=== PATIENT | female | born 1950 | race African-American/Black ===

== ENCOUNTER 2025-04-04 08:54 | Inpatient (IN) | payer MEDICARE, SELFPAY ==
--- OUTSIDE RECORDS SUMMARY | 2013-04-07 10:29 | XMS_ITS | Continuity of Care Document ---
Author Organization [facility] [employer] Address [address] [place] [address] Phone Care Team Providers Care Meter Tester Primary Name Role Phone Yas Fonseca MD Unavailable Unavailabl e Allergies, Adverse Reactions, Alerts Substance Reaction Status Criticality MANDEEP Inhibitors Other Active No Informatio n Medications Medication Instructions Dosage Effective Dates (start - stop) Status Comments Norvasc 10 mg Tab take 1 tablet (10MG) by oral route every day 10 MG - Active Coreg CR 40 mg 24 hr Cap take 1 capsule (40MG) by oral route every day 40 MG - Active Bystolic 10 mg Tab take 1 tablet (10MG) by oral route every day 10 MG - Active loratadine 10 mg capsule USE DAILY NEEDED - Active hydralazine 100 mg tablet take 1 tablet (100MG) by oral route 3 times every day with food 100 MG - Active clonidine 0.2 mg Tab take 1 tablet (0.2MG) by oral route 3 times every day 0.2 MG - Active DR DOCKERY Klor-Con 10 10 mEq tablet,extended release take 3 Tablet (30MEQ) by oral route 2 times every day with food 30 MEQ - Active Lasix 80 mg Tab take 1 tablet (80MG) by oral route 2 times every day 80 MG - Active NAHED INCREASED 06/16 OS-JAMA 500 1.25G TABS 1 BID - Active metolazone 5 mg tablet take 1 tablet (5MG) by oral route every day 5 MG - Active Diovan 320 mg Tab take 1 tablet (320MG) by oral route every day 320 MG - Active Advance Directives Directive Yes / No Effective Date File Name No Information Encounters Encounter Description Practice Location Reason(s) For Visit Diagnoses Date Provider Providers Copied on Encounter Col[facility] [address], [place], [place], [address] , tel: [phone] [place] No Information 3 Fonseca Yas. [address] [place], [place], [id number]. tel:[phone] Col[facility] Montgomery, [address], [place], [place], [address] , [place] tel: [phone] [place] No Information 3 Fonseca Yas. [address] [place], [place], [id number]. tel:[phone] [facility], [address], [place], [place], [address] , [place] tel: [phone] [place] No Information 0 3 Fonseca Yas. [address] [place], [address]. tel:[phone] [facility], [address], [place], [place], [address] , [place] tel: [phone] [place] No Information 3 Fonseca Yas. [address] [place], [address]. tel:[phone] [facility], [address], [place], [place], [address] , [place] tel: [phone] [place] No Information 3 Fonseca Yas. [address] [place], [address]. tel:[phone] [facility], [address], [place], [place], [address] , [place] tel: [phone] [place] Routine general medical examination at a health care facilityChronic kidney disease, stage III (moderate)Hypertens ion, renalRoutine general medical examination at a health care facility 3 Fonseca Yas. [address] [place], [place], [address]. tel:[phone] Referring Provider: Yas Fonseca, [address] [place], [address] . tel:[phone] [facility], [address], [place], [place], [address] , tel: [phone] [place] Unspecified essential hypertensionOTHER ABNORMAL GLUCOSEScreening for lipoid disordersLong-term (current) use of other medications 0 3 Fonseca Yas. [address] [place], [address]. tel:[phone] Referring Provider: Yas Fonseca, [address] [place], [address] . tel:[phone] [facility], [address], [place], [place], [address] , tel: [phone] [place] HYPERTENSION NOSMORBID OBESITYAORTIC ATHEROSCLEROSISRena l insufficiencyPre-di abetes 2 Raymundo Arnoldh. [address] [place], [address]. tel:[phone] Referring Provider: Yas Fonseca, [place], [address] . tel:[phone] [facility], [address], [place], [place], [address] , tel: [phone] [place] Unspecified essential hypertensionLong-te rm (current) use of other medications 2 Fonsecaulisses Arnoldh. [address] [place], [address]. tel:[phone] Referring Provider: [place], [address] . tel:[phone] [facility], [address], [place], [place], [address] , tel: [phone] [place] Unspecified essential hypertension 2 Raymundo Arnoldh. [address] [place], [place], [address]. tel:[phone] Referring Provider: Yas Fonseca, [address] [place], [address] . tel:[phone] [facility], [address], [place], [place], [address] , tel: [phone] [place] No Information May-0 7-201 2 Fonseca Yas. [address] [place], [place], [address]. tel:[phone] Referring Provider: Yas Fonseca, [address] [place], [address] . tel:[phone] [facility], [address], [place], [place], [address] , tel: [phone] [place] Unspecified essential hypertensionMORBID OBESITY Feb-0 2-201 2 Raymundo Sorenson. [address] [place], [address]. tel:[phone] Referring Provider: Yas Fonseca, [address] [place], [address] . tel:[phone] [facility], [address], [place], [place], [address] , [place] tel: [phone] [place] HYPERTENSION NOS Dec-2 2-201 1 Fonseca Yas. [address] [place], [address]. tel:[phone] Referring Provider: Yas Fonseca, [address] [place], [address] . tel:[phone] [facility], [address], [place], [place], [address] , tel: [phone] [place] Unspecified essential hypertensionUnspeci fied essential hypertensionMORBID OBESITY Nov-3 0-201 1 Raymundo Sorenson. [address] [place], [address]. tel:[phone] Referring Provider: Yas Fonseca, [address] [place], [address] . tel:[phone] [facility], [address], [place], [place], [address] , [place] tel: [phone] [place] Allergic rhinitis, cause unspecified 1 Raymundo Yas. [address] [place], [place], [address]. tel:[phone] Referring Provider: Yas Fonseca, [address] [place], [address] . tel:[phone] [facility], [address], [place], [place], [address] , [place] tel: [phone] [place] Screening for lipoid disordersNEED FOR PROPHYLACTIC VACCINATION AND INOCULATION, INFLUENZA 1 Fonseca Yas. [address] [place], [address]. tel:[phone] Referring Provider: Yas Fonseca, [address] [place], [address] . tel:[phone] [facility], [address], [place], [place], [address] , [place] tel: [phone] [place] No Information 1 Fonseca Yas. [address] [place], [place], [address]. tel:[phone] [facility], [address], [place], [place], [address] , [place] tel: [phone] [place] HYPERTENSION NOS 1 Fonseca Yas. [address] [place], [place], [address]. tel:[phone] [facility], [address], [place], [place], [address] , [place] tel: [phone] [place] MORBID OBESITY 1 Raymundo Arnoldh. [address] [place], [address]. tel:[phone] [facility], [address], [place], [place], [address] , [place] tel: [phone] [facility] AORTIC ATHEROSCLEROSISESOP HAGEAL REFLUXALLERGIC RHINITIS NOS 1 Raymundo Arnoldh. [address] [place], [address]. tel:[phone] [facility], [address], [place], [place], [address] , tel: [phone] [place] ROUTINE MEDICAL EXAM 0 Raymundo Goinsorah. [address] [place], [address]. tel:[phone] [facility], [address], [place], [place], [address] , tel: [phone] [place] No Information 5 Raymundo Arnoldh. [address] [place], [address]. tel: [phone] [facility], [address], [place], [place], [address] , tel: [phone] [place] VACCIN FOR INFLUENZA 3 [facility] Doctor. [address] [place] [address], [address], . Family History Family Member Type Diagnosis Age At Onset Mother Problem (finding) osteoarthritis Mother Problem (finding) Obesity Mother Problem (finding) migraine Mother Problem (finding) hypertension Immunizations Vaccine Date Status Comments Flu (split) (3 yrs or older) administered Note: [facility] 41224-382-23 ; Source: New Immunization Record Flu (split) (3 yrs or older) administered Source: New Immunization Record 70964 - Influenza administered Source: [place] Unspecified 65316 - Influenza administered Source: [place] Unspecified Payers Payer name Insurance type Covered constitution party ID Authorjocelynea tiyosvany(s) [facility] [id number] Social History Type Description Quantity Date Captured Comments Alcohol Use Details Unknown Caffeine Use Details Unknown Tobacco Use Status No Information Smoking Status No Information Sex Female Chief Complaint And Reason For Visit No Information Reason For Referral Reason For Referral No Information History Of Present Illness Encounter Date Complaint History Of Prese nt Illness No Information Functional Status Date Functional Assessmen t No Information Instructions Date Instruction Additional Infor mation No Information Assessments Type Assessment Date No Information Patient Care Teams Name Effective Dates (start - stop) Status Members No Information
[2025-04-04] VITALS (75 sets, daily range): BP systolic 98–142; BP diastolic 41–99; PULSE 29–91; RESP 16–28; TEMP 27.9–36; O2SAT 90–97; BMI 48.6
--- NOTE | 2025-04-04 | ECHO_ITS ---
Patient Info Name: Yolanda Dupont Age: 74 years : 1950 Gender: Female Ht: 67 in Wt: 305 lbs BSA: 2.63 m2 HR: 35 bpm BP: 121 / 94 mmHg Heart Rhythm: Bradycardia Technical Quality: Good Exam Date: 04/04/2025 3:49 PM Patient Status: I Admit Date: 04/04/2025 Exam Type: CA echo dop color flow w con Complete two-dimensional, color flow and Doppler transthoracic echocardiogram is performed with contrast to opacify the left ventricle and to improve the deliniation of the left ventricle endocardial borders. Staff Referring Physician: Aniceto Stahl MD [employer] Lead: Deneen Hendrickson Attending Provider: Hema Snow Contrast/Agitated Saline Contrast/Ag. Saline: Definity Amount: 2.00 ml Administered By: Deneen Hendrickson Existing IV Access: Yes IV Access Condition: patent with no signs of infiltration Summary 1. Left ventricular systolic function is normal, estimated at 60-65. 2. The left ventricular diastolic function is abnormal. 3. Right ventricular chamber dimension is moderately enlarged. 4. Right ventricular systolic function is normal. 5. Left atrial chamber dimension is mildly enlarged. 6. Right atrial chamber dimension is severely enlarged. 7. There is mild mitral valve regurgitation. 8. There is moderate tricuspid valve regurgitation. 9. Moderate pulmonary hypertension, estimated pulmonary arterial systolic pressure is 48 mmHg. 10. There is mild pulmonic regurgitation. Left Ventricle Left ventricular chamber dimension is normal. Left ventricular systolic function is normal, estimated at 60-65. There is no increased left ventricular wall thickness. Left ventricular septal wall motion is normal. The left ventricular diastolic function is abnormal. Right Ventricle Right ventricular chamber dimension is moderately enlarged. Right ventricular systolic function is normal. Left Atria Left atrial chamber dimension is mildly enlarged. Right Atria Right atrial chamber dimension is severely enlarged. Aortic Valve The aortic valve is trileaflet. There is no aortic valve sclerosis. There is no aortic valve stenosis. There is no aortic valve regurgitation. Pulmonic Valve The pulmonic valve is normal. There is no pulmonic valve stenosis. There is mild pulmonic regurgitation. Mitral Valve The mitral valve has normal leaflets. There is no mitral valve stenosis. There is mild mitral valve regurgitation. Tricuspid Valve The tricuspid valve leaflets are normal. There is no significant tricuspid valve stenosis. There is moderate tricuspid valve regurgitation. Moderate pulmonary hypertension, estimated pulmonary arterial systolic pressure is 48 mmHg. Pericardium/Pleural The pericardium appears normal. There is no pericardial effusion. Inferior Vena Cava Normal inferior vena cava with <50% collapse upon inspiration consistent with elevated right atrial pressure, 15 mmHg. Aorta The aortic root size at the sinus of Valsalva is normal. The prox ascending aorta size is normal. Left Ventricular Outflow Tract Name Value Normal LVOT 2D LVOT Diameter 1.9 cm LVOT Doppler LVOT Peak Velocity 134 cm/s LVOT Peak Gradient 7 mmHg LVOT Mean Gradient 3 mmHg LVOT VTI 31 cm LVOT VTI/AV VTI Ratio 0.7 LVOT Stroke Volume 91 ml LVOT CO 3.2 l/min LVOT CI 1.2 l/min/m2 Pulmonic Valve Name Value Normal RVOT Doppler RVOT Peak Velocity 93 cm/s RVOT Peak Gradient 3 mmHg PV Doppler PV Peak Velocity 149 cm/s PV Peak Gradient 9 mmHg Mitral Valve Name Value Normal MV Doppler MV Peak Gradient 7 mmHg MV Mean Gradient 2 mmHg MV Area (Cont Eq VTI) 2.7 cm2 MV Diastolic Function MV E Peak Velocity 132 cm/s MV A Peak Velocity 1 cm/s MV E/A 98.1 MV Decel Time (PW) 340 ms MV Annular TDI MV E/e' (Septal) 20.4 MV E/e' (Lateral) 15.6 MV E/e' (Average) 18.0 Tricuspid Valve Name Value Normal TV Regurgitation Doppler TR Peak Velocity 285 cm/s TR Peak Gradient 33 mmHg Estimated PAP/RSVP RA Pressure 15 mmHg <=5 PA Systolic Pressure 48 mmHg <36 RV Systolic Pressure 48 mmHg <36 TV Annular TDI TV Lateral Sowmya s' Velocity 9.7 cm/s >=9.5 Aorta Name Value Normal Ascending Aorta Ao Root Diameter (MM) 2.8 cm Ao Root Diam Index (MM) 1.0 cm/m2 Aortic Valve Name Value Normal AV Doppler AV Peak Velocity 156 cm/s AV Peak Gradient 10 mmHg AV Mean Gradient 5 mmHg AV VTI 41 cm AV Area (Cont Eq VTI) 2.2 cm2 >=3.0 AV Area (Cont Eq Paulo) 2.6 cm2 AV DI (Paulo) 0.86 AV Regurgitation 2D LVOT Area 3.0 cm2 Ventricles Name Value Normal LV Dimensions 2D/MM IVS Diastolic Thickness (2D) 1.2 cm 0.6-1.0 LVID Diastole (2D) 5.7 cm 3.8-5.2 LVIW Diastolic Thickness (2D) 1.2 cm 0.6-0.9 LVID Systole (2D) 3.2 cm 2.2-3.5 LVOT Diameter 1.9 cm LV Mass (2D Cubed) 284.41 g 67.00-162.00 LV Mass Index (2D Cubed) 108 g/m2 43-95 Relative Wall Thickness (2D) 0.43 <=0.42 LV Fractional Shortening/Ejection Fraction 2D/MM LV Fractional Shortening (2D) 44 % 27-45 LV EF (2D Teichholz) 74 % LV Diastolic Volume (4C MOD) 110 ml LV EF (4C MOD) 78 % LV Diastolic Volume (2C MOD) 108 ml LV EF (2C MOD) 71 % LV Diastolic Volume (BP MOD) 109 ml 46-106 LV Diastolic Volume Index (BP MOD) 41 ml/m2 29-61 LV Systolic Volume (BP MOD) 28 ml 14-42 LV Systolic Volume Index (BP MOD) 11 ml/m2 8-24 LV EF (BP MOD) 74 % 54-74 LV Diastolic Length (4C) 8.1 cm LV Systolic Length (4C) 6.0 cm LV Stroke Volume (4C MOD) 85 ml Atria Name Value Normal LA Dimensions LA Dimension (MM) 5.5 cm 2.7-3.8 LA Volume (4C A-L) 127 ml LA Volume (BP A-L) 147 ml RA Dimensions RA Area (4C) 38.2 cm2 <=18.0 Report Signatures
--- NOTE | ~2025-04-04 | CT_ITS ---
CHEST ABDOMEN PELVIS WITHOUT CONTRAST CLINICAL HISTORY: Hematuria, CHF, ? Pneumonia, Obese . COMPARISON: Chest x-ray today TECHNIQUE: Helical CT performed from thoracic inlet to symphysis pubis Coronal, sagittal reformats CT images acquired with automatic exposure control for dose reduction DLP: 1949 mGy-cm FINDINGS: CHEST- Lungs/Pleura: Scattered foci bilateral airspace disease. Large pleural effusions. Bibasilar atelectasis. Thoracic Aorta: No aneurysm. Pulmonary arteries: Prominent. Heart: Cardiomegaly. Coronary artery calcifications. Tracheobronchial tree: Right basilar occlusive foci. Nodes: No enlarged nodes. Small hilar calcification. Bones: No acute bony abnormality. Soft tissues: Thyroid nodules. ABDOMEN/PELVIS- Liver: Enlarged. Nodular surface. Gallbladder: Contracted and/or absent. Spleen: Unremarkable. Pancreas: Unremarkable. Adrenal glands: Unremarkable. Kidneys: Horseshoe kidney. Right kidney- No hydronephrosis. No renal stones. Large cyst. Left kidney- No hydronephrosis. No renal stones. Large cyst. Distal esophagus/stomach: Unremarkable. Small bowel loops: Normal caliber and wall thickness. Colon: Normal caliber and wall thickness. Appendix not seen. Stool-filled rectum. Nodes: No enlarged nodes. Peritoneum: No ascites. No free air. Urinary bladder: Collapsed around Yadav catheter. Uterus: Removed. Adnexa: No masses. Bones: No acute bony abnormality. Soft tissues: Body wall anasarca. Aorta: No aneurysm. IVC: Unremarkable. IMPRESSION: CHEST- 1. Pulmonary edema and/or multifocal pneumonia. 2. Large pleural effusions. ABDOMEN/PELVIS- 1. No acute abnormality. Reviewed, dictated and finalized at location R. UITWARE BRUSHER
--- NOTE | ~2025-04-04 | XR_ITS ---
EXAMINATION: XR chest 1V portable COMPARISON: No comparisons available. HISTORY: shortness of breath FINDINGS: Moderate pulmonary venous congestion. Bilateral infiltrates. No pneumothorax. Moderate cardiomegaly. Mediastinal and hilar contours are within normal limits. Bony thorax no acute abnormality. Miscellaneous: None Impression: Bilateral pneumonia superimposed on probable CHF. Reviewed, dictated and finalized at location P. NING MANAGER Impression: Bilateral pneumonia superimposed on probable CHF.
--- NOTE | ~2025-04-04 | XR_ITS ---
EXAMINATION: XR chest PICC line DATE: 04/04/2025 15:44 INDICATION: PICC line placement TECHNIQUE: frontal view of the chest was obtained. COMPARISON: Chest radiograph and CT dated 04/04/2025 FINDINGS: Interval placement of a right upper extremity peripherally inserted central venous catheter (PICC) tip at the superior cavoatrial junction. Again seen are perihilar predominant interstitial and airspace opacities with some worsening opacities in bilateral lower lung zones. Small bilateral pleural effusions seen on earlier CT are not clearly discernible on the current radiograph. No pneumothorax. Cardiomegaly. IMPRESSION: 1. Right upper 70 PICC line tip in expected position at the superior cavoatrial junction. 2. Perihilar and lower lung predominant interstitial and airspace opacities with increase in the lower lung zones which could represent worsening pulmonary edema and/or pneumonia. Reviewed, dictated and finalized at location A. GAUGER IMPRESSION: 1. Right upper 70 PICC line tip in expected position at the superior cavoatrial junction. 2. Perihilar and lower lung predominant interstitial and airspace opacities wit h increase in the lower lung zones which could represent worsening pulmonary ed abby and/or pneumonia.
--- NOTE | ~2025-04-04 | CT_ITS ---
EXAMINATION: CT brain wo con DATE: 04/04/2025 09:49 INDICATION: Altered mental status. TECHNIQUE: Computed tomography (CT) of the head was performed without intravenous contrast. The mA was adjusted according to patient size. Iterative reconstruction technique was employed. The dose-length product was 1416.41 mGy-cm. COMPARISON: None FINDINGS: There are scattered areas of low attenuation in the cerebral white matter. There is no intracranial hemorrhage, acute infarction, or abnormal intracranial mass lesion. The ventricles are normal in size. There is mild mucosal thickening in the paranasal sinuses. The orbits are normal. The mastoid air cells are normal. IMPRESSION: 1. Moderate nonspecific cerebral white matter disease, which likely represents chronic small vessel ischemic disease. Reviewed, dictated and finalized at location E. STANT STORE LEADER
--- NOTE | ~2025-04-04 | XR_ITS ---
EXAMINATION: XR chest 1V portable COMPARISON: No comparisons available. HISTORY: 24 hours post pacemaker insertion FINDINGS: Moderate pulmonary venous congestion. No pneumothorax. Moderate cardiomegaly. Mediastinal and hilar contours are within normal limits. Bony thorax no acute abnormality. Miscellaneous: Left pacemaker. Right PICC line terminates in the SVC. Impression: CHF. No pneumothorax Reviewed, dictated and finalized at location P. RICAL CONTROL TOOL PROGRAMMER Impression: CHF. No pneumothorax
--- NOTE | ~2025-04-04 | XR_ITS ---
EXAMINATION: XR chest 1V portable COMPARISON: No comparisons available. HISTORY: pulmonary edema FINDINGS: Moderate pulmonary venous congestion. No pneumothorax. Moderate cardiomegaly. Mediastinal and hilar contours are within normal limits. Bony thorax no acute abnormality. Miscellaneous: Right PICC line terminates in the SVC. Impression: CHF. The findings appear slightly improved compared to the previous study. Reviewed, dictated and finalized at location P. Y RECORD CLERK Impression: CHF. The findings appear slightly improved compared to the previous study.
--- NOTE | ~2025-04-04 | XR_ITS ---
EXAMINATION: XR chest 1V portable COMPARISON: No comparisons available. HISTORY: coarse lung sounds FINDINGS: Moderate pulmonary venous congestion. No pneumothorax. Moderate cardiomegaly. Mediastinal and hilar contours are within normal limits. Bony thorax no acute abnormality. Miscellaneous: Left pacemaker. Right PICC line in the SVC. Impression: CHF. Superimposed early pneumonia versus reactive. The findings appear progressed compared to the prior study Reviewed, dictated and finalized at location P. COPY EXAMINER Impression: CHF. Superimposed early pneumonia versus reactive. The findings appear progress ed compared to the prior study
--- NOTE | ~2025-04-04 | XR_ITS ---
EXAMINATION: XR chest 1V portable COMPARISON: No comparisons available. HISTORY: pacemaker insertion FINDINGS: Moderate pulmonary venous congestion. Bilateral infiltrates. No pneumothorax. Moderate cardiomegaly. Mediastinal and hilar contours are within normal limits. Bony thorax no acute abnormality. Miscellaneous: Left pacemaker. Right PICC line in the SVC. Impression: CHF. No pneumothorax. Superimposed pneumonia is suspected Reviewed, dictated and finalized at location P. BUSINESS ANALYST Impression: CHF. No pneumothorax. Superimposed pneumonia is suspected
--- NOTE | 2025-04-04 09:08 | ECG_ITS ---
Test Date: 2025-04-04 09:54:48 Measurements Intervals [place] Rate: 29 P: 0 TX: 0 QRS: 42 QRSD: 121 T: 51 QT: 674 QTc: 471 Interpretive Statements ATRIAL FIBRILLATION WITH VERY SLOW VENTRICULAR RESPONSE INCOMPLETE LEFT BUNDLE BRANCH BLOCK BASELINE ARTIFACT- I, II, III, AVR, AVL, AVF, V1-V4 ABNORMAL ECG No previous ECG available for comparison Electronically Signed On 04-04-2025 10:48:25 [employer] by Goldy Arguello D.O.
[2025-04-04] MEDS: IPRATROPIUM 0.5 MG/ALBUTEROL SULFATE 2.5 MG (BASE) AMPUL.NEB 3 ML INHALATION (09:22)
[2025-04-04 09:24] LABS: Immature Granulocyte Percent A 0.7 % (0-0.5); Lymphocytes Absolute Auto 0.36 K/mm3 (0.9-3.2); Mean Corpuscular HGB Conc 30.9 g/dl (32-36); Mean Corpuscular Hemoglobin 33.1 pg (26-34); Mean Corpuscular Volume 107.2 fl (80-100); Nucleated Red Blood Cells Absolute Auto 0.030 K/mm3 (0.0-0.012); Nucleated Red Blood Cells Perc 0.7 % (0.0-0.2); Platelet Count Result 174 k/mm3 (150-375); Red Blood Count 1.81 M/mm3 (4.2-5.4); White Blood Count 4.2 K/mm3 (4.5-10.0)
[2025-04-04 09:26] LABS: Hemoglobin 6.0 g/dL (12.0-15.0)
[2025-04-04 09:27] LABS: Hematocrit 19.4 % (37.0-47.0)
--- NOTE | 2025-04-04 09:44 | ED_ITS ---
HPI - General Adult General Chief complaint: Altered Mental Status Stated complaint: AMS sob Time Seen by Provider: 04/04/25 09:05 History of Present Illness HPI narrative: [facility], she has been having slight shortness of breath, also noticed to have blood in her urine starting today. She has history of AFib on blood thinners. To me she is denying any complaints, no abdominal pain, she does report some very slight shortness of breath. Related Data Allergies Allergy/AdvReac Type Severity Reaction Status Date / Time amoxicillin AdvReac Intermediate Nausea and Verified 04/04/25 09:11 Vomiting ampicillin AdvReac Intermediate Nausea and Verified 04/04/25 09:11 Vomiting Review of Systems 2 Review of Systems: All systems reviewed & are unremarkable except as noted in HPI and below Exam 2 Narrative: EXAMINATION OF ORGAN SYSTEMS/BODY AREAS: Constitutional: Vital signs per nursing GENERAL:[No acute distress, non-toxic appearing.] HEAD: Normal with no signs of head trauma. EYES: EOMI, conjunctiva normal ENT: Hearing grossly intact LUNGS: Nonlabored breathing. Tiny amount of end expiratory wheezing HEART: [Regular rate and rhythm] ABD: [Soft], [nontender to palpation] EXT: Swelling bilateral legs RECTAL: Dark stool, hemoccult + SKIN: [No rashes or lesions.] NEURO: [Alert. No gross focal sensory or strength deficits.] PSYCH: Normal affect Course Vital Signs Vital signs: Vital Signs Pulse Rate 38 L 04/04/25 09:03 Respiratory Rate 16 04/04/25 09:03 Blood Pressure 106/56 L 04/04/25 09:03 Pulse Oximetry 94 04/04/25 09:03 Pulse Rate 57 L 04/04/25 09:30 Respiratory Rate 20 04/04/25 09:30 Blood Pressure 106/56 L 04/04/25 09:03 Pulse Oximetry 94 04/04/25 10:08 Oxygen Delivery Autopap 04/04/25 10:08 Medical Decision Making [facility] Narrative Medical decision making narrative: Patient presents here with some slight shortness of breath, per family she has also seemed a little bit confused. Is currently in [facility]iary due to difficulty with her walking. On exam she is in no distress, very slight wheezing to bilateral lung base. Labs have returned with hemoglobin of 6, for which I ordered transfusion, she did have some slight blood in her urine, her Yadav is changed out, will check for UTI. I did ask about her stools, she has not noticed them being bloody, but family says that they may have been more dark than usual. On exam she does have some slight melena, Hemoccult-positive. She does have a BUN of 115 and creatinine was 2.17 which may also be from the GI bleed. EKG - 12-Lead: Performed at 0954. Interpreted by me. Atrial fibrillation. Rate 29. [Normal] axis. QRS duration 121. QTc 471. Very slight ST depressions in lateral leads. Chest x-ray does show possible CHF with superimposed pneumonia. Antibiotics started. Given her low hemoglobin and the bleeding from her GI tract and , I did obtain a CT brain since she was confused, thankfully unremarkable. Discussed with GI, Cardiology who agreed to consult, discussed with hospitalist for admission. Vital Signs Vital Signs: Vital Signs Pulse Rate 38 L 04/04/25 09:03 Respiratory Rate 16 04/04/25 09:03 Blood Pressure 106/56 L 04/04/25 09:03 Pulse Oximetry 94 04/04/25 09:03 Pulse Rate 57 L 04/04/25 09:30 Respiratory Rate 20 04/04/25 09:30 Blood Pressure 106/56 L 04/04/25 09:03 Pulse Oximetry 94 04/04/25 10:08 Oxygen Delivery Autopap 04/04/25 10:08 Lab Data 04/04/25 09:15 04/04/25 09:15 Labs: Lab Results 04/04/25 04/04/25 Range/Units 09:15 10:05 WBC 4.2 L (4.5-10.0) K/mm3 RBC 1.81 L (4.2-5.4) M/mm3 Hgb 6.0 L* (12.0-15.0) g/dL Hct 19.4 L* (37.0-47.0) % MCV 107.2 H (80-100) fl MCH 33.1 (26-34) pg MCHC 30.9 L (32-36) g/dl RDW 18.4 H (11.5-14.5) % Plt Count 174 (150-375) k/mm3 MPV 10.2 (7.4-10.4) fl Immature Gran % (Auto) 0.7 H (0-0.5) % Neut % (Auto) 81.2 H (45.5-73.1) % Lymph % (Auto) 8.6 L (18.3-44.2) % [place] % (Auto) 6.7 (2.6-8.5) % Eos % (Auto) 2.6 (0-4.4) % Baso % (Auto) 0.2 (0.2-1.2) % Lymph # (Auto) 0.36 L (0.9-3.2) K/mm3 [place]on # (Auto) 0.3 (0.1-0.6) K/mm3 Eos # (Auto) 0.1 (0-0.3) K/mm3 Baso # (Auto) 0.0 (0.0-0.1) K/mm3 Abs Immat Gran (auto) 0.03 (0.00-0.031) K/mm3 Absolute Neuts (auto) 3.4 (1.3-6.7) K/mm3 Absolute Nucleated RBC 0.030 H (0.0-0.012) K/mm3 Band Neutrophils % Not Reportable Nucleated RBC % 0.7 H (0.0-0.2) % Platelet Estimate Adequate (Adequate) Hypochromasia 1+ Anisocytosis 1+ Macrocytosis 1+ (NORMAL) Target Cells Occasional Shara Cells 1+ Schistocytes 1+ Sodium 130 L (137-145) mmol/L Potassium 5.1 H (3.4-5.0) mmol/L Chloride 104 (98-107) mmol/L Carbon Dioxide 14 L (22-30) mmol/L Anion Gap 12 (4-12) mmol/L BUN 115 H* (7-17) mg/dL Creatinine 2.17 H (0.7-1.0) mg/dL Estim Creat Clear Calc 30 ml/min Estimated GFR 22 L (59 - ) Glucose 103 (65-110) mg/dL Calcium 8.8 (8.4-10.2) mg/dL Iron Pending TIBC Pending % Saturation Pending Total Bilirubin 0.4 (0.2-1.3) mg/dL AST 38 H (14-36) U/L ALT 34 (6-35) U/L Alkaline Phosphatase 137 H (38-126) U/L Troponin I 0.014 (0.000-0.034) ng/mL Total Protein 7.3 (6.3-8.2) g/dL Albumin 3.6 (3.5-5.1) g/dL Blood Type Pending Antibody Screen Pending Crossmatch See Detail Critical Care Time Critical Care Time Critical Care Time: Yes Total Critical Care Time: 31 Discharge Plan Discharge Clinical Impression: GI bleed, Anemia, Bradycardia, Pneumonia Patient Disposition: Still a Patient Condition: Serious Patient Language: Mauritanian Follow-up/Referrals: Onur,Antelmo Persaud DO [Primary Care Provider, Unknown]
[2025-04-04 09:48] LABS: Anisocytosis 1+; Burr Cells 1+; Hypochromasia 1+; Macrocytosis 1+ (NORMAL); Target Cells Occasional
[2025-04-04 09:49] LABS: Schistocytes 1+
[2025-04-04 09:58] LABS: Alanine Aminotransferase 34 U/L (6-35); Albumin Level 3.6 g/dL (3.5-5.1); Alkaline Phosphatase 137 U/L (38-126); Anion Gap 12 mmol/L (4-12); Aspartate Amino Transferase 38 U/L (14-36); Bilirubin,Total 0.4 mg/dL (0.2-1.3); Calcium 8.8 mg/dL (8.4-10.2); Carbon Dioxide 14 mmol/L (22-30); Chloride 104 mmol/L (98-107); Estimated CRCL calculation 30 ml/min; Estimated Glomerular Filt Rate 22; Glucose 103 mg/dL (65-110); Potassium 5.1 mmol/L (3.4-5.0); Sodium 130 mmol/L (137-145); Total Protein 7.3 g/dL (6.3-8.2)
[2025-04-04 10:07] LABS: Blood Urea Nitrogen 115 mg/dL (7-17)
--- NOTE | 2025-04-04 10:25 | PM.CNCAR ---
Assessment and Plan Assessment and plan (1) Bradycardia: Code(s): R00.1 - Bradycardia, unspecified Status: Acute Assessment and Plan: She has atrial fibrillation with slow ventricular response, heart rate in the 30's. She is asymptomatic, but her most recent systolic BP is 78 mmHg. Will start dopamine drip at 2.5mcg/kg/min for increased heart rate and blood pressure support if she remains bradycardic and hypotensive, will consider transvenous pacing Need for PPM to be determined by her clinical course ICU for monitoring while titrating dopamine (2) GI bleed: Code(s): K92.2 - Gastrointestinal hemorrhage, unspecified Status: Acute Assessment and Plan: Hold anticoagulation for now. GI has been consulted. Receiving PRBC's. History of Present Illness History of Present Illness Consult date/time: 04/04/25 10:25 Requesting physician: Court George MD Consult reason: Other (bradycardia) Reason For Visit: AMS sob Narrative: Yolanda Dupont is a 74 year old female with coronary artery disease, hypertension, mild pulmonary hypertension, chronic kidney disease who presented to the emergency department because of melena. Cardiology is consulted for bradycardia. The majority of her history was obtained from the patient's daughter who is at the bedside. According to patient's daughter, she was diagnosed with atrial fibrillation in December of this year and has had low heart rate in the 30's for since that time. Apparently she was on amiodarone for a period of time but was taken off of it. Today her EKG and telemetry demonstrate atrial fibrillation with slow ventricular response. She denies any syncope, pre-syncope, chest pain, shortness of breath. She has no active complaints at the time of my evaluation. Review of Systems Review of Systems: All systems reviewed & are unremarkable except as noted in HPI and below PMFSH Past Medical History Medical History (Updated 04/04/25 @ 11:50 by Ilir Gonzalez MD) Coronary artery disease Hyperlipidemia GERD (gastroesophageal reflux disease) Obstructive sleep apnea Essential hypertension Atrial fibrillation Obesity Congestive heart disease Cervical spondylosis Constipation Chronic kidney disease Surgical History Surgical History (Updated 04/04/25 @ 11:49 by Ilir Gonzalez MD) H/O cervical spine surgery Social History Social History Social History: No history of smoking, alcohol use or drug use. Patient is a resident of long term. Meds Home Medications and Allergies Allergies Allergy/AdvReac Type Severity Reaction Status Date / Time amoxicillin AdvReac Intermediate Nausea and Verified 04/04/25 09:11 Vomiting ampicillin AdvReac Intermediate Nausea and Verified 04/04/25 09:11 Vomiting Vital Signs Vital Signs - 24 hr 04/04/25 09:03 04/04/25 09:23 04/04/25 09:30 Pulse Rate 38 L 58 L 57 L Respiratory Rate 16 20 20 Blood Pressure 106/56 L Pulse Oximetry 94 Oxygen Delivery 04/04/25 10:08 Pulse Rate Respiratory Rate Blood Pressure Pulse Oximetry 94 Oxygen Delivery Autopap Exam Const: General: comfortable, no acute distress, alert and awake Orientation/consciousness: patient oriented x3 HENMT: Head: normal to inspection Eyes: General: appearance normal, both eyes and all related structures Pupils: Equal, round and reactive pupils present Neck: Neck: normal visual inspection, supple and no JVD Carotids: normal carotid upstroke Resp: Effort & Inspection: normal respiratory effort Auscultation: rales Cardio: Rate: bradycardic Rhythm: abnormal rhythm irregularly irregular Heart sounds: S1 normal heart sound present, S2 normal heart sound present and no murmurs GI: Auscultation: normal bowel sounds Skin: General skin exam: normal color Neuro: General: patient oriented x3 Cranial nerves: Yes Equal, round and reactive pupils present Extrem: General: abnormal to inspection Other: bilateral lower extremity lymphedema. Knee high MANDEEP wraps in place Psych: Appearance: grossly normal Mental Status: mental status grossly normal Results Labs and Meds 04/04/25 09:15 04/04/25 09:15 Lab results: Cardiac Enzymes 04/04/25 Range/Units 09:15 AST 38 H (14-36) U/L CBC 04/04/25 Range/Units 09:15 WBC 4.2 L (4.5-10.0) K/mm3 RBC 1.81 L (4.2-5.4) M/mm3 Hgb 6.0 L* (12.0-15.0) g/dL Hct 19.4 L* (37.0-47.0) % Plt Count 174 (150-375) k/mm3 Lymph # (Auto) 0.36 L (0.9-3.2) K/mm3 [place] # (Auto) 0.3 (0.1-0.6) K/mm3 Eos # (Auto) 0.1 (0-0.3) K/mm3 Baso # (Auto) 0.0 (0.0-0.1) K/mm3 Comprehensive Metabolic Panel 04/04/25 Range/Units 09:15 Sodium 130 L (137-145) mmol/L Potassium 5.1 H (3.4-5.0) mmol/L Chloride 104 (98-107) mmol/L Carbon Dioxide 14 L (22-30) mmol/L BUN 115 H* (7-17) mg/dL Creatinine 2.17 H (0.7-1.0) mg/dL Glucose 103 (65-110) mg/dL Calcium 8.8 (8.4-10.2) mg/dL AST 38 H (14-36) U/L ALT 34 (6-35) U/L Alkaline Phosphatase 137 H (38-126) U/L Total Protein 7.3 (6.3-8.2) g/dL Albumin 3.6 (3.5-5.1) g/dL Patient Weight 04/04/25 23:59 Weight 138.4 kg
--- OUTSIDE RECORDS SUMMARY | 2025-04-04 10:26 | XMS_ITS | Encounter Summary ---
Author Organization [facility] Facility Care Team Providers Care Granular Operator Name Role Phone Candy Carlton MD Primary Care Provider + [phone] Trevor Ashraf MD Primary Care Provider +[phone] Candy Carlton MD Primary Care Provider + [phone] Candy Carlton MD Primary Care Provider + [phone] Trevor Ashraf MD Primary Care Provider [phone] Trevor Ashraf MD Primary Care Provider +[phone] Trevor Ashraf MD Primary Care Provider [phone] Trevor Ashraf MD Primary Care Provider [phone] Trevor Ashraf MD Primary Care Provider [phone] Trevor Ashraf MD Primary Care Provider [phone] Candy Carlton MD Primary Care Provider + [phone] Trevor Ashraf MD Primary Care Provider [phone] Trevor Ashraf MD Primary Care Provider +[phone] Candy Carlton MD Primary Care Provider + [phone] Candy Carlton MD Primary Care Provider + [phone] Trevor Ashraf MD Unavailable +[phone] Encounter Details Date Type Department Care Team (Latest Contact Info) Description 09/16/2017 Orders Only [facility] Provider, MD Chencho [address] [place] [address] Social History Tobacco Use Types Packs/Day Years Used Date Smoking Tobacco: Never Assessed Comments Unknown Sex and Gender Information Value Date Recorded Sex Assigned at Not on file 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 Historical Provider Final Res ult documented in this encounter Visit Diagnoses Not on filedocumented in this encounter Care Teams Granular Operator Relationship Specialty Start Date End Date Candy Carlton MD [address] [place] [address] PCP - General 07/01/18 07/20/18 Trevor Ashraf MD [address] [place] [address] PCP - General 08/02/18 08/30/18 Candy Carlton MD [address] [place] [address] PCP - General 08/31/18 09/15/18 Candy Carlton MD [address] [place] [address] PCP - General 07/21/18 08/01/18 Trevor Ashraf MD [address] [place] [address] PCP - General 10/02/18 11/23/18 Trevor Ashraf MD [address] [place] [address] PCP - General 09/22/18 10/01/18 Trevor Ashraf MD [address] [place] [address] PCP - General 09/16/18 09/21/18 Trevor Ashraf MD [address] [place] [address] PCP - General 01/02/19 03/28/19 Trevor Ashraf MD [address] [place] [address] PCP - General 12/15/18 01/01/19 Trevor Ashraf MD [address] [place] [address] PCP - General 11/24/18 12/14/18 Candy Carlton MD [address] [place] [address] PCP - General Internal Medicine 03/29/19 04/20/19 Trevor Ashraf MD [address] [place] [address] PCP - General 05/04/19 04/16/20 Trevor Ashraf MD [address] [place] [address] PCP - General 04/21/19 05/03/19 Candy Carlton MD [address] [place] [address] PCP - General 05/08/20 Candy Carlton MD [address] [place] [address] PCP - General 04/17/20 05/07/20 Trevor Ashraf MD [address] [place] [address] Consulting Physician Nephrology 10/01/22 documented as of this encounter
--- OUTSIDE RECORDS SUMMARY | 2025-04-04 10:26 | XMS_ITS | Encounter Summary ---
Author Organization [facility] Facility Care Team Providers Care Case Consultant Name Role Phone Candy Carlton MD Primary Care Provider + [phone] Trevor Ashraf MD Primary Care Provider +[phone] Candy Carlton MD Primary Care Provider + [phone] Candy Carlton MD Primary Care Provider + [phone] Trevor Ashraf MD Primary Care Provider +[phone] Trevor Ashraf MD Primary Care Provider [phone] Trevor Ashraf MD Primary Care Provider [phone] Trevor Ashraf MD Primary Care Provider [phone] Trevor Ashraf MD Primary Care Provider +[phone] Trevor Ashraf MD Primary Care Provider [phone] Candy Carlton MD Primary Care Provider + [phone] Trevor Ashraf MD Primary Care Provider +[phone] Trevor Ashraf MD Primary Care Provider +[phone] Candy Carlton MD Primary Care Provider + [phone] Candy Carlton MD Primary Care Provider + [phone] Trevor Ashraf MD Unavailable +[phone] Encounter Details Date Type Department Care Team (Latest Contact Info) Description 10/26/2015 Orders Only [facility] Provider, MD Chen[facility] [address] [place] [address] Social History Tobacco Use Types Packs/Day Years Used Date Smoking Tobacco: Never Assessed Comments Unknown Sex and Gender Information Value Date Recorded Sex Assigned at Not on file 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 Historical Provider Final Res ult documented in this encounter Visit Diagnoses Not on filedocumented in this encounter Care Teams Case Consultant Relationship Specialty Start Date End Date Candy Carlton MD [address] [place] [address] PCP - General 07/01/18 07/20/18 Trevor Ashraf MD [address] [place] [address] PCP - General 08/02/18 08/30/18 Candy Carlton MD [address] [place] [address] PCP - General 08/31/18 09/15/18 Candy Carlton MD [address] [place] [address] PCP - General 07/21/18 08/01/18 Trevor Ashraf MD [address] [place] [address] PCP - General 10/02/18 11/23/18 Trevor Ashraf MD [address] [place] [address] PCP - General 09/22/18 10/01/18 Trevor Ashraf MD [address] [place] [address] PCP - General 09/16/18 09/21/18 Trevor Ashraf MD [address] [place] [address] PCP - General 01/02/19 03/28/19 Trevor Ashraf MD [address] [place] [address] PCP - General 12/15/18 01/01/19 Trevor Ashraf MD [address] [place] [address] PCP - General 11/24/18 12/14/18 Candy Carlton MD [address] [place] [address] PCP - General Internal Medicine 03/29/19 04/20/19 Trevor Ashraf MD [address] [place] [address] PCP - General 05/04/19 04/16/20 Tervor Ashraf MD [address] [place] [address] PCP - General 04/21/19 05/03/19 Candy Carlton MD [address] [place] [address] PCP - General 05/08/20 Candy Carlton MD [address] [place] [address] PCP - General 04/17/20 05/07/20 Trevor Ashraf MD [address] [place] [address] Consulting Physician Nephrology 10/01/22 documented as of this encounter
--- OUTSIDE RECORDS SUMMARY | 2025-04-04 10:26 | XMS_ITS | Encounter Summary ---
Author Organization [facility] Facility Care Team Providers Care Slate Cutter Operator Name Role Phone Candy Carlton MD Primary Care Provider + [phone] Trevor Ashraf MD Primary Care Provider +[phone] Candy Carlton MD Primary Care Provider + [phone] Candy Carlton MD Primary Care Provider + [phone] Trevor Ashraf MD Primary Care Provider [phone] Trevor Ashraf MD Primary Care Provider [phone] Trevor Ashraf MD Primary Care Provider [phone] Trevor Ashraf MD Primary Care Provider +[phone] Trevor Ashraf MD Primary Care Provider +[phone] Trevor Asharf MD Primary Care Provider [phone] Candy Carlton MD Primary Care Provider + [phone] Trevor Ashraf MD Primary Care Provider [phone] Trevor Ashraf MD Primary Care Provider [phone] Candy Carlton MD Primary Care Provider + [phone] Candy Carlton MD Primary Care Provider + [phone] Trevor Ashraf MD Unavailable +[phone] Encounter Details Date Type Department Care Team (Latest Contact Info) Description 07/11/2017 Orders Only [facility] Provider, MD Chen[facility] [address] [place] [address] Social History Tobacco Use Types Packs/Day Years Used Date Smoking Tobacco: Never Assessed Comments Unknown Sex and Gender Information Value Date Recorded Sex Assigned at Not on file 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 Historical Provider Final Res ult documented in this encounter Visit Diagnoses Not on filedocumented in this encounter Care Teams Slate Cutter Operator Relationship Specialty Start Date End Date Candy Carlton MD [address] [place] [address] PCP - General 07/01/18 07/20/18 Trevor Ashraf MD [address] [place] [address] PCP - General 08/02/18 08/30/18 Candy Carlton MD [address] [place] [address] PCP - General 08/31/18 09/15/18 Candy Carlton MD [address] [place] [address] PCP - General 07/21/18 08/01/18 Trevor Ashraf MD [address] [place] [address] PCP - General 10/02/18 11/23/18 Trevor Ashraf MD [address] [place] [address] PCP - General 09/22/18 10/01/18 Trevor Ashraf MD [address] [place] [address] PCP - General 09/16/18 09/21/18 Trevor Ashraf MD [address] [place] [address] PCP - General 01/02/19 03/28/19 Trevor Ashraf MD [address] [place] [address] PCP - General 12/15/18 01/01/19 Trevor Ashraf MD [address] [place] [address] PCP - General 11/24/18 12/14/18 Candy Carlton MD [address] [place] [address] PCP - General Internal Medicine 03/29/19 04/20/19 Trevor Ashraf MD [address] [place] [address] PCP - General 05/04/19 04/16/20 Trevor Ashraf MD [address] [place] [address] PCP - General 04/21/19 05/03/19 Candy Carlton MD [address] [place] [address] PCP - General 05/08/20 Candy Carlton MD [address] [place] [address] PCP - General 04/17/20 05/07/20 Trevor Ashraf MD [address] [place] [address] Consulting Physician Nephrology 10/01/22 documented as of this encounter
--- OUTSIDE RECORDS SUMMARY | 2025-04-04 10:26 | XMS_ITS | Clinical Summary ---
Author Organization [facility] Address [address] [place] [address] Care Team Providers Care Oss Architect Name Role Phone Candy Carlton MD Primary Care Provider [phone] Trevor Ashraf MD Unavailable [phone] Allergies Active Allergy Reactions Criticality Noted Date Comments Azilsartan Medoxomil Unknown 09/03/2018 intolrance Clarithromycin Nausea only Low 09/03/2018 GI issues Minoxidil Other (See comments) Low 09/03/2018 intolerance Medications amLODIPine (NORVASC) 5 mg tablet Take 1 tablet (5 mg total) by mouth daily Active aspirin 81 mg enteric coated tablet Take 1 tablet (81 mg total) by mouth daily Active fluticasone propionate (FLONASE) 50 mcg/actuation nasal spray Administer 1 spray into each nostril daily as needed Active hydrALAZINE (APRESOLINE) 100 mg tablet Take 0.5 tablets (50 mg total) by mouth 3 (three) times a day Active polyethylene glycol (MIRALAX) 17 gram packet Take 1 packet (17 g total) by mouth daily Active rosuvastatin (CRESTOR) 10 mg tablet Take 1 tablet (10 mg total) by mouth daily Active doxazosin (CARDURA) 8 mg tablet Take 1 tablet (8 mg total) by mouth nightly 90 tablet 3 2 Active docusate sodium (COLACE) 100 mg capsule Take 1 capsule (100 mg total) by mouth 2 (two) times a day 5 Active ferrous sulfate ER 324 mg (65 mg iron) EC tablet Take 1 tablet (324 mg total) by mouth daily Active tamsulosin (FLOMAX) 0.4 mg extended release capsule Take 1 capsule (0.4 mg total) by mouth nightly Active Active Problems Problem Noted Date Diagnosed Date Carpal tunnel syndrome 01/10/2025 Gastroesophageal reflux disease 01/10/2025 Low back pain 01/10/2025 Osteoarthritis 01/10/2025 Acute cystitis without hematuria 01/10/2025 Acute urinary retention 01/10/2025 Assessment & Plan (01/10/2025 2:30 PM CDT): Continue doxazosin 8 mg HS and tamsulosin 0.4 mg daily. A voiding trial will be scheduled. NSTEMI (non-ST elevated myocardial infarction) 0 12/28/2024 Assessment & Plan (01/10/2025 2:27 PM CDT): This is subacute but stable. She should continue her current scripting of aspirin 81 mg daily, rosuvastatin 10 mg daily. 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 This can be done post discharge from [facility]. Lymphedema of lower extremity 07/23/2022 Assessment & Plan (01/10/2025 2:29 PM CDT): She confirms this to be chronic. Continue to monitor Impaired glucose tolerance (oral) 01/02/2021 Mixed hyperlipidemia 01/02/2021 Assessment & Plan (01/28/2025 4:13 PM CDT): Follow heart healthy diet, follow up with primary provider and continue rosuvastatin as scripted Assessment & Plan (01/25/2025 1:21 PM CDT): We will continue rosuvastatin 10 mg daily Vitamin D deficiency, unspecified 01/02/2021 Essential hypertension 01/02/2021 Assessment & Plan (01/28/2025 4:13 PM CDT): Chronic, stable. Follow up with primary provider in the interim continue amlodipine, doxazosin, hydralazine as scripted Assessment & Plan (01/25/2025 1:21 PM CDT): This is chronic and currently stable. We will continue the scripting of amlodipine 5 mg daily, doxazosin 8 mg daily, hydralazine 50 mg p.o. t.i.d. Assessment & Plan (01/24/2025 9:13 PM CDT): Blood pressure stable, continue Norvasc 5 mg daily, hydralazine 50 mg t.i.d., doxazosin 8 mg daily Assessment & Plan (01/17/2025 7:30 PM CDT): Blood pressure well controlled, continue multidrug regimen including amlodipine, doxazosin, hydralazine Assessment & Plan (01/13/2025 10:42 PM CDT): Blood pressure stable, continue hydralazine 50 mg t.i.d., doxazosin 8 mg daily, tamsulosin 0.4 mg daily, amlodipine 5 mg daily Assessment & Plan (01/12/2025 2:20 PM CDT): SBP mildly elevated, DBP, were. We will continue current regimen with amlodipine 5 mg daily, hydralazine 50 mg t.i.d., doxazosin 8 mg daily, tamsulosin 0.4 mg daily Assessment & Plan (01/10/2025 2:31 PM CDT): Monitor serial vital signs for trending. Continue amlodipine 5 mg daily, hydralazine 50 mg p.o. t.i.d.. CKD (chronic kidney disease) stage 4, GFR 15-29 ml/min 09/18/2020 Assessment & Plan (01/28/2025 4:16 PM CDT): Avoid nonsteroidal anti-inflammatory drugs or dehydration. She has a associated chronic anemia. Continue ferrous sulfate 324 mg daily, hold aspirin 81 mg daily til seeing pcp, follow up with primary physician within 10 days Chronic constipation 02/28/2020 Obstructive sleep apnea of adult 06/15/2019 CRD (chronic renal disease), stage III 9 Assessment & Plan (01/25/2025 1:30 PM CDT): Stable, BUN/creatinine 39/1.69 with a GFR of 31 . Assessment & Plan (01/18/2025 2:24 PM CDT): Overall stable, BUN/creatinine 42/1.81, with a GFR of 29 . Patient follows with Nephrology as an outpatient. Dr. Ashraf is remotely following labs, updated today Assessment & Plan (01/14/2025 12:36 PM CDT): Stable, BUN/Cr 40/1.68, GFR 32 Assessment & Plan (01/12/2025 2:18 PM CDT): Stable, BUN/creatinine 41/1.63 with a GFR of 33. Follows with Nephrology as an outpatient. 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 Today she is moving across the street to outpatient infusion for blood transfusion. We will continue the epoetin 40292 units subcutaneous weekly, ferrous sulfate 325 mg daily, and follow up labs are pending tomorrow Assessment & Plan (01/25/2025 1:30 PM CDT): Improved, status post 2 doses of Epogen, 1 unit packed red blood cells yesterday. Current H&H 7.6/25.7. We will start weekly Epogen 38338 units Assessment & Plan (01/18/2025 2:26 PM CDT): H&H stable but remains low, currently 7.0/23.0 Iron: 83, TIBC: 224, B12: 494 . We will remain off heparin. We will place aspirin on hold Updated Dr. Ashraf - will give Epo 10,000 units x 1, follow up lad Friday. Per Dr. Ashraf-pt was receiving routine epo injections in the past Assessment & Plan (01/14/2025 12:37 PM CDT): Stable, but low. H/H 7.1/23.5. Will remain off heparin. Follow up labs next week with iron panel, cbc, and b12 Assessment & Plan (01/12/2025 2:16 PM CDT): Patient with significant drop in hemoglobin, current H&H 7.1/24.2. We will hold heparin. Requested by Nephrology to obtain follow-up labs including iron studies and B12. Localized edema 03/29/2019 Thyroid nodule 04/10/2017 Assessment & Plan (01/10/2025 2:28 PM CDT): But advised of this finding she claimed a prior knowledge in history. 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 Albuminuria 09/25/2015 Encounters Date Type Department Care Team Description 03/04/2025 Orders Only [facility] Nephrology at [address] [place] [phone] Liv Ribeiro MA 02/08/2025 11:21 AM CDT - 02/08/2025 11:59 PM CDT Hospital Encounter [address] [address] Arpit Monroy, JEN Anemia in stage 3b chronic kidney disease (HCC) (Primary Dx) Discharge Disposition: Discharge to home or self care 02/04/[address] [address] Gely Mcbride MA 02/02/2025 Orders Only [address] [address] Mariangel Noland RN 01/31/2025 Telephone [facility] Medical [facility] Post Acute Care [address] [facility] [address], [place] [address] Ai Saldana MA 01/31/2025 Telephone [facility] Gastroenterology at [address] [phone] Trevor Ashraf MD 01/27/2025 NH/SNF Visit [facility] Medical [facility] Post Acute Care [address] [phone] Clovis Santo MD Essential hypertension (Primary Dx); Mixed hyperlipidemia; CKD (chronic kidney disease) stage 4, GFR 15-29 ml/min (HCC); Osteoarthritis, unspecified osteoarthritis type, unspecified site 01/25/2025 Orders Only [facility] Medical [facility] Hospitalists [address] [place] [phone] Alanna Serna PA 01/25/2025 NH/SNF Visit [facility] Medical [facility] Post Acute Care [address] [phone] Alanna Serna PA Anemia in stage 3b chronic kidney disease (HCC) (Primary Dx); Stage 3b chronic kidney disease (HCC); Essential hypertension 01/24/2025 8:00 AM CDT - 01/24/2025 11:59 PM CDT Hospital Encounter [facility] [address] [place] [address] Dorothy Sánchez, JEN Anemia in stage 3b chronic kidney disease (HCC) (Primary Dx) Discharge Disposition: Discharge to home or self care 01/24/2025 NH/SNF Visit [facility] Medical [facility] Post Acute Care [address] [phone] Clovis Santo MD Essential hypertension (Primary Dx); Mixed hyperlipidemia; Anemia in stage 3b chronic kidney disease (HCC) 01/21/2025 Results Follow-Up [facility] Medical [facility] Nephrology at [address] [place] [address] Trevor Ashraf MD CBC without differential, Basic metabolic panel, eGFR 01/21/2025 Orders Only [address] [address] Mariangel Noland, RN 01/21/2025 Orders Only [facility] Medical [facility] Post Acute Care [address] [phone] Alanna Serna PA 01/21/2025 Orders Only [facility] Hospitalists [address] [place] [phone] Alanna Serna PA 01/20/2025 Orders Only [address] [address] Mariangel Noland, JEN 01/18/2025 Orders Only [facility] Hospitalists [address] [place] [phone] Alanna Serna PA 01/18/2025 NH/SNF Visit [facility] Medical [facility] Post Acute Care [address] [phone] Alanna Serna PA Anemia in stage 3b chronic kidney disease (HCC) (Primary Dx); Stage 3b chronic kidney disease (HCC); Essential hypertension 01/14/2025 Results Follow-Up [facility] Group Nephrology at [address] [place] [phone] Trevor Ashraf MD CBC without differential, Basic metabolic panel, eGFR 01/14/2025 Orders Only [facility] Hospitalists [address] [place] [phone] Alanna Serna PA 01/14/2025 NH/SNF Visit [facility] Medical Group Post Acute Care of [address] [phone] Alanna Serna PA Anemia in stage 3b chronic kidney disease (HCC) (Primary Dx); Essential hypertension; Stage 3b chronic kidney disease (HCC) 01/12/2025 Results Follow-Up [facility] Nephrology at [place] [address] [facility] [address] [place] [address] Trevor Ashraf MD CBC without differential, Comprehensive metabolic panel, eGFR 01/12/2025 Orders Only [facility] Hospitalists [address] [place] [phone] Clovis Santo MD 01/12/2025 NH/SNF Visit [facility] Medical [facility] Post Acute Care [address] [phone] Alanna Serna PA Anemia in stage 3b chronic kidney disease (HCC) (Primary Dx); Stage 3b chronic kidney disease (HCC); Essential hypertension 01/10/2025 NH/SNF Visit [facility] Medical [facility] Post Acute Care [address] [phone] Clovis Santo MD NSTEMI (non-ST elevated myocardial infarction) (HCC) (Primary Dx); Thyroid nodule; Stage 3b chronic kidney disease (HCC); Chronic low back pain, unspecified back pain laterality, unspecified whether sciatica present; Osteoarthritis, unspecified osteoarthritis type, unspecified site; Obstructive sleep apnea of adult; Lymphedema of lower extremity; Acute cystitis without hematuria; Acute urinary retention; Essential hypertension from Last 3 Months Surgical History Surgery Date Site/Laterality Comments CHOLECYSTECTOMY TUBAL LIGATION PARTIAL HYSTERECTOMY PAROTIDECTOMY Right HYSTERECTOMY Medical History Medical History Date Comments Chronic kidney disease, stage III (moderate) (HC C) Hypertension Anemia Albuminuria EVERETTE (obstructive sleep apnea) TIA (transient ischemic attack) Arthritis osteo and rheuma toid Family History Medical History Relation Name Comments Hypertension Other Relation Name Status Comments Other Social History Tobacco Use Types Packs/Day Years Used Date Smoking Tobacco: Never Smokeless Tobacco: Never Tobacco Cessation:Counseling Given: Not Answered Alcohol Use Standard Drinks/Week Comments Never 0 (1 standard drink = 0.6 oz pur e alcohol) AUDIT-C Answer Date Recorded Q1: How often do you have a drink containing alc ohol? 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 Gender Identity Not on file Sexual Orientation Not on file Last Filed Vital Signs Vital Sign Reading Time Taken Comments Blood Pressure 148/51 02/08/2025 11:25 AM CDT Pulse 70 02/08/2025 11:25 AM CDT Temperature 36.4 C (97.5 F) 02/08/2025 11:25 AM CDT Respiratory Rate 18 02/08/2025 11:25 AM CDT Oxygen Saturation 100% 02/08/2025 11:25 AM CDT Inhaled Oxygen Concentration - - Weight 111 kg (244 lb 11.4 oz) 01/10/2025 2:24 P M CDT Height 170.2 cm (5' 7) 12/09/2023 12:51 PM CDT Body Mass Index 38.33 12/09/2023 12:51 PM CDT Plan of Treatment Health Maintenance Due Date Last Done Comments Colon Cancer Screening-Colonoscopy 1950 Depression Screening 1949 Fall Risk Assessment 1949 Hepatitis B Screening 1967 Well Visit 65+ 2014 Osteoporosis Screening-Bone Density Scan 10/01/2024 10/01/2022, 08/11/2022, 07/23/2022, Additional history exists DTaP/Tdap/Td Vaccine (2 - Td or Tdap) 12/05/2028 12/05/2018 Hepatitis C Screening Completed 09/16/2017, 016 Pneumococcal vaccine 65+ Completed 019, 08/15/2018, 02/02/2017 Colon Cancer Screening-FIT Discontinued 08/31, 08/30/2018, 08/27/2018, Additional history exists Breast Cancer Screening-Mammogram Discontinued 02/04/2019, 02/04/2019, 12/30/2017, Additional history exists Zoster Vaccine Completed 02/10/2019, 01/2019, 12/05/2018 Influenza Vaccine Completed 02/02/2025, , 02/10/2019, Additional history exists Procedures Procedure Name Priority Date/Time Associated Diagnosis Comments EGFR Routine 01/25/2025 4:38 AM CDT BASIC METABOLIC PANEL Routine 01/25/2025 4:38 AM CDT CBC WITHOUT DIFFERENTIAL Routine 01/25/2025 4:38 AM CDT TRANSFUSE RED BLOOD CELLS Timed 01/24/2025 9:56 AM CDT Anemia in stage 3b chronic kidney disease (HCC) PREPARE RBC Timed 01/24/2025 9:45 AM CDT Anemia in stage 3b chronic kidney disease (HCC) B ABO / RH CONFIRMATION TESTING STAT 01/24/2025 9:12 AM CDT CROSSMATCH Timed 01/24/2025 8:52 AM CDT Anemia in stage 3b chronic kidney disease (HCC) ANTIBODY SCREEN Timed 01/24/2025 8:52 AM CDT Anemia in stage 3b chronic kidney disease (HCC) ABO/RH Timed 01/24/2025 8:52 AM CDT Anemia in stage 3b chronic kidney disease (HCC) TYPE AND SCREEN Timed 01/24/2025 8:52 AM CDT Anemia in stage 3b chronic kidney disease (HCC) EGFR Routine 01/21/2025 4:31 AM CDT BASIC METABOLIC PANEL Routine 01/21/2025 4:31 AM CDT CBC WITHOUT DIFFERENTIAL Routine 01/21/2025 4:31 AM CDT EGFR Routine 01/18/2025 5:45 AM CDT BASIC METABOLIC PANEL Routine 01/18/2025 5:45 AM CDT IRON PROFILE W/ IBC Routine 01/18/2025 5 :45 AM CDT VITAMIN B12 Routine 01/18/2025 5:45 AM CDT CBC WITHOUT DIFFERENTIAL Routine 01/18/2025 5:45 AM CDT EGFR Routine 01/14/2025 6:37 AM CDT BASIC METABOLIC PANEL Routine 01/14/2025 6:37 AM CDT CBC WITHOUT DIFFERENTIAL Routine 01/14/2025 6:37 AM CDT EGFR Routine 01/12/2025 5:56 AM CDT COMPREHENSIVE METABOLIC PANEL Routine 01/12/2025 5:56 AM CDT CBC WITHOUT DIFFERENTIAL Routine 01/12/2025 5:56 AM CDT DEXA AXIAL SKELETON BONE DENSITY 1 OR MORE SITES Schedule Routine, Read Routine (OP Routine) 10/01/2022 10:57 AM CDT Asymptomatic menopausal state SCREENING MAMMOGRAM BILATERAL W RASHAAD 02/04/2019 11:44 AM CDT OCCULT BLOOD, FECAL (FIT) Routine 08/31/2018 5:30 AM CDT HEPATITIS C ANTIBODY Routine 09/16/2017 12:25 PM CDT from Last 3 Months or Most Recently Relevant to Health Maintenance Results * (ABNORMAL) eGFR (01/25/2025 4:38 AM CDT) eGFR 31(L) >=60 mL/min/1. 73 m2 [facility] Comment: Interpretive Data Reference Interval Normal >/= 90 mL/min/1.73m2 Mildly decreased* 60 - 89 mL/min/1.73m2 Mildly to moderately decreased 45 - 59 mL/min/1.73m2 Moderately to severely decreased 30 - 44 mL/min/1.73m2 Severely decreased 15 - 29 mL/min/1.73m2 Kidney Failure < 15 mL/min/1.73m2 *Relative to young adult level Estimated glomerular filtration rate is determined by the 2020 CKD-EPI equation recommended by the National Kidney Foundation (A Unifying Approach to GFR Estimation: Recommendations of the NKF-ASK Task Force on Reassessing the Inclusion of Race in Diagnosing Kidney Disease, JASN 202). The CKD-EPI equation should not be used for patients with unstable renal function and has not been validated in children and those over 70. Current interpretive data was last reviewed 2021. [facility], [facility] [place]., [address] Blood 01/25/2025 4:38 AM CDT 01/25/2025 6:12 AM CDT us Alanna BERNARDO LAB BLOOD ORDERABLES Final Resu lt [facility] ARCHER [address] [place] [address] [place] [address] * (ABNORMAL) CBC without differential (01/25/2025 4:38 AM CDT) WBC 4.62 3.80 - 9.90 K/cumm WADLO Comment:[address] [address] Hgb 7.6(L) 11.9 - 15.5 g/dL WALDO Comment:[address] [address] Hct 25.7(L) 35.6 - 45.5 % WALDO Comment:[address] [address] Plt 149(L) 150 - 400 K/cumm WALDO Comment:[address] [address] MPV 10.7 9.1 - 12.3 fL [facility]DO Comment:[address] [address] RBC 2.40(L) 3.90 - 5.20 M/cumm WALDO Comment:[address] [address] MCV 107.1(H) 81.3 - 96.4 fL [facility]ALDO Comment:[address] [address] MCH 31.7 27.1 - 33.3 pg [facility]ALDO ARCHER Comment:[address] [address] MCHC 29.6(L) 32.3 - 35.7 g/dL [facility]ALDO ARCHER Comment:[address] [address] RDW CV 16.6(H) 11.1 - 14.9 % WALDO Comment:[address], [address] RDW SD 65.2(H) 35.7 - 48.1 fL [facility] ARCHER Comment:[address], [address] NRBC abs 0.00 0.00 - 0.01 K/cumm [facility]AL[facility] ARCHER Comment:[address], [address] Blood 01/25/2025 4:38 AM CDT 01/25/2025 6:12 AM CDT Alanna BERNARDO LAB BLOOD ORDERABLES Final Resu lt [facility] [address] [facility] Department [place] [address] * (ABNORMAL) Basic metabolic panel (01/25/2025 4:38 AM CDT) Sodium 139 135 - 145 mmol/L WALDO Comment:[address] [address] Potassium, pl 4.4 3.3 - 4.9 mmol/L [facility] Comment:[address], [address] Chloride 110 97 - 110 mmol/L WALDO Comment:[address], [address] CO2 21(L) 22 - 32 mmol/L WALDO Comment:[address], [address] Anion gap 8 2 - 15 mmol/L W[facility]DO Comment:[address], [address] BUN 39(H) 6 - 25 mg/dL [facility]DO ARCHER Comment:[address] [address] Creatinine 1.69(H) 0.60 - 1.10 mg/dL WALDO Comment:[address] [address] Glucose 83 70 - 199 mg/dL [facility] Comment: Interpretive Data Fasting glucose >/= 126 mg/dl is diagnostic for diabetes. Fasting is defined as no caloric intake for at least 8 hours. Fasting glucose between 100 mg/dl to 125 mg/dl is diagnostic of prediabetes. In a patient with classic symptoms of hyperglycemia or hyperglycemic crisis, a random glucose >/= 200 mg/dl is diagnostic for diabetes. In the absence of unequivocal hyperglycemia, results should be confirmed by repeat testing. The classification and Diagnosis of Diabetes Diabetes Care 202; 46: S19-S40. Current interpretive data was last revised 2022. [address] [address] Calcium 9.1 8.5 - 10.3 mg/dL WALDO Comment:[address] [address] Blood 01/25/2025 4:38 AM CDT 01/25/2025 6:12 AM CDT Alanna BERNARDO LAB BLOOD ORDERABLES Final Resu lt Performing Organization Address City/[facility]/ZIP Co de Phone Number [id number] Department [place] [address] * Transfuse RBC (01/24/2025 11:47 AM CDT) Blood Alanna BERNARDO BLOOD TRANSFUSION ORDERABLES Fi nal Result Performing Organization Address City/[facility]/ZIP Co de Phone Number [id number] [place] [address] * Prepare RBC: 1 Units (01/24/2025 9:45 AM CDT) Units requested 1 Units requested Ready [facility] Unit Number [id number] Product code [id number] [facility] Blood Expiration Date [id number] [facility] Product Blood Type (for scanning) 5100 [facility] Product Blood Type OPOS [facility] Dispense Status DISPENSED [facility] Blood 01/24/2025 9:45 AM CDT 01/24/2025 9:45 AM CDT Alanna BERNARDO BLOOD BANK PRODUCT ORDERABLES F inal Result Performing Organization Address City/[facility] Co de Phone Number [address] [place] [address] * ABO / Rh Confirmation Testing (01/24/2025 9:12 AM CDT) ABO/Rh Confirmation O Positive B Blood 01/24/2025 9:12 AM CDT 01/24/2025 9:14 AM CDT Alanna BERNARDO LAB BLOOD ORDERABLES Final Resu lt Performing Organization Address [facility] Co de Phone Number [address] [place] [address] MHB * ABO/Rh (01/24/2025 8:52 AM CDT) ABO/Rh O Positive Blood 01/24/2025 8:52 AM CDT 01/24/2025 8:56 AM CDT Alanna BERNARDO LAB BLOOD BANK TEST ORDERABLES Final Result Performing Organization Address [facility] Co de Phone Number [address] [place] [address] * Crossmatch (01/24/2025 8:52 AM CDT) Crossmatch Compatible [facility] Unit number for crossmatch [id number] [facility] Blood 01/24/2025 8:52 AM CDT 01/24/2025 8:56 AM CDT Dorothy Sánchez RN LAB BLOOD BANK TEST ORD ERABLES Final Result [address] [address] * Antibody screen (01/24/2025 8:52 AM CDT) Guy, indirect, Gel Interpretation Negative ABSC Blood 01/24/2025 8:52 AM CDT 01/24/2025 8:56 AM CDT Alanna Serna PA LAB BLOOD BANK TEST ORDERABLES Final Result Performing Organization Address [facility] Co de Phone Number [address] [address] * (ABNORMAL) eGFR (01/21/2025 4:31 AM CDT) eGFR 29(L) >=60 mL/min/1. 73 m2 [facility] Comment: Interpretive Data Reference Interval Normal >/= 90 mL/min/1.73m2 Mildly decreased* 60 - 89 mL/min/1.73m2 Mildly to moderately decreased 45 - 59 mL/min/1.73m2 Moderately to severely decreased 30 - 44 mL/min/1.73m2 Severely decreased 15 - 29 mL/min/1.73m2 Kidney Failure < 15 mL/min/1.73m2 *Relative to young adult level Estimated glomerular filtration rate is determined by the 2020 CKD-EPI equation recommended by the National Kidney Foundation (A Unifying Approach to GFR Estimation: Recommendations of the NKF-ASK Task Force on Reassessing the Inclusion of Race in Diagnosing Kidney Disease, JASN 2020). The CKD-EPI equation should not be used for patients with unstable renal function and has not been validated in children and those over 70. Current interpretive data was last reviewed 2021. [address] [address] Blood 01/21/2025 4:31 AM CDT 01/21/2025 5:01 AM CDT us Alanna BERNARDO LAB BLOOD ORDERABLES Final Resu lt [facility] [address] [facility] Department [place] [address] * (ABNORMAL) CBC without differential (01/21/2025 4:31 AM CDT) WBC 4.85 3.80 - 9.90 K/cumm WALDO Comment:[address] [address] Hgb 6.8(L) 11.9 - 15.5 g/dL [facility]ALDO Comment:[address], [address] Hct 22.6(L) 35.6 - 45.5 % [facility] Comment:[address] [address] Plt 175 150 - 400 K/cumm WALDO Comment:[address], [address] MPV 10.2 9.1 - 12.3 fL [facility] Comment:[address], [address] RBC 2.08(L) 3.90 - 5.20 M/cumm WALDO Comment:[address] [address] MCV 108.7(H) 81.3 - 96.4 fL [facility]DO Comment:[address] [address] MCH 32.7 27.1 - 33.3 pg CERJAMAAL Comment:[address], [address] MCHC 30.1(L) 32.3 - 35.7 g/dL CERJAMAAL Comment:[address], [address] RDW CV 15.9(H) 11.1 - 14.9 % WALDO Comment:[address], [address] RDW SD 63.7(H) 35.7 - 48.1 fL WALDO Comment:[address], [address] NRBC abs 0.00 0.00 - 0.01 K/cumm WALDO Comment:[address] [address] Blood 01/21/2025 4:31 AM CDT 01/21/2025 5:01 AM CDT us Alanna BERNARDO LAB BLOOD ORDERABLES Final Resu lt WALDO [address] [facility] Department [place] [address] * (ABNORMAL) Basic metabolic panel (01/21/2025 4:31 AM CDT) Sodium 138 135 - 145 mmol/L WALDO Comment:[address] [address] Potassium, pl 4.7 3.3 - 4.9 mmol/L WALDO Comment:[address] [address] Chloride 108 97 - 110 mmol/L WALDO Comment:[address] [address] CO2 20(L) 22 - 32 mmol/L WALDO Comment:[address] [address] Anion gap 10 2 - 15 mmol/L WALDO Comment:[address] [address] BUN 44(H) 6 - 25 mg/dL WALDO Comment:[address] [address] Creatinine 1.82(H) 0.60 - 1.10 mg/dL WALDO Comment:[address] [address] Glucose 91 70 - 199 mg/dL WALDO Comment: Interpretive Data Fasting glucose >/= 126 mg/dl is diagnostic for diabetes. Fasting is defined as no caloric intake for at least 8 hours. Fasting glucose between 100 mg/dl to 125 mg/dl is diagnostic of prediabetes. In a patient with classic symptoms of hyperglycemia or hyperglycemic crisis, a random glucose >/= 200 mg/dl is diagnostic for diabetes. In the absence of unequivocal hyperglycemia, results should be confirmed by repeat testing. The classification and Diagnosis of Diabetes Diabetes Care 2021; 46: S19-S40. Current interpretive data was last revised 2022. [facility], [address] [place] [address]., [address] Calcium 8.9 8.5 - 10.3 mg/dL WALDO ARCHER Comment:[facility], [address] [place]., [address] Blood 01/21/2025 4:31 AM CDT 01/21/2025 5:01 AM CDT Alanna BERNARDO LAB BLOOD ORDERABLES Final Resu lt WALDO ARCHER [address] [place] [address] Department [place] [address] * (ABNORMAL) eGFR (01/18/2025 5:45 AM CDT) eGFR 29(L) >=60 mL/min/1. 73 m2 WALDO ARCHER Comment: Interpretive Data Reference Interval Normal >/= 90 mL/min/1.73m2 Mildly decreased* 60 - 89 mL/min/1.73m2 Mildly to moderately decreased 45 - 59 mL/min/1.73m2 Moderately to severely decreased 30 - 44 mL/min/1.73m2 Severely decreased 15 - 29 mL/min/1.73m2 Kidney Failure < 15 mL/min/1.73m2 *Relative to young adult level Estimated glomerular filtration rate is determined by the 2020 CKD-EPI equation recommended by the National Kidney Foundation (A Unifying Approach to GFR Estimation: Recommendations of the NKF-ASK Task Force on Reassessing the Inclusion of Race in Diagnosing Kidney Disease, JASN 2020). The CKD-EPI equation should not be used for patients with unstable renal function and has not been validated in children and those over 70. Current interpretive data was last reviewed 2021. [facility], [address] [place] [address]., [address] Blood 01/18/2025 5:45 AM CDT 01/18/2025 6:49 AM CDT Alanna BERNARDO LAB BLOOD ORDERABLES Final Resu lt WALDO [address] [facility] [place] [address] * (ABNORMAL) Iron profile w/ IBC (01/18/2025 5:45 AM CDT) Iron 83 35 - 145 mcg/dL WALDO Comment:[address] [address] TIBC 224(L) 250 - 400 mcg/dL WALDO Comment:[address] [address] Transferrin saturation 37 20 - 50 % WALDO Comment:[address] [address] Blood 01/18/2025 5:45 AM CDT 01/18/2025 6:49 AM CDT Alanna BERNARDO LAB BLOOD ORDERABLES Final Resu lt Performing Organization Address [facility] Co de Phone Number WALDO [facility] Department [place] [address] * (ABNORMAL) CBC without differential (01/18/2025 5:45 AM CDT) WBC 4.83 3.80 - 9.90 K/cumm WALDO ARCHER Comment:[address] [address] Hgb 7.0(L) 11.9 - 15.5 g/dL WALDO Comment:[address] [address] Hct 23.0(L) 35.6 - 45.5 % WALDO ARCHER Comment:[address] [address] Plt 205 150 - 400 K/cumm WALDO Comment:[address] [address] MPV 10.3 9.1 - 12.3 fL WALDO ARCHER Comment:[address] [address] RBC 2.14(L) 3.90 - 5.20 M/cumm WALDO Comment:[address] [address] MCV 107.5(H) 81.3 - 96.4 fL WALDO Comment:[address] [address] MCH 32.7 27.1 - 33.3 pg WALDO Comment:[address] [address] MCHC 30.4(L) 32.3 - 35.7 g/dL WALDO Comment:[address] [address] RDW CV 15.7(H) 11.1 - 14.9 % WALDO Comment:[address] [address] RDW SD 62.1(H) 35.7 - 48.1 fL WALDO Comment:[address], [address] NRBC abs 0.00 0.00 - 0.01 K/cumm WALDO Comment:[address] [address] Blood 01/18/2025 5:45 AM CDT 01/18/2025 6:49 AM CDT Alanna BERNARDO LAB BLOOD ORDERABLES Final Resu lt Performing Organization Address City/[facility]/ZIP Co de Phone Number WALDO [address] [facility] Department [place] [address] * Vitamin B12 (01/18/2025 5:45 AM CDT) Vitamin B12 494 230 - 1,250 pg/mL WALDO Comment:[address] [address] Blood 01/18/2025 5:45 AM CDT 01/18/2025 6:49 AM CDT Alanna BERNARDO LAB BLOOD ORDERABLES Final Resu lt WALDO [address] Department [place] [address] * (ABNORMAL) Basic metabolic panel (01/18/2025 5:45 AM CDT) Sodium 137 135 - 145 mmol/L WALDO Comment:[address] [address] Potassium, pl 4.2 3.3 - 4.9 mmol/L WALDO Comment:[address] [address] Chloride 107 97 - 110 mmol/L WALDO Comment:[address] [address] CO2 21(L) 22 - 32 mmol/L WALDO Comment:[address] [address] Anion gap 9 2 - 15 mmol/L WALDO Comment:[address] [address] BUN 42(H) 6 - 25 mg/dL WALDO Comment:[address] [address] Creatinine 1.81(H) 0.60 - 1.10 mg/dL WALDO Comment:[address] [address] Glucose 90 70 - 199 mg/dL WALDO Comment: Interpretive Data Fasting glucose >/= 126 mg/dl is diagnostic for diabetes. Fasting is defined as no caloric intake for at least 8 hours. Fasting glucose between 100 mg/dl to 125 mg/dl is diagnostic of prediabetes. In a patient with classic symptoms of hyperglycemia or hyperglycemic crisis, a random glucose >/= 200 mg/dl is diagnostic for diabetes. In the absence of unequivocal hyperglycemia, results should be confirmed by repeat testing. The classification and Diagnosis of Diabetes Diabetes Care 202; 46: S19-S40. Current interpretive data was last revised 2022. [facility], [address] [place] [address]., [address] Calcium 8.8 8.5 - 10.3 mg/dL WALDO Comment:[address] [address] Blood 01/18/2025 5:45 AM CDT 01/18/2025 6:49 AM CDT Alanna BERNARDO LAB BLOOD ORDERABLES Final Resu lt Performing Organization Address City/[facility] Co de Phone Number WALDO [address] [place] [address] * (ABNORMAL) eGFR (01/14/2025 6:37 AM CDT) eGFR 32(L) >=60 mL/min/1. 73 m2 WALDO Comment: Interpretive Data Reference Interval Normal >/= 90 mL/min/1.73m2 Mildly decreased* 60 - 89 mL/min/1.73m2 Mildly to moderately decreased 45 - 59 mL/min/1.73m2 Moderately to severely decreased 30 - 44 mL/min/1.73m2 Severely decreased 15 - 29 mL/min/1.73m2 Kidney Failure < 15 mL/min/1.73m2 *Relative to young adult level Estimated glomerular filtration rate is determined by the 2020 CKD-EPI equation recommended by the National Kidney Foundation (A Unifying Approach to GFR Estimation: Recommendations of the NKF-ASK Task Force on Reassessing the Inclusion of Race in Diagnosing Kidney Disease, JASN 2020). The CKD-EPI equation should not be used for patients with unstable renal function and has not been validated in children and those over 70. Current interpretive data was last reviewed 2021. [facility], [address] [place] [address]., [address] Blood 01/14/2025 6:37 AM CDT 01/14/2025 7:13 AM CDT Alanna BERNARDO LAB BLOOD ORDERABLES Final Resu lt Performing Organization Address City/[facility]/ZIP Co de Phone Number [address] Department [place] [address] * (ABNORMAL) CBC without differential (01/14/2025 6:37 AM CDT) WBC 5.51 3.80 - 9.90 K/cumm WALDO MH Comment:[address], [address] Hgb 7.1(L) 11.9 - 15.5 g/dL CERNER MH Comment:[address], [address] Hct 23.5(L) 35.6 - 45.5 % CERNER MH Comment:[address], [address] Plt 243 150 - 400 K/cumm CERNER MH Comment:[address], [address] MPV 10.4 9.1 - 12.3 fL CERNER MH Comment:[address], [address] RBC 2.19(L) 3.90 - 5.20 M/cumm CERNER MH Comment:[address], [address] MCV 107.3(H) 81.3 - 96.4 fL CERNER MH Comment:[address], [address] MCH 32.4 27.1 - 33.3 pg CERNER MH Comment:[address], [address] MCHC 30.2(L) 32.3 - 35.7 g/dL CERNER MH Comment:[address], [address] RDW CV 15.9(H) 11.1 - 14.9 % CERNER MH Comment:[address], [address] RDW SD 62.4(H) 35.7 - 48.1 fL CERNER MH Comment:[address], [address] NRBC abs 0.00 0.00 - 0.01 K/cumm CERJAMAAL MH Comment:[address], [address] Blood 01/14/2025 6:37 AM CDT 01/14/2025 7:13 AM CDT us Alanna BERNARDO LAB BLOOD ORDERABLES Final Resu lt CERNER [address] Department [place] [address] * (ABNORMAL) Basic metabolic panel (01/14/2025 6:37 AM CDT) Sodium 136 135 - 145 mmol/L WALDO Comment:[address] [address] Potassium, pl 4.9 3.3 - 4.9 mmol/L WALDO Comment:[address] [address] Chloride 106 97 - 110 mmol/L WALDO Comment:[address] [address] CO2 21(L) 22 - 32 mmol/L WALDO Comment:[address] [address] Anion gap 9 2 - 15 mmol/L WALDO Comment:[address] [address] BUN 40(H) 6 - 25 mg/dL WALDO Comment:[address] [address] Creatinine 1.68(H) 0.60 - 1.10 mg/dL WALDO Comment:[address] [address] Glucose 95 70 - 199 mg/dL WALDO Comment: Interpretive Data Fasting glucose >/= 126 mg/dl is diagnostic for diabetes. Fasting is defined as no caloric intake for at least 8 hours. Fasting glucose between 100 mg/dl to 125 mg/dl is diagnostic of prediabetes. In a patient with classic symptoms of hyperglycemia or hyperglycemic crisis, a random glucose >/= 200 mg/dl is diagnostic for diabetes. In the absence of unequivocal hyperglycemia, results should be confirmed by repeat testing. The classification and Diagnosis of Diabetes Diabetes Care 202; 46: S19-S40. Current interpretive data was last revised 2022. [facility], [address] [place] [address]., [address] Calcium 8.9 8.5 - 10.3 mg/dL WALDO Comment:[address] [address] Blood 01/14/2025 6:37 AM CDT 01/14/2025 7:13 AM CDT us Alanna BERNARDO LAB BLOOD ORDERABLES Final Resu lt Performing Organization Address [facility] Co de Phone Number WALDO [address] [place] [address] * (ABNORMAL) eGFR (01/12/2025 5:56 AM CDT) eGFR 33(L) >=60 mL/min/1. 73 m2 WALDO Comment: Interpretive Data Reference Interval Normal >/= 90 mL/min/1.73m2 Mildly decreased* 60 - 89 mL/min/1.73m2 Mildly to moderately decreased 45 - 59 mL/min/1.73m2 Moderately to severely decreased 30 - 44 mL/min/1.73m2 Severely decreased 15 - 29 mL/min/1.73m2 Kidney Failure < 15 mL/min/1.73m2 *Relative to young adult level Estimated glomerular filtration rate is determined by the 2020 CKD-EPI equation recommended by the National Kidney Foundation (A Unifying Approach to GFR Estimation: Recommendations of the NKF-ASK Task Force on Reassessing the Inclusion of Race in Diagnosing Kidney Disease, JASN 2020). The CKD-EPI equation should not be used for patients with unstable renal function and has not been validated in children and those over 70. Current interpretive data was last reviewed 2021. [facility], [address] [place] [address]., [address] Blood 01/12/2025 5:56 AM CDT 01/12/2025 6:13 AM CDT Clovis Santo MD LAB BLOOD ORDERABLES Final R esult Performing Organization Address [facility]/ZIP Co de Phone Number [address] Department [place] [address] * (ABNORMAL) CBC without differential (01/12/2025 5:56 AM CDT) WBC 6.85 3.80 - 9.90 K/cumm WALDO Comment:[address], [address] Hgb 7.1(L) 11.9 - 15.5 g/dL CERNER MH Comment:[address], [address] Hct 24.2(L) 35.6 - 45.5 % CERNER MH Comment:[address], [address] Plt 246 150 - 400 K/cumm CERNER MH Comment:[address], [address] MPV 10.3 9.1 - 12.3 fL CERNER MH Comment:[address], [address] RBC 2.24(L) 3.90 - 5.20 M/cumm CERNER MH Comment:[address], [address] MCV 108.0(H) 81.3 - 96.4 fL CERNER MH Comment:[address], [address] MCH 31.7 27.1 - 33.3 pg CERNER MH Comment:[address], [address] MCHC 29.3(L) 32.3 - 35.7 g/dL CERNER MH Comment:[address], [address] RDW CV 15.7(H) 11.1 - 14.9 % CERNER MH Comment:[address], [address] RDW SD 62.1(H) 35.7 - 48.1 fL CERNER MH Comment:[address], [address] NRBC abs 0.00 0.00 - 0.01 K/cumm CERJAMAAL Comment:[address], [address] Blood 01/12/2025 5:56 AM CDT 01/12/2025 6:13 AM CDT us Clovis Santo MD LAB BLOOD ORDERABLES Final R esult WALDO [address] Department [place] [address] * (ABNORMAL) Comprehensive metabolic panel (01/12/2025 5:56 AM CDT) Sodium 137 135 - 145 mmol/L WALDO Comment:[address] [address] Potassium, pl 4.5 3.3 - 4.9 mmol/L WALDO Comment:[address] [address] Chloride 106 97 - 110 mmol/L WALDO Comment:[address] [address] CO2 22 22 - 32 mmol/L WALDO Comment:[address] [address] Anion gap 9 2 - 15 mmol/L WALDO Comment:[address] [address] BUN 41(H) 6 - 25 mg/dL WALDO Comment:[address] [address] Creatinine 1.63(H) 0.60 - 1.10 mg/dL WALDO Comment:[address] [address] Glucose 98 70 - 199 mg/dL WALDO Comment: Interpretive Data Fasting glucose >/= 126 mg/dl is diagnostic for diabetes. Fasting is defined as no caloric intake for at least 8 hours. Fasting glucose between 100 mg/dl to 125 mg/dl is diagnostic of prediabetes. In a patient with classic symptoms of hyperglycemia or hyperglycemic crisis, a random glucose >/= 200 mg/dl is diagnostic for diabetes. In the absence of unequivocal hyperglycemia, results should be confirmed by repeat testing. The classification and Diagnosis of Diabetes Diabetes Care 202; 46: S19-S40. Current interpretive data was last revised 2022. [facility], [address] [place] [address]., [address] Calcium 8.8 8.5 - 10.3 mg/dL WALDO Comment:[address] [address] Bilirubin, total 0.4 0.1 - 1.2 mg/dL WALDO Comment:[address] [address] Protein, pl 6.5 6.5 - 8.5 g/dL WALDO Comment:[address] [address] Albumin 3.4(L) 3.5 - 5.0 g/dL WALDO Comment:[address] [address] Alk phos 74 40 - 130 Units/L WALDO Comment:[address] [address] ALT 26 7 - 45 Units/L WALDO Comment:[address] [address] AST 26 10 - 45 Units/L WALDO Comment:[address] [address] Blood 01/12/2025 5:56 AM CDT 01/12/2025 6:13 AM CDT Clovis Santo MD LAB BLOOD ORDERABLES Final R esult [facility] [address] [facility] Department [place] [address] * Dexa Axial Skeleton Bone Density 1 or 2 Site (10/01/2022 10:57 AM CDT) Anatomical Region Laterality Modality Body N/A Mammography 10/01/2022 9:16 PM CDT Narrative 10/01/2022 9:17 PM CDT EXAM DESCRIPTION: DEXA AXIAL SKELETON BONE DENSITY 1 OR MORE SITES REASON FOR STUDY: 72 y/o year old F with given history of screening. 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 IMPRESSION: Normal bone mass. REFERENCE: Bone mineral density: Normal (T-score above or = -1.0) Low bone mass (T-score between -1.0 and -2.5) replaces the previously used term osteopenia Osteoporosis (T-score = or below -2.5) Medical evaluation for secondary causes of low bone mineral density may be appropriate. FRAX is a World Health Organization validated fracture risk assessment tool that calculates a person's 10 year probability of a major osteoporosis related fracture and hip fracture. According to the National Osteoporosis Foundation guidelines, postmenopausal women and men age 50 or older with low bone mass and a 10 year probability of a major osteoporosis related fracture = or greater than 20% or a 10 year probability of a hip fracture = or greater than 3% should be considered for treatment. For further information, including treatment recommendations, please refer to the 2019 ISCD Official Positions (http://www.iscd.org) and the NOF's Clinician's Guide to Prevention and Treatment of Osteoporosis (http://www.nof.org/professionals/clinical-guidelines) THIS IS AN ELECTRONICALLY VERIFIED FINAL REPORT 10/01/2022 9:17 PM - Electronically signed by Asif Ghosh M.D. MF: MARÍA Report ID: [id number] Reading Location: [address] Note Asif Ghosh MD - 10/01/2022 EXAM DESCRIPTION: DEXA AXIAL SKELETON BONE DENSITY 1 OR MORE SITES REASON FOR STUDY: 72 y/o year old F with given history of screening. 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 IMPRESSION: Normal bone mass. REFERENCE: Bone mineral density: Normal (T-score above or = -1.0) Low bone mass (T-score between -1.0 and -2.5) replaces thepreviously used term osteopenia Osteoporosis (T-score = or below -2.5) Medical evaluation for secondary causes of low bone mineral density may be appropriate. FRAX is a World Health Organization validated fracture risk assessmenttool that calculates a person's 10 year probability of a major osteoporosisrelated fracture and hip fracture. According to the National OsteoporosisFoundation guidelines, postmenopausal women and men age 50 or older with low bonemass and a 10 year probability of a major osteoporosis related fracture = or greater than 20% or a 10 year probability of a hip fracture = or greaterthan 3% should be considered for treatment. For further information, including treatment recommendations, please referto the 2019 ISCD Official Positions (http://www.iscd.org) and the NOF's Clinician's Guide to Prevention and Treatment of Osteoporosis (http://www.nof.org/professionals/clinical-guidelines) THIS IS AN ELECTRONICALLY VERIFIED FINAL REPORT 10/01/2022 9:17 PM - Electronically signed by Asif Ghosh M.D. MF: MARÍA Report ID: [id number] Reading Location: [place] [address] Candy Carlton MD IM DXA PROCEDURES Final R esult * Screening Mammogram Bilateral W Rashaad (02/04/2019 11:44 AM CDT) Anatomical Region Laterality Modality Breast Bilateral Mammography 02/04/2019 12:2 7 PM CDT Narrative 02/04/2019 1:43 PM CDT Patient Name: YOLANDA TRAN Ordering Dr: Candy Carlton MD D.O.B: 1950 Exam Date: 02/04/19 1144 Age: 68 Sex: Female MR#: [id number] Loc: RADIOLOGY REPORT Order #[id number] [facility] Estefani Bilat Screening 3D Signed - MG BILATERAL DIGITAL SCREENING MAMMOGRAM 3D/2D WITH MEDIOLATERAL OBLIQUE CRANIOCAUDAL: 02/04/2019 The study was acquired using full field digital technology and interpreted from soft copy. 2D digital mammographic views, as well as 3D digital tomosynthesis were performed in the CC and MLO projections. CLINICAL: Routine mammogram. Denies any problems today. No personal history of breast cancer. No family history of breast cancer. COMPARISONS: Comparison is made to exams dated: 12/30/2017 mammogram - [facility] and 04/08/2016 mammogram - [facility]. BREAST TISSUE: The tissue of both breasts is almost entirely fatty. FINDINGS: No significant masses, calcifications, or other findings are seen in either breast. There has been no significant interval change. IMPRESSION: BI-RAD 1 NEGATIVE There is no mammographic evidence of malignancy. A 1 year screening mammogram is recommended. The patient has been or will be contacted. We recommend annual screening mammography for women at average risk of breast cancer beginning at age 40, based on guidelines of the [place] [employer] (ACR Practice Parameter for the Performance of Screening and Diagnostic Mammography) and [place] [employer]. For women with an elevated risk of breast cancer, please refer to the ACR Practice Parameter for specific screening recommendations. The patient will be entered into a reminder system with a target due date of 1 year for her next screening exam. Electronically signed by: Trevor Ortega M.D., md/penrad:02/04/2019 13:43:09 Crushing Foreman: Tatyana ARITA)([place]), [facility]- [facility] letter sent: Normal Exam Reading location: BI-RADS: 1 Negative REPORT ELECTRONICALLY SIGNED IN OTHER VENDOR SYSTEM Resulting Agency Comment O Procedure Note Trevor Ortega MD - 02/04/2019 Patient Name: YOLANDA TRAN Dr: Candy Carlton MD D.O.B: 1950 Exam Date: 02/04/19 1144 Age: 68 Sex: Female MR#: [id number] Loc: RADIOLOGY REPORT Order #[id number] [facility] Estefani Bilat Screening 3D Signed - MG BILATERAL DIGITAL SCREENING MAMMOGRAM 3D/2D WITH MEDIOLATERAL OBLIQUE CRANIOCAUDAL: 02/04/2019 The study was acquired using full field digital technology andinterpreted from soft copy. 2D digital mammographic views, as well as 3D digital tomosynthesis were performed in the CC and MLO projections. CLINICAL: Routine mammogram. Denies any problems today. No personalhistory of breast cancer. No family history of breast cancer. COMPARISONS: Comparison is made to exams dated: [facility]30/2017 [facility] and 04/08/2016 mammogram - [facility]. BREAST TISSUE: The tissue of both breasts is almost entirely fatty. FINDINGS: No significant masses, calcifications, or other findings areseen in either breast. There has been no significant interval change. IMPRESSION: BI-RAD 1 NEGATIVE There is no mammographic evidence of malignancy. A 1 year screeningmammogram is recommended. The patient has been or will be contacted. We recommend annual screening mammography for women at average risk ofbreast cancer beginning at age 40, based on guidelines of the [place] [employer] (ACR Practice Parameter for the Performance of Screening and Diagnostic Mammography) and [place] [employer]. For women with an elevated risk of breast cancer, pleaserefer to the ACR Practice Parameter for specific screening recommendations. The patient will be entered into a reminder system with a target due dateof 1 year for her next screening exam. Electronically signed by: Trevor Ortega M.D., md/lulu:02/04/2019 13:43:09 Crushing Foreman: Tatyana MULLEN(R)([place]), [facility] letter sent: Normal Exam Reading location: BI-RADS: 1 Negative REPORT ELECTRONICALLY SIGNED IN OTHER VENDOR SYSTEM us Candy Carlton MD IMG MAMMO PROCEDURES Final Result * Occult blood, fecal non neoplasm screening (08/31/2018 5:30 AM CDT) Stool Occult Blood NEGATIVE NEGATIVE [facility] 08/31/2018 5:30 AM CDT 08/31/2018 9:16 AM CDT Narrative Resulting Agency Comment RCR Candy Carlton MD LAB BODY FLUIDS AND STOOLS ORDERABLES Final Result Performing Organization Address [facility] Co de Phone Number [facility] [address] [place], [place] [address] [phone] * Hepatitis C antibody (09/16/2017 12:25 PM CDT) Hep C Ab NONREACT NONREACTIVE Comment: Siemens CentaurXP using CAMACHO (chemiluminescent immunoassay) technology. NONREACTIVE: Antibodies to Hepatitis C not detected. This does not exclude early acute Hepatitis C infection, possibility of exposure to Hepatitis C, antibodies below detection limit, or to lack of antibody reactivity to the antigen used in this assay. EQUIVOCAL: Antibodies to Hepatitis C may or may not be present. Sample to be confirmed by real-time PCR method. REACTIVE: Antibodies to Hepatitis C detected. 09/16/2017 12:2 5 PM CDT 09/16/2017 12:50 PM CDT Trevor Ashraf MD LAB MICROBIOLOGY - GENERAL OR DERABLES Final Result Performing Organization Address [facility] Co de Phone Number [facility] HISTORICAL RESULTS from Last 3 Months or Most Recently Relevant to Health Maintenance Insurance T MEDICARE UHC MEDICARE ADVANTAGE FORMERLY [facility] MEDICARE FORMERLY [facility] MEDICARE Care Teams Oss Architect Relationship Specialty Start Date End Date Candy Carlton MD [address] [place] [phone] (Work) PCP - General 05/08/20 Trevor Ashraf MD [address] [facility] [address] [place] [address] Consulting Physician Nephrology 10/01/22
--- OUTSIDE RECORDS SUMMARY | 2025-04-04 10:26 | XMS_ITS | Encounter Summary ---
Author Organization [facility] Facility Care Team Providers Care Injector Assembler Name Role Phone Candy Carlton MD Primary Care Provider + [phone] Trevor Ashraf MD Primary Care Provider +[phone] Candy Carlton MD Primary Care Provider + [phone] Candy Carlton MD Primary Care Provider + [phone] Trevor Ashraf MD Primary Care Provider [phone] Trevor Ashraf MD Primary Care Provider [phone] Trevor Ashraf MD Primary Care Provider [phone] Trevor Ashraf MD Primary Care Provider [phone] Trevor Ashraf MD Primary Care Provider [phone] Trevor Ashraf MD Primary Care Provider [phone] Candy Carlton MD Primary Care Provider + [phone] Trevor Ashraf MD Primary Care Provider [phone] Trevor Ashraf MD Primary Care Provider [phone] Candy Carlton MD Primary Care Provider + [phone] Candy Carlton MD Primary Care Provider + [phone] Trevor Ashraf MD Unavailable +[phone] Encounter Details Date Type Department Care Team (Latest Contact Info) Description 03/18/2016 Orders Only [facility]IN[facility] Provider, MD Chen[place] [address] [place] [address] Social History Tobacco Use Types Packs/Day Years Used Date Smoking Tobacco: Never Assessed Comments Unknown Sex and Gender Information Value Date Recorded Sex Assigned at Not on file 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 Historical Provider Final Res ult documented in this encounter Visit Diagnoses Not on filedocumented in this encounter Care Teams Injector Assembler Relationship Specialty Start Date End Date Candy Carlton MD [address] [place] [address] PCP - General 07/01/18 07/20/18 Trevor Ashraf MD [address] [place] [address] PCP - General 08/02/18 08/30/18 Candy Carlton MD [address] [place] [address] PCP - General 08/31/18 09/15/18 Candy Carlton MD [address] [place] [address] PCP - General 07/21/18 08/01/18 Trevor Ashraf MD [address] [place] [id number] PCP - General 10/02/18 11/23/18 Trevor Ashraf MD [address] [place] [address] PCP - General 09/22/18 10/01/18 Trevor Ashraf MD [address] [place] [id number] PCP - General 09/16/18 09/21/18 Trevor Ashraf MD [address] [place] [address] PCP - General 01/02/19 03/28/19 Trevor Ashraf MD [address] [place] [address] PCP - General 12/15/18 01/01/19 Trevor Ashraf MD [address] [place] [address] PCP - General 11/24/18 12/14/18 Candy Carlton MD [address] [place] [address] PCP - General Internal Medicine 03/29/19 04/20/19 Trevor Ashraf MD [address] [place] [address] PCP - General 05/04/19 04/16/20 Trevor Ashraf MD [address] [place] [address] PCP - General 04/21/19 05/03/19 Candy Carlton MD [address] [place] [address] PCP - General 05/08/20 Candy Carlton MD [address] [place] [address] PCP - General 04/17/20 05/07/20 Trevor Ashraf MD [address] [place] [address] Consulting Physician Nephrology 10/01/22 documented as of this encounter
--- OUTSIDE RECORDS SUMMARY | 2025-04-04 10:26 | XMS_ITS | Encounter Summary ---
Author Organization [facility] Facility Care Team Providers Care Stave Hewer Name Role Phone Candy Carlton MD Primary Care Provider + [phone] Trevor Ashraf MD Primary Care Provider +[phone] Candy Carlton MD Primary Care Provider + [phone] Candy Carlton MD Primary Care Provider + [phone] Trevor Ashraf MD Primary Care Provider [phone] Trevor Ashraf MD Primary Care Provider +[phone] Trevor Ashraf MD Primary Care Provider [phone] Trevor Ashraf MD Primary Care Provider [phone] Trevor Ashraf MD Primary Care Provider [phone] Trevor Ashraf MD Primary Care Provider [phone] Candy Carlton MD Primary Care Provider + [phone] Trevor Ashraf MD Primary Care Provider +[phone] Trevor Ashraf MD Primary Care Provider +[phone] Candy Carlton MD Primary Care Provider + [phone] Candy Carlton MD Primary Care Provider + [phone] Trevor Ashraf MD Unavailable +[phone] Encounter Details Date Type Department Care Team (Latest Contact Info) Description 02/20/2016 Orders Only [facility] CLINCONV Provider, MD [facility] [address] [place] [address] Social History Tobacco Use Types Packs/Day Years Used Date Smoking Tobacco: Never Assessed Comments Unknown Sex and Gender Information Value Date Recorded Sex Assigned at Not on file 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 Historical Provider Final Res ult documented in this encounter Visit Diagnoses Not on filedocumented in this encounter Care Teams Stave Hewer Relationship Specialty Start Date End Date Candy Carlton MD [address] [place] [address] PCP - General 07/01/18 07/20/18 Trevor Ashraf MD [address] [place] [address] PCP - General 08/02/18 08/30/18 Candy Carlton MD [address] [place] [address] PCP - General 08/31/18 09/15/18 Candy Carlton MD [address] [place] [address] PCP - General 07/21/18 08/01/18 Trevor Ashraf MD [address] [place] [address] PCP - General 10/02/18 11/23/18 Trevor Ashraf MD [address] [place] [address] PCP - General 09/22/18 10/01/18 Trevor Ashraf MD [address] [place] [address] PCP - General 09/16/18 09/21/18 Trevor Ashraf MD [address] [place] [address] PCP - General 01/02/19 03/28/19 Trevor Ashraf MD [address] [place] [address] PCP - General 12/15/18 01/01/19 Trevor Ashraf MD [address] [place] [address] PCP - General 11/24/18 12/14/18 Candy Carlton MD [address] [place] [address] PCP - General Internal Medicine 03/29/19 04/20/19 Trevor Ashraf MD [address] [place] [address] PCP - General 05/04/19 04/16/20 Trevor Ashraf MD [address] [place] [address] PCP - General 04/21/19 05/03/19 Candy Carlton MD [address] [place] [address] PCP - General 05/08/20 Candy Carlton MD [address] [place] [address] PCP - General 04/17/20 05/07/20 Trevor Ashraf MD [address] [place] [address] Consulting Physician Nephrology 10/01/22 documented as of this encounter
--- NOTE | 2025-04-04 10:29 | P.CONGI_ITS ---
Assessment and Plan Assessment and plan (1) GI bleed: Qualifiers: GI bleed type/associated pathology: melena Qualified Code(s): K92.1 - Melena Code(s): K92.2 - Gastrointestinal hemorrhage, unspecified Status: Acute (2) Congestive heart disease: Qualifiers: Heart failure type: unspecified Heart failure chronicity: chronic Q ualified Code(s): I50.9 - Heart failure, unspecified Code(s): I50.9 - Heart failure, unspecified Status: Acute (3) Bradycardia: Code(s): R00.1 - Bradycardia, unspecified Status: Acute (4) Chronic kidney disease: Qualifiers: Chronic kidney disease stage: stage 4 (GFR 15-29) Qualified Code(s): N 18.4 - Chronic kidney disease, stage 4 (severe) Code(s): N18.9 - Chronic kidney disease, unspecified Status: Acute (5) Macrocytic anemia: Code(s): D53.9 - Nutritional anemia, unspecified Status: Acute Plan 1. Melena/AFib/bradycardia/macrocytic anemia: Patient diagnosed with A-Fib in December and has been on an anticoagulant but neither the patient nor her daughter can say what anticoagulant she is taking. HR since admission between 58-29, cardiology of care team. Per family the patient was having dark stools and blood in her urine prior to admission. I do not have prior labs for comparison to know if her anemia is chronic as she does have known CKD and labs so macrocytic anemia no iron deficient. Labs today showing WBCs 4, HGB 6, HCT 19, MCV 107, platelets 174. Iron panel normal. * Patient is not an endoscopy candidate at this time given unstable bradycardia, pneumonia and CHF * Patient has already received 1 unit PRBC's * no need to check FOB as this will not change treatment plan * once patient H/H has stabilized and vitals remain stable, will consider EGD at that time (inpatient vs outpatient based on clinical presentation). * INR, B12 and folate ordered 2: Elevated LFT's: Mildly elevated AST @ 38 and mildly elevated Alk Phos of 137. Elevated Alk Phos likely related to known kidney disease vs CHF * further work up can be done outpatient is LFT's do not normalize or remain stable 3. Electrolyte imbalance: Sodium at 130 and potassium 5.1. BUN 115, creatinine 2.17, GFR 22. * Primary care team to continue monitoring and correct imbalance Thank you very much for allowing me to share in the care of this very nice patient. This report may have been done utilizing a voice recognition system. Attempts have been made to correct errors. However, there may be uncorrected grammatical, spelling, and recognition errors present. GI Consult Note Consult date/time: 04/04/25 10:29 Reason for consult: Melena HPI: Yolanda Dupont is a 74 year old female with PMSH of AFib on anticoagulant, CAD, HTN, pulmonary hypertension, chronic kidney. She presented to the emergency room today with complaints of altered mental status from longterm, prior to ER visit she was also noted to have blood in her urine. GI has been consulted for melena. Patient was accompanied by her daughter Jose A throughout the entire visit who also provided some medical history. Patient states that she started having dark colored stools about a week ago but is unable to say if she is having any bright red blood per rectum as she usually uses depends. She states that she was on oral iron supplement but this was discontinued a few weeks ago but she continued to have dark stools. She is on an anticoagulant since being diagnosed with AFib in December but neither the patient nor her daughter was able to say what anticoagulants she is taking. She denies any abdominal pain, nausea, vomiting, bloating, odynophagia, dysphagia, reflux, regurgitation, early satiety, appetite or weight loss. She is having a bowel movement every 1-2 days that are formed and non Urgent. Denies diarrhea or constipation. Family history negative for CRC or IBD. She denies any NSAID or aspirin use. She is a nondrinker nonsmoker and denies marijuana use. ENDOSCOPY HISTORY: EGD: Patient has never had an EGD COLONOSCOPY: Per patient her last colonoscopy was performed around [address] Vang but was unsuccessful due to poor prep and a follow-up colonoscopy was recommended but was never performed. LABS AND STOOL STUDIES: Labs 04/04/2025: Sodium 130, potassium 5.1, BUN 115, creatinine 2.17, GFR 22, calcium 8.8 WBC 4, Hgb 6, Hct 19, MCV 107, platelets 174 Total bilirubin 0.4, AST 38, ALT 34, Alkaline Phos 137, albumin 3.6 IMAGING: Chest x-ray 04/04/2025: Bilateral pneumonia superimposed on probable CHF Review of Systems 2 Constitutional: Constitutional: Reports as per HPI, Reports fatigue and Reports weakness ENT: Reports as per HPI Cardiovascular: Cardiovascular: Reports as per HPI, Denies chest pain, Denies leg edema and Reports dyspnea Respiratory: Respiratory: Denies cough and Denies dyspnea Gastrointestinal: Gastrointestinal: Reports as per HPI and Reports melena Genitourinary: Genitourinary: Reports hematuria Musculoskeletal: Musculoskeletal: Reports as per HPI Integumentary/Breasts: Skin/Breast: Reports as per HPI Psychiatric: Psychiatric: Reports as per HPI Endocrine: Endocrine: Reports no additional endocrine complaints Hematologic/Lymphatic: Hematologic/Lymphatic: Reports no additional hematologic/lymphatic complaints [facility] Past Medical History Medical History (Updated 04/04/25 @ 13:11 by Katy Card APRN) Coronary artery disease Hyperlipidemia GERD (gastroesophageal reflux disease) Obstructive sleep apnea Essential hypertension Atrial fibrillation Obesity Congestive heart disease Cervical spondylosis Constipation Chronic kidney disease Surgical History Surgical History (Updated 04/04/25 @ 11:49 by Ilir Gonzalez MD) H/O cervical spine surgery Social History Social History (Updated 04/04/25 @ 11:50 by Ilir Gonzalez MD) Social History: No history of smoking, alcohol use or drug use. Patient is a resident of longterm. Meds Home Medications and Allergies Allergies Allergy/AdvReac Type Severity Reaction Status Date / Time amoxicillin AdvReac Intermediate Nausea and Verified 04/04/25 09:11 Vomiting ampicillin AdvReac Intermediate Nausea and Verified 04/04/25 09:11 Vomiting Vital Signs Vital Signs - 24 hr 04/04/25 09:03 04/04/25 09:23 04/04/25 09:30 Pulse Rate 38 L 58 L 57 L Respiratory Rate 16 20 20 Blood Pressure 106/56 L Pulse Oximetry 94 Oxygen Delivery 04/04/25 10:08 Pulse Rate Respiratory Rate Blood Pressure Pulse Oximetry 94 Oxygen Delivery Autopap Exam 2 Const: General: cooperative, healthy appearing, comfortable, no acute distress and well developed Orientation/consciousness: oriented to person, oriented to place, oriented to time and patient oriented x3 HENMT: Head: normal to inspection, normocephalic and atraumatic Mouth: Yes Normal oral and palatal mucosa present and Yes moist mucous membranes Other: loose front tooth on lower jaw Eyes: General: appearance normal, both eyes and all related structures C onjunctivae: conjunctivae normal Sclera: sclerae normal Pupils: Equal, round and reactive pupils present Neck: Neck: normal visual inspection Chest: Chest palpation & inspection: normal inspection of the chest Resp: Effort & Inspection: normal respiratory effort and able to speak in complete sentences Auscultation: clear to auscultation bilaterally Cardio: Jugular venous distension: no JVD Rate: bradycardic Rhythm: r egular rhythm Heart sounds: S1 normal heart sound present and S2 normal heart sound present GI: Inspection: normal to inspection GI Palp: Yes Soft to palpation and Yes No hepatosplenomegaly present Auscultation: normal bowel sounds Rectal Exam: deferred Skin: General skin exam: normal color and no rashes or lesions noted Neuro: General: oriented to person, oriented to place, oriented to time and patient oriented x3 Cranial nerves: Yes Equal, round and reactive pupils present Speech: normal speech Extrem: General: normal to inspection and no clubbing, cyanosis or edema Psych: Appearance: grossly normal and well kempt Affect: normal affect Results Labs 04/04/25 09:15 04/04/25 09:15 Labs: Short CBC 04/04/25 Range/Units 09:15 WBC 4.2 L (4.5-10.0) K/mm3 Hgb 6.0 L* (12.0-15.0) g/dL Hct 19.4 L* (37.0-47.0) % Plt Count 174 (150-375) k/mm3 BMP 04/04/25 09:15 Sodium 130 L Potassium 5.1 H Chloride 104 Carbon Dioxide 14 L BUN 115 H* Creatinine 2.17 H Glucose 103 Calcium 8.8 Liver Function 04/04/25 Range/Units 09:15 Total Bilirubin 0.4 (0.2-1.3) mg/dL AST 38 H (14-36) U/L ALT 34 (6-35) U/L Alkaline Phosphatase 137 H (38-126) U/L Albumin 3.6 (3.5-5.1) g/dL
[2025-04-04] MEDS: PANTOPRAZOLE SODIUM IV 40 MG VIAL IV PUSH ×2 (10:34→20:55)
[2025-04-04 10:44] LABS: Troponin I 0.014 ng/mL (0.000-0.034)
[2025-04-04 11:05] LABS: Iron 122 ug/dL (37-170)
[2025-04-04 11:15] LABS: Percent Iron Saturation 40 % (20-50)
[2025-04-04] MEDS: cefTRIAXone 1 GM in SODIUM CHLORIDE 0.9% IV 50 ML 100 ML IVPB (11:16)
[2025-04-04] MEDS: DOXYCYCLINE HYCLATE 100 MG TABLET PO (11:16)
--- NOTE | 2025-04-04 11:41 | WPDCNINT2 ---
Metal [employer]ter Consult Note Consult date: 04/04/25 Reason for consult: Bradycardia HPI: Yolanda Dupont is a 74 year old female with past medical history of morbid obesity, congestive heart failure, CKD, cervical spine surgery who was a resident of senior care was brought in to ER with chief complaint of altered mental status and pneumonia. Patient's daughter states that patient was drowsy confused since yesterday. Patient's daughter was told the patient has a pneumonia and was being treated at the senior care. Today she appeared worse hence was sent to the hospital. Patient herself is unable to provide any meaningful history but is alert oriented x3 and denies any complaints except in intermittent shortness of breath. Patient's daughter reports that patient has been in and out of the senior care and had cervical spine surgery at [facility] stay. She was diagnosed with congestive heart failure and atrial fibrillation. She states she was on medication but currently off of it. She does take blood thinner. Daughter states the patient has had black stools recently. She also states the patient urine was blood tinged as per the nursing staff from the senior care.. Full review of systems not obtainable. Chart review the senior care shows that patient has been afebrile but has been bradycardic with heart rate dipping into 30s. Her blood pressure was adequate. And she was saturating well on room air. She finished a course of antibiotics recently for pneumonia. She was on amiodarone in was discontinued on 03/25. She was started on Augmentin yesterday and then was switched to cefuroxime today at the senior care. Workup in the ER showed rhythm and rate be slow AFib in 30s. WBC 4.2 hemoglobin 6 platelets 174 potassium 5.1 creatinine 2.17 BUN 115 Troponin normal UA pending Patient was evaluated by GI and Cardiology in the ER. I was asked to evaluate patient for bradycardia Review of Systems Review of Systems: All systems reviewed & are unremarkable except as noted in HPI and below (HPI) [facility] Past Medical History Medical History (Updated 04/04/25 @ 11:50 by Ilir Gonzalez MD) Coronary artery disease Hyperlipidemia GERD (gastroesophageal reflux disease) Obstructive sleep apnea Essential hypertension Atrial fibrillation Obesity Congestive heart disease Cervical spondylosis Constipation Chronic kidney disease Surgical History Surgical History (Updated 04/04/25 @ 11:49 by Ilir Gonzalez MD) H/O cervical spine surgery Social History Social History (Updated 04/04/25 @ 11:50 by Ilir Gonzalez MD) Social History: No history of smoking, alcohol use or drug use. Patient is a resident of senior care. Meds Home Medications and Allergies Allergies Allergy/AdvReac Type Severity Reaction Status Date / Time amoxicillin AdvReac Intermediate Nausea and Verified 04/04/25 09:11 Vomiting ampicillin AdvReac Intermediate Nausea and Verified 04/04/25 09:11 Vomiting Vital Signs Vital Signs - 24 hr 04/04/25 09:03 04/04/25 09:23 04/04/25 09:30 Pulse Rate 38 L 58 L 57 L Respiratory Rate 16 20 20 Blood Pressure 106/56 L Pulse Oximetry 94 Oxygen Delivery 04/04/25 10:08 04/04/25 11:33 Pulse Rate 29 L Respiratory Rate Blood Pressure 92/55 L Pulse Oximetry 94 Oxygen Delivery Autopap Exam Narrative: General: Pt is alert awake and in NAD Lungs/Chest: Trachea central Clear BS B/L, bibasilar crackles Cardiac: Malcolm car Normal S1 S2. No murmurs Circulation: Pedal pulses are intact and symmetrical. Abdomen: Normal bowel sounds. Morbidly obese. Soft. NT. ND. Extremities: Bilateral psis significant pitting edema present : Yadav in place with blood-tinged urine Neurologic: Follows commands. Moves all 4 extremities PERRL AO times Skin: No Rash Results Labs 04/04/25 09:15 04/04/25 09:15 Labs: Short CBC 04/04/25 Range/Units 09:15 WBC 4.2 L (4.5-10.0) K/mm3 Hgb 6.0 L* (12.0-15.0) g/dL Hct 19.4 L* (37.0-47.0) % Plt Count 174 (150-375) k/mm3 BMP 04/04/25 09:15 Sodium 130 L Potassium 5.1 H Chloride 104 Carbon Dioxide 14 L BUN 115 H* Creatinine 2.17 H Glucose 103 Calcium 8.8 Cardiac Enzymes 04/04/25 Range/Units 10:05 Troponin I 0.014 (0.000-0.034) ng/mL Liver Function 04/04/25 Range/Units 09:15 Total Bilirubin 0.4 (0.2-1.3) mg/dL AST 38 H (14-36) U/L ALT 34 (6-35) U/L Alkaline Phosphatase 137 H (38-126) U/L Albumin 3.6 (3.5-5.1) g/dL Assessment and Plan Assessment and plan (1) Bradycardia: Code(s): R00.1 - Bradycardia, unspecified Status: Acute Assessment and Plan: Slow AFib with soft blood pressure Patient has history of AFib and was on amiodarone which has been on hold since 03/25 as per senior care record Start patient dopamine to try to target heart rate above 40 If it does not work patient will need temporary venous pacemaker She will also likely need permanent pacemaker ventrally Cardiology has been consult Check echocardiogram (2) GI bleed: Code(s): K92.2 - Gastrointestinal hemorrhage, unspecified Status: Acute Assessment and Plan: Patient on anticoagulation with history of black stool and anemia of hemoglobin 6. She also has a history of anemia of chronic kidney disease and is on Epogen at senior care Transfuse 1 unit PRBC at this time and monitor hemoglobin Hold anticoagulation Consult nephrology for EPO dosing GI consulted for evaluation for GI bleed IV Protonix q.12 hours Monitor hemoglobin and transfuse additionally if needed (3) Hematuria: Code(s): R31.9 - Hematuria, unspecified Status: Acute Assessment and Plan: Place Yadav Check CT abdomen pelvis to rule out any stone Hold anticoagulation Monitor May need Urology consult (4) Pneumonia: Code(s): J18.9 - Pneumonia, unspecified organism Status: Acute Assessment and Plan: Chest x-ray shows bilateral infiltrates at this appears more likely to be pulmonary edema and congestive heart failure Patient is afebrile with normal WBC but patient also has been on antibiotics started yesterday Rocephin and doxycycline at this time empirically Check blood cultures Check urine Legionella and strep Empiric Rocephin and doxycycline (5) Hyperlipidemia: Code(s): E78.5 - Hyperlipidemia, unspecified Status: Acute Assessment and Plan: Continue rosuvastatin (6) GERD (gastroesophageal reflux disease): Code(s): K21.9 - Gastro-esophageal reflux disease without esophagitis Status: Acute Assessment and Plan: PPI (7) Obstructive sleep apnea: Code(s): G47.33 - Obstructive sleep apnea (adult) (pediatric) Status: Acute Assessment and Plan: Patient has history of EVERETTE but does not wear CPAP at senior care Monitor oxygen saturation while sleeping (8) Essential hypertension: Code(s): I10 - Essential (primary) hypertension Status: Acute Assessment and Plan: Hold antihypertensive medications due to borderline blood pressure (9) Anasarca: Code(s): R60.1 - Generalized edema Status: Acute Assessment and Plan: Patient has overall volume overload likely secondary to congestive heart failure and CKD Check echo and TSH Start dopamine to get blood pressure up She will need diuresis eventually (10) Congestive heart disease: Code(s): I50.9 - Heart failure, unspecified Status: Acute Assessment and Plan: Appears to have pulmonary edema on the chest x-ray and bilateral lower extremity edema Check echo Start dopamine Once blood pressure is adequate will start diuretics (11) Chronic kidney disease: Code(s): N18.9 - Chronic kidney disease, unspecified Status: Acute Assessment and Plan: Creatinine 2.17. Baseline creatinine unknown BUN 115 this is likely secondary to GI bleed Consult nephrology Obtain records from [facility] for mild hyperkalemia IV bicarb push NPO bicarb for metabolic acidosis Check CK level Urine electrolytes will not be accurate due to hematuria (12) Anemia: Code(s): D64.9 - Anemia, unspecified Status: Acute Assessment and Plan: See above (13) Coronary artery disease: Code(s): I25.10 - Atherosclerotic heart disease of [place] coronary artery without angina pectoris Status: Acute Assessment and Plan: Hold aspirin beta-omar due to bleeding and low blood pressure/heart rate Check echo Patient denies any chest pain and troponin x1 is negative Continue statin Plan DVT prophylaxis -SCD Stress ulcer prophylaxis -PPI Nutrition -NPO Code Status - Full Code I spoke to and updated patient's daughter at bedside answered all her questions. I offered her transfer to [facility] as patient has received her past care and surgeries at [facility] but patient's daughter request that she be admitted here. Total Critical Care Time - 40 minutes Due to a high probability of clinically significant, life threatening deterioration, the patient required my highest level of preparedness to intervene emergently and I personally spent this critical care time directly and personally managing the patient. This critical care time included obtaining a history; examining the patient; pulse oximetry; ordering and review of studies; arranging urgent treatment with development of a management plan; evaluation of patient's response to treatment; frequent reassessment; and discussions with other providers. It was exclusive of separately billable procedures and treating other patients and teaching time. Please see Assessment and Plan section and the rest of the note for further information on patient assessment and treatment Quality VTE Prophylaxis VTE prophylaxis: mechanical ordered Hospitalist MIPS Advance Care Plan I have confirmed that the patient's Advanced Care Plan is present, code status is documented, or surrogate decision maker is listed in patient medical record.: Yes Medication Reconciliation I have utilized all available resources to obtain, update and review the patients current medications (includes all prescriptions, OTC, herbals, cannabis, and nutritional supplements).: Yes
[2025-04-04] MEDS: DOPamine 400 MG/D5W 250 ML 400 MG/250 ML BAG 25.95 MG IV CONT (11:46)
[2025-04-04 12:05] LABS: Add Urine Microscopic? YES; Appearance Urine Turbid (Clear); Glucose Urine UA Negative (Negative); Leukocyte Esterase Ur 2+ LEU/UL (Negative); Need Manual Microscopic Reviewed; Nitrate Urine Negative (Negative); Non Pathogenic Casts >20; Specific Grav Ur 1.021 (1.001-1.035)
[2025-04-04 12:20] LABS: Creatine Kinase 98 U/L (30-135)
[2025-04-04 12:25] LABS: NT Pro B Type Natriuretic Pept 2950 pg/mL (19.9-100)
[2025-04-04 12:31] LABS: Influenza A QL RT-PCR Negative (Negative); Influenza B QL RT-PCR Negative (Negative); RSV RNA, RT-PCR Negative (Negative); SARS-CoV-2 RNA PCR Negative (Negative)
[2025-04-04 12:36] LABS: MRSA (PCR) NOT DETECTED (NOT DETECTE)
[2025-04-04 12:36] LABS: Procalcitonin 0.2 ng/mL
[2025-04-04] MEDS: SODIUM BICARBONATE 8.4% 50 MEQ/50 ML SYRINGE IV PUSH (12:40)
[2025-04-04] MEDS: SODIUM ZIRCONIUM CYCLOSILICATE 10 GM POWD.PACK PO (12:40)
[2025-04-04] MEDS: SODIUM BICARBONATE TAB 650 MG TABLET PO ×2 (12:41→16:58)
[2025-04-04 12:51] LABS: Thyroid Stimulating Hormone Reflex 3.090 uIU/mL (0.465-4.68)
--- NOTE | 2025-04-04 13:15 | PC.NURSE ---
Difficulty obtaining Temp, took about 10 temp. Took rectal Temp and Temp was 88.2F dr George made aware and per EDP blood started on blood warmer and bear huger placed on.
--- NOTE | 2025-04-04 13:18 | PC.NURSE ---
Pt arrived with harkins cath draining very dark brown color urine. Harkins cath changed drain very little urine.
[2025-04-04] MEDS: SODIUM CHLORIDE 0.9% IV 250 ML 30 ML IV CONT ×2 (13:35→21:00)
[2025-04-04] MEDS: TUBING, BLOOD SET 1 EACH XX (13:35)
--- NOTE | 2025-04-04 13:41 | WPCEDHO ---
ED Hand Off Checklist All vitals saved:y IV Site documented:y All med administrations documented:y Triage Note Triage Note pt from [facility], pt to be 04/04/25 08:58 seen for AMS, PNA. pt recently treated for PNA. pt noted by EMS to have HR of 30. family report that pt is altered, pt can not stay awake for extended periods. pt is normally more awake. pt noted to have blood in catheter bag Allergies amoxicillin Adverse Reaction (Intermediate, Verified 04/04/25 09:11) Nausea and Vomiting ampicillin Adverse Reaction (Intermediate, Verified 04/04/25 09:11) Nausea and Vomiting Current Diagnoses Nutritional anemia, unspecified (04/04/25) Heart failure, unspecified (04/04/25) Melena (04/04/25) Gastrointestinal hemorrhage, unspecified (04/04/25) Chronic kidney disease, stage 4 (severe) (04/04/25) Bradycardia, unspecified (04/04/25) Active Medications including assessments/comments Sodium Chloride (Normal Saline Iv) 250 mls @ 30 mls/hr IV CONT .[id number] STA Stop: 04/04/25 17:44 Last Admin: 04/04/25 13:35 Dose: 30 mls/hr Documented By: AZG Infusion/Titration Document 04/04/25 13:35 AZG (Rec: 04/04/25 13:35 AZG [id number]) Intake IV Site Peripheral Access Left Antecubital Container Volume 250 Waste Amount 0 Dosing Infusion Rate 30 Cumulative Dose Not Applicable Increase/Decrease Started Elapsed Time Elapsed Time ( 0m minutes) Dopamine HCl/Dextrose (Dopamine 400 Mg/D5w 250 Ml) 400 mg in 250 mls @ 25.95 mls/hr IV CONT .Q9H39M [facility] Last Admin: 04/04/25 11:46 Dose: 5 mcg/kg/min, 25.95 mls/hr Documented By: AZG Infusion/Titration Document 04/04/25 11:46 AZG (Rec: 04/04/25 11:46 AZG [id number]) Intake IV Site Peripheral Access Left Antecubital Container Volume 250 Waste Amount 0 Dosing Dose Rate 5 Infusion Rate 25.95 Increase/Decrease Started Elapsed Time Elapsed Time ( 0m minutes) Dopamine Infusion Assessment Document 04/04/25 11:46 AZG (Rec: 04/04/25 11:46 AZG [id number]) Infusion Action Dopamine Infusion Initiated Action Pulse Pulse Rate (60-100) 29 L Blood Pressure Blood Pressure (100/ 121/99 H 60-140/90) Blood Pressure Mean 106 (mmHg) Sodium Bicarbonate (Sodium Bicarbonate Tab 650 Mg Tablet) 650 mg PO BID [facility] Last Admin: 04/04/25 12:41 Dose: 650 mg Documented By: ZOË Administered/Completed Medications Discontinued Medications Albuterol/Ipratropium (Ipratropium 0.5 Mg/Albuterol Sulfate 2.5 Mg (Base) Ampul.Neb 3 Ml) 3 ml INHALATION ONCE STA Stop: 04/04/25 09:10 Last Admin: 04/04/25 09:22 Dose: 3 ml Documented By: BENY Doxycycline Hyclate (Doxycycline Hyclate 100 Mg Tablet) 100 mg PO ONCE ONE Stop: 04/04/25 10:48 Last Admin: 04/04/25 11:16 Dose: 100 mg Documented By: ZOË Ceftriaxone Sodium 1 gm/ (Sodium Chloride) 50 mls @ 100 mls/hr IVPB ONCE STA Stop: 04/04/25 11:16 Last Infusion: 04/04/25 11:42 Dose: Infused Documented By: Admin: 04/04/25 11:16 Dose: 100 mls/hr Documented By: ZOË Dopamine HCl/Dextrose (Dopamine 400 Mg/D5w 250 Ml) 400 mg in 250 mls @ 12.975 mls/hr IV CONT .[id number] [facility] Last Admin: 04/04/25 11:47 Dose: Not Given Documented By: ZOË Non-Admin Reason: Order Discontinued IV Miscellaneous Supplies (Tubing, Blood Set) Confirm Administered Dose 1 each XX .STK-MED ONE Stop: 04/04/25 12:36 Last Admin: 04/04/25 13:35 Dose: 1 each Documented By: ZOË Pantoprazole Sodium (Pantoprazole Sodium Iv 40 Mg Vial) 40 mg IV PUSH ONCE STA Stop: 04/04/25 10:22 Last Admin: 04/04/25 10:34 Dose: 40 mg Documented By: ZOË Sodium Bicarbonate (Sodium Bicarbonate 8.4% 50 Meq/50 Ml Syringe) 50 meq IV PUSH ONCE STA Stop: 04/04/25 12:02 Last Admin: 04/04/25 12:40 Dose: 50 meq Documented By: AZG Sodium Zirconium Cyclosilicate (Sodium Zirconium Cyclosilicate 10 Gm Powd.Pack) 10 gm PO ONCE STA Stop: 04/04/25 11:56 Last Admin: 04/04/25 12:40 Dose: 10 gm Documented By: ZOË Notes 04/04/25 13:18 Nurse Note by So Hackett Pt arrived with harkins cath draining very dark brown color urine. Harkins cath changed drain very little urine. Initialized on 04/04/25 13:18 - END OF NOTE 04/04/25 13:15 Nurse Note by So Hackett Difficulty obtaining Temp, took about 10 temp. Took rectal Temp and Temp was 88.2F dr George made aware and per EDP blood started on blood warmer and bear huger placed on. Initialized on 04/04/25 13:15 - END OF NOTE Interventions/Assessments IV / Saline Lock, Insert Start: 04/04/25 08:49 Freq: Status: Active Protocol: Document 04/04/25 13:35 AZG (Rec: 04/04/25 13:36 ZOË [id number]) IV Assessment Peripheral Access Right Forearm IV Catheter Access Initiated IV Insertion Date 04/04/25 IV Insertion Time 12:30 Catheter Gauge 20 Ultrasound Used for Yes Placement IV Site Assessment WNL IV Care and WNL Maintenance PA: Cardiovascular Assessment Start: 04/04/25 08:49 Freq: Status: Active Protocol: Document 04/04/25 10:08 AZG (Rec: 04/04/25 10:09 AZG [id number]) Cardiovascular Assessment Cardiovascular None Symptoms Skin Description Normal Color Heart Sounds Normal Jugular Vein None Distention Edema Assessment Bilateral Lower Leg(s) Type Pitting Edema Degree 2+ (2-4 mm) PA: Neurological Assessment Start: 04/04/25 08:49 Freq: Status: Active Protocol: Document 04/04/25 10:08 AZG (Rec: 04/04/25 10:09 AZG [id number]) Neurological Assessment Level of Alert,Awake Consciousness Arousable to Verbal Orientation Oriented to Person,Oriented to Place Neurological Weakness, General Symptoms Hallucination Type None Unable to Redirect No Behavior Behavior Appropriate,Cooperative Patient Able to Comprehend Comprehension Memory Description Intact Ability to Maintain Normal Balance Facial Symmetry Symmetrical Speech Pattern Clear Ability to Swallow Normal Tongue Position Midline Neurological Reflexes Corneal Reflex Present Bilateral Response Blink Reflex Present Response Cough/Gag Reflex Present PA: Respiratory Assessment Start: 04/04/25 08:49 Freq: Status: Active Protocol: Document 04/04/25 10:08 [facility] (Rec: 04/04/25 10:09 [facility] [id number]) Respiratory Assessment Symptoms Cough,Hoarsness,Shortness of Breath With Exertion Effort Normal Pattern Regular Depth Normal Chest Expansion Symmetrical Anterior Throughout Phase Inspiratory & Expiratory Lung Sounds Clear Cough Description Productive Cough Frequency Intermittent Sputum Amount Scant Oxygen Delivery Oxygen Delivery Autopap Pulse Oximetry (90- 94 100) Last Vital Signs Temperature 88.2 F L 04/04/25 13:37 Pulse Rate 34 L 04/04/25 13:33 Respiratory Rate 18 04/04/25 13:33 Pulse Oximetry 96 04/04/25 13:33 Blood Pressure 105/44 L 04/04/25 13:33 Blood Pressure Mean 64 04/04/25 13:33 Blood Pressure Position Sitting 04/04/25 13:25 Oxygen Delivery Autopap 04/04/25 10:08 Weight 138.4 kg 04/04/25 08:58 Last Result - Abnormals Only WBC 4.2 K/mm3 (4.5-10.0) L 04/04/25 09:15 RBC 1.81 M/mm3 (4.2-5.4) L 04/04/25 09:15 Hgb 6.0 g/dL (12.0-15.0) L* 04/04/25 09:15 Hct 19.4 % (37.0-47.0) L* 04/04/25 09:15 MCV 107.2 fl (80-100) H 04/04/25 09:15 MCHC 30.9 g/dl (32-36) L 04/04/25 09:15 RDW 18.4 % (11.5-14.5) H 04/04/25 09:15 Immature Gran % (Auto) 0.7 % (0-0.5) H 04/04/25 09:15 Neut % (Auto) 81.2 % (45.5-73.1) H 04/04/25 09:15 Lymph % (Auto) 8.6 % (18.3-44.2) L 04/04/25 09:15 Lymph # (Auto) 0.36 K/mm3 (0.9-3.2) L 04/04/25 09:15 Absolute Nucleated RBC 0.030 K/mm3 (0.0-0.012) H 04/04/25 09:15 Nucleated RBC % 0.7 % (0.0-0.2) H 04/04/25 09:15 Sodium 130 mmol/L (137-145) L 04/04/25 09:15 Potassium 5.1 mmol/L (3.4-5.0) H 04/04/25 09:15 Carbon Dioxide 14 mmol/L (22-30) L 04/04/25 09:15 BUN 115 mg/dL (7-17) H* 04/04/25 09:15 Creatinine 2.17 mg/dL (0.7-1.0) H 04/04/25 09:15 Estimated GFR 22 (59-) L 04/04/25 09:15 AST 38 U/L (14-36) H 04/04/25 09:15 Alkaline Phosphatase 137 U/L (38-126) H 04/04/25 09:15 NT-Pro-B Natriuret Pep 2950 pg/mL (19.9-100) H 04/04/25 10:05 Urine Appearance Turbid (Clear) H 04/04/25 11:44 Urine Protein 3+ mg/dL (Negative) H 04/04/25 11:44 Ur Blood (Man) 3+ (Negative) H 04/04/25 11:44 Urine Bilirubin 1+ (Negative) H 04/04/25 11:44 Leukocyte Esterase Rfl 2+ KALPANA/UL (Negative) H 04/04/25 11:44 Urine RBC >100 /hpf (0-2) H 04/04/25 11:44 Urine WBC >100 /hpf (0-3) H 04/04/25 11:44 Urine Bacteria 4+ /hpf H 04/04/25 11:44 Crossmatch See Detail 04/04/25 10:05 Most Recent Suicide Severity Rating Suicide Severity Rating NO RISK INDICATED 04/04/25 08:58
[2025-04-04 13:47] LABS: INR 2.3; Prothrombin Time 25.1 Seconds (11.1-14.7)
--- NOTE | 2025-04-04 14:28 | WNDPHOTO ---
PHOTO ONLY - See Nursing Notes and/ or assessments for documentation.
--- NOTE | 2025-04-04 14:36 | ADMGEN ---
This patient, Yolanda Dupont, was admitted to Intensive Care Unit-8. Patient/family oriented to hospital policies and general routines including ID bracelet, bed and alarms, visiting hours, pain management, procedures, bathroom and other care routines, personal items, smoking policy, room service/diet, and visiting hours. Information on how to activate the Rapid Response Team has been discussed. Patient/Family are encouraged to report perceived risks to care and to ask questions if they do not understand what they are told or what they should do.
[2025-04-04 14:40] LABS: Vitamin B12 > 1000.0 pg/mL (239-931)
[2025-04-04] MEDS: LIDOCAINE 1% PF INJ 5 ML VIAL INFILTRATE (15:10)
--- NOTE | 2025-04-04 15:39 | PM.IMHP2 ---
H&P: HPI History of Present Illness Date/Time: 04/04/25 15:39 Chief Complaint: Altered mental status Narrative: This is a 74-year-old female who [facility] with [facility] mental status. Patient was noted to be drowsy and confused since yesterday. She was also reported to have noticed blood in her urine. She reports some shortness of breath and was recently treated for pneumonia. She denied any nausea vomiting abdominal pain. In the ED her vitals were stable except bradycardia. EKG showed atrial fibrillation with rate of 29 QTC 471 Chest x-ray with possible CHF with superimposed pneumonia Laboratory workup revealed WBC of 4.2 hemoglobin of 6 platelet count a 174. Chem panel showed sodium of 130 potassium 5.1 chloride 104 bicarbonate 14 BUN 115 creatinine 2.17 blood glucose 103. S total bilirubin 0.4 AST 38 ALT 34 alkaline phosphatase 137. Troponin was negative at 0.014. Rectal examination revealed FOBT positive stool. Patient has been started on IV Protonix. With anemia she was planned to be transfused. Her temperature came back low at 88.2. She has been started on Jatin Hugger. She is admitted for further treatment to ICU. Review of Systems Review of Systems: - CONSTITUTIONAL: Denies weight loss, fever and chills. - HEENT: Denies changes in vision and hearing - RESPIRATORY: Reports SOB and cough. - CV: Denies palpitations and CP. - GI: Denies abdominal pain, nausea, vomiting and diarrhea. - : Denies dysuria and urinary frequency. - MSK: Denies myalgia and joint pain. - SKIN: Denies rash and pruritus. - NEUROLOGICAL: Denies headache and syncope. Reports some confusion see HPI - PSYCHIATRIC: Denies recent changes in mood. Denies anxiety and depression. [facility] Past Medical History Medical History Coronary artery disease Hyperlipidemia GERD (gastroesophageal reflux disease) Obstructive sleep apnea Essential hypertension Atrial fibrillation Obesity Congestive heart disease Cervical spondylosis Constipation Chronic kidney disease Surgical History Surgical History H/O cervical spine surgery Social History Social History (Updated 04/04/25 @ 11:50 by Ilir Gonzalez MD) Social History: No history of smoking, alcohol use or drug use. [facility]. Smoking status: Never smoker Meds Home Medications and Allergies Home Medications ?Medication ?Instructions ?Recorded ?Confirmed ?Type amiodarone 400 mg tablet 400 mg PO BID 04/04/25 04/04/25 History amlodipine 5 mg tablet 5 mg PO DAILY 04/04/25 04/04/25 History apixaban 5 mg tablet (Eliquis) 5 mg PO Q12H 04/04/25 04/04/25 History arginine-vitamin C-vitamin E oral 9.2 g PO .with meals 04/04/25 04/04/25 History 4.5 gram-156 mg/9.2 gram powder pkt (Arginaid) aspirin 81 mg chewable tablet 81 mg PO DAILY 04/04/25 04/04/25 History calcium citrate 200 mg PO DAILY 04/04/25 04/04/25 History cyclobenzaprine 5 mg tablet 5 mg PO TID PRN muscle spasm 04/04/25 04/04/25 History docusate sodium 100 mg tablet 100 mg PO DAILY PRN constipation 04/04/25 04/04/25 History doxazosin 8 mg tablet (Cardura) 8 mg PO HS 04/04/25 04/04/25 History elderberry fruit 350 mg capsule 350 mg PO DAILY 04/04/25 04/04/25 History epoetin kat 2,000 unit/mL 2,000 unit subcut .every 21 days 04/04/25 04/04/25 History injection solution (Epogen) ferrous sulfate 324 mg (65 mg 324 mg PO DAILY 04/04/25 04/04/25 History iron) tablet,delayed release furosemide 40 mg tablet (Lasix) 40 mg PO DAILY 04/04/25 04/04/25 History hydralazine 100 mg tablet 50 mg PO .Q8hr 04/04/25 04/04/25 History hydrocodone 5 mg-acetaminophen 325 1 tablet PO Q6H PRN pain 04/04/25 04/04/25 History mg tablet polyethylene glycol 3350 17 17 g PO DAILY PRN constipation 04/04/25 04/04/25 History gram/dose oral powder (Miralax) rosuvastatin 10 mg tablet 10 mg PO DAILY 04/04/25 04/04/25 History silver sulfadiazine 1 % topical 1 applic topical BID 04/04/25 04/04/25 History cream (Silvadene) spironolactone 25 mg tablet 25 mg PO DAILY 04/04/25 04/04/25 History Allergies Allergy/AdvReac Type Severity Reaction Status Date / Time amoxicillin AdvReac Intermediate Nausea and Verified 04/04/25 15:19 Vomiting ampicillin AdvReac Intermediate Nausea and Verified 04/04/25 15:19 Vomiting clarithromycin AdvReac Mild Nausea Verified 04/04/25 15:19 minoxidil AdvReac Mild Itching Verified 04/04/25 15:19 tetracycline AdvReac Mild Nausea Verified 04/04/25 15:19 Vital Signs Vital Signs - 24 hr 04/04/25 09:03 04/04/25 09:23 04/04/25 09:30 Temperature Pulse Rate 38 L 58 L 57 L Respiratory Rate 16 20 20 Blood Pressure 106/56 L Pulse Oximetry 94 Oxygen Delivery 04/04/25 10:08 04/04/25 11:46 04/04/25 13:05 Temperature 88.2 F L Pulse Rate 29 L 30 L Respiratory Rate 20 Blood Pressure 121/99 H 109/93 H Pulse Oximetry 94 93 Oxygen Delivery Autopap 04/04/25 13:20 04/04/25 13:25 04/04/25 13:25 Temperature 88.2 F L 82.2 F L 88.2 F L Pulse Rate 31 L 91 91 Respiratory Rate 21 H 21 H 21 H Blood Pressure 104/48 L 98/44 L 98/44 L Pulse Oximetry 91 92 92 Oxygen Delivery 04/04/25 13:33 04/04/25 13:37 04/04/25 14:12 Temperature 88.2 F L 87.9 F L Pulse Rate 34 L 34 L Respiratory Rate 18 23 H Blood Pressure 105/44 L 112/50 L Pulse Oximetry 96 Oxygen Delivery 04/04/25 14:30 04/04/25 14:30 04/04/25 14:37 Temperature 87.9 F L 88.1 F L 88.2 F L Pulse Rate 33 L Respiratory Rate 21 H Blood Pressure 120/98 H Pulse Oximetry Oxygen Delivery 04/04/25 14:45 Temperature 88.3 F L Pulse Rate 34 L Respiratory Rate 19 Blood Pressure 109/46 L Pulse Oximetry 91 Oxygen Delivery Exam Narrative: GENERAL: The patient is well developed, not in acute distress HEENT: Nonicteric sclerae, PERRLA, EOMI. Oropharynx clear. Moist mucous membranes. Conjunctivae appear well perfused. CHEST: Chest wall is nontender. HEART: Regular rate and rhythm without murmur, rubs, or gallops LUNGS: Clear to auscultation bilaterally. no respiratory distress ABDOMEN: Soft, positive bowel sounds, non-tender, no organomegaly. SKIN: No rash, no excessive bruising, petechiae, or purpura. NEUROLOGIC: Cranial nerves II-XII intact, alert and oriented x 3, no gross motor deficits EXTREMITIES: Bilateral lower extremity edema wrap with Madi wrapped, no cyanosis or clubbing Results Labs Labs: Short CBC 04/04/25 Range/Units 09:15 WBC 4.2 L (4.5-10.0) K/mm3 Hgb 6.0 L* (12.0-15.0) g/dL Hct 19.4 L* (37.0-47.0) % Plt Count 174 (150-375) k/mm3 BMP 04/04/25 09:15 Sodium 130 L Potassium 5.1 H Chloride 104 Carbon Dioxide 14 L BUN 115 H* Creatinine 2.17 H Glucose 103 Calcium 8.8 Cardiac Enzymes 04/04/25 Range/Units 10:05 Total Creatine Kinase 98 (30-135) U/L Troponin I 0.014 (0.000-0.034) ng/mL Liver Function 04/04/25 Range/Units 09:15 Total Bilirubin 0.4 (0.2-1.3) mg/dL AST 38 H (14-36) U/L ALT 34 (6-35) U/L Alkaline Phosphatase 137 H (38-126) U/L Albumin 3.6 (3.5-5.1) g/dL Urine 04/04/25 Range/Units 11:44 Urine Color Dark yellow (Yellow) Urine Appearance Turbid H (Clear) Urine pH 6.0 (5.0-9.0) Ur Specific [place] 1.021 (1.001-1.035) Urine Protein 3+ H (Negative) mg/dL Urine Glucose (UA) Negative (Negative) mg/dL Assessment and Plan Assessment and plan (1) Essential hypertension: Code(s): I10 - Essential (primary) hypertension Status: Acute (2) Congestive heart disease: Qualifiers: Heart failure type: unspecified Heart failure chronicity: chronic Qualified Code(s): I50.9 - Heart failure, unspecified Code(s): I50.9 - Heart failure, unspecified Status: Acute (3) Coronary artery disease: Code(s): I25.10 - Atherosclerotic heart disease of [place] coronary artery without angina pectoris Status: Acute (4) Bradycardia: Code(s): R00.1 - Bradycardia, unspecified Status: Acute (5) Hyperlipidemia: Code(s): E78.5 - Hyperlipidemia, unspecified Status: Acute (6) GERD (gastroesophageal reflux disease): Code(s): K21.9 - Gastro-esophageal reflux disease without esophagitis Status: Acute (7) GI bleed: Qualifiers: GI bleed type/associated pathology: melena Qualified Code(s): K92.1 - Melena Code(s): K92.2 - Gastrointestinal hemorrhage, unspecified Status: Acute (8) Chronic kidney disease: Qualifiers: Chronic kidney disease stage: stage 4 (GFR 15-29) Qualified Code(s): N18.4 - Chronic kidney disease, stage 4 (severe) Code(s): N18.9 - Chronic kidney disease, unspecified Status: Acute (9) Hematuria: Code(s): R31.9 - Hematuria, unspecified Status: Acute (10) Anemia: Code(s): D64.9 - Anemia, unspecified Status: Acute (11) Pneumonia: Code(s): J18.9 - Pneumonia, unspecified organism Status: Acute (12) Obstructive sleep apnea: Code(s): G47.33 - Obstructive sleep apnea (adult) (pediatric) Status: Acute Plan This is a 74-year-old female who [facility] the [facility] with [facility] mental status. Patient was noted to be drowsy and confused since yesterday. She was also reported to have noticed blood in her urine. She reports some shortness of breath and was recently treated for pneumonia. She denied any nausea vomiting abdominal pain. In the ED her vitals were stable except bradycardia. EKG showed atrial fibrillation with S VR with rate of 29 QTC 471 Chest x-ray with possible CHF with superimposed pneumonia Laboratory workup revealed WBC of 4.2 hemoglobin of 6 platelet count a 174. Chem panel showed sodium of 130 potassium 5.1 chloride 104 bicarbonate 14 BUN 115 creatinine 2.17 blood glucose 103. S total bilirubin 0.4 AST 38 ALT 34 alkaline phosphatase 137. Troponin was negative at 0.014. Rectal examination revealed FOBT positive stool. Patient has been started on IV Protonix. With anemia she was planned to be transfused. Her temperature came back low at 88.2. She has been started on Jatin Hugger. She is admitted for further treatment to ICU. Altered mental status Severe anemia with hemoglobin of 6 with FOBT positive stool associated hematuria as well. Transfuse p.r.n. to keep hemoglobin more than 7 FOBT positive stool ppi GI consult Hypothermia suspected sepsis TSH normal. Severe bradycardia stable continue to monitor could be due to hypothermia. Cardiology on board. Patient started on dopamine Elevated LFTs continue to monitor Of pneumonia chest x-ray with bilateral infiltrates pulmonary edema versus pneumonia. Normal WBC. Empiric Rocephin and doxycycline. Hyperlipidemia rosuvastatin GERD Obstructive sleep apnea not on CPAP Hypertension hold blood pressure medication Lymphedema CHF check echo patient started on dopamine CELINA on CKD stage 3 baseline creatinine unknown. Nephrology consulted creatinine 2.17. BUN is 115 could be from GI bleed. Coronary artery disease History of Cervical spine surgery DVT prophylaxis SCDs Code status do not resuscitate Hospitalist MIPS Advance Care Plan I have confirmed that the patient's Advanced Care Plan is present, code status is documented, or surrogate decision maker is listed in patient medical record.: Yes Medication Reconciliation I have utilized all available resources to obtain, update and review the patients current medications (includes all prescriptions, OTC, herbals, cannabis, and nutritional supplements).: Yes
--- NOTE | 2025-04-04 16:05 | P.CONNP_ITS ---
Assessment and Plan Assessment and plan (1) Acute kidney injury: Code(s): N17.9 - Acute kidney failure, unspecified Status: Acute Assessment and Plan: * as noted by admission labs * suspect due to several issues: * anemia * prerenal factors * diuretic use prior to admission * relative hypotension * CHF exacerbation * infection (pneumonia?) * bradycardia * other(?) * CT imaging without obstruction * check urine studies * optimize hemodynamics * follow trend of repeat labs and UOP (2) Stage 3b chronic kidney disease: Code(s): N18.32 - Chronic kidney disease, stage 3b Status: Chronic Assessment and Plan: * baseline creatinine average ~ 1.4 - 1.9mg/dl (from review of [facility] and [facility] records) * however she has fluctuated to extremes in association with acute hospitalizations * this causes her to bounce between CKD stage 3b and stage 4 * presumably due to hypertension, vascular disease (CAD + hyperlipidemia + CHF), and age-related disease (3) Bradycardia: Code(s): R00.1 - Bradycardia, unspecified Status: Acute Assessment and Plan: * telemetry with slow aFib * soft BP noted as well * known history of AFib (but off amiodarone prior to admission) * on dopamine for bradycardia and soft BP * BP medications on hold * Cardiology following * may need pacemaker (temporary versus permanent?) (4) GI bleed: Qualifiers: GI bleed type/associated pathology: melena Qualified Code(s): K92.1 - Melena Code(s): K92.2 - Gastrointestinal hemorrhage, unspecified Status: Acute Assessment and Plan: * suspected based on history of black tarry stools * admission hemoglobin noted at 6.0 * PRBC transfusion per protocol * anticoagulation on hold * GI recommendations noted -- no intervention at this time * on PPI * follow trend of H/H (5) Metabolic acidosis: Code(s): E87.20 - Acidosis, unspecified Status: Acute Assessment and Plan: * likely worsened by CELINA/ARF * IV bicarb pushes while NPO * may need to start oral sodium bicarbonate to compensate (6) Congestive heart disease: Qualifiers: Heart failure chronicity: acute Heart failure type: diastolic Q ualified Code(s): I50.31 - Acute diastolic (congestive) heart failure Code(s): I50.9 - Heart failure, unspecified Status: Acute Assessment and Plan: * evidence of volume overload on admission: * pulmonary edema on the chest x-ray * large pleural effusion on CT scan * bilateral lower extremity edema * Echo ordered * diuresis as tolerated by hemodynamics (7) Pneumonia: Code(s): J18.9 - Pneumonia, unspecified organism Status: Acute Assessment and Plan: * admission chest x-ray with bilateral infiltrates * suspect more likely to be pulmonary edema and associated congestive heart failure * admission CT chest with scattered foci bilateral airspace disease * afebrile and with normal WBC * started on empiric antibiotics * follow culture data (8) Anemia: Code(s): D64.9 - Anemia, unspecified Status: Chronic Assessment and Plan: * due to underlying CKD * likely worsened by #4 * follow trend of H/H (9) Essential hypertension: Code(s): I10 - Essential (primary) hypertension Status: Chronic Assessment and Plan: * known history * BP medications on hold * follow trend of hemodynamics (10) Altered mental status: Code(s): R41.82 - Altered mental status, unspecified Status: Acute Assessment and Plan: * noted on admission * possibly secondary to acute illness (CELINA, anemia, pneumonia, CHF, bradycardia...etc) * slow improvement noted * follow mentation I will continue to follow the patient with you while she remains hospitalized and make further recommendations as deemed necessary. Thank you for allowing me to participate in the care of this patient. L History of Present Illness Reason for Consult Consult date: 04/04/25 Reason for consult: acute renal failure (on chronic kidney disease) Chief Complaint Chief complaint: Paroxysmal Atrial Fibrillation/Symptomatic Bradyca History of Present Illness Narrative: Most of the information I have obtained is from review of electronic medical record as well as the accompanying paper chart from her nursing facility as the patient is unable to give much history due to her confusion The patient is a 74-year-old female with a past medical history as outlined below who presented to [facility] with complaints of altered mental status. Apparently, according to [facility] records, the patient has been somewhat drowsy and confused for last 24 hours if not longer. Furthermore, she was noted to have gross hematuria and apparently was being treated for pneumonia at her nursing facility as she had some complaints of shortness of breath although I am unclear if a chest x-ray verified her pneumonia. As all these symptoms seem to be clinically worsening, she was transferred to the emergency room and [facility] for further assessment. Workup and evaluation emergency room demonstrated the patient to be quite bradycardic and hypothermic along with systolic BP is in the 100s. Subsequent testing was significant for a white blood cell count of 4.2, hemoglobin 6.0, platelet count 174, sodium 130, potassium 5.1, chloride 104, bicarb 14, BUN 115, creatinine 2.17, glucose 103, totally bilirubin 0.4, AST 38, ALT 34, alkaline phosphatase 137, and an albumin of 3.6. Given her confusion, a CT scan of the brain was done which was unremarkable and her chest x-ray showed possible CHF with superimposed pneumonia. Her EKG showed bradycardia with atrial fibrillation. She was typed and crossed for a packed red blood cell transfusion and a Jatin Hugger was applied given her significant hypothermia. She was subsequently admitted to the intensive care unit for further evaluation and therapy. Since her admission, GI and Cardiology were consulted from the ER with regard to her suspected GI bleed and atrial fibrillation in association with bradycardia. She eventually developed hypotension in association with her bradycardia and was started on a dopamine drip to help with both of these issues. Gastroenterology also recommended outpatient colonoscopy when she was more hemodynamically stable. Renal consultation was requested due to her acute kidney injury on top of her baseline chronic kidney disease. From records available from [facility] as well as [facility], the patient is creatinine seems to fluctuate to extremes particularly during her acute hospitalizations. Her creatinine seems to average out to mg/dL causing her to fluctuate between chronic kidney disease stage IIIB and stage IV likely secondary to her hypertension, vascular disease, and age-related change. I am not entirely sure if the patient follows up with Nephrology as an outpatient or not. More concerning is the fact that she has evidence of volume overload / CHF at least based on her chest x-ray which may be related to her acute insult to her baseline kidney disease. Unfortunately, given her hemodynamic status, diuresis is not an option at this time. Currently, at the time my evaluation, she does not appear to be any acute distress but as already mentioned, is slightly confused. Review of Systems 2 Review of Systems: As per HPI. [facility] Past Medical History Medical History (Updated 04/10/25 @ 14:51 by Leif Marie MD) Acute on chronic kidney failure Coronary artery disease Hyperlipidemia GERD (gastroesophageal reflux disease) Obstructive sleep apnea Essential hypertension Atrial fibrillation Obesity Congestive heart disease Cervical spondylosis Constipation Chronic kidney disease Surgical History Surgical History H/O cervical spine surgery Social History Social History (Updated 04/04/25 @ 11:50 by Ilir Gonzalez MD) Social History: No history of smoking, alcohol use or drug use. [facility] is a resident of [facility]. Smoking status: Never smoker Alcohol intake: never Substance use: never Substance use type: does not use Lack of Transportation: No Lack of Food: Never True Current Housing: I Have Housing Concerned About Future Housing: No Difficulty Paying Gas/Electric Bills: No Difficulty Paying for Meds: No Currently Unemployed: No Education: Don't Know Difficulty w/ Childcare or Family Care: No Spiritual care concerns: No Meds Home Medications and Allergies Home Medications ?Medication ?Instructions ?Recorded ?Confirmed ?Type amiodarone 400 mg tablet 400 mg PO BID 04/04/2504/04 History Held on 04/11/25. Instructions: until seen by her brokerage branch manager amlodipine 5 mg tablet 5 mg PO DAILY 04/04/2504/04 History apixaban 5 mg tablet (Eliquis) 5 mg PO Q12H 04/04/25 1 06/05/24 History arginine-vitamin C-vitamin E oral 9.2 g PO .with meals 04/04/25 04/04/25 History 4.5 gram-156 mg/9.2 gram powder pkt (Arginaid) aspirin 81 mg chewable tablet 81 mg PO DAILY 04/04/25 04/04/25 History calcium citrate 200 mg PO DAILY 04/04/2505/29 History cyclobenzaprine 5 mg tablet 5 mg PO TID PRN muscle spa sm 04/04/25 04/04/25 History docusate sodium 100 mg tablet 100 mg PO DAILY PRN cons tipation 04/04/25 04/04/25 History doxazosin 8 mg tablet (Cardura) 8 mg PO HS 04/04/25 History elderberry fruit 350 mg capsule 350 mg PO DAILY 04/04/25 History epoetin kat 2,000 unit/mL 2,000 unit subcut .every 21 days 04/04/25 04/04/25 History injection solution (Epogen) ferrous sulfate 324 mg (65 mg 324 mg PO DAILY 04/04/25 04/04/25 History iron) tablet,delayed release furosemide 40 mg tablet (Lasix) 40 mg PO DAILY 5 04/04/25 History hydralazine 100 mg tablet 50 mg PO .Q8hr 04/04/2505/29 History hydrocodone 5 mg-acetaminophen 325 1 tablet PO Q6H PRN pain 04/04/25 04/04/25 History mg tablet polyethylene glycol 3350 17 17 g PO DAILY PRN constipa tion 04/04/25 04/04/25 History gram/dose oral powder (Miralax) rosuvastatin 10 mg tablet 10 mg PO DAILY 04/04/2505/29 History silver sulfadiazine 1 % topical 1 applic topical BID 1 06/05/24 04/04/25 History cream (Silvadene) spironolactone 25 mg tablet 25 mg PO DAILY 04/04/25 History levofloxacin 250 mg tablet 250 mg PO DAILY #5 tabs 12/27 Rx rosuvastatin 10 mg tablet (Crestor) 10 mg PO QAM #30 t abs 04/11/25 Rx Allergies Allergy/AdvReac Type Severity Reaction Status Date / Time amoxicillin AdvReac Intermediate Nausea and Verified 04/08/25 08:41 Vomiting ampicillin AdvReac Intermediate Nausea and Verified 04/08/25 08:41 Vomiting clarithromycin AdvReac Mild Nausea Verified 04/04/25 15:19 minoxidil AdvReac Mild Itching Verified 04/04/25 15:19 tetracycline AdvReac Mild Nausea Verified 04/08/25 08:41 Vital Signs Vital Signs Temp Pulse Resp BP Pulse Ox O2 Del Method O2 Flow Rate 04/04/25 16:00 89.5 F L 33 L 19 94 04/04/25 15:37 88.9 F L 04/04/25 15:07 88.5 F L 04/04/25 15:00 88.5 F L 35 L 19 108/68 91 04/04/25 14:45 88.3 F L 34 L 19 109/46 L 91 04/04/25 14:37 88.2 F L 04/04/25 14:30 88.1 F L 33 L 21 H 120/98 H 04/04/25 14:30 87.9 F L 04/04/25 14:12 87.9 F L 34 L 23 H 112/50 L 04/04/25 14:00 34 L 04/04/25 13:37 88.2 F L 04/04/25 13:33 34 L 18 105/44 L 96 04/04/25 13:25 88.2 F L 91 21 H 98/44 L 92 04/04/25 13:25 82.2 F L 91 21 H 98/44 L 92 04/04/25 13:20 88.2 F L 31 L 21 H 104/48 L 91 04/04/25 13:05 88.2 F L 30 L 20 109/93 H 93 04/04/25 11:46 29 L 121/99 H 04/04/25 10:08 94 Autopap 04/04/25 09:30 57 L 20 04/04/25 09:23 58 L 20 04/04/25 09:03 38 L 16 106/56 L 94 Exam 2 Narrative: GENERAL APPEARANCE: elderly female in no acute distress HEENT: normocephalic, atraumatic, normal conjunctiva and sclera, nares patient NECK: no lymphadenopathy, thyromegaly, or JVD MOUTH: normal lips, teeth, and gums CARDIOVASCULAR: RRR, normal S1 and S2, no rub detected RESPIRATORY: decreased at bases with bibasilar crackles ABDOMEN: soft, nontender, nondistended, positive bowel sounds present EXTREMITIES: no evidence of cyanosis, clubbing, 1 - 2+ edema NEUROLOGICAL: awake but confused Results Lab Results 04/11/25 05:37 04/11/25 05:37 Lab results: Most recent lab results Calcium 8.8 mg/dL (8.4-10.2) 04/04/25 09:15
[2025-04-04] MEDS: PERFLUTREN LIPID MICROSPHERES 1.5 ML VIAL DILUTED TO 10 ML TOTAL VOLUME IV PUSH (16:30)
--- NOTE | 2025-04-04 16:48 | IVDEFINITY ---
Prior to administration of IV Definity the patient was educated on the risks and benefits of the imaging enhancing agent including potential adverse side effects. The patient verbalized understanding. Allergies were verified. No exclusion criteria were identified and at least one of the following inclusion criteria were met: 1) physician request, 2) patient technically difficult to image (per the [place] [employer] guidelines of two or more segments not discernable within the apical view), or 3) questionable left ventricular function. ?
[2025-04-04 18:15] LABS: Hematocrit 21.7 % (37.0-47.0); Immature Granulocyte Percent A 1.0 % (0-0.5); Lymphocytes Absolute Auto 0.26 K/mm3 (0.9-3.2); Mean Corpuscular HGB Conc 30.9 g/dl (32-36); Mean Corpuscular Hemoglobin 32.2 pg (26-34); Mean Corpuscular Volume 104.3 fl (80-100); Nucleated Red Blood Cells Absolute Auto 0.050 K/mm3 (0.0-0.012); Nucleated Red Blood Cells Perc 1.0 % (0.0-0.2); Platelet Count Result 194 k/mm3 (150-375); Red Blood Count 2.08 M/mm3 (4.2-5.4); White Blood Count 5.2 K/mm3 (4.5-10.0)
[2025-04-04] MEDS: DOPamine 400 MG/D5W 250 ML 400 MG/250 ML BAG 51.9 MG IV CONT (18:42)
[2025-04-04 18:59] LABS: Hemoglobin 6.7 g/dL (12.0-15.0)
[2025-04-04 19:03] LABS: Band Neutrophils Percent 0 % (0-6); Hypochromasia 1+; Schistocytes Occasional
[2025-04-04 19:04] LABS: Anisocytosis 3+; Macrocytosis 1+ (NORMAL)
[2025-04-04] MEDS: FUROSEMIDE INJ 100 MG/10 ML VIAL 80 MG IV PUSH (19:48)
[2025-04-04] MEDS: CENTRAL LINE FLUSH 10 ML IV PUSH (20:55)
[2025-04-04] MEDS: DOXYCYCLINE IV 100 MG in SODIUM CHLORIDE 0.9% IV 100 ML IVPB (20:55)
--- NOTE | 2025-04-04 22:50 | PC.NURSE ---
Dr Gonzalez made aware of poor urine output-50ml returned after 80 of lasix given. NNO at this time.
[2025-04-05] VITALS (81 sets, daily range): BP systolic 101–151; BP diastolic 40–89; PULSE 35–85; RESP 19–30; TEMP 35.7–37.3; O2SAT 95–99
[2025-04-05 00:44] LABS: Hematocrit 21.8 % (37.0-47.0)
[2025-04-05 00:47] LABS: Hemoglobin 6.9 g/dL (12.0-15.0)
[2025-04-05] MEDS: SODIUM CHLORIDE 0.9% IV 250 ML 30 ML IV CONT ×2 (05:43→15:49)
[2025-04-05] MEDS: CENTRAL LINE FLUSH 20 ML IV PUSH (05:44)
[2025-04-05] MEDS: CENTRAL LINE FLUSH 10 ML IV PUSH ×3 (05:44→21:19)
[2025-04-05 05:57] LABS: Hematocrit 22.5 % (37.0-47.0); Hemoglobin 7.3 g/dL (12.0-15.0); Immature Granulocyte Percent A 0.5 % (0-0.5); Lymphocytes Absolute Auto 0.32 K/mm3 (0.9-3.2); Mean Corpuscular HGB Conc 32.4 g/dl (32-36); Mean Corpuscular Hemoglobin 31.2 pg (26-34); Mean Corpuscular Volume 96.2 fl (80-100); Nucleated Red Blood Cells Absolute Auto 0.060 K/mm3 (0.0-0.012); Nucleated Red Blood Cells Perc 1.0 % (0.0-0.2); Platelet Count Result 162 k/mm3 (150-375); Red Blood Count 2.34 M/mm3 (4.2-5.4); White Blood Count 6.0 K/mm3 (4.5-10.0)
[2025-04-05 06:52] LABS: Alanine Aminotransferase 58 U/L (6-35); Albumin Level 3.2 g/dL (3.5-5.1); Alkaline Phosphatase 102 U/L (38-126); Anion Gap 8 mmol/L (4-12); Aspartate Amino Transferase 57 U/L (14-36); Bilirubin,Total 0.5 mg/dL (0.2-1.3); Calcium 8.3 mg/dL (8.4-10.2); Carbon Dioxide 16 mmol/L (22-30); Chloride 106 mmol/L (98-107); Estimated CRCL calculation 27 ml/min; Estimated Glomerular Filt Rate 20; Glucose 64 mg/dL (65-110); Magnesium 2.3 mg/dL (1.6-2.3); Potassium 4.8 mmol/L (3.4-5.0); Sodium 130 mmol/L (137-145); Total Protein 6.8 g/dL (6.3-8.2)
[2025-04-05 06:53] LABS: Blood Urea Nitrogen 122 mg/dL (7-17)
[2025-04-05] MEDS: DEXTROSE 50% 25 GM/50 ML SYRINGE IV PUSH (07:05)
--- NOTE | 2025-04-05 08:29 | PM.PNCARD ---
Progress Note: A&P Assessment and Plan (1) Bradycardia: Code(s): R00.1 - Bradycardia, unspecified Status: Acute Assessment and Plan: She has atrial fibrillation with slow ventricular response, heart rate in the 30's initially. Improved with dopamine. Attempts to wean dopamine have been unsuccessful Discussed PPM with patient who verbalizes she wishes to proceed with PPM and rescind DNR. Also spoke with patient's daughter who is in agreement with the plan and verbalizes agreement with rescinding DNR status for full code. Patient case and PPM implantation discussed with Dr. Petit Plan for PPM tomorrow morning (2) GI bleed: Qualifiers: GI bleed type/associated pathology: melena Qualified Code(s): K92.1 - Melena Code(s): K92.2 - Gastrointestinal hemorrhage, unspecified Status: Acute Assessment and Plan: Hold anticoagulation for now. GI has been consulted. Will give 1u PRBC's an 40mg IV lasix (3) Congestive heart disease: Qualifiers: Heart failure type: unspecified Heart failure chronicity: chronic Qualified Code(s): I50.9 - Heart failure, unspecified Code(s): I50.9 - Heart failure, unspecified Status: Acute Assessment and Plan: Evidence of CHF on Xray, she has been given IV furosemide. As above, will administer IV furosemide 40mg prior to blood transfusion in order to manage possible volume overload. May require post-transfusion diuresis as well. Subjective Date/time seen: 04/05/25 08:29 Interval history: Cardiology follow up for bradycardia Date of service 04/05/2025: Review of Systems Review of Systems: All systems reviewed & are unremarkable except as noted in HPI and below Exam Const: General: comfortable, no acute distress, alert and awake Orientation/consciousness: patient oriented x3 HENMT: Head: normal to inspection Eyes: General: appearance normal, both eyes and all related structures Pupils: Equal, round and reactive pupils present Neck: Neck: normal visual inspection, supple and no JVD Carotids: normal carotid upstroke Resp: Effort & Inspection: normal respiratory effort Auscultation: rales Cardio: Rate: bradycardic Rhythm: abnormal rhythm irregularly irregular Heart sounds: S1 normal heart sound present, S2 normal heart sound present and no murmurs GI: Auscultation: normal bowel sounds Skin: General skin exam: normal color Neuro: General: patient oriented x3 Cranial nerves: Yes Equal, round and reactive pupils present Extrem: General: abnormal to inspection Other: bilateral lower extremity lymphedema. Knee high MANDEEP wraps in place Psych: Appearance: grossly normal Mental Status: mental status grossly normal Objective Data Vital Signs Vital Signs: Vital Signs - 24 hr 04/04/25 09:03 04/04/25 09:23 04/04/25 09:30 Temperature Pulse Rate 38 L 58 L 57 L Respiratory Rate 16 20 20 Blood Pressure 106/56 L Pulse Oximetry 94 Oxygen Delivery Oxygen Flow Rate 04/04/25 10:08 04/04/25 11:46 04/04/25 13:05 Temperature 31.2 C L Pulse Rate 29 L 30 L Respiratory Rate 20 Blood Pressure 121/99 H 109/93 H Pulse Oximetry 94 93 Oxygen Delivery Autopap Oxygen Flow Rate 04/04/25 13:20 04/04/25 13:25 04/04/25 13:25 Temperature 31.2 C L 27.9 C L 31.2 C L Pulse Rate 31 L 91 91 Respiratory Rate 21 H 21 H 21 H Blood Pressure 104/48 L 98/44 L 98/44 L Pulse Oximetry 91 92 92 Oxygen Delivery Oxygen Flow Rate 04/04/25 13:33 04/04/25 13:37 04/04/25 14:00 Temperature 31.2 C L Pulse Rate 34 L 34 L Respiratory Rate 18 Blood Pressure 105/44 L Pulse Oximetry 96 Oxygen Delivery Oxygen Flow Rate 04/04/25 14:00 04/04/25 14:12 04/04/25 14:30 Temperature 31.1 C L 31.1 C L 31.1 C L Pulse Rate 34 L 34 L Respiratory Rate 23 H 23 H Blood Pressure 112/50 L 112/50 L Pulse Oximetry 90 Oxygen Delivery Oxygen Flow Rate 04/04/25 14:30 04/04/25 14:37 04/04/25 14:45 Temperature 31.2 C L 31.2 C L 31.3 C L Pulse Rate 33 L 34 L Respiratory Rate 21 H 19 Blood Pressure 120/98 H 109/46 L Pulse Oximetry 91 Oxygen Delivery Oxygen Flow Rate 04/04/25 15:00 04/04/25 15:07 04/04/25 15:37 Temperature 31.4 C L 31.4 C L 31.6 C L Pulse Rate 35 L Respiratory Rate 19 Blood Pressure 108/68 Pulse Oximetry 91 Oxygen Delivery Oxygen Flow Rate 04/04/25 16:00 04/04/25 16:00 04/04/25 16:00 Temperature 31.9 C L 31.9 C L Pulse Rate 34 L 33 L Respiratory Rate 19 Blood Pressure Pulse Oximetry 94 Oxygen Delivery Oxygen Flow Rate 04/04/25 16:00 04/04/25 16:00 04/04/25 16:30 Temperature 32.2 C L Pulse Rate 36 L Respiratory Rate Blood Pressure Pulse Oximetry 94 Oxygen Delivery Nasal Cannula Oxygen Flow Rate 2 04/04/25 17:00 04/04/25 17:00 04/04/25 17:30 Temperature 32.6 C L 32.6 C L 32.8 C L Pulse Rate 39 L Respiratory Rate 23 H Blood Pressure 130/51 L Pulse Oximetry 94 Oxygen Delivery Oxygen Flow Rate 04/04/25 18:00 04/04/25 18:00 04/04/25 18:00 Temperature 33.1 C L 33.1 C L Pulse Rate 38 L 38 L Respiratory Rate 20 Blood Pressure 125/50 L Pulse Oximetry 91 Oxygen Delivery Oxygen Flow Rate 04/04/25 18:00 04/04/25 18:30 04/04/25 18:31 Temperature 33.3 C L 33.3 C L Pulse Rate 40 L 48 L Respiratory Rate 24 H Blood Pressure 125/50 L 141/52 H Pulse Oximetry 91 Oxygen Delivery Oxygen Flow Rate 04/04/25 18:42 04/04/25 18:42 04/04/25 18:45 Temperature 33.5 C L Pulse Rate 48 L 48 L 49 L Respiratory Rate 28 H Blood Pressure 141/52 H 141/52 H Pulse Oximetry 93 Oxygen Delivery Oxygen Flow Rate 04/04/25 18:46 04/04/25 19:00 04/04/25 19:00 Temperature 33.5 C L 33.6 C L 33.6 C L Pulse Rate 48 L 48 L Respiratory Rate 23 H 19 Blood Pressure 140/50 L 137/53 L Pulse Oximetry 94 95 Oxygen Delivery Oxygen Flow Rate 04/04/25 19:00 04/04/25 19:01 04/04/25 19:15 Temperature 33.7 C L 33.7 C L 33.8 C L Pulse Rate 48 L 49 L 49 L Respiratory Rate 22 H 21 H 23 H Blood Pressure 137/53 L Pulse Oximetry 94 95 92 Oxygen Delivery Oxygen Flow Rate 04/04/25 19:16 04/04/25 19:19 04/04/25 19:20 Temperature 33.8 C L 33.9 C L Pulse Rate 48 L 56 L 52 L Respiratory Rate 23 H 28 H Blood Pressure 136/49 L 136/49 L 135/62 Pulse Oximetry 91 92 Oxygen Delivery Oxygen Flow Rate 04/04/25 19:30 04/04/25 19:30 04/04/25 19:31 Temperature 33.9 C L 33.9 C L 33.9 C L Pulse Rate 49 L 49 L Respiratory Rate 24 H 25 H Blood Pressure 134/49 L Pulse Oximetry 93 93 Oxygen Delivery Oxygen Flow Rate 04/04/25 19:45 04/04/25 19:46 04/04/25 19:58 Temperature 34.1 C L 34.1 C L Pulse Rate 50 L 49 L 56 L Respiratory Rate 23 H 25 H Blood Pressure 133/50 L 133/50 L Pulse Oximetry 96 96 Oxygen Delivery Oxygen Flow Rate 04/04/25 20:00 04/04/25 20:00 04/04/25 20:00 Temperature 34.2 C L 34.2 C L Pulse Rate 52 L Respiratory Rate 25 H Blood Pressure 141/50 H Pulse Oximetry 92 93 Oxygen Delivery Nasal Cannula Oxygen Flow Rate 2 04/04/25 20:00 04/04/25 20:00 04/04/25 20:01 Temperature 34.2 C L 34.2 C L Pulse Rate 52 L 58 L 52 L Respiratory Rate 16 23 H Blood Pressure 141/50 H Pulse Oximetry 92 92 Oxygen Delivery Oxygen Flow Rate 04/04/25 20:15 04/04/25 20:23 04/04/25 20:30 Temperature 34.4 C L 34.4 C L 34.5 C L Pulse Rate 52 L 52 L Respiratory Rate 18 19 Blood Pressure 131/54 L Pulse Oximetry 93 94 Oxygen Delivery Oxygen Flow Rate 04/04/25 20:30 04/04/25 20:31 04/04/25 20:39 Temperature 34.5 C L 34.6 C L 34.4 C L Pulse Rate 52 L 51 L 47 L Respiratory Rate 24 H 25 H 25 H Blood Pressure 134/50 L 134/50 L Pulse Oximetry 96 96 94 Oxygen Delivery Oxygen Flow Rate 04/04/25 20:45 04/04/25 20:46 04/04/25 21:00 Temperature 34.6 C L 34.6 C L 34.9 C L Pulse Rate 48 L 50 L Respiratory Rate 16 21 H Blood Pressure 129/48 L Pulse Oximetry 93 93 Oxygen Delivery Oxygen Flow Rate 04/04/25 21:00 04/04/25 21:00 04/04/25 21:01 Temperature 34.9 C L 34.8 C L 34.8 C L Pulse Rate 48 L 49 L 65 Respiratory Rate 22 H 18 18 Blood Pressure 129/45 L 129/45 L Pulse Oximetry 91 96 96 Oxygen Delivery Oxygen Flow Rate 04/04/25 21:15 04/04/25 21:17 04/04/25 21:30 Temperature 34.9 C L 34.9 C L 35.1 C L Pulse Rate 50 L 48 L Respiratory Rate 23 H 19 Blood Pressure 130/60 Pulse Oximetry 95 92 Oxygen Delivery Oxygen Flow Rate 04/04/25 21:30 04/04/25 21:32 04/04/25 21:39 Temperature 35.1 C L 35.1 C L 35.2 C L Pulse Rate 49 L 48 L 50 L Respiratory Rate 22 H 21 H 21 H Blood Pressure 133/60 133/60 Pulse Oximetry 97 94 96 Oxygen Delivery Oxygen Flow Rate 04/04/25 21:45 04/04/25 21:46 04/04/25 22:00 Temperature 35.2 C L 35.2 C L Pulse Rate 50 L 49 L 49 L Respiratory Rate 22 H 21 H Blood Pressure 133/60 Pulse Oximetry 97 96 Oxygen Delivery Oxygen Flow Rate 04/04/25 22:00 04/04/25 22:00 04/04/25 22:00 Temperature 35.3 C L 35.3 C L Pulse Rate 53 L 52 L Respiratory Rate 22 H Blood Pressure 142/61 H 142/61 H Pulse Oximetry 96 Oxygen Delivery Oxygen Flow Rate 04/04/25 22:00 04/04/25 22:01 04/04/25 22:15 Temperature 35.3 C L 35.3 C L 35.4 C L Pulse Rate 50 L 49 L 52 L Respiratory Rate 21 H 23 H 22 H Blood Pressure 142/61 H Pulse Oximetry 97 96 97 Oxygen Delivery Oxygen Flow Rate 04/04/25 22:16 04/04/25 22:30 04/04/25 22:30 Temperature 35.4 C L 35.6 C L 35.6 C L Pulse Rate 47 L 48 L Respiratory Rate 20 19 Blood Pressure 129/51 L Pulse Oximetry 97 96 Oxygen Delivery Oxygen Flow Rate 04/04/25 22:32 04/04/25 22:39 04/04/25 22:45 Temperature 35.6 C L 35.6 C L 35.6 C L Pulse Rate 45 L 46 L 48 L Respiratory Rate 16 19 20 Blood Pressure 128/41 L 128/41 L Pulse Oximetry 97 96 97 Oxygen Delivery Oxygen Flow Rate 04/04/25 22:46 04/04/25 22:47 04/04/25 23:00 Temperature 35.6 C L 35.6 C L 35.7 C L Pulse Rate 46 L 45 L Respiratory Rate 20 22 H Blood Pressure 121/44 L 121/44 L Pulse Oximetry 96 96 Oxygen Delivery Oxygen Flow Rate 04/04/25 23:00 04/04/25 23:00 04/04/25 23:01 Temperature 35.7 C L 35.7 C L 35.7 C L Pulse Rate 44 L 45 L 47 L Respiratory Rate 23 H 22 H 18 Blood Pressure 125/58 L 125/58 L Pulse Oximetry 97 97 97 Oxygen Delivery Oxygen Flow Rate 04/04/25 23:15 04/04/25 23:16 04/04/25 23:30 Temperature 35.8 C L 35.8 C L 35.9 C L Pulse Rate 45 L 48 L Respiratory Rate 23 H 26 H Blood Pressure 121/49 L Pulse Oximetry 96 96 Oxygen Delivery Oxygen Flow Rate 04/04/25 23:30 04/04/25 23:31 04/04/25 23:45 Temperature 35.9 C L 35.9 C L 36.0 C L Pulse Rate 47 L 44 L 48 L Respiratory Rate 23 H 24 H 21 H Blood Pressure 125/46 L Pulse Oximetry 96 96 96 Oxygen Delivery Oxygen Flow Rate 04/04/25 23:46 04/05/25 00:00 04/05/25 00:00 Temperature 36.0 C L 36.1 C L Pulse Rate 46 L 51 L Respiratory Rate 24 H Blood Pressure 121/43 L 131/41 L Pulse Oximetry 95 Oxygen Delivery Oxygen Flow Rate 04/05/25 00:00 04/05/25 00:00 04/05/25 00:00 Temperature 36.1 C L Pulse Rate 51 L 51 L Respiratory Rate 25 H Blood Pressure Pulse Oximetry 96 96 Oxygen Delivery Nasal Cannula Oxygen Flow Rate 2 04/05/25 00:01 04/05/25 00:15 04/05/25 00:30 Temperature 36.1 C L 36.2 C L 36.3 C L Pulse Rate 51 L 50 L Respiratory Rate 24 H 23 H Blood Pressure 131/41 L Pulse Oximetry 96 97 Oxygen Delivery Oxygen Flow Rate 04/05/25 00:30 04/05/25 00:49 04/05/25 01:01 Temperature 36.3 C L 36.3 C L 36.3 C L Pulse Rate 50 L 50 L 50 L Respiratory Rate 23 H 23 H 22 H Blood Pressure 123/44 L Pulse Oximetry 96 96 98 Oxygen Delivery Oxygen Flow Rate 04/05/25 01:02 04/05/25 01:08 04/05/25 01:15 Temperature 36.4 C L 36.4 C L 36.4 C L Pulse Rate 50 L 50 L Respiratory Rate 22 H 21 H Blood Pressure Pulse Oximetry 97 97 Oxygen Delivery Oxygen Flow Rate 04/05/25 01:16 04/05/25 01:30 04/05/25 01:30 Temperature 36.4 C L 36.4 C 36.4 C Pulse Rate 50 L 50 L Respiratory Rate 19 21 H Blood Pressure 120/43 L Pulse Oximetry 98 98 Oxygen Delivery Oxygen Flow Rate 04/05/25 01:31 04/05/25 01:45 04/05/25 01:46 Temperature 36.4 C 36.4 C 36.4 C Pulse Rate 50 L 50 L 50 L Respiratory Rate 24 H 22 H 25 H Blood Pressure 121/41 L 122/42 L Pulse Oximetry 97 97 96 Oxygen Delivery Oxygen Flow Rate 04/05/25 01:54 04/05/25 02:00 04/05/25 02:00 Temperature 36.5 C 36.6 C Pulse Rate 50 L 50 L Respiratory Rate 22 H Blood Pressure 122/42 L 122/41 L Pulse Oximetry 97 Oxygen Delivery Oxygen Flow Rate 04/05/25 02:00 04/05/25 02:00 04/05/25 02:00 Temperature 36.6 C 36.6 C Pulse Rate 50 L 50 L 50 L Respiratory Rate 23 H 24 H Blood Pressure 122/41 L Pulse Oximetry 97 97 Oxygen Delivery Oxygen Flow Rate 04/05/25 02:01 04/05/25 02:09 04/05/25 02:15 Temperature 36.6 C 36.6 C 36.6 C Pulse Rate 50 L 51 L 48 L Respiratory Rate 24 H 25 H 19 Blood Pressure 122/41 L 122/41 L Pulse Oximetry 97 96 97 Oxygen Delivery Oxygen Flow Rate 04/05/25 02:16 04/05/25 02:30 04/05/25 02:30 Temperature 36.6 C 36.6 C 36.6 C Pulse Rate 48 L 47 L Respiratory Rate 20 24 H Blood Pressure 108/40 L Pulse Oximetry 97 98 Oxygen Delivery Oxygen Flow Rate 04/05/25 02:31 04/05/25 02:45 04/05/25 02:46 Temperature 36.6 C 36.7 C 36.7 C Pulse Rate 48 L 49 L 47 L Respiratory Rate 24 H 25 H 19 Blood Pressure 108/45 L 102/48 L Pulse Oximetry 97 98 97 Oxygen Delivery Oxygen Flow Rate 04/05/25 03:00 04/05/25 03:01 04/05/25 03:07 Temperature 36.7 C 36.7 C 36.7 C Pulse Rate 47 L 47 L 48 L Respiratory Rate 24 H 24 H 22 H Blood Pressure 115/46 L 115/45 L Pulse Oximetry 98 98 98 Oxygen Delivery Oxygen Flow Rate 04/05/25 03:09 04/05/25 03:15 04/05/25 03:16 Temperature 36.7 C 36.7 C 36.7 C Pulse Rate 47 L 50 L 47 L Respiratory Rate 21 H 24 H 24 H Blood Pressure 121/46 L 116/45 L Pulse Oximetry 98 98 98 Oxygen Delivery Oxygen Flow Rate 04/05/25 03:31 04/05/25 03:32 04/05/25 04:00 Temperature 36.7 C 36.7 C Pulse Rate 48 L 47 L 48 L Respiratory Rate 23 H 24 H Blood Pressure 119/44 L 119/47 L Pulse Oximetry 98 98 Oxygen Delivery Oxygen Flow Rate 04/05/25 04:00 04/05/25 04:00 04/05/25 04:29 Temperature 36.6 C Pulse Rate 47 L 47 L Respiratory Rate 22 H Blood Pressure Pulse Oximetry 97 98 Oxygen Delivery Nasal Cannula Oxygen Flow Rate 2 04/05/25 04:30 04/05/25 04:38 04/05/25 04:54 Temperature 36.6 C 36.6 C 36.6 C Pulse Rate 47 L 47 L 47 L Respiratory Rate 22 H 23 H 23 H Blood Pressure 115/46 L Pulse Oximetry 98 98 98 Oxygen Delivery Oxygen Flow Rate 04/05/25 05:02 04/05/25 05:15 04/05/25 05:16 Temperature 36.5 C 36.5 C 36.5 C Pulse Rate 46 L 46 L 47 L Respiratory Rate 23 H 23 H 20 Blood Pressure 113/46 L Pulse Oximetry 97 98 98 Oxygen Delivery Oxygen Flow Rate 04/05/25 05:30 04/05/25 05:32 04/05/25 05:45 Temperature 36.4 C 36.4 C 36.4 C Pulse Rate 47 L 47 L 47 L Respiratory Rate 22 H 21 H 22 H Blood Pressure 116/46 L 106/89 Pulse Oximetry 97 98 98 Oxygen Delivery Oxygen Flow Rate 04/05/25 05:46 04/05/25 06:00 04/05/25 06:02 Temperature 36.4 C 36.4 C L 36.4 C L Pulse Rate 47 L 46 L 46 L Respiratory Rate 21 H 25 H 24 H Blood Pressure 114/44 L Pulse Oximetry 98 98 98 Oxygen Delivery Oxygen Flow Rate 04/05/25 06:16 04/05/25 06:29 04/05/25 06:31 Temperature 36.3 C L 36.3 C L Pulse Rate 45 L 45 L 45 L Respiratory Rate 24 H 23 H Blood Pressure Pulse Oximetry 97 98 Oxygen Delivery Oxygen Flow Rate 04/05/25 06:45 04/05/25 06:55 04/05/25 07:15 Temperature 36.3 C L 36.3 C L 36.2 C L Pulse Rate 44 L 44 L 43 L Respiratory Rate 23 H 23 H 23 H Blood Pressure 101/46 L 113/46 L Pulse Oximetry 98 98 98 Oxygen Delivery Oxygen Flow Rate 04/05/25 07:18 Temperature 36.2 C L Pulse Rate 44 L Respiratory Rate 23 H Blood Pressure Pulse Oximetry 98 Oxygen Delivery Oxygen Flow Rate Intake/Output Intake/Output: Intake & Output 04/02/25 04/03/25 04/04/25 04/05/25 23:59 23:59 23:59 23:59 Intake Total 1225.1 352 Output Total 225 Balance 1225.1 127 Meds/Results Medications: Active Medications Generic Name Dose Route Start Last Admin Trade Name Tristenq PRN Reason Stop Dose Admin Dopamine HCl/Dextrose 400 mg in 250 mls @ 0 mls/hr 04/04/25 11:35 04/05/25 04:00 Dopamine 400 Mg/D5w 250 Ml IV CONT 0 mcg/kg/min .Q0M MARIELLE 0 mls/hr Infusion Doxycycline Hyclate 100 mg/ 100 mls @ 100 mls/hr 04/04/25 21:00 04/04/25 23:26 Sodium Chloride IVPB Infused Q12H MARIELLE Infusion Ceftriaxone Sodium 2 gm/ 100 mls @ 200 mls/hr 04/05/25 09:00 Sodium Chloride IVPB Q24H MARIELLE Sodium Chloride 250 mls @ 30 mls/hr 04/05/25 01:05 04/05/25 05:43 Normal Saline Iv IV CONT 04/05/25 09:24 30 mls/hr .Q8H20M STA Administration Pantoprazole Sodium 40 mg 04/04/25 21:00 04/04/25 20:55 Pantoprazole Sodium Iv 40 Mg Vial IV PUSH 40 mg Q12HR MARIELLE Administration Rosuvastatin Calcium 10 mg 04/05/25 09:00 Rosuvastatin 10 Mg Tablet PO QAM MARIELLE Sodium Bicarbonate 650 mg 04/04/25 12:05 04/04/25 16:58 Sodium Bicarbonate Tab 650 Mg Tablet PO 650 mg BID MARIELLE Administration Sodium Chloride 10 ml 04/04/25 22:00 04/05/25 05:44 Central Line Flush IV PUSH 10 ml Q8HR MARIELLE Administration Sodium Chloride 10 ml 04/04/25 15:53 Central Line Flush IV PUSH PRN PRN with TPN bag changes Sodium Chloride 20 ml 04/04/25 15:53 04/05/25 05:44 Central Line Flush IV PUSH 20 ml PRN PRN Administration after blood draws Radiology Results: ITS Impressions Head CT 04/04/25 09:52 IMPRESSION: 1. Moderate nonspecific cerebral white matter disease, which likely represents chronic small vessel ischemic disease. Chest/Abdomen/Pelvis CT 04/04/25 12:03 IMPRESSION: CHEST- 1. Pulmonary edema and/or multifocal pneumonia. 2. Large pleural effusions. ABDOMEN/PELVIS- 1. No acute abnormality. Chest X-Ray 04/04/25 15:46 IMPRESSION: 1. Right upper 70 PICC line tip in expected position at the superior cavoatrial junction. 2. Perihilar and lower lung predominant interstitial and airspace opacities with increase in the lower lung zones which could represent worsening pulmonary edema and/or pneumonia. Labs Labs: Laboratory Results - last 24 hr 04/04/25 04/04/25 04/04/25 09:15 10:05 11:19 WBC 4.2 L RBC 1.81 L Hgb 6.0 L* Hct 19.4 L* MCV 107.2 H MCH 33.1 MCHC 30.9 L RDW 18.4 H Plt Count 174 MPV 10.2 Immature Gran % (Auto) 0.7 H Neut % (Auto) 81.2 H Lymph % (Auto) 8.6 L [place] % (Auto) 6.7 Eos % (Auto) 2.6 Baso % (Auto) 0.2 Lymph # (Auto) 0.36 L [place] # (Auto) 0.3 Eos # (Auto) 0.1 Baso # (Auto) 0.0 Abs Immat Gran (auto) 0.03 Absolute Neuts (auto) 3.4 Absolute Nucleated RBC 0.030 H Band Neutrophils % Not Reportable Nucleated RBC % 0.7 H Platelet Estimate Adequate Hypochromasia 1+ Anisocytosis 1+ Macrocytosis 1+ Target Cells Occasional Shara Cells 1+ Schistocytes 1+ PT 25.1 H INR 2.3 Sodium 130 L Potassium 5.1 H Chloride 104 Carbon Dioxide 14 L Anion Gap 12 BUN 115 H* Creatinine 2.17 H Estim Creat Clear Calc 30 Estimated GFR 22 L Glucose 103 POC Capillary Glucose Calcium 8.8 Phosphorus Magnesium Iron 122 TIBC 305 % Saturation 40 Total Bilirubin 0.4 AST 38 H ALT 34 Alkaline Phosphatase 137 H Total Creatine Kinase 98 Troponin I 0.014 NT-Pro-B Natriuret Pep 2950 H Total Protein 7.3 Albumin 3.6 Vitamin B12 > 1000.0 H Folate 3.2 Procalcitonin 0.2 TSH (Reflex) 3.090 Urine Color Urine Appearance Urine pH Ur Specific [place] Urine Protein Urine Glucose (UA) Urine Ketones Ur Blood (Man) Urine Nitrate Urine Bilirubin Urine Urobilinogen Add Ur Microanalysis Leukocyte Esterase Rfl Urine RBC Urine WBC Ur Squamous Epith Cells Urine Bacteria Urine Casts Nasal MRSA (PCR) Not detected Influenza A (RT-PCR) Influenza B (RT-PCR) RSV (RT-PCR) SARS-CoV-2 RNA (RT-PCR) Blood Type O Positive Antibody Screen Negative Crossmatch See Detail 04/04/25 04/04/25 04/05/25 11:44 18:06 00:15 WBC 5.2 RBC 2.08 L Hgb 6.7 L* Hct 21.7 L MCV 104.3 H MCH 32.2 MCHC 30.9 L RDW 19.7 H Plt Count 194 MPV 10.2 Immature Gran % (Auto) 1.0 H Neut % (Auto) 87.5 H Lymph % (Auto) 5.0 L [place] % (Auto) 5.7 Eos % (Auto) 0.4 Baso % (Auto) 0.4 Lymph # (Auto) 0.26 L [place] # (Auto) 0.3 Eos # (Auto) 0.0 Baso # (Auto) 0.0 Abs Immat Gran (auto) 0.05 H Absolute Neuts (auto) 4.6 Absolute Nucleated RBC 0.050 H Band Neutrophils % 0 Nucleated RBC % 1.0 H Platelet Estimate Adequate Hypochromasia 1+ Anisocytosis 3+ Macrocytosis 1+ Target Cells [place] Cells Schistocytes Occasional PT INR Sodium Potassium Chloride Carbon Dioxide Anion Gap BUN Creatinine Estim Creat Clear Calc Estimated GFR Glucose POC Capillary Glucose 102 Calcium Phosphorus Magnesium Iron TIBC % Saturation Total Bilirubin AST ALT Alkaline Phosphatase Total Creatine Kinase Troponin I NT-Pro-B Natriuret Pep Total Protein Albumin Vitamin B12 Folate Procalcitonin TSH (Reflex) Urine Color Dark yellow Urine Appearance Turbid H Urine pH 6.0 Ur Specific [place] 1.021 Urine Protein 3+ H Urine Glucose (UA) Negative Urine Ketones Negative Ur Blood (Man) 3+ H Urine Nitrate Negative Urine Bilirubin 1+ H Urine Urobilinogen 1.0 Add Ur Microanalysis Reviewed Leukocyte Esterase Rfl 2+ H Urine RBC >100 H Urine WBC >100 H Ur Squamous Epith Cells Moderate Urine Bacteria 4+ H Urine Casts >20 Nasal MRSA (PCR) Influenza A (RT-PCR) Negative Influenza B (RT-PCR) Negative RSV (RT-PCR) Negative SARS-CoV-2 RNA (RT-PCR) Negative Blood Type Antibody Screen Crossmatch 04/05/25 04/05/25 04/05/25 00:17 05:48 06:59 WBC 6.0 RBC 2.34 L Hgb 6.9 L* 7.3 L Hct 21.8 L 22.5 L MCV 96.2 D MCH 31.2 MCHC 32.4 RDW 20.0 H Plt Count 162 MPV 9.8 Immature Gran % (Auto) 0.5 Neut % (Auto) 82.3 H Lymph % (Auto) 5.3 L [place] % (Auto) 11.1 H Eos % (Auto) 0.5 Baso % (Auto) 0.3 Lymph # (Auto) 0.32 L [place] # (Auto) 0.7 H Eos # (Auto) 0.0 Baso # (Auto) 0.0 Abs Immat Gran (auto) 0.03 Absolute Neuts (auto) 5.0 Absolute Nucleated RBC 0.060 H Band Neutrophils % Nucleated RBC % 1.0 H Platelet Estimate Hypochromasia Anisocytosis Macrocytosis Target Cells Shara Cells Schistocytes PT INR Sodium 130 L Potassium 4.8 Chloride 106 Carbon Dioxide 16 L Anion Gap 8 BUN 122 H* Creatinine 2.32 H Estim Creat Clear Calc 27 Estimated GFR 20 L Glucose 64 L POC Capillary Glucose 80 Calcium 8.3 L Phosphorus 6.4 H Magnesium 2.3 Iron TIBC % Saturation Total Bilirubin 0.5 AST 57 H ALT 58 H Alkaline Phosphatase 102 Total Creatine Kinase Troponin I NT-Pro-B Natriuret Pep Total Protein 6.8 Albumin 3.2 L Vitamin B12 Folate Procalcitonin TSH (Reflex) Urine Color Urine Appearance Urine pH Ur Specific [place] Urine Protein Urine Glucose (UA) Urine Ketones Ur Blood (Man) Urine Nitrate Urine Bilirubin Urine Urobilinogen Add Ur Microanalysis Leukocyte Esterase Rfl Urine RBC Urine WBC Ur Squamous Epith Cells Urine Bacteria Urine Casts Nasal MRSA (PCR) Influenza A (RT-PCR) Influenza B (RT-PCR) RSV (RT-PCR) SARS-CoV-2 RNA (RT-PCR) Blood Type Antibody Screen Crossmatch Quality VTE Prophylaxis VTE prophylaxis: mechanical ordered
[2025-04-05] MEDS: SODIUM BICARBONATE 8.4% 50 MEQ/50 ML SYRINGE IV PUSH (08:46)
[2025-04-05] MEDS: PANTOPRAZOLE SODIUM IV 40 MG VIAL IV PUSH ×2 (08:50→21:19)
[2025-04-05] MEDS: DOXYCYCLINE IV 100 MG in SODIUM CHLORIDE 0.9% IV 100 ML IVPB ×2 (08:50→21:19)
[2025-04-05] MEDS: ROSUVASTATIN 10 MG TABLET PO (08:50)
[2025-04-05] MEDS: cefTRIAXone 2 GM in SODIUM CHLORIDE 0.9% IV 100 ML 200 ML IVPB (08:50)
[2025-04-05] MEDS: SODIUM BICARBONATE TAB 650 MG TABLET PO ×2 (08:50→16:35)
[2025-04-05] MEDS: FUROSEMIDE INJ 40 MG/4 ML VIAL IV PUSH ×2 (09:14→16:32)
[2025-04-05 09:54] LABS: INR 2.3; Prothrombin Time 25.3 Seconds (11.1-14.7)
[2025-04-05 10:14] LABS: Partial Thromboplastin Time 41.6 Seconds (22.3-36.8)
[2025-04-05 10:53] LABS: Hepatitis B Surface Antigen Negative (Negative)
[2025-04-05 10:59] LABS: HAV RESULT Negative (Negative); Hepatitis B Core IgM Result Negative (Negative)
--- NOTE | 2025-04-05 11:00 | P.PNNP_ITS ---
Progress Note: A&P Assessment and Plan (1) Acute kidney injury: Code(s): N17.9 - Acute kidney failure, unspecified Status: Acute Assessment and Plan: * as noted by admission labs * suspect due to several issues: * anemia * prerenal factors * diuretic use prior to admission * relative hypotension * CHF exacerbation * infection (pneumonia?) * bradycardia * other(?) * evaluation to date noted: * CT imaging without obstruction (horseshoe kidney noted) * urine electrolytes prerenal (by FeUrea) * urine eosinophils negative * moderate proteinuria (likely falsely elevated due to hematuria) * CPK normal * optimize hemodynamics * follow trend of repeat labs and UOP (2) Stage 3b chronic kidney disease: Code(s): N18.32 - Chronic kidney disease, stage 3b Status: Chronic Assessment and Plan: * baseline creatinine average ~ 1.4 - 1.9mg/dl (from review of [facility] and [facility] records) * however she has fluctuated to extremes in association with acute hospitalizations * this causes her to bounce between CKD stage 3b and stage 4 * presumably due to hypertension, vascular disease (CAD + hyperlipidemia + CHF), and age-related disease (3) Bradycardia: Code(s): R00.1 - Bradycardia, unspecified Status: Acute Assessment and Plan: * telemetry with slow aFib * soft BP noted as well * known history of AFib (but off amiodarone prior to admission) * on dopamine for bradycardia and soft BP * BP medications on hold * Cardiology following * may need pacemaker (temporary versus permanent?) (4) GI bleed: Qualifiers: GI bleed type/associated pathology: melena Qualified Code(s): K92.1 - Melena Code(s): K92.2 - Gastrointestinal hemorrhage, unspecified Status: Acute Assessment and Plan: * suspected based on history of black tarry stools * admission hemoglobin noted at 6.0 * PRBC transfusion per protocol * s/p 3 units on 04/04 * anticoagulation on hold * GI recommendations noted -- no intervention at this time * on PPI * follow trend of H/H (5) Metabolic acidosis: Code(s): E87.20 - Acidosis, unspecified Status: Acute Assessment and Plan: * likely worsened by CELINA/ARF * IV bicarb pushes while NPO * may need to start oral sodium bicarbonate to compensate (6) Congestive heart disease: Qualifiers: Heart failure chronicity: acute Heart failure type: diastolic Qualified Code(s): I50.31 - Acute diastolic (congestive) heart failure Code(s): I50.9 - Heart failure, unspecified Status: Acute Assessment and Plan: * evidence of volume overload on admission: * pulmonary edema on the chest x-ray * large pleural effusion on CT scan * bilateral lower extremity edema * Echo (on 04/04) noted: * left ventricular systolic function is normal, estimated at 60 - 65% * left ventricular diastolic function is abnormal * mild mitral valve regurgitation * moderate tricuspid valve regurgitation * moderate pulmonary hypertension, estimated pulmonary arterial systolic pressure is 48 mmHg * mild pulmonic regurgitation * diuresis as tolerated by hemodynamics (7) Pneumonia: Code(s): J18.9 - Pneumonia, unspecified organism Status: Acute Assessment and Plan: * admission chest x-ray with bilateral infiltrates * suspect more likely to be pulmonary edema and associated congestive heart failure * admission CT chest with scattered foci bilateral airspace disease * afebrile and with normal WBC * on empiric antibiotics * follow culture data (8) Anemia: Code(s): D64.9 - Anemia, unspecified Status: Chronic Assessment and Plan: * due to underlying CKD * likely worsened by #3 * dose with Epogen while hospitalized (was on Epogen at nursing facility as well) * follow trend of H/H (9) Essential hypertension: Code(s): I10 - Essential (primary) hypertension Status: Chronic Assessment and Plan: * known history * BP medications on hold * follow trend of hemodynamics (10) Altered mental status: Code(s): R41.82 - Altered mental status, unspecified Status: Acute Assessment and Plan: * noted on admission * possibly secondary to acute illness (CELINA, anemia, pneumonia, CHF, bradycardia...etc) * slow improvement noted * follow mentation Will continue to follow. Subjective Date/time seen: 04/05/25 11:00 Interval history: Follow-up for acute kidney injury/acute renal failure on chronic kidney disease. H/H improved following PRBC transfusion yesterday; remain on dopamine due to bradycardia; still with hypothermia requiring use of Jatin Hugger as well; some shortness of breath noted but better in comparison to yesterday evening; BUN/renal function/creatinine a bit worse in comparison to admission but did receive diuretic yesterday with reasonable response with regard to urine output. Exam Narrative: General: elderly female in NAD Heart: bradycardic but normal S1 and S2; no rub Lungs: bibasilar crackles noted Abdomen: soft, nontender, nondistended, positive bowel sounds Extremities: no cyanosis or clubbing; 1+ edema Skin: warm and dry Objective Data Vital Signs Vital Signs: Vital Signs Temp Pulse Resp BP Pulse Ox O2 Del Method O2 Flow Rate 04/05/25 11:00 97.4 F L 42 L 20 111/49 L 96 04/05/25 10:00 96.4 F L 85 20 125/70 96 04/05/25 10:00 85 04/05/25 10:00 85 125/70 04/05/25 09:00 96.3 F L 55 L 20 151/58 H 96 04/05/25 08:45 35 L 120/53 L 04/05/25 08:00 97 F L 43 L 22 H 120/49 L 99 04/05/25 08:00 42 L 04/05/25 08:00 99 Nasal Cannula 2 04/05/25 08:00 46 L 120/49 L 04/05/25 07:18 97.2 F L 44 L 23 H 98 04/05/25 07:15 97.2 F L 43 L 23 H 113/46 L 98 04/05/25 06:55 97.3 F L 44 L 23 H 98 04/05/25 06:45 97.4 F L 44 L 23 H 101/46 L 98 04/05/25 06:31 97.4 F L 45 L 23 H 98 04/05/25 06:29 45 L 04/05/25 06:16 97.4 F L 45 L 24 H 97 04/05/25 06:02 97.5 F L 46 L 24 H 98 04/05/25 06:00 97.5 F L 46 L 25 H 114/44 L 98 04/05/25 05:46 97.6 F 47 L 21 H 98 04/05/25 05:45 97.6 F 47 L 22 H 106/89 98 04/05/25 05:32 97.6 F 47 L 21 H 98 04/05/25 05:30 97.6 F 47 L 22 H 116/46 L 97 04/05/25 05:16 97.7 F 47 L 20 98 04/05/25 05:15 97.7 F 46 L 23 H 113/46 L 98 04/05/25 05:02 97.7 F 46 L 23 H 97 04/05/25 04:54 97.8 F 47 L 23 H 98 04/05/25 04:38 97.8 F 47 L 23 H 98 04/05/25 04:30 97.9 F 47 L 22 H 115/46 L 98 04/05/25 04:29 97.9 F 47 L 22 H 98 04/05/25 04:00 97 Nasal Cannula 2 04/05/25 04:00 47 L 04/05/25 04:00 48 L 119/47 L 04/05/25 03:32 98.1 F 47 L 24 H 98 04/05/25 03:31 98.1 F 48 L 23 H 119/44 L 98 04/05/25 03:16 98.1 F 47 L 24 H 116/45 L 98 04/05/25 03:15 98.1 F 50 L 24 H 98 04/05/25 03:09 98.0 F 47 L 21 H 121/46 L 98 04/05/25 03:07 98.1 F 48 L 22 H 115/45 L 98 04/05/25 03:01 98.0 F 47 L 24 H 115/46 L 98 04/05/25 03:00 98.0 F 47 L 24 H 98 04/05/25 02:46 98.0 F 47 L 19 102/48 L 97 04/05/25 02:45 98.0 F 49 L 25 H 98 04/05/25 02:31 97.9 F 48 L 24 H 108/45 L 97 04/05/25 02:30 97.9 F 47 L 24 H 98 04/05/25 02:30 97.9 F 04/05/25 02:16 97.8 F 48 L 20 108/40 L 97 04/05/25 02:15 97.8 F 48 L 19 97 04/05/25 02:09 97.8 F 51 L 25 H 122/41 L 96 04/05/25 02:01 97.8 F 50 L 24 H 122/41 L 97 04/05/25 02:00 97.8 F 50 L 24 H 97 04/05/25 02:00 97.8 F 50 L 23 H 122/41 L 97 04/05/25 02:00 50 L 04/05/25 02:00 97.8 F 04/05/25 02:00 50 L 122/41 L 04/05/25 01:54 97.7 F 50 L 22 H 122/42 L 97 04/05/25 01:46 97.6 F 50 L 25 H 122/42 L 96 04/05/25 01:45 97.6 F 50 L 22 H 97 04/05/25 01:31 97.6 F 50 L 24 H 121/41 L 97 04/05/25 01:30 97.6 F 50 L 21 H 98 04/05/25 01:30 97.6 F 04/05/25 01:16 97.5 F L 50 L 19 120/43 L 98 04/05/25 01:15 97.5 F L 50 L 21 H 97 04/05/25 01:08 97.5 F L 04/05/25 01:02 97.5 F L 50 L 22 H 97 04/05/25 01:01 97.4 F L 50 L 22 H 123/44 L 98 04/05/25 00:49 97.4 F L 50 L 23 H 96 04/05/25 00:30 97.3 F L 50 L 23 H 96 04/05/25 00:30 97.3 F L 04/05/25 00:15 97.2 F L 50 L 23 H 97 04/05/25 00:01 97.0 F L 51 L 24 H 131/41 L 96 04/05/25 00:00 97.0 F L 51 L 25 H 96 04/05/25 00:00 96 Nasal Cannula 2 04/05/25 00:00 51 L 04/05/25 00:00 97.0 F L 04/05/25 00:00 51 L 131/41 L 04/04/25 23:46 96.8 F L 46 L 24 H 121/43 L 95 04/04/25 23:45 96.8 F L 48 L 21 H 96 04/04/25 23:31 96.6 F L 44 L 24 H 125/46 L 96 04/04/25 23:30 96.6 F L 47 L 23 H 96 04/04/25 23:30 96.6 F L 04/04/25 23:16 96.5 F L 48 L 26 H 121/49 L 96 04/04/25 23:15 96.4 F L 45 L 23 H 96 04/04/25 23:01 96.3 F L 47 L 18 125/58 L 97 04/04/25 23:00 96.3 F L 45 L 22 H 97 04/04/25 23:00 96.3 F L 44 L 23 H 125/58 L 97 04/04/25 23:00 96.3 F L 04/04/25 22:47 96.1 F L 45 L 22 H 121/44 L 96 04/04/25 22:46 96.1 F L 46 L 20 121/44 L 96 04/04/25 22:45 96.1 F L 48 L 20 97 04/04/25 22:39 96.1 F L 46 L 19 128/41 L 96 04/04/25 22:32 96.0 F L 45 L 16 128/41 L 97 04/04/25 22:30 96.0 F L 48 L 19 96 04/04/25 22:30 96.1 F L 04/04/25 22:16 95.8 F L 47 L 20 129/51 L 97 04/04/25 22:15 95.8 F L 52 L 22 H 97 04/04/25 22:01 95.6 F L 49 L 23 H 142/61 H 96 04/04/25 22:00 95.6 F L 50 L 21 H 97 04/04/25 22:00 52 L 142/61 H 04/04/25 22:00 95.6 F L 53 L 22 H 142/61 H 96 04/04/25 22:00 95.6 F L 04/04/25 22:00 49 L 04/04/25 21:46 95.4 F L 49 L 21 H 133/60 96 04/04/25 21:45 95.4 F L 50 L 22 H 97 04/04/25 21:39 95.3 F L 50 L 21 H 133/60 96 04/04/25 21:32 95.2 F L 48 L 21 H 133/60 94 04/04/25 21:30 95.1 F L 49 L 22 H 97 04/04/25 21:30 95.1 F L 04/04/25 21:17 94.9 F L 48 L 19 130/60 92 04/04/25 21:15 94.9 F L 50 L 23 H 95 04/04/25 21:01 94.6 F L 65 18 129/45 L 96 04/04/25 21:00 94.6 F L 49 L 18 96 04/04/25 21:00 94.8 F L 48 L 22 H 129/45 L 91 04/04/25 21:00 94.8 F L 04/04/25 20:46 94.2 F L 50 L 21 H 129/48 L 93 04/04/25 20:45 94.2 F L 48 L 16 93 04/04/25 20:39 94.0 F L 47 L 25 H 134/50 L 94 04/04/25 20:31 94.2 F L 51 L 25 H 134/50 L 96 04/04/25 20:30 94.1 F L 52 L 24 H 96 04/04/25 20:30 94.1 F L 04/04/25 20:23 94.0 F L 52 L 19 131/54 L 94 04/04/25 20:15 93.9 F L 52 L 18 93 04/04/25 20:01 93.6 F L 52 L 23 H 141/50 H 92 04/04/25 20:00 93.6 F L 58 L 16 92 04/04/25 20:00 52 L 04/04/25 20:00 93 Nasal Cannula 2 04/04/25 20:00 93.5 F L 52 L 25 H 141/50 H 92 04/04/25 20:00 93.5 F L 04/04/25 19:58 56 L 133/50 L 04/04/25 19:46 93.4 F L 49 L 25 H 133/50 L 96 04/04/25 19:45 93.4 F L 50 L 23 H 96 04/04/25 19:31 93.1 F L 49 L 25 H 134/49 L 93 04/04/25 19:30 93.1 F L 49 L 24 H 93 04/04/25 19:30 93.1 F L 04/04/25 19:20 93.0 F L 52 L 28 H 135/62 92 04/04/25 19:19 56 L 136/49 L 04/04/25 19:16 92.9 F L 48 L 23 H 136/49 L 91 04/04/25 19:15 92.9 F L 49 L 23 H 92 04/04/25 19:01 92.6 F L 49 L 21 H 137/53 L 95 04/04/25 19:00 92.6 F L 48 L 22 H 94 04/04/25 19:00 92.5 F L 48 L 19 137/53 L 95 04/04/25 19:00 92.5 F L 04/04/25 18:46 92.3 F L 48 L 23 H 140/50 L 94 04/04/25 18:45 92.3 F L 49 L 28 H 93 04/04/25 18:42 48 L 141/52 H 04/04/25 18:42 48 L 141/52 H 04/04/25 18:31 92.0 F L 48 L 24 H 141/52 H 91 04/04/25 18:30 92.0 F L Intake/Output Intake/Output: Intake & Output 04/02/25 04/03/25 04/04/25 04/05/25 23:59 23:59 23:59 23:59 Intake Total 1225.1 921.9 Output Total 775 Balance 1225.1 146.9 Meds/Results Medications: Active Medications Generic Name Dose Route Start Last Admin Trade Name Freq PRN Reason Stop Dose Admin Dopamine HCl/Dextrose 400 mg in 250 mls @ 12.975 mls/hr 04/04/25 11:35 04/05/25 16:47 Dopamine 400 Mg/D5w 250 Ml IV CONT 2.5 mcg/kg/min .[id number] MARIELLE 12.98 mls/hr 2.5 MCG/KG/MIN Infusion Doxycycline Hyclate 100 mg/ 100 mls @ 100 mls/hr 04/04/25 21:00 04/05/25 11:08 Sodium Chloride IVPB Infused Q12H MARIELLE Infusion Ceftriaxone Sodium 2 gm/ 100 mls @ 200 mls/hr 04/05/25 09:00 04/05/25 11:08 Sodium Chloride IVPB Infused Q24H MARIELLE Infusion Sodium Chloride 250 mls @ 30 mls/hr 04/05/25 14:37 04/05/25 16:47 Normal Saline Iv IV CONT 04/05/25 22:56 Infused .[id number] STA Infusion Pantoprazole Sodium 40 mg 04/04/25 21:00 04/05/25 08:50 Pantoprazole Sodium Iv 40 Mg Vial IV PUSH 40 mg Q12HR MARIELLE Administration Rosuvastatin Calcium 10 mg 04/05/25 09:00 04/05/25 08:50 Rosuvastatin 10 Mg Tablet PO 10 mg QAM MARIELLE Administration Sodium Bicarbonate 650 mg 04/04/25 12:05 04/05/25 16:35 Sodium Bicarbonate Tab 650 Mg Tablet PO 650 mg BID MARIELLE Administration Sodium Chloride 10 ml 04/04/25 22:00 04/05/25 13:58 Central Line Flush IV PUSH 10 ml Q8HR MARIELLE Administration Sodium Chloride 10 ml 04/04/25 15:53 Central Line Flush IV PUSH PRN PRN with TPN bag changes Sodium Chloride 20 ml 04/04/25 15:53 04/05/25 05:44 Central Line Flush IV PUSH 20 ml PRN PRN Administration after blood draws Vancomycin HCl 1 each 04/05/25 13:29 Vancomycin For Acute Kidney Injury IVPB PRN PRN Vancomycin Protocol Radiology Results: ITS Impressions Head CT 04/04/25 09:52 IMPRESSION: 1. Moderate nonspecific cerebral white matter disease, which likely represents chronic small vessel ischemic disease. Chest/Abdomen/Pelvis CT 04/04/25 12:03 IMPRESSION: CHEST- 1. Pulmonary edema and/or multifocal pneumonia. 2. Large pleural effusions. ABDOMEN/PELVIS- 1. No acute abnormality. Chest X-Ray 04/05/25 08:49 Impression: CHF. The findings appear slightly improved compared to the previous study. Labs Labs: Laboratory Tests 04/05/25 05:48 WBC 6.0 Hgb 7.3 L Hct 22.5 L Plt Count 162 Sodium 130 L Potassium 4.8 Chloride 106 Carbon Dioxide 16 L Anion Gap 8 BUN 122 H* Creatinine 2.32 H Estim Creat Clear Calc 27 Estimated GFR 20 L Glucose 64 L Calcium 8.3 L Phosphorus 6.4 H Magnesium 2.3 Total Bilirubin 0.5 AST 57 H ALT 58 H Alkaline Phosphatase 102 Total Protein 6.8 Albumin 3.2 L
[2025-04-05 11:21] LABS: Total Protein Urine Random 30 mg/dL; Ur Ttl Prot Creatinine Ratio 1.09 mg/mg (0-0.20); Urea Random Urine 357 MG/DL
[2025-04-05 13:04] LABS: Hematocrit 23.3 % (37.0-47.0); Hemoglobin 7.6 g/dL (12.0-15.0); Mean Corpuscular HGB Conc 32.6 g/dl (32-36); Mean Corpuscular Hemoglobin 31.7 pg (26-34); Mean Corpuscular Volume 97.1 fl (80-100); Platelet Count Result 164 k/mm3 (150-375); Red Blood Count 2.40 M/mm3 (4.2-5.4); White Blood Count 6.5 K/mm3 (4.5-10.0)
[2025-04-05 13:10] LABS: Urine Eos QC 2nd Tech Confirmed
--- NOTE | 2025-04-05 13:20 | P.PNINT_ITS ---
Assessment and Plan Assessment and Plan (1) Bradycardia: Code(s): R00.1 - Bradycardia, unspecified Status: Acute Assessment and Plan: Slow AFib with soft blood pressures, severe bradycardia Patient has history of AFib and was on amiodarone which has been on hold since 03/25 as [facility] Continue dopamine to try to target heart rate above 40 If it does not work patient will need temporary venous pacemaker She will also likely need permanent pacemaker Discussed with Cardiology, permanent pacemaker placement has been scheduled for 04/06/2025, 04/04/2025: Echocardiogram Summary 1. Left ventricular systolic function is normal, estimated at 60-65. 2. The left ventricular diastolic function is abnormal. 3. Right ventricular chamber dimension is moderately enlarged. 4. Right ventricular systolic function is normal. 5. Left atrial chamber dimension is mildly enlarged. 6. Right atrial chamber dimension is severely enlarged. 7. There is mild mitral valve regurgitation. 8. There is moderate tricuspid valve regurgitation. 9. Moderate pulmonary hypertension, estimated pulmonary arterial systolic pressure is 48 mmHg. 10. There is mild pulmonic regurgitation. (2) GI bleed: Qualifiers: GI bleed type/associated pathology: melena Qualified Code(s): K92.1 - Melena Code(s): K92.2 - Gastrointestinal hemorrhage, unspecified Status: Acute Assessment and Plan: Patient on anticoagulation with history of black stool and anemia of hemoglobin 6. She also has a history of anemia of chronic kidney disease and is on Epogen [facility] Transfused a total of 3 units of packed RBC (04/04) Hold anticoagulation Consult nephrology for EPO dosing GI consulted for evaluation for GI bleed IV Protonix q.12 hours Monitor hemoglobin and transfuse additionally if needed (3) Hematuria: Code(s): R31.9 - Hematuria, unspecified Status: Acute Assessment and Plan: Place Yadav Check CT abdomen pelvis: Kidneys: [place] kidney.Right kidney- No h ydronephrosis. No renal stones. Large cyst.Left kidney- No hydronephrosis. No renal stones. Large cyst. Hold anticoagulation Monitor Urine output is clear (4) Pneumonia: Code(s): J18.9 - Pneumonia, unspecified organism Status: Acute Assessment and Plan: Chest x-ray shows bilateral infiltrates at this appears more likely to be pulmonary edema and congestive heart failure Patient is afebrile with normal WBC but patient started on ceftriaxone and doxy side Rocephin and doxycycline at this time empirically Check blood cultures Check urine Legionella and strep Empiric Rocephin and doxycycline (04/05) (5) Hyperlipidemia: Code(s): E78.5 - Hyperlipidemia, unspecified Status: Acute Assessment and Plan: Continue rosuvastatin (6) GERD (gastroesophageal reflux disease): Code(s): K21.9 - Gastro-esophageal reflux disease without esophagitis Status: Acute Assessment and Plan: Protonix IV q.12 hours (7) Obstructive sleep apnea: Code(s): G47.33 - Obstructive sleep apnea (adult) (pediatric) Status: Acute Assessment and Plan: Patient has history of [place] but does not [facility] CPAP [facility] Monitor oxygen saturation while sleeping (8) Essential hypertension: Code(s): I10 - Essential (primary) hypertension Status: Acute Assessment and Plan: Hold antihypertensive medications due to borderline blood pressure (9) Anasarca: Code(s): R60.1 - Generalized edema Status: Acute Assessment and Plan: Patient has overall volume overload likely secondary to congestive heart failure and CKD Echo as above -TSH 3.090 Continuing diuresis (10) Congestive heart disease: Qualifiers: Heart failure type: unspecified Heart failure chronicity: chronic Qualified Code(s): I50.9 - Heart failure, unspecified Code(s): I50.9 - Heart failure, unspecified Status: Acute Assessment and Plan: Appears to have pulmonary edema on the chest x-ray and bilateral lower extremity edema Echo as above On dopamine Once blood pressure is adequate will start diuretics (11) Chronic kidney disease: Qualifiers: Chronic kidney disease stage: stage 4 (GFR 15-29) Qualified Code(s): N18.4 - Chronic kidney disease, stage 4 (severe) Code(s): N18.9 - Chronic kidney disease, unspecified Status: Acute Assessment and Plan: Creatinine 2.17. Baseline creatinine unknown BUN 115 this is likely secondary to GI bleed Consult nephrology Obtain records from [place] for mild hyperkalemia IV bicarb push NPO bicarb for metabolic acidosis CK levels of 98 Urine electrolytes will not be accurate due to hematuria (12) Anemia: Code(s): D64.9 - Anemia, unspecified Status: Acute Assessment and Plan: See above (13) Coronary artery disease: Code(s): I25.10 - Atherosclerotic heart disease of [place] coronary artery without angina pectoris Status: Acute Assessment and Plan: Hold aspirin beta-omar due to bleeding and low blood pressure/heart rate Patient denies any chest pain and troponin x1 is negative Continue statin Plan DVT prophylaxis -SCDs, no chemoprophylaxis due to GI bleed, severe anemia Stress ulcer prophylaxis -PPI Nutrition -NPO Code Status - Full Code Total Critical Care Time - 33 minutes Due to a high probability of clinically significant, life threatening deterioration, the patient required my highest level of preparedness to intervene emergently and I personally spent this critical care time directly and personally managing the patient. This critical care time included obtaining a history; examining the patient; pulse oximetry; ordering and review of studies; arranging urgent treatment with development of a management plan; evaluation of patient's response to treatment; frequent reassessment; and discussions with other providers. It was exclusive of separately billable procedures and treating other patients and teaching time. Please see Assessment and Plan section and the rest of the note for further information on patient assessment and treatment Subjective Date/time seen: 04/05/25 13:20 Interval history: Reason for consult: Bradycardia, altered mental status, possible pneumonia, severe anemia, status post 3 units packed RBCs 04/05/2025: Patient seen and examined the ICU, remains on dopamine for bradycardia. Patient received 3 units of packed RBCs yesterday, was volume overloaded, responded well to diuresis. Hemoglobin this morning is 7.6 (6.0 on admission). Patient is hypothermic, requiring Jatin Hugger. Patient denies any chest pain, abdominal pain, nausea vomiting. Does complain of some shortness of breath which has improved since overnight. Patient currently on 2 L nasal cannula with adequate O2 sats Review of Systems Review of Systems: All systems reviewed & are unremarkable except as noted in HPI and below (HPI) Exam Narrative: General: Pt is alert awake and in NAD Lungs/Chest: Trachea central, bilateral rales, no wheezing Cardiac: Bradycardic Normal S1 S2. No murmurs Circulation: Pedal pulses are intact and symmetrical. Abdomen: Normal bowel sounds. Morbidly obese. Soft. NT. ND. Extremities: Bilateral pedal edema : Yadav in place with blood-tinged urine Neurologic: Follows commands. Moves all 4 extremities PERRL alert, oriented Skin: No Rash Objective Data Vital Signs Vital Signs: Vital Signs - 24 hr 04/04/25 13:25 04/04/25 13:25 04/04/25 13:33 Temperature 82.2 F L 88.2 F L Pulse Rate 91 91 34 L Respiratory Rate 21 H 21 H 18 Blood Pressure 98/44 L 98/44 L 105/44 L Pulse Oximetry 92 92 96 Oxygen Delivery Oxygen Flow Rate 04/04/25 13:37 04/04/25 14:00 04/04/25 14:00 Temperature 88.2 F L 87.9 F L Pulse Rate 34 L 34 L Respiratory Rate 23 H Blood Pressure 112/50 L Pulse Oximetry 90 Oxygen Delivery Oxygen Flow Rate 04/04/25 14:12 04/04/25 14:30 04/04/25 14:30 Temperature 87.9 F L 87.9 F L 88.1 F L Pulse Rate 34 L 33 L Respiratory Rate 23 H 21 H Blood Pressure 112/50 L 120/98 H Pulse Oximetry Oxygen Delivery Oxygen Flow Rate 04/04/25 14:37 04/04/25 14:45 04/04/25 15:00 Temperature 88.2 F L 88.3 F L 88.5 F L Pulse Rate 34 L 35 L Respiratory Rate 19 19 Blood Pressure 109/46 L 108/68 Pulse Oximetry 91 91 Oxygen Delivery Oxygen Flow Rate 04/04/25 15:07 04/04/25 15:37 04/04/25 16:00 Temperature 88.5 F L 88.9 F L Pulse Rate 34 L Respiratory Rate Blood Pressure Pulse Oximetry Oxygen Delivery Oxygen Flow Rate 04/04/25 16:00 04/04/25 16:00 04/04/25 16:00 Temperature 89.5 F L 89.5 F L Pulse Rate 33 L Respiratory Rate 19 Blood Pressure Pulse Oximetry 94 94 Oxygen Delivery Nasal Cannula Oxygen Flow Rate 2 04/04/25 16:00 04/04/25 16:30 04/04/25 17:00 Temperature 90.0 F L 90.6 F L Pulse Rate 36 L Respiratory Rate Blood Pressure Pulse Oximetry Oxygen Delivery Oxygen Flow Rate 04/04/25 17:00 04/04/25 17:30 04/04/25 18:00 Temperature 90.6 F L 91.1 F L 91.6 F L Pulse Rate 39 L Respiratory Rate 23 H Blood Pressure 130/51 L Pulse Oximetry 94 Oxygen Delivery Oxygen Flow Rate 04/04/25 18:00 04/04/25 18:00 04/04/25 18:00 Temperature 91.6 F L Pulse Rate 38 L 38 L 40 L Respiratory Rate 20 Blood Pressure 125/50 L 125/50 L Pulse Oximetry 91 Oxygen Delivery Oxygen Flow Rate 04/04/25 18:30 04/04/25 18:31 04/04/25 18:42 Temperature 92.0 F L 92.0 F L Pulse Rate 48 L 48 L Respiratory Rate 24 H Blood Pressure 141/52 H 141/52 H Pulse Oximetry 91 Oxygen Delivery Oxygen Flow Rate 04/04/25 18:42 04/04/25 18:45 04/04/25 18:46 Temperature 92.3 F L 92.3 F L Pulse Rate 48 L 49 L 48 L Respiratory Rate 28 H 23 H Blood Pressure 141/52 H 140/50 L Pulse Oximetry 93 94 Oxygen Delivery Oxygen Flow Rate 04/04/25 19:00 04/04/25 19:00 04/04/25 19:00 Temperature 92.5 F L 92.5 F L 92.6 F L Pulse Rate 48 L 48 L Respiratory Rate 19 22 H Blood Pressure 137/53 L Pulse Oximetry 95 94 Oxygen Delivery Oxygen Flow Rate 04/04/25 19:01 04/04/25 19:15 04/04/25 19:16 Temperature 92.6 F L 92.9 F L 92.9 F L Pulse Rate 49 L 49 L 48 L Respiratory Rate 21 H 23 H 23 H Blood Pressure 137/53 L 136/49 L Pulse Oximetry 95 92 91 Oxygen Delivery Oxygen Flow Rate 04/04/25 19:19 04/04/25 19:20 04/04/25 19:30 Temperature 93.0 F L 93.1 F L Pulse Rate 56 L 52 L Respiratory Rate 28 H Blood Pressure 136/49 L 135/62 Pulse Oximetry 92 Oxygen Delivery Oxygen Flow Rate 04/04/25 19:30 04/04/25 19:31 04/04/25 19:45 Temperature 93.1 F L 93.1 F L 93.4 F L Pulse Rate 49 L 49 L 50 L Respiratory Rate 24 H 25 H 23 H Blood Pressure 134/49 L Pulse Oximetry 93 93 96 Oxygen Delivery Oxygen Flow Rate 04/04/25 19:46 04/04/25 19:58 04/04/25 20:00 Temperature 93.4 F L 93.5 F L Pulse Rate 49 L 56 L Respiratory Rate 25 H Blood Pressure 133/50 L 133/50 L Pulse Oximetry 96 Oxygen Delivery Oxygen Flow Rate 04/04/25 20:00 04/04/25 20:00 04/04/25 20:00 Temperature 93.5 F L Pulse Rate 52 L 52 L Respiratory Rate 25 H Blood Pressure 141/50 H Pulse Oximetry 92 93 Oxygen Delivery Nasal Cannula Oxygen Flow Rate 2 04/04/25 20:00 04/04/25 20:01 04/04/25 20:15 Temperature 93.6 F L 93.6 F L 93.9 F L Pulse Rate 58 L 52 L 52 L Respiratory Rate 16 23 H 18 Blood Pressure 141/50 H Pulse Oximetry 92 92 93 Oxygen Delivery Oxygen Flow Rate 04/04/25 20:23 04/04/25 20:30 04/04/25 20:30 Temperature 94.0 F L 94.1 F L 94.1 F L Pulse Rate 52 L 52 L Respiratory Rate 19 24 H Blood Pressure 131/54 L Pulse Oximetry 94 96 Oxygen Delivery Oxygen Flow Rate 04/04/25 20:31 04/04/25 20:39 04/04/25 20:45 Temperature 94.2 F L 94.0 F L 94.2 F L Pulse Rate 51 L 47 L 48 L Respiratory Rate 25 H 25 H 16 Blood Pressure 134/50 L 134/50 L Pulse Oximetry 96 94 93 Oxygen Delivery Oxygen Flow Rate 04/04/25 20:46 04/04/25 21:00 04/04/25 21:00 Temperature 94.2 F L 94.8 F L 94.8 F L Pulse Rate 50 L 48 L Respiratory Rate 21 H 22 H Blood Pressure 129/48 L 129/45 L Pulse Oximetry 93 91 Oxygen Delivery Oxygen Flow Rate 04/04/25 21:00 04/04/25 21:01 04/04/25 21:15 Temperature 94.6 F L 94.6 F L 94.9 F L Pulse Rate 49 L 65 50 L Respiratory Rate 18 18 23 H Blood Pressure 129/45 L Pulse Oximetry 96 96 95 Oxygen Delivery Oxygen Flow Rate 04/04/25 21:17 04/04/25 21:30 04/04/25 21:30 Temperature 94.9 F L 95.1 F L 95.1 F L Pulse Rate 48 L 49 L Respiratory Rate 19 22 H Blood Pressure 130/60 Pulse Oximetry 92 97 Oxygen Delivery Oxygen Flow Rate 04/04/25 21:32 04/04/25 21:39 04/04/25 21:45 Temperature 95.2 F L 95.3 F L 95.4 F L Pulse Rate 48 L 50 L 50 L Respiratory Rate 21 H 21 H 22 H Blood Pressure 133/60 133/60 Pulse Oximetry 94 96 97 Oxygen Delivery Oxygen Flow Rate 04/04/25 21:46 04/04/25 22:00 04/04/25 22:00 Temperature 95.4 F L 95.6 F L Pulse Rate 49 L 49 L Respiratory Rate 21 H Blood Pressure 133/60 Pulse Oximetry 96 Oxygen Delivery Oxygen Flow Rate 04/04/25 22:00 04/04/25 22:00 04/04/25 22:00 Temperature 95.6 F L 95.6 F L Pulse Rate 53 L 52 L 50 L Respiratory Rate 22 H 21 H Blood Pressure 142/61 H 142/61 H Pulse Oximetry 96 97 Oxygen Delivery Oxygen Flow Rate 04/04/25 22:01 04/04/25 22:15 04/04/25 22:16 Temperature 95.6 F L 95.8 F L 95.8 F L Pulse Rate 49 L 52 L 47 L Respiratory Rate 23 H 22 H 20 Blood Pressure 142/61 H 129/51 L Pulse Oximetry 96 97 97 Oxygen Delivery Oxygen Flow Rate 04/04/25 22:30 04/04/25 22:30 04/04/25 22:32 Temperature 96.1 F L 96.0 F L 96.0 F L Pulse Rate 48 L 45 L Respiratory Rate 19 16 Blood Pressure 128/41 L Pulse Oximetry 96 97 Oxygen Delivery Oxygen Flow Rate 04/04/25 22:39 04/04/25 22:45 04/04/25 22:46 Temperature 96.1 F L 96.1 F L 96.1 F L Pulse Rate 46 L 48 L 46 L Respiratory Rate 19 20 20 Blood Pressure 128/41 L 121/44 L Pulse Oximetry 96 97 96 Oxygen Delivery Oxygen Flow Rate 04/04/25 22:47 04/04/25 23:00 04/04/25 23:00 Temperature 96.1 F L 96.3 F L 96.3 F L Pulse Rate 45 L 44 L Respiratory Rate 22 H 23 H Blood Pressure 121/44 L 125/58 L Pulse Oximetry 96 97 Oxygen Delivery Oxygen Flow Rate 04/04/25 23:00 04/04/25 23:01 04/04/25 23:15 Temperature 96.3 F L 96.3 F L 96.4 F L Pulse Rate 45 L 47 L 45 L Respiratory Rate 22 H 18 23 H Blood Pressure 125/58 L Pulse Oximetry 97 97 96 Oxygen Delivery Oxygen Flow Rate 04/04/25 23:16 04/04/25 23:30 04/04/25 23:30 Temperature 96.5 F L 96.6 F L 96.6 F L Pulse Rate 48 L 47 L Respiratory Rate 26 H 23 H Blood Pressure 121/49 L Pulse Oximetry 96 96 Oxygen Delivery Oxygen Flow Rate 04/04/25 23:31 04/04/25 23:45 04/04/25 23:46 Temperature 96.6 F L 96.8 F L 96.8 F L Pulse Rate 44 L 48 L 46 L Respiratory Rate 24 H 21 H 24 H Blood Pressure 125/46 L 121/43 L Pulse Oximetry 96 96 95 Oxygen Delivery Oxygen Flow Rate 04/05/25 00:00 04/05/25 00:00 04/05/25 00:00 Temperature 97.0 F L Pulse Rate 51 L 51 L Respiratory Rate Blood Pressure 131/41 L Pulse Oximetry Oxygen Delivery Oxygen Flow Rate 04/05/25 00:00 04/05/25 00:00 04/05/25 00:01 Temperature 97.0 F L 97.0 F L Pulse Rate 51 L 51 L Respiratory Rate 25 H 24 H Blood Pressure 131/41 L Pulse Oximetry 96 96 96 Oxygen Delivery Nasal Cannula Oxygen Flow Rate 2 04/05/25 00:15 04/05/25 00:30 04/05/25 00:30 Temperature 97.2 F L 97.3 F L 97.3 F L Pulse Rate 50 L 50 L Respiratory Rate 23 H 23 H Blood Pressure Pulse Oximetry 97 96 Oxygen Delivery Oxygen Flow Rate 04/05/25 00:49 04/05/25 01:01 04/05/25 01:02 Temperature 97.4 F L 97.4 F L 97.5 F L Pulse Rate 50 L 50 L 50 L Respiratory Rate 23 H 22 H 22 H Blood Pressure 123/44 L Pulse Oximetry 96 98 97 Oxygen Delivery Oxygen Flow Rate 04/05/25 01:08 04/05/25 01:15 12/02/25 01:16 Temperature 97.5 F L 97.5 F L 97.5 F L Pulse Rate 50 L 50 L Respiratory Rate 21 H 19 Blood Pressure 120/43 L Pulse Oximetry 97 98 Oxygen Delivery Oxygen Flow Rate 04/05/25 01:30 04/05/25 01:30 04/05/25 01:31 Temperature 97.6 F 97.6 F 97.6 F Pulse Rate 50 L 50 L Respiratory Rate 21 H 24 H Blood Pressure 121/41 L Pulse Oximetry 98 97 Oxygen Delivery Oxygen Flow Rate 04/05/25 01:45 04/05/25 01:46 04/05/25 01:54 Temperature 97.6 F 97.6 F 97.7 F Pulse Rate 50 L 50 L 50 L Respiratory Rate 22 H 25 H 22 H Blood Pressure 122/42 L 122/42 L Pulse Oximetry 97 96 97 Oxygen Delivery Oxygen Flow Rate 04/05/25 02:00 04/05/25 02:00 04/05/25 02:00 Temperature 97.8 F Pulse Rate 50 L 50 L Respiratory Rate Blood Pressure 122/41 L Pulse Oximetry Oxygen Delivery Oxygen Flow Rate 04/05/25 02:00 04/05/25 02:00 04/05/25 02:01 Temperature 97.8 F 97.8 F 97.8 F Pulse Rate 50 L 50 L 50 L Respiratory Rate 23 H 24 H 24 H Blood Pressure 122/41 L 122/41 L Pulse Oximetry 97 97 97 Oxygen Delivery Oxygen Flow Rate 04/05/25 02:09 04/05/25 02:15 04/05/25 02:16 Temperature 97.8 F 97.8 F 97.8 F Pulse Rate 51 L 48 L 48 L Respiratory Rate 25 H 19 20 Blood Pressure 122/41 L 108/40 L Pulse Oximetry 96 97 97 Oxygen Delivery Oxygen Flow Rate 04/05/25 02:30 04/05/25 02:30 04/05/25 02:31 Temperature 97.9 F 97.9 F 97.9 F Pulse Rate 47 L 48 L Respiratory Rate 24 H 24 H Blood Pressure 108/45 L Pulse Oximetry 98 97 Oxygen Delivery Oxygen Flow Rate 04/05/25 02:45 04/05/25 02:46 04/05/25 03:00 Temperature 98.0 F 98.0 F 98.0 F Pulse Rate 49 L 47 L 47 L Respiratory Rate 25 H 19 24 H Blood Pressure 102/48 L Pulse Oximetry 98 97 98 Oxygen Delivery Oxygen Flow Rate 04/05/25 03:01 04/05/25 03:07 04/05/25 03:09 Temperature 98.0 F 98.1 F 98.0 F Pulse Rate 47 L 48 L 47 L Respiratory Rate 24 H 22 H 21 H Blood Pressure 115/46 L 115/45 L 121/46 L Pulse Oximetry 98 98 98 Oxygen Delivery Oxygen Flow Rate 04/05/25 03:15 04/05/25 03:16 04/05/25 03:31 Temperature 98.1 F 98.1 F 98.1 F Pulse Rate 50 L 47 L 48 L Respiratory Rate 24 H 24 H 23 H Blood Pressure 116/45 L 119/44 L Pulse Oximetry 98 98 98 Oxygen Delivery Oxygen Flow Rate 04/05/25 03:32 04/05/25 04:00 04/05/25 04:00 Temperature 98.1 F Pulse Rate 47 L 48 L 47 L Respiratory Rate 24 H Blood Pressure 119/47 L Pulse Oximetry 98 Oxygen Delivery Oxygen Flow Rate 04/05/25 04:00 04/05/25 04:29 04/05/25 04:30 Temperature 97.9 F 97.9 F Pulse Rate 47 L 47 L Respiratory Rate 22 H 22 H Blood Pressure 115/46 L Pulse Oximetry 97 98 98 Oxygen Delivery Nasal Cannula Oxygen Flow Rate 2 04/05/25 04:38 04/05/25 04:54 04/05/25 05:02 Temperature 97.8 F 97.8 F 97.7 F Pulse Rate 47 L 47 L 46 L Respiratory Rate 23 H 23 H 23 H Blood Pressure Pulse Oximetry 98 98 97 Oxygen Delivery Oxygen Flow Rate 04/05/25 05:15 04/05/25 05:16 04/05/25 05:30 Temperature 97.7 F 97.7 F 97.6 F Pulse Rate 46 L 47 L 47 L Respiratory Rate 23 H 20 22 H Blood Pressure 113/46 L 116/46 L Pulse Oximetry 98 98 97 Oxygen Delivery Oxygen Flow Rate 04/05/25 05:32 04/05/25 05:45 04/05/25 05:46 Temperature 97.6 F 97.6 F 97.6 F Pulse Rate 47 L 47 L 47 L Respiratory Rate 21 H 22 H 21 H Blood Pressure 106/89 Pulse Oximetry 98 98 98 Oxygen Delivery Oxygen Flow Rate 04/05/25 06:00 04/05/25 06:02 04/05/25 06:16 Temperature 97.5 F L 97.5 F L 97.4 F L Pulse Rate 46 L 46 L 45 L Respiratory Rate 25 H 24 H 24 H Blood Pressure 114/44 L Pulse Oximetry 98 98 97 Oxygen Delivery Oxygen Flow Rate 04/05/25 06:29 04/05/25 06:31 04/05/25 06:45 Temperature 97.4 F L 97.4 F L Pulse Rate 45 L 45 L 44 L Respiratory Rate 23 H 23 H Blood Pressure 101/46 L Pulse Oximetry 98 98 Oxygen Delivery Oxygen Flow Rate 04/05/25 06:55 04/05/25 07:15 04/05/25 07:18 Temperature 97.3 F L 97.2 F L 97.2 F L Pulse Rate 44 L 43 L 44 L Respiratory Rate 23 H 23 H 23 H Blood Pressure 113/46 L Pulse Oximetry 98 98 98 Oxygen Delivery Oxygen Flow Rate 04/05/25 08:00 04/05/25 08:00 04/05/25 08:00 Temperature Pulse Rate 46 L 42 L Respiratory Rate Blood Pressure 120/49 L Pulse Oximetry 99 Oxygen Delivery Nasal Cannula Oxygen Flow Rate 2 04/05/25 08:00 04/05/25 08:45 04/05/25 09:00 Temperature 97 F L 96.3 F L Pulse Rate 43 L 35 L 55 L Respiratory Rate 22 H 20 Blood Pressure 120/49 L 120/53 L 151/58 H Pulse Oximetry 99 96 Oxygen Delivery Oxygen Flow Rate 04/05/25 10:00 04/05/25 10:00 04/05/25 10:00 Temperature 96.4 F L Pulse Rate 85 85 85 Respiratory Rate 20 Blood Pressure 125/70 125/70 Pulse Oximetry 96 Oxygen Delivery Oxygen Flow Rate 04/05/25 11:00 Temperature 97.4 F L Pulse Rate 42 L Respiratory Rate 20 Blood Pressure 111/49 L Pulse Oximetry 96 Oxygen Delivery Oxygen Flow Rate Intake/Output Intake/Output: Intake & Output 04/02/25 04/03/25 04/04/25 04/05/25 23:59 23:59 23:59 23:59 Intake Total 1225.1 568.2 Output Total 225 Balance 1225.1 343.2 Meds/Results Medications: Active Medications Generic Name Dose Route Start Last Admin Trade Name Freq PRN Reason Stop Dose Admin Dopamine HCl/Dextrose 400 mg in 250 mls @ 12.975 mls/hr 04/04/25 11:35 04/05/25 10:00 Dopamine 400 Mg/D5w 250 Ml IV CONT 2.5 mcg/kg/min .[id number] MARIELLE 12.98 mls/hr 2.5 MCG/KG/MIN Infusion Doxycycline Hyclate 100 mg/ 100 mls @ 100 mls/hr 04/04/25 21:00 04/05/25 11:08 Sodium Chloride IVPB Infused Q12H MARIELLE Infusion Ceftriaxone Sodium 2 gm/ 100 mls @ 200 mls/hr 04/05/25 09:00 04/05/25 11:08 Sodium Chloride IVPB Infused Q24H MARIELLE Infusion Pantoprazole Sodium 40 mg 04/04/25 21:00 04/05/25 08:50 Pantoprazole Sodium Iv 40 Mg Vial IV PUSH 40 mg Q12HR MARIELLE Administration Rosuvastatin Calcium 10 mg 04/05/25 09:00 04/05/25 08:50 Rosuvastatin 10 Mg Tablet PO 10 mg QAM MARIELLE Administration Sodium Bicarbonate 650 mg 04/04/25 12:05 04/05/25 08:50 Sodium Bicarbonate Tab 650 Mg Tablet PO 650 mg BID MARIELLE Administration Sodium Chloride 10 ml 04/04/25 22:00 04/05/25 05:44 Central Line Flush IV PUSH 10 ml Q8HR MARIELLE Administration Sodium Chloride 10 ml 04/04/25 15:53 Central Line Flush IV PUSH PRN PRN with TPN bag changes Sodium Chloride 20 ml 04/04/25 15:53 04/05/25 05:44 Central Line Flush IV PUSH 20 ml PRN PRN Administration after blood draws Radiology Results: ITS Impressions Head CT 04/04/25 09:52 IMPRESSION: 1. Moderate nonspecific cerebral white matter disease, which likely represents chronic small vessel ischemic disease. Chest/Abdomen/Pelvis CT 04/04/25 12:03 IMPRESSION: CHEST- 1. Pulmonary edema and/or multifocal pneumonia. 2. Large pleural effusions. ABDOMEN/PELVIS- 1. No acute abnormality. Chest X-Ray 04/05/25 08:49 Impression: CHF. The findings appear slightly improved compared to the previous study. Labs Labs: Laboratory Results - last 24 hr 12/05/2904/04/25 04/04/25 09:15 10:05 18:06 WBC 5.2 RBC 2.08 L Hgb 6.7 L* Hct 21.7 L MCV 104.3 H MCH 32.2 MCHC 30.9 L RDW 19.7 H Plt Count 194 MPV 10.2 Immature Gran % (Auto) 1.0 H Neut % (Auto) 87.5 H Lymph % (Auto) 5.0 L [place] % (Auto) 5.7 Eos % (Auto) 0.4 Baso % (Auto) 0.4 Lymph # (Auto) 0.26 L [place] # (Auto) 0.3 Eos # (Auto) 0.0 Baso # (Auto) 0.0 Abs Immat Gran (auto) 0.05 H Absolute Neuts (auto) 4.6 Absolute Nucleated RBC 0.050 H Band Neutrophils % 0 Nucleated RBC % 1.0 H Platelet Estimate Adequate Hypochromasia 1+ Anisocytosis 3+ Macrocytosis 1+ Schistocytes Occasional PT 25.1 H INR 2.3 APTT Sodium Potassium Chloride Carbon Dioxide Anion Gap BUN Creatinine Estim Creat Clear Calc Estimated GFR Glucose POC Capillary Glucose Lactic Acid Calcium Phosphorus Magnesium Total Bilirubin AST ALT Alkaline Phosphatase Total Protein Albumin Vitamin B12 > 1000.0 H Folate 3.2 Urine Eosinophils U Random Total Protein Ur Random Sodium Ur Random Urea Urine Creatinine Protein/Creat Ratio 2 Hepatitis A IgM Ab Hep Bs Antigen Hep B Core IgM Ab Hepatitis C Ab Screen Blood Type O Positive Antibody Screen Negative Crossmatch See Detail 04/05/25 04/05/25 04/05/25 00:15 00:17 05:48 WBC 6.0 RBC 2.34 L Hgb 6.9 L* 7.3 L Hct 21.8 L 22.5 L MCV 96.2 D MCH 31.2 MCHC 32.4 RDW 20.0 H Plt Count 162 MPV 9.8 Immature Gran % (Auto) 0.5 Neut % (Auto) 82.3 H Lymph % (Auto) 5.3 L [place] % (Auto) 11.1 H Eos % (Auto) 0.5 Baso % (Auto) 0.3 Lymph # (Auto) 0.32 L [place] # (Auto) 0.7 H Eos # (Auto) 0.0 Baso # (Auto) 0.0 Abs Immat Gran (auto) 0.03 Absolute Neuts (auto) 5.0 Absolute Nucleated RBC 0.060 H Band Neutrophils % Nucleated RBC % 1.0 H Platelet Estimate Hypochromasia Anisocytosis Macrocytosis Schistocytes PT INR APTT Sodium 130 L Potassium 4.8 Chloride 106 Carbon Dioxide 16 L Anion Gap 8 BUN 122 H* Creatinine 2.32 H Estim Creat Clear Calc 27 Estimated GFR 20 L Glucose 64 L POC Capillary Glucose 102 Lactic Acid Calcium 8.3 L Phosphorus 6.4 H Magnesium 2.3 Total Bilirubin 0.5 AST 57 H ALT 58 H Alkaline Phosphatase 102 Total Protein 6.8 Albumin 3.2 L Vitamin B12 Folate Urine Eosinophils U Random Total Protein Ur Random Sodium Ur Random Urea Urine Creatinine Protein/Creat Ratio 2 Hepatitis A IgM Ab Hep Bs Antigen Hep B Core IgM Ab Hepatitis C Ab Screen Blood Type Antibody Screen Crossmatch 04/05/25 04/05/25 04/05/25 06:59 09:33 10:52 WBC RBC Hgb Hct MCV MCH MCHC RDW Plt Count MPV Immature Gran % (Auto) Neut % (Auto) Lymph % (Auto) [place] % (Auto) Eos % (Auto) Baso % (Auto) Lymph # (Auto) [place] # (Auto) Eos # (Auto) Baso # (Auto) Abs Immat Gran (auto) Absolute Neuts (auto) Absolute Nucleated RBC Band Neutrophils % Nucleated RBC % Platelet Estimate Hypochromasia Anisocytosis Macrocytosis Schistocytes PT 25.3 H INR 2.3 APTT 41.6 H Sodium Potassium Chloride Carbon Dioxide Anion Gap BUN Creatinine Estim Creat Clear Calc Estimated GFR Glucose POC Capillary Glucose 80 Lactic Acid 0.7 Calcium Phosphorus Magnesium Total Bilirubin AST ALT Alkaline Phosphatase Total Protein Albumin Vitamin B12 Folate Urine Eosinophils None seen U Random Total Protein 30 Ur Random Sodium 57 Ur Random Urea 357 Urine Creatinine 27.6 Protein/Creat Ratio 2 1.09 H Hepatitis A IgM Ab Negative Hep Bs Antigen Negative Hep B Core IgM Ab Negative Hepatitis C Ab Screen Negative Blood Type Antibody Screen Crossmatch Quality VTE Prophylaxis VTE prophylaxis: mechanical ordered
[2025-04-05] MEDS: VANCOMYCIN 2,000 MG/NS 500 ML 2,000 MG/500 ML BAG 250 MG IVPB (13:57)
[2025-04-05] MEDS: DOPamine 400 MG/D5W 250 ML 400 MG/250 ML BAG 12.98 MG IV CONT (15:47)
--- NOTE | 2025-04-05 18:09 | PM.IMPN2 ---
Assessment and Plan Assessment and Plan (1) Essential hypertension: Code(s): I10 - Essential (primary) hypertension Status: Acute (2) Congestive heart disease: Qualifiers: Heart failure type: unspecified Heart failure chronicity: chronic Qualified Code(s): I50.9 - Heart failure, unspecified Code(s): I50.9 - Heart failure, unspecified Status: Acute (3) Coronary artery disease: Code(s): I25.10 - Atherosclerotic heart disease of redding coronary artery without angina pectoris Status: Acute (4) Bradycardia: Code(s): R00.1 - Bradycardia, unspecified Status: Acute (5) Hyperlipidemia: Code(s): E78.5 - Hyperlipidemia, unspecified Status: Acute (6) GERD (gastroesophageal reflux disease): Code(s): K21.9 - Gastro-esophageal reflux disease without esophagitis Status: Acute (7) GI bleed: Qualifiers: GI bleed type/associated pathology: melena Qualified Code(s): K92.1 - Melena Code(s): K92.2 - Gastrointestinal hemorrhage, unspecified Status: Acute (8) Chronic kidney disease: Qualifiers: Chronic kidney disease stage: stage 4 (GFR 15-29) Qualified Code(s): N18.4 - Chronic kidney disease, stage 4 (severe) Code(s): N18.9 - Chronic kidney disease, unspecified Status: Acute (9) Hematuria: Code(s): R31.9 - Hematuria, unspecified Status: Acute (10) Anemia: Code(s): D64.9 - Anemia, unspecified Status: Acute (11) Pneumonia: Code(s): J18.9 - Pneumonia, unspecified organism Status: Acute (12) Obstructive sleep apnea: Code(s): G47.33 - Obstructive sleep apnea (adult) (pediatric) Status: Acute Plan This is a 74-year-old female who presents to the long-term with altered mental status. Patient was noted to be drowsy and confused since yesterday. She was also reported to have noticed blood in her urine. She reports some shortness of breath and was recently treated for pneumonia. She denied any nausea vomiting abdominal pain. In the ED her vitals were stable except bradycardia. EKG showed atrial fibrillation with S VR with rate of 29 QTC 471 Chest x-ray with possible CHF with superimposed pneumonia Laboratory workup revealed WBC of 4.2 hemoglobin of 6 platelet count a 174. Chem panel showed sodium of 130 potassium 5.1 chloride 104 bicarbonate 14 BUN 115 creatinine 2.17 blood glucose 103. S total bilirubin 0.4 AST 38 ALT 34 alkaline phosphatase 137. Troponin was negative at 0.014. Rectal examination revealed FOBT positive stool. Patient has been started on IV Protonix. With anemia she was planned to be transfused. Her temperature came back low at 88.2. She has been started on Jatin Hugger. She is admitted for further treatment to ICU. Altered mental status Severe anemia with hemoglobin of 6 with FOBT positive stool associated hematuria as well. Transfuse p.r.n. to keep hemoglobin more than 7 FOBT positive stool ppi GI consulted. EGD deferred due to high risk Hypothermia suspected sepsis TSH normal. On Jatin Hugger p.r.n. improved Severe bradycardia stable continue to monitor could be due to hypothermia. Cardiology on board. Patient started on dopamine. Planned for pulmonary pacemaker implantation on 04/06/2025. Elevated LFTs continue to monitor Pneumonia chest x-ray with bilateral infiltrates pulmonary edema versus pneumonia. Normal WBC. Empiric Rocephin and doxycycline. CHF exacerbation IV diuresis as ordered. Chest x-ray reviewed Hyperlipidemia rosuvastatin GERD Obstructive sleep apnea not on CPAP Hypertension hold blood pressure medication Lymphedema CHF check echo patient started on dopamine CELINA on CKD stage 3 baseline creatinine unknown. Nephrology consulted creatinine 2.17. BUN is 115 could be from GI bleed. Coronary artery disease History of Cervical spine surgery DVT prophylaxis SCDs Code status do not resuscitate Subjective Date/time seen: 04/05/25 18:09 Interval history: Patient remains bradycardic. On dopamine drip. Daughter at bedside discussed with her. Review of Systems Review of Systems: All systems reviewed & are unremarkable except as noted in HPI and below Exam Narrative: General: Pt is somnolent wakes up easily on verbal command, NAD Lungs/Chest: Trachea central, bilateral rales, no wheezing Cardiac: Bradycardic Normal S1 S2. No murmurs Circulation: Pedal pulses are intact and symmetrical. Abdomen: Normal bowel sounds. Morbidly obese. Soft. NT. ND. Extremities: Bilateral pedal edema : Yadav in place with blood-tinged urine Neurologic: Follows commands. Moves all 4 extremities PERRL alert, oriented Skin: No Rash Objective Data Vital Signs Vital Signs: Vital Signs - 24 hr 04/04/25 18:30 04/04/25 18:31 04/04/25 18:42 Temperature 92.0 F L 92.0 F L Pulse Rate 48 L 48 L Respiratory Rate 24 H Blood Pressure 141/52 H 141/52 H Pulse Oximetry 91 Oxygen Delivery Oxygen Flow Rate 04/04/25 18:42 04/04/25 18:45 04/04/25 18:46 Temperature 92.3 F L 92.3 F L Pulse Rate 48 L 49 L 48 L Respiratory Rate 28 H 23 H Blood Pressure 141/52 H 140/50 L Pulse Oximetry 93 94 Oxygen Delivery Oxygen Flow Rate 04/04/25 19:00 04/04/25 19:00 04/04/25 19:00 Temperature 92.5 F L 92.5 F L 92.6 F L Pulse Rate 48 L 48 L Respiratory Rate 19 22 H Blood Pressure 137/53 L Pulse Oximetry 95 94 Oxygen Delivery Oxygen Flow Rate 04/04/25 19:01 04/04/25 19:15 04/04/25 19:16 Temperature 92.6 F L 92.9 F L 92.9 F L Pulse Rate 49 L 49 L 48 L Respiratory Rate 21 H 23 H 23 H Blood Pressure 137/53 L 136/49 L Pulse Oximetry 95 92 91 Oxygen Delivery Oxygen Flow Rate 04/04/25 19:19 04/04/25 19:20 04/04/25 19:30 Temperature 93.0 F L 93.1 F L Pulse Rate 56 L 52 L Respiratory Rate 28 H Blood Pressure 136/49 L 135/62 Pulse Oximetry 92 Oxygen Delivery Oxygen Flow Rate 04/04/25 19:30 04/04/25 19:31 04/04/25 19:45 Temperature 93.1 F L 93.1 F L 93.4 F L Pulse Rate 49 L 49 L 50 L Respiratory Rate 24 H 25 H 23 H Blood Pressure 134/49 L Pulse Oximetry 93 93 96 Oxygen Delivery Oxygen Flow Rate 04/04/25 19:46 04/04/25 19:58 04/04/25 20:00 Temperature 93.4 F L 93.5 F L Pulse Rate 49 L 56 L Respiratory Rate 25 H Blood Pressure 133/50 L 133/50 L Pulse Oximetry 96 Oxygen Delivery Oxygen Flow Rate 04/04/25 20:00 04/04/25 20:00 12/01/25 20:00 Temperature 93.5 F L Pulse Rate 52 L 52 L Respiratory Rate 25 H Blood Pressure 141/50 H Pulse Oximetry 92 93 Oxygen Delivery Nasal Cannula Oxygen Flow Rate 2 04/04/25 20:00 04/04/25 20:01 04/04/25 20:15 Temperature 93.6 F L 93.6 F L 93.9 F L Pulse Rate 58 L 52 L 52 L Respiratory Rate 16 23 H 18 Blood Pressure 141/50 H Pulse Oximetry 92 92 93 Oxygen Delivery Oxygen Flow Rate 04/04/25 20:23 04/04/25 20:30 04/04/25 20:30 Temperature 94.0 F L 94.1 F L 94.1 F L Pulse Rate 52 L 52 L Respiratory Rate 19 24 H Blood Pressure 131/54 L Pulse Oximetry 94 96 Oxygen Delivery Oxygen Flow Rate 04/04/25 20:31 04/04/25 20:39 04/04/25 20:45 Temperature 94.2 F L 94.0 F L 94.2 F L Pulse Rate 51 L 47 L 48 L Respiratory Rate 25 H 25 H 16 Blood Pressure 134/50 L 134/50 L Pulse Oximetry 96 94 93 Oxygen Delivery Oxygen Flow Rate 04/04/25 20:46 04/04/25 21:00 04/04/25 21:00 Temperature 94.2 F L 94.8 F L 94.8 F L Pulse Rate 50 L 48 L Respiratory Rate 21 H 22 H Blood Pressure 129/48 L 129/45 L Pulse Oximetry 93 91 Oxygen Delivery Oxygen Flow Rate 04/04/25 21:00 04/04/25 21:01 04/04/25 21:15 Temperature 94.6 F L 94.6 F L 94.9 F L Pulse Rate 49 L 65 50 L Respiratory Rate 18 18 23 H Blood Pressure 129/45 L Pulse Oximetry 96 96 95 Oxygen Delivery Oxygen Flow Rate 04/04/25 21:17 04/04/25 21:30 04/04/25 21:30 Temperature 94.9 F L 95.1 F L 95.1 F L Pulse Rate 48 L 49 L Respiratory Rate 19 22 H Blood Pressure 130/60 Pulse Oximetry 92 97 Oxygen Delivery Oxygen Flow Rate 04/04/25 21:32 04/04/25 21:39 04/04/25 21:45 Temperature 95.2 F L 95.3 F L 95.4 F L Pulse Rate 48 L 50 L 50 L Respiratory Rate 21 H 21 H 22 H Blood Pressure 133/60 133/60 Pulse Oximetry 94 96 97 Oxygen Delivery Oxygen Flow Rate 04/04/25 21:46 04/04/25 22:00 04/04/25 22:00 Temperature 95.4 F L 95.6 F L Pulse Rate 49 L 49 L Respiratory Rate 21 H Blood Pressure 133/60 Pulse Oximetry 96 Oxygen Delivery Oxygen Flow Rate 04/04/25 22:00 04/04/25 22:00 04/04/25 22:00 Temperature 95.6 F L 95.6 F L Pulse Rate 53 L 52 L 50 L Respiratory Rate 22 H 21 H Blood Pressure 142/61 H 142/61 H Pulse Oximetry 96 97 Oxygen Delivery Oxygen Flow Rate 04/04/25 22:01 04/04/25 22:15 04/04/25 22:16 Temperature 95.6 F L 95.8 F L 95.8 F L Pulse Rate 49 L 52 L 47 L Respiratory Rate 23 H 22 H 20 Blood Pressure 142/61 H 129/51 L Pulse Oximetry 96 97 97 Oxygen Delivery Oxygen Flow Rate 04/04/25 22:30 04/04/25 22:30 04/04/25 22:32 Temperature 96.1 F L 96.0 F L 96.0 F L Pulse Rate 48 L 45 L Respiratory Rate 19 16 Blood Pressure 128/41 L Pulse Oximetry 96 97 Oxygen Delivery Oxygen Flow Rate 04/04/25 22:39 04/04/25 22:45 04/04/25 22:46 Temperature 96.1 F L 96.1 F L 96.1 F L Pulse Rate 46 L 48 L 46 L Respiratory Rate 19 20 20 Blood Pressure 128/41 L 121/44 L Pulse Oximetry 96 97 96 Oxygen Delivery Oxygen Flow Rate 04/04/25 22:47 04/04/25 23:00 04/04/25 23:00 Temperature 96.1 F L 96.3 F L 96.3 F L Pulse Rate 45 L 44 L Respiratory Rate 22 H 23 H Blood Pressure 121/44 L 125/58 L Pulse Oximetry 96 97 Oxygen Delivery Oxygen Flow Rate 04/04/25 23:00 04/04/25 23:01 04/04/25 23:15 Temperature 96.3 F L 96.3 F L 96.4 F L Pulse Rate 45 L 47 L 45 L Respiratory Rate 22 H 18 23 H Blood Pressure 125/58 L Pulse Oximetry 97 97 96 Oxygen Delivery Oxygen Flow Rate 04/04/25 23:16 04/04/25 23:30 04/04/25 23:30 Temperature 96.5 F L 96.6 F L 96.6 F L Pulse Rate 48 L 47 L Respiratory Rate 26 H 23 H Blood Pressure 121/49 L Pulse Oximetry 96 96 Oxygen Delivery Oxygen Flow Rate 04/04/25 23:31 04/04/25 23:45 04/04/25 23:46 Temperature 96.6 F L 96.8 F L 96.8 F L Pulse Rate 44 L 48 L 46 L Respiratory Rate 24 H 21 H 24 H Blood Pressure 125/46 L 121/43 L Pulse Oximetry 96 96 95 Oxygen Delivery Oxygen Flow Rate 04/05/25 00:00 04/05/25 00:00 04/05/25 00:00 Temperature 97.0 F L Pulse Rate 51 L 51 L Respiratory Rate Blood Pressure 131/41 L Pulse Oximetry Oxygen Delivery Oxygen Flow Rate 04/05/25 00:00 04/05/25 00:00 04/05/25 00:01 Temperature 97.0 F L 97.0 F L Pulse Rate 51 L 51 L Respiratory Rate 25 H 24 H Blood Pressure 131/41 L Pulse Oximetry 96 96 96 Oxygen Delivery Nasal Cannula Oxygen Flow Rate 2 04/05/25 00:15 04/05/25 00:30 04/05/25 00:30 Temperature 97.2 F L 97.3 F L 97.3 F L Pulse Rate 50 L 50 L Respiratory Rate 23 H 23 H Blood Pressure Pulse Oximetry 97 96 Oxygen Delivery Oxygen Flow Rate 04/05/25 00:49 04/05/25 01:01 04/05/25 01:02 Temperature 97.4 F L 97.4 F L 97.5 F L Pulse Rate 50 L 50 L 50 L Respiratory Rate 23 H 22 H 22 H Blood Pressure 123/44 L Pulse Oximetry 96 98 97 Oxygen Delivery Oxygen Flow Rate 04/05/25 01:08 04/05/25 01:15 04/05/25 01:16 Temperature 97.5 F L 97.5 F L 97.5 F L Pulse Rate 50 L 50 L Respiratory Rate 21 H 19 Blood Pressure 120/43 L Pulse Oximetry 97 98 Oxygen Delivery Oxygen Flow Rate 04/05/25 01:30 04/05/25 01:30 04/05/25 01:31 Temperature 97.6 F 97.6 F 97.6 F Pulse Rate 50 L 50 L Respiratory Rate 21 H 24 H Blood Pressure 121/41 L Pulse Oximetry 98 97 Oxygen Delivery Oxygen Flow Rate 04/05/25 01:45 04/05/25 01:46 04/05/25 01:54 Temperature 97.6 F 97.6 F 97.7 F Pulse Rate 50 L 50 L 50 L Respiratory Rate 22 H 25 H 22 H Blood Pressure 122/42 L 122/42 L Pulse Oximetry 97 96 97 Oxygen Delivery Oxygen Flow Rate 04/05/25 02:00 04/05/25 02:00 04/05/25 02:00 Temperature 97.8 F Pulse Rate 50 L 50 L Respiratory Rate Blood Pressure 122/41 L Pulse Oximetry Oxygen Delivery Oxygen Flow Rate 04/05/25 02:00 04/05/25 02:00 04/05/25 02:01 Temperature 97.8 F 97.8 F 97.8 F Pulse Rate 50 L 50 L 50 L Respiratory Rate 23 H 24 H 24 H Blood Pressure 122/41 L 122/41 L Pulse Oximetry 97 97 97 Oxygen Delivery Oxygen Flow Rate 04/05/25 02:09 04/05/25 02:15 04/05/25 02:16 Temperature 97.8 F 97.8 F 97.8 F Pulse Rate 51 L 48 L 48 L Respiratory Rate 25 H 19 20 Blood Pressure 122/41 L 108/40 L Pulse Oximetry 96 97 97 Oxygen Delivery Oxygen Flow Rate 04/05/25 02:30 04/05/25 02:30 04/05/25 02:31 Temperature 97.9 F 97.9 F 97.9 F Pulse Rate 47 L 48 L Respiratory Rate 24 H 24 H Blood Pressure 108/45 L Pulse Oximetry 98 97 Oxygen Delivery Oxygen Flow Rate 04/05/25 02:45 04/05/25 02:46 04/05/25 03:00 Temperature 98.0 F 98.0 F 98.0 F Pulse Rate 49 L 47 L 47 L Respiratory Rate 25 H 19 24 H Blood Pressure 102/48 L Pulse Oximetry 98 97 98 Oxygen Delivery Oxygen Flow Rate 04/05/25 03:01 04/05/25 03:07 04/05/25 03:09 Temperature 98.0 F 98.1 F 98.0 F Pulse Rate 47 L 48 L 47 L Respiratory Rate 24 H 22 H 21 H Blood Pressure 115/46 L 115/45 L 121/46 L Pulse Oximetry 98 98 98 Oxygen Delivery Oxygen Flow Rate 04/05/25 03:15 04/05/25 03:16 04/05/25 03:31 Temperature 98.1 F 98.1 F 98.1 F Pulse Rate 50 L 47 L 48 L Respiratory Rate 24 H 24 H 23 H Blood Pressure 116/45 L 119/44 L Pulse Oximetry 98 98 98 Oxygen Delivery Oxygen Flow Rate 04/05/25 03:32 04/05/25 04:00 04/05/25 04:00 Temperature 98.1 F Pulse Rate 47 L 48 L 47 L Respiratory Rate 24 H Blood Pressure 119/47 L Pulse Oximetry 98 Oxygen Delivery Oxygen Flow Rate 04/05/25 04:00 04/05/25 04:29 04/05/25 04:30 Temperature 97.9 F 97.9 F Pulse Rate 47 L 47 L Respiratory Rate 22 H 22 H Blood Pressure 115/46 L Pulse Oximetry 97 98 98 Oxygen Delivery Nasal Cannula Oxygen Flow Rate 2 04/05/25 04:38 04/05/25 04:54 04/05/25 05:02 Temperature 97.8 F 97.8 F 97.7 F Pulse Rate 47 L 47 L 46 L Respiratory Rate 23 H 23 H 23 H Blood Pressure Pulse Oximetry 98 98 97 Oxygen Delivery Oxygen Flow Rate 04/05/25 05:15 04/05/25 05:16 04/05/25 05:30 Temperature 97.7 F 97.7 F 97.6 F Pulse Rate 46 L 47 L 47 L Respiratory Rate 23 H 20 22 H Blood Pressure 113/46 L 116/46 L Pulse Oximetry 98 98 97 Oxygen Delivery Oxygen Flow Rate 04/05/25 05:32 04/05/25 05:45 04/05/25 05:46 Temperature 97.6 F 97.6 F 97.6 F Pulse Rate 47 L 47 L 47 L Respiratory Rate 21 H 22 H 21 H Blood Pressure 106/89 Pulse Oximetry 98 98 98 Oxygen Delivery Oxygen Flow Rate 04/05/25 06:00 04/05/25 06:02 04/05/25 06:16 Temperature 97.5 F L 97.5 F L 97.4 F L Pulse Rate 46 L 46 L 45 L Respiratory Rate 25 H 24 H 24 H Blood Pressure 114/44 L Pulse Oximetry 98 98 97 Oxygen Delivery Oxygen Flow Rate 04/05/25 06:29 04/05/25 06:31 04/05/25 06:45 Temperature 97.4 F L 97.4 F L Pulse Rate 45 L 45 L 44 L Respiratory Rate 23 H 23 H Blood Pressure 101/46 L Pulse Oximetry 98 98 Oxygen Delivery Oxygen Flow Rate 04/05/25 06:55 04/05/25 07:15 04/05/25 07:18 Temperature 97.3 F L 97.2 F L 97.2 F L Pulse Rate 44 L 43 L 44 L Respiratory Rate 23 H 23 H 23 H Blood Pressure 113/46 L Pulse Oximetry 98 98 98 Oxygen Delivery Oxygen Flow Rate 04/05/25 08:00 04/05/25 08:00 04/05/25 08:00 Temperature Pulse Rate 46 L 42 L Respiratory Rate Blood Pressure 120/49 L Pulse Oximetry 99 Oxygen Delivery Nasal Cannula Oxygen Flow Rate 2 04/05/25 08:00 04/05/25 08:45 04/05/25 09:00 Temperature 97 F L 96.3 F L Pulse Rate 43 L 35 L 55 L Respiratory Rate 22 H 20 Blood Pressure 120/49 L 120/53 L 151/58 H Pulse Oximetry 99 96 Oxygen Delivery Oxygen Flow Rate 04/05/25 10:00 04/05/25 10:00 04/05/25 10:00 Temperature 96.4 F L Pulse Rate 85 85 85 Respiratory Rate 20 Blood Pressure 125/70 125/70 Pulse Oximetry 96 Oxygen Delivery Oxygen Flow Rate 04/05/25 11:00 04/05/25 12:00 04/05/25 12:00 Temperature 97.4 F L Pulse Rate 42 L 56 L Respiratory Rate 20 Blood Pressure 111/49 L 124/50 L Pulse Oximetry 96 96 Oxygen Delivery Nasal Cannula Oxygen Flow Rate 2 04/05/25 12:00 04/05/25 12:00 04/05/25 13:00 Temperature 98.3 F 98.9 F Pulse Rate 56 L 60 49 L Respiratory Rate 30 H 22 H Blood Pressure 124/50 L 127/50 L Pulse Oximetry 96 97 Oxygen Delivery Oxygen Flow Rate 04/05/25 14:00 04/05/25 14:00 04/05/25 14:00 Temperature 99.1 F Pulse Rate 48 L 48 L 50 L Respiratory Rate 25 H Blood Pressure 120/45 L 120/45 L Pulse Oximetry 96 Oxygen Delivery Oxygen Flow Rate 04/05/25 15:00 04/05/25 15:32 04/05/25 15:47 Temperature 99 F Pulse Rate 53 L 45 L 45 L Respiratory Rate 25 H Blood Pressure 125/48 L 120/43 L 120/43 L Pulse Oximetry 96 Oxygen Delivery Oxygen Flow Rate 04/05/25 16:00 04/05/25 16:00 04/05/25 16:00 Temperature 98.8 F Pulse Rate 48 L 49 L Respiratory Rate 25 H Blood Pressure 120/45 L Pulse Oximetry 96 96 Oxygen Delivery Nasal Cannula Oxygen Flow Rate 2 04/05/25 16:37 04/05/25 16:47 04/05/25 16:55 Temperature 98.6 F 98.5 F Pulse Rate 50 L 42 L 51 L Respiratory Rate 22 H 24 H Blood Pressure 120/52 L 129/47 L 119/50 L Pulse Oximetry 95 96 Oxygen Delivery Oxygen Flow Rate 04/05/25 17:00 04/05/25 17:55 Temperature 98.5 F 98.1 F Pulse Rate 43 L 43 L Respiratory Rate 21 H 21 H Blood Pressure 125/43 L 120/52 L Pulse Oximetry 95 95 Oxygen Delivery Oxygen Flow Rate Intake/Output Intake/Output: Intake & Output 04/02/25 04/03/25 04/04/25 04/05/25 23:59 23:59 23:59 23:59 Intake Total 1225.1 921.9 Output Total 775 Balance 1225.1 146.9 Meds/Results Medications: Active Medications Generic Name Dose Route Start Last Admin Trade Name Freq PRN Reason Stop Dose Admin Dopamine HCl/Dextrose 400 mg in 250 mls @ 12.975 mls/hr 04/04/25 11:35 04/05/25 16:47 Dopamine 400 Mg/D5w 250 Ml IV CONT 2.5 mcg/kg/min .[id number] MARIELLE 12.98 mls/hr 2.5 MCG/KG/MIN Infusion Doxycycline Hyclate 100 mg/ 100 mls @ 100 mls/hr 04/04/25 21:00 04/05/25 11:08 Sodium Chloride IVPB Infused Q12H MARIELLE Infusion Ceftriaxone Sodium 2 gm/ 100 mls @ 200 mls/hr 04/05/25 09:00 04/05/25 11:08 Sodium Chloride IVPB Infused Q24H MARIELLE Infusion Sodium Chloride 250 mls @ 30 mls/hr 04/05/25 14:37 04/05/25 16:47 Normal Saline Iv IV CONT 04/05/25 22:56 Infused .[id number] STA Infusion Pantoprazole Sodium 40 mg 04/04/25 21:00 04/05/25 08:50 Pantoprazole Sodium Iv 40 Mg Vial IV PUSH 40 mg Q12HR MARIELLE Administration Rosuvastatin Calcium 10 mg 04/05/25 09:00 04/05/25 08:50 Rosuvastatin 10 Mg Tablet PO 10 mg QAM MARIELLE Administration Sodium Bicarbonate 650 mg 04/04/25 12:05 04/05/25 16:35 Sodium Bicarbonate Tab 650 Mg Tablet PO 650 mg BID MARIELLE Administration Sodium Chloride 10 ml 04/04/25 22:00 04/05/25 13:58 Central Line Flush IV PUSH 10 ml Q8HR MARIELLE Administration Sodium Chloride 10 ml 04/04/25 15:53 Central Line Flush IV PUSH PRN PRN with TPN bag changes Sodium Chloride 20 ml 04/04/25 15:53 04/05/25 05:44 Central Line Flush IV PUSH 20 ml PRN PRN Administration after blood draws Vancomycin HCl 1 each 04/05/25 13:29 Vancomycin For Acute Kidney Injury IVPB PRN PRN Vancomycin Protocol Radiology Results: ITS Impressions Head CT 04/04/25 09:52 IMPRESSION: 1. Moderate nonspecific cerebral white matter disease, which likely represents chronic small vessel ischemic disease. Chest/Abdomen/Pelvis CT 04/04/25 12:03 IMPRESSION: CHEST- 1. Pulmonary edema and/or multifocal pneumonia. 2. Large pleural effusions. ABDOMEN/PELVIS- 1. No acute abnormality. Chest X-Ray 04/05/25 08:49 Impression: CHF. The findings appear slightly improved compared to the previous study. Labs Labs: Laboratory Results - last 24 hr 04/04/25 04/04/25 04/05/25 10:05 18:06 00:15 WBC 5.2 RBC 2.08 L Hgb 6.7 L* Hct 21.7 L MCV 104.3 H MCH 32.2 MCHC 30.9 L RDW 19.7 H Plt Count 194 MPV 10.2 Immature Gran % (Auto) 1.0 H Neut % (Auto) 87.5 H Lymph % (Auto) 5.0 L [place] % (Auto) 5.7 Eos % (Auto) 0.4 Baso % (Auto) 0.4 Lymph # (Auto) 0.26 L [place] # (Auto) 0.3 Eos # (Auto) 0.0 Baso # (Auto) 0.0 Abs Immat Gran (auto) 0.05 H Absolute Neuts (auto) 4.6 Absolute Nucleated RBC 0.050 H Band Neutrophils % 0 Nucleated RBC % 1.0 H Platelet Estimate Adequate Hypochromasia 1+ Anisocytosis 3+ Macrocytosis 1+ Schistocytes Occasional PT INR APTT Sodium Potassium Chloride Carbon Dioxide Anion Gap BUN Creatinine Estim Creat Clear Calc Estimated GFR Glucose POC Capillary Glucose 102 Lactic Acid Calcium Phosphorus Magnesium Total Bilirubin AST ALT Alkaline Phosphatase Total Protein Albumin Urine Eosinophils U Random Total Protein Ur Random Sodium Ur Random Urea Urine Creatinine Protein/Creat Ratio 2 Hepatitis A IgM Ab Hep Bs Antigen Hep B Core IgM Ab Hepatitis C Ab Screen Blood Type O Positive Antibody Screen Negative Crossmatch See Detail 04/05/25 04/05/25 04/05/25 00:17 05:48 06:59 WBC 6.0 RBC 2.34 L Hgb 6.9 L* 7.3 L Hct 21.8 L 22.5 L MCV 96.2 D MCH 31.2 MCHC 32.4 RDW 20.0 H Plt Count 162 MPV 9.8 Immature Gran % (Auto) 0.5 Neut % (Auto) 82.3 H Lymph % (Auto) 5.3 L [place] % (Auto) 11.1 H Eos % (Auto) 0.5 Baso % (Auto) 0.3 Lymph # (Auto) 0.32 L [place] # (Auto) 0.7 H Eos # (Auto) 0.0 Baso # (Auto) 0.0 Abs Immat Gran (auto) 0.03 Absolute Neuts (auto) 5.0 Absolute Nucleated RBC 0.060 H Band Neutrophils % Nucleated RBC % 1.0 H Platelet Estimate Hypochromasia Anisocytosis Macrocytosis Schistocytes PT INR APTT Sodium 130 L Potassium 4.8 Chloride 106 Carbon Dioxide 16 L Anion Gap 8 BUN 122 H* Creatinine 2.32 H Estim Creat Clear Calc 27 Estimated GFR 20 L Glucose 64 L POC Capillary Glucose 80 Lactic Acid Calcium 8.3 L Phosphorus 6.4 H Magnesium 2.3 Total Bilirubin 0.5 AST 57 H ALT 58 H Alkaline Phosphatase 102 Total Protein 6.8 Albumin 3.2 L Urine Eosinophils U Random Total Protein Ur Random Sodium Ur Random Urea Urine Creatinine Protein/Creat Ratio 2 Hepatitis A IgM Ab Hep Bs Antigen Hep B Core IgM Ab Hepatitis C Ab Screen Blood Type Antibody Screen Crossmatch 04/05/25 04/05/25 04/05/25 09:33 10:52 12:58 WBC 6.5 RBC 2.40 L Hgb 7.6 L Hct 23.3 L MCV 97.1 MCH 31.7 MCHC 32.6 RDW 21.0 H Plt Count 164 MPV 9.9 Immature Gran % (Auto) Neut % (Auto) Lymph % (Auto) [place] % (Auto) Eos % (Auto) Baso % (Auto) Lymph # (Auto) [place] # (Auto) Eos # (Auto) Baso # (Auto) Abs Immat Gran (auto) Absolute Neuts (auto) Absolute Nucleated RBC Band Neutrophils % Nucleated RBC % Platelet Estimate Hypochromasia Anisocytosis Macrocytosis Schistocytes PT 25.3 H INR 2.3 APTT 41.6 H Sodium Potassium Chloride Carbon Dioxide Anion Gap BUN Creatinine Estim Creat Clear Calc Estimated GFR Glucose POC Capillary Glucose Lactic Acid 0.7 Calcium Phosphorus Magnesium Total Bilirubin AST ALT Alkaline Phosphatase Total Protein Albumin Urine Eosinophils None seen U Random Total Protein 30 Ur Random Sodium 57 Ur Random Urea 357 Urine Creatinine 27.6 Protein/Creat Ratio 2 1.09 H Hepatitis A IgM Ab Negative Hep Bs Antigen Negative Hep B Core IgM Ab Negative Hepatitis C Ab Screen Negative Blood Type Antibody Screen Crossmatch
[2025-04-05 19:31] LABS: MRSA (PCR) NOT DETECTED (NOT DETECTE)
[2025-04-06] VITALS (59 sets, daily range): BP systolic 102–130; BP diastolic 48–82; PULSE 48–65; RESP 14–28; TEMP 35.4–36.6; O2SAT 96–100
[2025-04-06 05:57] LABS: Hematocrit 24.9 % (37.0-47.0); Hemoglobin 8.1 g/dL (12.0-15.0); Immature Granulocyte Percent A 0.7 % (0-0.5); Lymphocytes Absolute Auto 0.45 K/mm3 (0.9-3.2); Mean Corpuscular HGB Conc 32.5 g/dl (32-36); Mean Corpuscular Hemoglobin 31.8 pg (26-34); Mean Corpuscular Volume 97.6 fl (80-100); Nucleated Red Blood Cells Absolute Auto 0.030 K/mm3 (0.0-0.012); Nucleated Red Blood Cells Perc 0.5 % (0.0-0.2); Platelet Count Result 148 k/mm3 (150-375); Red Blood Count 2.55 M/mm3 (4.2-5.4); White Blood Count 6.0 K/mm3 (4.5-10.0)
[2025-04-06 06:13] LABS: INR 2.2; Prothrombin Time 23.9 Seconds (11.1-14.7)
[2025-04-06 06:14] LABS: Partial Thromboplastin Time 43.0 Seconds (22.3-36.8)
[2025-04-06 06:33] LABS: Alanine Aminotransferase 58 U/L (6-35); Albumin Level 3.3 g/dL (3.5-5.1); Alkaline Phosphatase 95 U/L (38-126); Anion Gap 10 mmol/L (4-12); Aspartate Amino Transferase 50 U/L (14-36); Bilirubin,Total 0.6 mg/dL (0.2-1.3); Calcium 8.5 mg/dL (8.4-10.2); Carbon Dioxide 15 mmol/L (22-30); Chloride 107 mmol/L (98-107); Estimated CRCL calculation 26 ml/min; Estimated Glomerular Filt Rate 20; Glucose 73 mg/dL (65-110); Magnesium 2.4 mg/dL (1.6-2.3); Potassium 4.0 mmol/L (3.4-5.0); Sodium 132 mmol/L (137-145); Total Protein 6.8 g/dL (6.3-8.2)
[2025-04-06 06:35] LABS: Blood Urea Nitrogen 125 mg/dL (7-17)
--- NOTE | 2025-04-06 07:20 | P.SEDATION_ITS ---
Moderate Sedation Note-Pt Data Patient Data Diagnosis: Paroxysmal atrial fib with slow ventricular response, symptomatic bradycardia Present Complaint: Generalized fatigue, no specific complaint Allergies Allergy/AdvReac Type Severity Reaction Status Date / Time amoxicillin AdvReac Intermediate Nausea and Verified 04/04/25 15:19 Vomiting ampicillin AdvReac Intermediate Nausea and Verified 04/04/25 15:19 Vomiting clarithromycin AdvReac Mild Nausea Verified 04/04/25 15:19 minoxidil AdvReac Mild Itching Verified 04/04/25 15:19 tetracycline AdvReac Mild Nausea Verified 04/04/25 15:19 Home Medications ?Medication ?Instructions ?Recorded ?Confirmed ?Type amiodarone 400 mg tablet 400 mg PO BID 04/04/2504/04 History amlodipine 5 mg tablet 5 mg PO DAILY 04/04/2504/04 History apixaban 5 mg tablet (Eliquis) 5 mg PO Q12H 04/04/25 1 06/05/24 History arginine-vitamin C-vitamin E oral 9.2 g PO .with meals 04/04/25 04/04/25 History 4.5 gram-156 mg/9.2 gram powder pkt (Arginaid) aspirin 81 mg chewable tablet 81 mg PO DAILY 04/04/25 04/04/25 History calcium citrate 200 mg PO DAILY 04/04/2505/29 History cyclobenzaprine 5 mg tablet 5 mg PO TID PRN muscle spa sm 04/04/25 04/04/25 History docusate sodium 100 mg tablet 100 mg PO DAILY PRN cons tipation 04/04/25 04/04/25 History doxazosin 8 mg tablet (Cardura) 8 mg PO HS 04/04/25 History elderberry fruit 350 mg capsule 350 mg PO DAILY 04/04/25 History epoetin kat 2,000 unit/mL 2,000 unit subcut .every 21 days 04/04/25 04/04/25 History injection solution (Epogen) ferrous sulfate 324 mg (65 mg 324 mg PO DAILY 04/04/25 04/04/25 History iron) tablet,delayed release furosemide 40 mg tablet (Lasix) 40 mg PO DAILY 5 04/04/25 History hydralazine 100 mg tablet 50 mg PO .Q8hr 04/04/2505/29 History hydrocodone 5 mg-acetaminophen 325 1 tablet PO Q6H PRN pain 04/04/25 04/04/25 History mg tablet polyethylene glycol 3350 17 17 g PO DAILY PRN constipa tion 04/04/25 04/04/25 History gram/dose oral powder (Miralax) rosuvastatin 10 mg tablet 10 mg PO DAILY 04/04/2505/29 History silver sulfadiazine 1 % topical 1 applic topical BID 1 06/05/24 04/04/25 History cream (Silvadene) spironolactone 25 mg tablet 25 mg PO DAILY 04/04/25 History Current Medications: Active Medications Dopamine HCl/Dextrose (Dopamine 400 Mg/D5w 250 Ml) 400 mg in 250 mls @ 12.975 mls/hr IV CONT .[id number] [facility] Last Infusion: 04/06/25 04:00 Dose: 2.5 mcg/kg/min, 12.98 mls/hr Doxycycline Hyclate 100 mg/ (Sodium Chloride) 100 mls @ 100 mls/hr IVPB Q12H [facility] Last Infusion: 04/05/25 22:16 Dose: Infused Ceftriaxone Sodium 2 gm/ (Sodium Chloride) 100 mls @ 200 mls/hr IVPB Q24H [facility] Last Infusion: 04/05/25 11:08 Dose: Infused Pantoprazole Sodium (Pantoprazole Sodium Iv 40 Mg Vial) 40 mg IV PUSH Q12HR [facility] Last Admin: 04/05/25 21:19 Dose: 40 mg Rosuvastatin Calcium (Rosuvastatin 10 Mg Tablet) 10 mg PO QAM [facility] Last Admin: 04/05/25 08:50 Dose: 10 mg Sodium Bicarbonate (Sodium Bicarbonate Tab 650 Mg Tablet) 650 mg PO BID [facility] Last Admin: 04/05/25 16:35 Dose: 650 mg Sodium Chloride (Central Line Flush) 10 ml IV PUSH Q8HR [facility] Last Admin: 04/05/25 21:19 Dose: 10 ml Sodium Chloride (Central Line Flush) 10 ml IV PUSH PRN PRN PRN Reason: with TPN bag changes Sodium Chloride (Central Line Flush) 20 ml IV PUSH PRN PRN PRN Reason: after blood draws Last Admin: 04/05/25 05:44 Dose: 20 ml Vancomycin HCl (Vancomycin For Acute Kidney Injury) 1 each IVPB PRN PRN PRN Reason: Vancomycin Protocol Sedation/Anesthesia: No previous sedation/anesthesia problems (including family history). [facility] Past Medical History Medical History (Updated 04/05/25 @ 06:40 by Janey Trinidad MD) Coronary artery disease Hyperlipidemia GERD (gastroesophageal reflux disease) Obstructive sleep apnea Essential hypertension Atrial fibrillation Obesity Congestive heart disease Cervical spondylosis Constipation Chronic kidney disease Surgical History Surgical History H/O cervical spine surgery Social History Social History (Updated 04/04/25 @ 11:50 by Ilir Gonzalez MD) Social History: No history of smoking, alcohol use or drug use. Patient is a resident of longterm. Smoking status: Never smoker Alcohol intake: never Substance use: never Substance use type: does not use Lack of Transportation: No Lack of Food: Never True Current Housing: I Have Housing Concerned About Future Housing: No Difficulty Paying Gas/Electric Bills: No Difficulty Paying for Meds: No Currently Unemployed: No Education: Don't Know Difficulty w/ Childcare or Family Care: No Spiritual care concerns: No Mod Sed Physical Exam Physical Exam Pre Procedural Exam: Normal: Nose, Throat, Airway, Lungs, Heart Rhythm, Neuro Exam and Extremities (Morbidly obese) and Variation: Appearance (Lethargic morbidly obese female no distress), Neck (Obese), Heart Size (PMI not palpable) and Heart Rate (Heart rate 50 sinus rhythm) Hours since solid foods: 12 Hours since liquid intake: 12 Mallampati Classification: class III Internal Medicine - PN: Obj Da Vital Signs Vital Signs: Vital Signs - 24 hr 04/05/25 08:00 04/05/25 08:00 04/05/25 08:00 Temperature Pulse Rate 46 L 42 L Respiratory Rate Blood Pressure 120/49 L Pulse Oximetry 99 Oxygen Delivery Nasal Cannula Oxygen Flow Rate 2 04/05/25 08:00 04/05/25 08:45 04/05/25 09:00 Temperature 36.1 C L 35.7 C L Pulse Rate 43 L 35 L 55 L Respiratory Rate 22 H 20 Blood Pressure 120/49 L 120/53 L 151/58 H Pulse Oximetry 99 96 Oxygen Delivery Oxygen Flow Rate 04/05/25 10:00 04/05/25 10:00 04/05/25 10:00 Temperature 35.8 C L Pulse Rate 85 85 85 Respiratory Rate 20 Blood Pressure 125/70 125/70 Pulse Oximetry 96 Oxygen Delivery Oxygen Flow Rate 04/05/25 11:00 04/05/25 12:00 04/05/25 12:00 Temperature 36.3 C L Pulse Rate 42 L 56 L Respiratory Rate 20 Blood Pressure 111/49 L 124/50 L Pulse Oximetry 96 96 Oxygen Delivery Nasal Cannula Oxygen Flow Rate 2 04/05/25 12:00 04/05/25 12:00 04/05/25 13:00 Temperature 36.8 C 37.2 C Pulse Rate 56 L 60 49 L Respiratory Rate 30 H 22 H Blood Pressure 124/50 L 127/50 L Pulse Oximetry 96 97 Oxygen Delivery Oxygen Flow Rate 04/05/25 14:00 04/05/25 14:00 04/05/25 14:00 Temperature 37.3 C Pulse Rate 48 L 48 L 50 L Respiratory Rate 25 H Blood Pressure 120/45 L 120/45 L Pulse Oximetry 96 Oxygen Delivery Oxygen Flow Rate 04/05/25 15:00 04/05/25 15:32 04/05/25 15:47 Temperature 37.2 C Pulse Rate 53 L 45 L 45 L Respiratory Rate 25 H Blood Pressure 125/48 L 120/43 L 120/43 L Pulse Oximetry 96 Oxygen Delivery Oxygen Flow Rate 04/05/25 16:00 04/05/25 16:00 04/05/25 16:00 Temperature 37.1 C Pulse Rate 48 L 49 L Respiratory Rate 25 H Blood Pressure 120/45 L Pulse Oximetry 96 96 Oxygen Delivery Nasal Cannula Oxygen Flow Rate 2 04/05/25 16:37 04/05/25 16:47 04/05/25 16:55 Temperature 37.0 C 36.9 C Pulse Rate 50 L 42 L 51 L Respiratory Rate 22 H 24 H Blood Pressure 120/52 L 129/47 L 119/50 L Pulse Oximetry 95 96 Oxygen Delivery Oxygen Flow Rate 04/05/25 17:00 04/05/25 17:55 04/05/25 18:00 Temperature 36.9 C 36.7 C Pulse Rate 43 L 43 L 43 L Respiratory Rate 21 H 21 H Blood Pressure 125/43 L 120/52 L Pulse Oximetry 95 95 Oxygen Delivery Oxygen Flow Rate 04/05/25 18:00 04/05/25 18:00 04/05/25 18:19 Temperature 36.7 C 36.7 C Pulse Rate 42 L 42 L 45 L Respiratory Rate 22 H 20 Blood Pressure 122/47 L 122/47 L 121/50 L Pulse Oximetry 96 97 Oxygen Delivery Oxygen Flow Rate 04/05/25 19:00 04/05/25 20:00 04/05/25 20:00 Temperature 36.6 C 36.5 C Pulse Rate 44 L 48 L 48 L Respiratory Rate 25 H 20 Blood Pressure 119/49 L 125/53 L 125/53 L Pulse Oximetry 97 97 Oxygen Delivery Oxygen Flow Rate 04/05/25 20:00 04/05/25 21:00 04/05/25 21:15 Temperature 36.2 C L Pulse Rate 50 L 49 L 49 L Respiratory Rate 22 H 22 H Blood Pressure 116/55 L Pulse Oximetry 97 97 Oxygen Delivery Nasal Cannula Oxygen Flow Rate 2 04/05/25 22:00 04/05/25 22:00 04/05/25 22:00 Temperature 36.0 C L Pulse Rate 50 L 51 L 50 L Respiratory Rate 25 H Blood Pressure 128/52 L 128/52 L Pulse Oximetry 97 Oxygen Delivery Oxygen Flow Rate 04/05/25 23:00 04/05/25 23:31 04/05/25 23:45 Temperature 35.8 C L 35.7 C L Pulse Rate 50 L 48 L Respiratory Rate 26 H 26 H Blood Pressure 124/54 L Pulse Oximetry 98 97 Oxygen Delivery Nasal Cannula Oxygen Flow Rate 2 04/05/25 23:46 04/06/25 00:00 04/06/25 00:00 Temperature 35.7 C L 35.7 C L Pulse Rate 48 L 48 L Respiratory Rate 28 H Blood Pressure 123/57 L Pulse Oximetry 96 Oxygen Delivery Oxygen Flow Rate 04/06/25 00:00 04/06/25 00:01 04/06/25 00:16 Temperature 35.7 C L 35.8 C L Pulse Rate 48 L Respiratory Rate Blood Pressure 123/57 L Pulse Oximetry Oxygen Delivery Oxygen Flow Rate 04/06/25 00:31 04/06/25 01:00 04/06/25 01:01 Temperature 35.8 C L 35.9 C L 35.9 C L Pulse Rate 48 L Respiratory Rate 16 Blood Pressure 125/55 L Pulse Oximetry 97 Oxygen Delivery Oxygen Flow Rate 04/06/25 01:30 04/06/25 02:00 04/06/25 02:00 Temperature 35.9 C L 36.1 C L Pulse Rate 49 L Respiratory Rate Blood Pressure Pulse Oximetry Oxygen Delivery Oxygen Flow Rate 04/06/25 02:00 04/06/25 02:00 04/06/25 02:14 Temperature 36.1 C L Pulse Rate 49 L 48 L Respiratory Rate 16 Blood Pressure 121/51 L 125/48 L Pulse Oximetry 97 98 Oxygen Delivery Nasal Cannula Oxygen Flow Rate 2 04/06/25 02:30 04/06/25 03:00 04/06/25 03:00 Temperature 36.1 C L 36.2 C L 36.2 C L Pulse Rate 48 L Respiratory Rate 24 H Blood Pressure 123/48 L Pulse Oximetry 97 Oxygen Delivery Oxygen Flow Rate 04/06/25 03:30 04/06/25 04:00 04/06/25 04:00 Temperature 36.3 C L 36.4 C L 36.4 C L Pulse Rate 48 L Respiratory Rate 21 H Blood Pressure 122/48 L Pulse Oximetry 99 Oxygen Delivery Oxygen Flow Rate 04/06/25 04:00 04/06/25 04:00 04/06/25 04:15 Temperature Pulse Rate 49 L 49 L 48 L Respiratory Rate 21 H Blood Pressure 122/48 L Pulse Oximetry 99 Oxygen Delivery Nasal Cannula Oxygen Flow Rate 2 04/06/25 04:30 04/06/25 05:00 04/06/25 05:00 Temperature 36.5 C 36.6 C 36.6 C Pulse Rate 50 L Respiratory Rate 22 H Blood Pressure 121/52 L Pulse Oximetry 97 Oxygen Delivery Oxygen Flow Rate 04/06/25 05:30 04/06/25 06:00 04/06/25 06:00 Temperature 36.6 C 36.1 C L Pulse Rate 50 L 50 L Respiratory Rate 21 H Blood Pressure 121/50 L Pulse Oximetry 98 Oxygen Delivery Oxygen Flow Rate 04/06/25 06:30 04/06/25 06:44 04/06/25 06:59 Temperature 36.1 C L 36.5 C 36.4 C L Pulse Rate Respiratory Rate Blood Pressure Pulse Oximetry Oxygen Delivery Oxygen Flow Rate Intake/Output Intake/Output: Intake & Output 04/03/25 04/04/25 04/05/25 04/06/25 23:59 23:59 23:59 23:59 Intake Total 1225.1 1439.7 278 Output Total 775 1275 Balance 1225.1 336.5 -862 Meds/Results Medications: Active Medications Generic Name Dose Route Start Last Admin Trade Name Freq PRN Reason Stop Dose Admin Dopamine HCl/Dextrose 400 mg in 250 mls @ 12.975 mls/hr 04/04/25 11:35 04/06/25 04:00 Dopamine 400 Mg/D5w 250 Ml IV CONT 2.5 mcg/kg/min .[id number] [facility] 12.98 mls/hr 2.5 MCG/KG/MIN Infusion Doxycycline Hyclate 100 mg/ 100 mls @ 100 mls/hr 04/04/25 21:00 04/05/25 22:16 Sodium Chloride IVPB Infused Q12H [facility] Infusion Ceftriaxone Sodium 2 gm/ 100 mls @ 200 mls/hr 04/05/25 09:00 04/05/25 11:08 Sodium Chloride IVPB Infused Q24H [facility] Infusion Pantoprazole Sodium 40 mg 04/04/25 21:00 04/05/25 21:19 Pantoprazole Sodium Iv 40 Mg Vial IV PUSH 40 mg Q12HR [facility] Administration Rosuvastatin Calcium 10 mg 04/05/25 09:00 04/05/25 08:50 Rosuvastatin 10 Mg Tablet PO 10 mg QAM [facility] Administration Sodium Bicarbonate 650 mg 04/04/25 12:05 04/05/25 16:35 Sodium Bicarbonate Tab 650 Mg Tablet PO 650 mg BID [facility] Administration Sodium Chloride 10 ml 04/04/25 22:00 04/05/25 21:19 Central Line Flush IV PUSH 10 ml Q8HR [facility] Administration Sodium Chloride 10 ml 04/04/25 15:53 Central Line Flush IV PUSH PRN PRN with TPN bag changes Sodium Chloride 20 ml 04/04/25 15:53 04/05/25 05:44 Central Line Flush IV PUSH 20 ml PRN PRN Administration after blood draws Vancomycin HCl 1 each 04/05/25 13:29 Vancomycin For Acute Kidney Injury IVPB PRN PRN Vancomycin Protocol Radiology Results: ITS Impressions Head CT 04/04/25 09:52 IMPRESSION: 1. Moderate nonspecific cerebral white matter disease, which likely represents chronic small vessel ischemic disease. Chest/Abdomen/Pelvis CT 04/04/25 12:03 IMPRESSION: CHEST- 1. Pulmonary edema and/or multifocal pneumonia. 2. Large pleural effusions. ABDOMEN/PELVIS- 1. No acute abnormality. Chest X-Ray 04/05/25 08:49 Impression: CHF. The findings appear slightly improved compared to the previous study. Labs 04/06/25 05:49 04/06/25 05:49 Labs: Laboratory Results - last 24 hr 04/04/25 04/05/25 04/05/25 10:05 06:59 09:33 WBC RBC Hgb Hct MCV MCH MCHC RDW Plt Count MPV Immature Gran % (Auto) Neut % (Auto) Lymph % (Auto) [place] % (Auto) Eos % (Auto) Baso % (Auto) Lymph # (Auto) [place] # (Auto) Eos # (Auto) Baso # (Auto) Abs Immat Gran (auto) Absolute Neuts (auto) Absolute Nucleated RBC Nucleated RBC % PT 25.3 H INR 2.3 APTT 41.6 H Sodium Potassium Chloride Carbon Dioxide Anion Gap BUN Creatinine Estim Creat Clear Calc Estimated GFR Glucose POC Capillary Glucose 80 Lactic Acid 0.7 Calcium Phosphorus Magnesium Total Bilirubin AST ALT Alkaline Phosphatase Total Protein Albumin Urine Eosinophils U Random Total Protein Ur Random Sodium Ur Random Urea Urine Creatinine Protein/Creat Ratio 2 Nasal MRSA (PCR) Hepatitis A IgM Ab Negative Hep Bs Antigen Negative Hep B Core IgM Ab Negative Hepatitis C Ab Screen Negative Blood Type O Positive Antibody Screen Negative Crossmatch See Detail 04/05/25 04/05/25 04/05/25 10:52 12:58 18:06 WBC 6.5 RBC 2.40 L Hgb 7.6 L Hct 23.3 L MCV 97.1 MCH 31.7 MCHC 32.6 RDW 21.0 H Plt Count 164 MPV 9.9 Immature Gran % (Auto) Neut % (Auto) Lymph % (Auto) [place] % (Auto) Eos % (Auto) Baso % (Auto) Lymph # (Auto) [place] # (Auto) Eos # (Auto) Baso # (Auto) Abs Immat Gran (auto) Absolute Neuts (auto) Absolute Nucleated RBC Nucleated RBC % PT INR APTT Sodium Potassium Chloride Carbon Dioxide Anion Gap BUN Creatinine Estim Creat Clear Calc Estimated GFR Glucose POC Capillary Glucose Lactic Acid Calcium Phosphorus Magnesium Total Bilirubin AST ALT Alkaline Phosphatase Total Protein Albumin Urine Eosinophils None seen U Random Total Protein 30 Ur Random Sodium 57 Ur Random Urea 357 Urine Creatinine 27.6 Protein/Creat Ratio 2 1.09 H Nasal MRSA (PCR) Not detected Hepatitis A IgM Ab Hep Bs Antigen Hep B Core IgM Ab Hepatitis C Ab Screen Blood Type Antibody Screen Crossmatch 04/06/25 05:49 WBC 6.0 RBC 2.55 L Hgb 8.1 L Hct 24.9 L MCV 97.6 MCH 31.8 MCHC 32.5 RDW 20.6 H Plt Count 148 L MPV 9.9 Immature Gran % (Auto) 0.7 H Neut % (Auto) 79.6 H Lymph % (Auto) 7.5 L [place] % (Auto) 9.7 H Eos % (Auto) 1.7 Baso % (Auto) 0.8 Lymph # (Auto) 0.45 L [place] # (Auto) 0.6 Eos # (Auto) 0.1 Baso # (Auto) 0.1 Abs Immat Gran (auto) 0.04 H Absolute Neuts (auto) 4.8 Absolute Nucleated RBC 0.030 H Nucleated RBC % 0.5 H PT 23.9 H INR 2.2 APTT 43.0 H Sodium 132 L Potassium 4.0 Chloride 107 Carbon Dioxide 15 L Anion Gap 10 BUN 125 H* Creatinine 2.41 H Estim Creat Clear Calc 26 Estimated GFR 20 L Glucose 73 POC Capillary Glucose Lactic Acid Calcium 8.5 Phosphorus 6.2 H Magnesium 2.4 H Total Bilirubin 0.6 AST 50 H ALT 58 H Alkaline Phosphatase 95 Total Protein 6.8 Albumin 3.3 L Urine Eosinophils U Random Total Protein Ur Random Sodium Ur Random Urea Urine Creatinine Protein/Creat Ratio 2 Nasal MRSA (PCR) Hepatitis A IgM Ab Hep Bs Antigen Hep B Core IgM Ab Hepatitis C Ab Screen Blood Type Antibody Screen Crossmatch ASA Classification/Sedation ASA Classification/Sedation ASA Class: III Emergent: No Risks: Risks, benefits and alternatives explained and patient/family accepted plan for sedation. Patient re-evaluated immediately prior to sedation.
--- NOTE | 2025-04-06 09:01 | ECG_ITS ---
Test Date: 2025-04-06 15:34:04 Measurements Intervals [place] Rate: 61 P: 218 NE: 304 QRS: 47 QRSD: 105 T: 49 QT: 429 QTc: 436 Interpretive Statements ELECTRONIC ATRIAL PACEMAKER LOW QRS VOLTAGE IN PRECORDIAL LEADS BORDERLINE ST-T WAVE ABNORMALITY- INF/LAT LEADS BASELINE ARTIFACT- I, II, III, AVR, AVL, AVF, V1-V6 BORDERLINE ECG Compared to ECG 04/04/2025 09:54:48 ELECTRONIC ATRIAL PACEMAKER NOW PRESENT Electronically Signed On 04-06-2025 15:35:45 [employer]USTOMER LIAISON by Goldy Arguello D.O.
--- NOTE | 2025-04-06 09:04 | WPDCARDPROC ---
Cardiac Cath Procedure Note Date of procedure:: 04/06/25 Performing physician:: Asif Petit MD Indication:: Paroxysmal atrial fib with slow ventricular response, symptomatic bradycardia, GI bleed Brief clinical history:: This is a 74-year-old woman with paroxysmal atrial fibrillation who has been receiving amiodarone and systemic anticoagulation with apixaban. She was admitted to the hospital with GI bleeding. When the patient is in atrial fibrillation she is problematic Marlene/hemodynamically compromised with bradycardia. IV dopamine has required for improvement of her rhythm. In this setting a permanent pacemaker implantation has been recommended. She was taken off of apixaban on admission to the hospital and has not had any for 48 hours. Her INR is still 2.2. In the face of the anemia and elevated INR pacemaker has been requested for today recognizing the increased hemorrhagic risks. Procedure Procedure performed:: Implantation of permanent dual-chamber Biotronik pacemaker device Sedation/Medication given:: Versed 2 mg Access site:: Left subclavian vein Estimated blood loss:: 50 cc Procedure note:: Patient was brought to the cardiac catheterization lab in the postabsorptive state where the left anterior chest wall was prepped draped in the usual fashion. Anesthesia was given with 20 cc of lidocaine infiltrated inferior to the clavicle. An incision was then made from the midclavicular line to the deltopectoral groove about 1 in below the clavicle. Sharp and blunt dissection was used to separate the subcutaneous tissue electrocautery was used to provide provide hemostasis. Using blunt dissection the pacemaker pocket was created along the fascial plane inferior to the incision and packed with antibiotic soaked 4 x 4. Following this attention was turned to venous access. Using modified Seldinger technique the left subclavian vein was punctured twice and 2 J wires were placed into the venous circulation down to level of right atrium. Two 6 Iranian pacemaker safe sheaths were then used to place the leads described below into the venous circulation they were advanced to the level of the right atrium. Attention was then turned positioning the ventricular lead. The straight stylet was removed and a 3 cc syringe was used to form a J-tip on the stylet was advanced into the right ventricle and a straight stylet was used to position it into the right ventricular apex. Adequate pacing and sensing performance was demonstrated in this position the the after deploying the fixation screw. Attention was then turned positioning the atrial lead. This proved to be rather difficult. Multiple positions in the right atrium had to be mapped and attempted to provide acceptable lead performance. Ultimately a high lateral position was selected with good pacing performance the current of injury was modest in this location. After deployment of the fixation screw the lead was fixed into position and this was accepted as the final atrial position. In both leads at 10 volts stimulus of showed no evidence of extracardiac stimulation. The retained sponge was then removed from the pocket the pocket was irrigated with antibiotic infused saline the leads were sutured to the base of the pocket using the suture sleeves and 2-0 silk ties. Following this the pacemaker generator detailed below was connected to the leads using the torque wrench and the entire assembly was placed into the newly created pocket this was then closed in layers using 3-0 Vicryl in an interrupted fashion for the subcutaneous tissue and 4-0 Vicryl subcuticular fashion for the skin. The wound was dressed with an Aquacel dressing and a pressure dressing left arm was placed in an immobilizer. Procedure was challenging in terms of atrial lead positioning but was otherwise uncomplicated and well tolerated. At the conclusion there was oozing at the site of the incision which was again improved with electrocautery. This was felt to be related to the patient's elevated INR at the time of the procedure. There was no actively bleeding vessel. For this reason again following closure and dressing a pressure dressing was applied. Findings:: The patient received a Biotronik dual-chamber pacemaker model Amvia Edge [id number]. Serial number [id number]. The device is programmed in the DDD-CLS mode lower rate limit 60 upper rate limit 120. The atrial lead is a Biotronik active fixation bipolar lead model Solia S [id number]. Serial number [id number]. The P-waves are sensed at 1.1 mV pacing threshold 1.9 volts at 0.4 milliseconds impedance 469 Ohms. The ventricular lead is a Biotronik active fixation bipolar lead model Solia S 60. [id number]. Serial number [id number]. R-waves are sensed at 6.5 mV pacing threshold 0.5 volts at 0.4 milliseconds impedance 508 Ohms. Conclusion:: 1. Successful uncomplicated implantation permanent Biotronik dual-chamber pacing system for treatment of symptomatic bradycardia in this 74-year-old lady who also has paroxysmal atrial fibrillation 2. Challenging atrial lead positioning as described above Asif Petit MD FACC
[2025-04-06] MEDS: SODIUM CHLORIDE 0.9% IV 1,000 ML 50 ML IV CONT (10:55)
[2025-04-06] MEDS: cefTRIAXone 2 GM in SODIUM CHLORIDE 0.9% IV 100 ML 200 ML IVPB (10:59)
[2025-04-06] MEDS: PANTOPRAZOLE SODIUM IV 40 MG VIAL IV PUSH ×2 (11:02→20:30)
[2025-04-06] MEDS: DOXYCYCLINE IV 100 MG in SODIUM CHLORIDE 0.9% IV 100 ML IVPB ×2 (11:08→20:30)
--- NOTE | 2025-04-06 11:14 | P.PNCA_ITS ---
Progress Note: A&P Assessment and Plan (1) Bradycardia: Code(s): R00.1 - Bradycardia, unspecified Status: Acute Assessment and Plan: She has atrial fibrillation with slow ventricular response, heart rate in the 30's initially. Improved with dopamine. * Attempts to wean dopamine were unsuccessful * Received permanent pacemaker today with Dr. Petit * Device check in a.m. tomorrow * Chest x-ray tomorrow (2) GI bleed: Qualifiers: GI bleed type/associated pathology: melena Qualified Code(s): K92.1 - Melena Code(s): K92.2 - Gastrointestinal hemorrhage, unspecified Status: Acute Assessment and Plan: Hold anticoagulation for now. GI was consulted. * Received 1u PRBC yesterday and hemoglobin up to 8.1 today (3) Congestive heart disease: Qualifiers: Heart failure type: diastolic Heart failure chronicity: acute Qualified Code(s): I50.31 - Acute diastolic (congestive) heart failure Code(s): I50.9 - Heart failure, unspecified Status: Acute Assessment and Plan: Euvolemic on exam. Hold off diuresis today. Reassess volume status and dose diuretic tomorrow Monitor renal function daily. Creatinine 2.4 today, up from 2.3 yesterday TTE showed normal LVEF of 60-65%, abnormal diastolic function, moderate tricuspid regurgitation, moderate pulmonary hypertension with PASP of 48 mm Hg Subjective Date/time seen: 04/06/25 11:14 Interval history: Reason for encounter: Bradycardia Relevant history: 74 year female with history of coronary artery disease, paroxysmal atrial fibrillation diagnosed in 12/2024 with slow ventricular response to the 30s (initially started on amiodarone but was taken off of it due to slow ventricular response), hypertension, mild pulmonary hypertension, chronic kidney disease who presented to the emergency department because of melena. Cardiology is consulted for bradycardia. EKG and telemetry showed atrial fibrillation with slow ventricular response with rates to the 30s. Cardiology was consulted for further recommendations. She was initially started on dopamine with heart rates up to the 40s-50s had evaluated for need for permanent pacemaker. Interval history: She is status post permanent pacemaker placement today with Dr. Petit. She is doing well postprocedure. She denies chest pain, shortness of breath, palpitations. Review of Systems Review of Systems: All systems reviewed & are unremarkable except as noted in HPI and below Exam Const: General: comfortable, no acute distress, alert and awake Orientation/consciousness: patient oriented x3 HENMT: Head: normal to inspection Eyes: General: appearance normal, both eyes and all related structures Pupils: Equal, round and reactive pupils present Neck: Neck: normal visual inspection, supple and no JVD Carotids: normal carotid upstroke Resp: Effort & Inspection: normal respiratory effort Auscultation: rales Cardio: Rate: bradycardic Rhythm: abnormal rhythm irregularly irregular Heart sounds: S1 normal heart sound present, S2 normal heart sound present and no murmurs GI: Auscultation: normal bowel sounds Skin: General skin exam: normal color Neuro: General: patient oriented x3 Cranial nerves: Yes Equal, round and reactive pupils present Extrem: General: abnormal to inspection Other: bilateral lower extremity lymphedema. Knee high MANDEEP wraps in place Psych: Appearance: grossly normal Mental Status: mental status grossly normal Objective Data Vital Signs Vital Signs: Vital Signs - 24 hr 04/05/25 12:00 04/05/25 12:00 04/05/25 12:00 Temperature 36.8 C Pulse Rate 56 L 56 L Respiratory Rate 30 H Blood Pressure 124/50 L 124/50 L Pulse Oximetry 96 96 Oxygen Delivery Nasal Cannula Oxygen Flow Rate 2 04/05/25 12:00 04/05/25 13:00 04/05/25 14:00 Temperature 37.2 C Pulse Rate 60 49 L 48 L Respiratory Rate 22 H Blood Pressure 127/50 L Pulse Oximetry 97 Oxygen Delivery Oxygen Flow Rate 04/05/25 14:00 04/05/25 14:00 04/05/25 15:00 Temperature 37.3 C 37.2 C Pulse Rate 48 L 50 L 53 L Respiratory Rate 25 H 25 H Blood Pressure 120/45 L 120/45 L 125/48 L Pulse Oximetry 96 96 Oxygen Delivery Oxygen Flow Rate 04/05/25 15:32 04/05/25 15:47 04/05/25 16:00 Temperature Pulse Rate 45 L 45 L Respiratory Rate Blood Pressure 120/43 L 120/43 L Pulse Oximetry 96 Oxygen Delivery Nasal Cannula Oxygen Flow Rate 2 04/05/25 16:00 04/05/25 16:00 04/05/25 16:37 Temperature 37.1 C 37.0 C Pulse Rate 48 L 49 L 50 L Respiratory Rate 25 H 22 H Blood Pressure 120/45 L 120/52 L Pulse Oximetry 96 95 Oxygen Delivery Oxygen Flow Rate 04/05/25 16:47 04/05/25 16:55 04/05/25 17:00 Temperature 36.9 C 36.9 C Pulse Rate 42 L 51 L 43 L Respiratory Rate 24 H 21 H Blood Pressure 129/47 L 119/50 L 125/43 L Pulse Oximetry 96 95 Oxygen Delivery Oxygen Flow Rate 04/05/25 17:55 04/05/25 18:00 04/05/25 18:00 Temperature 36.7 C 36.7 C Pulse Rate 43 L 43 L 42 L Respiratory Rate 21 H 22 H Blood Pressure 120/52 L 122/47 L Pulse Oximetry 95 96 Oxygen Delivery Oxygen Flow Rate 04/05/25 18:00 04/05/25 18:19 04/05/25 19:00 Temperature 36.7 C 36.6 C Pulse Rate 42 L 45 L 44 L Respiratory Rate 20 25 H Blood Pressure 122/47 L 121/50 L 119/49 L Pulse Oximetry 97 97 Oxygen Delivery Oxygen Flow Rate 04/05/25 20:00 04/05/25 20:00 04/05/25 20:00 Temperature 36.5 C Pulse Rate 48 L 48 L 50 L Respiratory Rate 20 Blood Pressure 125/53 L 125/53 L Pulse Oximetry 97 Oxygen Delivery Oxygen Flow Rate 04/05/25 21:00 04/05/25 21:15 04/05/25 22:00 Temperature 36.2 C L Pulse Rate 49 L 49 L 50 L Respiratory Rate 22 H 22 H Blood Pressure 116/55 L Pulse Oximetry 97 97 Oxygen Delivery Nasal Cannula Oxygen Flow Rate 2 04/05/25 22:00 04/05/25 22:00 04/05/25 23:00 Temperature 36.0 C L 35.8 C L Pulse Rate 51 L 50 L 50 L Respiratory Rate 25 H 26 H Blood Pressure 128/52 L 128/52 L 124/54 L Pulse Oximetry 97 98 Oxygen Delivery Oxygen Flow Rate 04/05/25 23:31 04/05/25 23:45 04/05/25 23:46 Temperature 35.7 C L 35.7 C L Pulse Rate 48 L Respiratory Rate 26 H Blood Pressure Pulse Oximetry 97 Oxygen Delivery Nasal Cannula Oxygen Flow Rate 2 04/06/25 00:00 04/06/25 00:00 04/06/25 00:00 Temperature 35.7 C L Pulse Rate 48 L 48 L 48 L Respiratory Rate 28 H Blood Pressure 123/57 L 123/57 L Pulse Oximetry 96 Oxygen Delivery Oxygen Flow Rate 04/06/25 00:01 04/06/25 00:16 04/06/25 00:31 Temperature 35.7 C L 35.8 C L 35.8 C L Pulse Rate Respiratory Rate Blood Pressure Pulse Oximetry Oxygen Delivery Oxygen Flow Rate 04/06/25 01:00 04/06/25 01:01 04/06/25 01:30 Temperature 35.9 C L 35.9 C L 35.9 C L Pulse Rate 48 L Respiratory Rate 16 Blood Pressure 125/55 L Pulse Oximetry 97 Oxygen Delivery Oxygen Flow Rate 04/06/25 02:00 04/06/25 02:00 04/06/25 02:00 Temperature 36.1 C L 36.1 C L Pulse Rate 49 L 49 L Respiratory Rate 16 Blood Pressure 121/51 L Pulse Oximetry 97 Oxygen Delivery Oxygen Flow Rate 04/06/25 02:00 04/06/25 02:14 04/06/25 02:30 Temperature 36.1 C L Pulse Rate 48 L Respiratory Rate Blood Pressure 125/48 L Pulse Oximetry 98 Oxygen Delivery Nasal Cannula Oxygen Flow Rate 2 04/06/25 03:00 04/06/25 03:00 04/06/25 03:30 Temperature 36.2 C L 36.2 C L 36.3 C L Pulse Rate 48 L Respiratory Rate 24 H Blood Pressure 123/48 L Pulse Oximetry 97 Oxygen Delivery Oxygen Flow Rate 04/06/25 04:00 04/06/25 04:00 04/06/25 04:00 Temperature 36.4 C L 36.4 C L Pulse Rate 48 L 49 L Respiratory Rate 21 H Blood Pressure 122/48 L Pulse Oximetry 99 Oxygen Delivery Oxygen Flow Rate 04/06/25 04:00 04/06/25 04:15 04/06/25 04:30 Temperature 36.5 C Pulse Rate 49 L 48 L Respiratory Rate 21 H Blood Pressure 122/48 L Pulse Oximetry 99 Oxygen Delivery Nasal Cannula Oxygen Flow Rate 2 04/06/25 05:00 04/06/25 05:00 04/06/25 05:30 Temperature 36.6 C 36.6 C 36.6 C Pulse Rate 50 L Respiratory Rate 22 H Blood Pressure 121/52 L Pulse Oximetry 97 Oxygen Delivery Oxygen Flow Rate 04/06/25 06:00 04/06/25 06:00 04/06/25 06:30 Temperature 36.1 C L 36.1 C L Pulse Rate 50 L 50 L Respiratory Rate 21 H Blood Pressure 121/50 L Pulse Oximetry 98 Oxygen Delivery Oxygen Flow Rate 04/06/25 06:44 04/06/25 06:59 04/06/25 09:30 Temperature 36.5 C 36.4 C L 35.5 C L Pulse Rate Respiratory Rate Blood Pressure Pulse Oximetry Oxygen Delivery Oxygen Flow Rate 04/06/25 10:00 04/06/25 10:00 04/06/25 11:00 Temperature 35.4 C L 35.6 C L Pulse Rate 60 60 62 Respiratory Rate 23 H 16 Blood Pressure 106/53 L 102/50 L Pulse Oximetry 98 99 Oxygen Delivery Oxygen Flow Rate Intake/Output Intake/Output: Intake & Output 04/03/25 04/04/25 04/05/25 04/06/25 23:59 23:59 23:59 23:59 Intake Total 1225.1 1439.7 278 Output Total 775 1275 Balance 1225.1 664.7 -997 Meds/Results Medications: Active Medications Generic Name Dose Route Start Last Admin Trade Name Freq PRN Reason Stop Dose Admin Dopamine HCl/Dextrose 400 mg in 250 mls @ 12.975 mls/hr 04/04/25 11:35 1 06/07/24 04:00 Dopamine 400 Mg/D5w 250 Ml IV CONT 2.5 mcg/kg/min .[id number] MARIELLE 12.98 mls/hr 2.5 MCG/KG/MIN Infusion Doxycycline Hyclate 100 mg/ 100 mls @ 100 mls/hr 04/04/25 21:00 04/06/25 11:08 Sodium Chloride IVPB 100 mls/hr Q12H MARIELLE Administration Ceftriaxone Sodium 2 gm/ 100 mls @ 200 mls/hr 04/05/25 09:00 04/06/25 10:59 Sodium Chloride IVPB 200 mls/hr Q24H MARIELLE Administration Cefazolin Sodium 1 gm/ Sodium 50 mls @ 100 mls/hr 04/06/25 15:00 Chloride IVPB 04/06/25 23:29 Q8H MARIELLE Sodium Chloride 1,000 mls @ 50 mls/hr 04/06/25 09:05 04/06/25 10:55 Normal Saline Iv IV CONT 04/06/25 17:04 50 mls/hr .Q20H MARIELLE Administration Pantoprazole Sodium 40 mg 04/04/25 21:00 04/06/25 11:02 Pantoprazole Sodium Iv 40 Mg Vial IV PUSH 40 mg Q12HR MARIELLE Administration Rosuvastatin Calcium 10 mg 04/05/25 09:00 04/05/25 08:50 Rosuvastatin 10 Mg Tablet PO 10 mg QAM MARIELLE Administration Sodium Bicarbonate 650 mg 04/04/25 12:05 04/05/25 16:35 Sodium Bicarbonate Tab 650 Mg Tablet PO 650 mg BID MARIELLE Administration Sodium Chloride 10 ml 04/04/25 22:00 04/05/25 21:19 Central Line Flush IV PUSH 10 ml Q8HR MARIELLE Administration Sodium Chloride 10 ml 04/04/25 15:53 Central Line Flush IV PUSH PRN PRN with TPN bag changes Sodium Chloride 20 ml 04/04/25 15:53 04/05/25 05:44 Central Line Flush IV PUSH 20 ml PRN PRN Administration after blood draws Vancomycin HCl 1 each 04/05/25 13:29 Vancomycin For Acute Kidney Injury IVPB PRN PRN Vancomycin Protocol Radiology Results: ITS Impressions Head CT 04/04/25 09:52 IMPRESSION: 1. Moderate nonspecific cerebral white matter disease, which likely represents chronic small vessel ischemic disease. Chest/Abdomen/Pelvis CT 04/04/25 12:03 IMPRESSION: CHEST- 1. Pulmonary edema and/or multifocal pneumonia. 2. Large pleural effusions. ABDOMEN/PELVIS- 1. No acute abnormality. Chest X-Ray 04/06/25 10:40 Impression: CHF. No pneumothorax. Superimposed pneumonia is suspected Labs Labs: Laboratory Results - last 24 hr 04/04/25 04/05/25 04/05/25 10:05 10:52 12:58 WBC 6.5 RBC 2.40 L Hgb 7.6 L Hct 23.3 L MCV 97.1 MCH 31.7 MCHC 32.6 RDW 21.0 H Plt Count 164 MPV 9.9 Immature Gran % (Auto) Neut % (Auto) Lymph % (Auto) [place] % (Auto) Eos % (Auto) Baso % (Auto) Lymph # (Auto) [place] # (Auto) Eos # (Auto) Baso # (Auto) Abs Immat Gran (auto) Absolute Neuts (auto) Absolute Nucleated RBC Nucleated RBC % PT INR APTT Sodium Potassium Chloride Carbon Dioxide Anion Gap BUN Creatinine Estim Creat Clear Calc Estimated GFR Glucose Calcium Phosphorus Magnesium Total Bilirubin AST ALT Alkaline Phosphatase Total Protein Albumin Urine Eosinophils None seen U Random Total Protein 30 Ur Random Sodium 57 Ur Random Urea 357 Urine Creatinine 27.6 Protein/Creat Ratio 2 1.09 H Nasal MRSA (PCR) Blood Type O Positive Antibody Screen Negative Crossmatch See Detail 04/05/25 04/06/25 18:06 05:49 WBC 6.0 RBC 2.55 L Hgb 8.1 L Hct 24.9 L MCV 97.6 MCH 31.8 MCHC 32.5 RDW 20.6 H Plt Count 148 L MPV 9.9 Immature Gran % (Auto) 0.7 H Neut % (Auto) 79.6 H Lymph % (Auto) 7.5 L [place] % (Auto) 9.7 H Eos % (Auto) 1.7 Baso % (Auto) 0.8 Lymph # (Auto) 0.45 L [place] # (Auto) 0.6 Eos # (Auto) 0.1 Baso # (Auto) 0.1 Abs Immat Gran (auto) 0.04 H Absolute Neuts (auto) 4.8 Absolute Nucleated RBC 0.030 H Nucleated RBC % 0.5 H PT 23.9 H INR 2.2 APTT 43.0 H Sodium 132 L Potassium 4.0 Chloride 107 Carbon Dioxide 15 L Anion Gap 10 BUN 125 H* Creatinine 2.41 H Estim Creat Clear Calc 26 Estimated GFR 20 L Glucose 73 Calcium 8.5 Phosphorus 6.2 H Magnesium 2.4 H Total Bilirubin 0.6 AST 50 H ALT 58 H Alkaline Phosphatase 95 Total Protein 6.8 Albumin 3.3 L Urine Eosinophils U Random Total Protein Ur Random Sodium Ur Random Urea Urine Creatinine Protein/Creat Ratio 2 Nasal MRSA (PCR) Not detected Blood Type Antibody Screen Crossmatch Quality VTE Prophylaxis VTE prophylaxis: mechanical ordered
[2025-04-06] MEDS: ROSUVASTATIN 10 MG TABLET PO (11:37)
[2025-04-06] MEDS: SODIUM BICARBONATE TAB 650 MG TABLET PO ×2 (11:37→17:05)
[2025-04-06] MEDS: SODIUM BICARBONATE 8.4% 50 MEQ/50 ML SYRINGE 100 MEQ IV PUSH (11:37)
[2025-04-06] MEDS: CENTRAL LINE FLUSH 10 ML IV PUSH ×3 (11:38→20:30)
--- NOTE | 2025-04-06 13:17 | P.PNNP_ITS ---
Progress Note: A&P Assessment and Plan (1) Acute kidney injury: Code(s): N17.9 - Acute kidney failure, unspecified Status: Acute Assessment and Plan: * slow improvement noted * as noted by admission labs * suspect due to several issues: * anemia * prerenal factors * diuretic use prior to admission * relative hypotension * CHF exacerbation * infection (pneumonia?) * bradycardia * other(?) * evaluation to date noted: * CT imaging without obstruction (horseshoe kidney noted) * urine electrolytes prerenal (by FeUrea) * urine eosinophils negative * moderate proteinuria (likely falsely elevated due to hematuria) * CPK normal * better urine output noted * follow trend of repeat labs and UOP (2) Stage 3b chronic kidney disease: Code(s): N18.32 - Chronic kidney disease, stage 3b Status: Chronic Assessment and Plan: * baseline creatinine average ~ 1.4 - 1.9mg/dl (from review of [facility] and [facility] records) * however she has fluctuated to extremes in association with acute hospitalizations * this causes her to bounce between CKD stage 3b and stage 4 * presumably due to hypertension, vascular disease (CAD + hyperlipidemia + CHF), and age-related disease (3) Bradycardia: Code(s): R00.1 - Bradycardia, unspecified Status: Acute Assessment and Plan: * telemetry with slow aFib * soft BP noted as well * known history of AFib (but off amiodarone prior to admission) * s/p dopamine for bradycardia and soft BP * BP medications on hold * Cardiology following * s/p PPM on 04/06 (4) GI bleed: Qualifiers: GI bleed type/associated pathology: melena Qualified Code(s): K92.1 - Melena Code(s): K92.2 - Gastrointestinal hemorrhage, unspecified Status: Acute Assessment and Plan: * suspected based on history of black tarry stools * admission hemoglobin noted at 6.0 * PRBC transfusion per protocol * s/p 3 units on 04/04 * anticoagulation on hold * GI recommendations noted -- no intervention at this time * on PPI * follow trend of H/H (5) Metabolic acidosis: Code(s): E87.20 - Acidosis, unspecified Status: Acute Assessment and Plan: * likely worsened by CELINA/ARF * s/p IV bicarb pushes while NPO * on oral sodium bicarbonate to compensate (6) Congestive heart disease: Qualifiers: Heart failure type: diastolic Heart failure chronicity: acute Q ualified Code(s): I50.31 - Acute diastolic (congestive) heart failure Code(s): I50.9 - Heart failure, unspecified Status: Acute Assessment and Plan: * evidence of volume overload on admission: * pulmonary edema on the chest x-ray * large pleural effusion on CT scan * bilateral lower extremity edema * Echo (on 04/04) noted: * left ventricular systolic function is normal, estimated at 60 - 65% * left ventricular diastolic function is abnormal * mild mitral valve regurgitation * moderate tricuspid valve regurgitation * moderate pulmonary hypertension, estimated pulmonary arterial systolic pressure is 48 mmHg * mild pulmonic regurgitation * auto diuresis noted at this time * follow I/Os (7) Pneumonia: Code(s): J18.9 - Pneumonia, unspecified organism Status: Acute Assessment and Plan: * admission chest x-ray with bilateral infiltrates * suspect more likely to be pulmonary edema and associated congestive heart failure * admission CT chest with scattered foci bilateral airspace disease * afebrile and with normal WBC * on empiric antibiotics * follow culture data (8) Anemia: Code(s): D64.9 - Anemia, unspecified Status: Chronic Assessment and Plan: * due to underlying CKD * likely worsened by #3 * dose with Epogen while hospitalized (was on Epogen at nursing facility as well) * follow trend of H/H (9) Essential hypertension: Code(s): I10 - Essential (primary) hypertension Status: Chronic Assessment and Plan: * known history * BP medications on hold * follow trend of hemodynamics (10) Altered mental status: Code(s): R41.82 - Altered mental status, unspecified Status: Acute Assessment and Plan: * noted on admission * possibly secondary to acute illness (CELINA, anemia, pneumonia, CHF, bradycardia...etc) * slow improvement noted * follow mentation Will continue to follow. L Subjective Date/time seen: 04/06/25 13:17 Interval history: Follow-up for acute kidney injury/acute renal failure on chronic kidney disease. Status post implantation of permanent pacemaker earlier this morning and tolerated this intervention reasonably well; no acute complaints voiced at the time of my visit; stable hemodynamics noted; slight worsening of BUN/renal function/creatinine but better urine output noted; no other issues/events overnight or earlier today. Exam 2 Narrative: General: elderly female in NAD Heart: bradycardic but normal S1 and S2; no rub Lungs: decreased breath sounds noted Abdomen: soft, nontender, nondistended, positive bowel sounds Extremities: no cyanosis or clubbing; 1+ edema Skin: warm and intact Objective Data Vital Signs Vital Signs: Vital Signs Temp Pulse Resp BP Pulse Ox O2 Del Method O2 Flow Rate 04/06/25 13:00 97.3 F L 04/06/25 12:30 97.0 F L 04/06/25 12:00 62 04/06/25 12:00 98 Nasal Cannula 2 04/06/25 12:00 96.8 F L 04/06/25 11:30 96.7 F L 04/06/25 11:00 96.5 F L 04/06/25 11:00 96.1 F L 62 16 102/50 L 99 04/06/25 10:30 96.4 F L 04/06/25 10:15 95.9 F L 62 20 112/64 98 04/06/25 10:00 96.1 F L 04/06/25 10:00 60 04/06/25 10:00 95.7 F L 60 23 H 106/53 L 98 04/06/25 09:45 95.9 F L 62 24 H 102/54 L 98 04/06/25 09:33 95.9 F L 60 24 H 105/82 98 04/06/25 09:30 95.9 F L 04/06/25 08:50 52 L 121/50 L 04/06/25 06:59 97.5 F L 04/06/25 06:44 97.7 F 04/06/25 06:30 96.9 F L 04/06/25 06:00 97 F L 50 L 21 H 121/50 L 98 04/06/25 06:00 50 L 04/06/25 05:30 97.9 F 04/06/25 05:00 97.8 F 50 L 22 H 121/52 L 97 04/06/25 05:00 97.8 F 04/06/25 04:30 97.7 F 04/06/25 04:15 48 L 21 H 99 Nasal Cannula 2 04/06/25 04:00 49 L 122/48 L 04/06/25 04:00 49 L 04/06/25 04:00 97.5 F L 04/06/25 04:00 97.5 F L 48 L 21 H 122/48 L 99 04/06/25 03:30 97.4 F L 04/06/25 03:00 97.2 F L 48 L 24 H 123/48 L 97 04/06/25 03:00 97.2 F L 04/06/25 02:30 97 F L 04/06/25 02:14 98 Nasal Cannula 2 04/06/25 02:00 48 L 125/48 L 04/06/25 02:00 96.9 F L 49 L 16 121/51 L 97 04/06/25 02:00 49 L 04/06/25 02:00 96.9 F L 04/06/25 01:30 96.7 F L 04/06/25 01:01 96.6 F L 04/06/25 01:00 96.6 F L 48 L 16 125/55 L 97 04/06/25 00:31 96.5 F L 04/06/25 00:16 96.4 F L 04/06/25 00:01 96.3 F L 04/06/25 00:00 48 L 123/57 L 04/06/25 00:00 48 L 04/06/25 00:00 96.3 F L 48 L 28 H 123/57 L 96 04/05/25 23:46 96.2 F L 04/05/25 23:45 48 L 26 H 97 Nasal Cannula 2 04/05/25 23:31 96.3 F L 04/05/25 23:00 96.5 F L 50 L 26 H 124/54 L 98 04/05/25 22:00 50 L 128/52 L 04/05/25 22:00 96.8 F L 51 L 25 H 128/52 L 97 04/05/25 22:00 50 L 04/05/25 21:15 49 L 22 H 97 Nasal Cannula 2 04/05/25 21:00 97.1 F L 49 L 22 H 116/55 L 97 04/05/25 20:00 50 L 04/05/25 20:00 48 L 125/53 L 04/05/25 20:00 97.7 F 48 L 20 125/53 L 97 Intake/Output Intake/Output: Intake & Output 04/03/25 04/04/25 04/05/25 04/06/25 23:59 23:59 23:59 23:59 Intake Total 1225.1 1439.7 1587.7 Output Total 775 3175 Balance 1225.1 664.7 -1587.3 Meds/Results Medications: Active Medications Generic Name Dose Route Start Last Admin Trade Name Freq PRN Reason Stop Dose Admin Doxycycline Hyclate 100 mg/ 100 mls @ 100 mls/hr 04/04/25 21:00 04/06/25 12:08 Sodium Chloride IVPB Infused Q12H MARIELLE Infusion Ceftriaxone Sodium 2 gm/ 100 mls @ 200 mls/hr 04/05/25 09:00 04/06/25 11:29 Sodium Chloride IVPB Infused Q24H MARIELLE Infusion Cefazolin Sodium 1 gm/ Sodium 50 mls @ 100 mls/hr 04/06/25 15:00 04/06/25 15:24 Chloride IVPB 04/06/25 23:29 Infused Q8H MARIELLE Infusion Pantoprazole Sodium 40 mg 04/04/25 21:00 04/06/25 11:02 Pantoprazole Sodium Iv 40 Mg Vial IV PUSH 40 mg Q12HR MARIELLE Administration Rosuvastatin Calcium 10 mg 04/05/25 09:00 04/06/25 11:37 Rosuvastatin 10 Mg Tablet PO 10 mg QAM MARIELLE Administration Sodium Bicarbonate 650 mg 04/04/25 12:05 04/06/25 17:05 Sodium Bicarbonate Tab 650 Mg Tablet PO 650 mg BID MARIELLE Administration Sodium Chloride 10 ml 04/04/25 22:00 04/06/25 14:39 Central Line Flush IV PUSH 10 ml Q8HR MARIELLE Administration Sodium Chloride 10 ml 04/04/25 15:53 Central Line Flush IV PUSH PRN PRN with TPN bag changes Sodium Chloride 20 ml 04/04/25 15:53 04/05/25 05:44 Central Line Flush IV PUSH 20 ml PRN PRN Administration after blood draws Vancomycin HCl 1 each 04/05/25 13:29 Vancomycin For Acute Kidney Injury IVPB PRN PRN Vancomycin Protocol Radiology Results: ITS Impressions Head CT 04/04/25 09:52 IMPRESSION: 1. Moderate nonspecific cerebral white matter disease, which likely represents chronic small vessel ischemic disease. Chest/Abdomen/Pelvis CT 04/04/25 12:03 IMPRESSION: CHEST- 1. Pulmonary edema and/or multifocal pneumonia. 2. Large pleural effusions. ABDOMEN/PELVIS- 1. No acute abnormality. Chest X-Ray 04/06/25 10:40 Impression: CHF. No pneumothorax. Superimposed pneumonia is suspected Labs Labs: Laboratory Tests 04/06/25 05:49 04/06/25 05:49 Calcium 8.5 Phosphorus 6.2 H Magnesium 2.4 H Total Bilirubin 0.6 AST 50 H ALT 58 H Alkaline Phosphatase 95 Total Protein 6.8 Albumin 3.3 L Microbiology 04/04/25 18:07 Blood Blood Culture - Preliminary 04/04/25 18:06 Blood Blood Culture - Preliminary
--- NOTE | 2025-04-06 13:18 | P.PNINT_ITS ---
Assessment and Plan Assessment and Plan (1) Bradycardia: Code(s): R00.1 - Bradycardia, unspecified Status: Acute Assessment and Plan: Slow AFib with soft blood pressures, severe bradycardia Patient has history of AFib and was on amiodarone which has been on hold since 03/25 as per alf record -off dopamine 04/06: Status post permanent pacemaker, rate set at 60-120 04/04/2025: Echocardiogram Summary 1. Left ventricular systolic function is normal, estimated at 60-65. 2. The left ventricular diastolic function is abnormal. 3. Right ventricular chamber dimension is moderately enlarged. 4. Right ventricular systolic function is normal. 5. Left atrial chamber dimension is mildly enlarged. 6. Right atrial chamber dimension is severely enlarged. 7. There is mild mitral valve regurgitation. 8. There is moderate tricuspid valve regurgitation. 9. Moderate pulmonary hypertension, estimated pulmonary arterial systolic pressure is 48 mmHg. 10. There is mild pulmonic regurgitation. (2) GI bleed: Qualifiers: GI bleed type/associated pathology: melena Qualified Code(s): K92.1 - Melena Code(s): K92.2 - Gastrointestinal hemorrhage, unspecified Status: Acute Assessment and Plan: Patient on anticoagulation with history of black stool and anemia of hemoglobin 6. She also has a history of anemia of chronic kidney disease and is on Epogen at alf Transfused a total of 3 units of packed RBC (04/04) Hold anticoagulation Consult nephrology for EPO dosing IV Protonix q.12 hours Monitor hemoglobin and transfuse additionally if needed -GI following, will discuss with them regarding endoscopy (3) Hematuria: Code(s): R31.9 - Hematuria, unspecified Status: Acute Assessment and Plan: Place Yadav Check CT abdomen pelvis: Kidneys: Horseshoe kidney.Right kidney- No hydronephrosis. No renal stones. Large cyst.Left kidney- No hydronephrosis. No renal stones. Large cyst. Hold anticoagulation Monitor Urine output is clear (4) Pneumonia: Code(s): J18.9 - Pneumonia, unspecified organism Status: Acute Assessment and Plan: Chest x-ray shows bilateral infiltrates at this appears more likely to be pulmonary edema and congestive heart failure Patient is afebrile with normal WBC but patient started on ceftriaxone and doxy side Rocephin and doxycycline at this time empirically 120/01: Blood cultures pending Empiric Rocephin, vancomycin and doxycycline (04/05) (5) Hyperlipidemia: Code(s): E78.5 - Hyperlipidemia, unspecified Status: Acute Assessment and Plan: Continue rosuvastatin (6) GERD (gastroesophageal reflux disease): Code(s): K21.9 - Gastro-esophageal reflux disease without esophagitis Status: Acute Assessment and Plan: Protonix IV q.12 hours (7) Obstructive sleep apnea: Code(s): G47.33 - Obstructive sleep apnea (adult) (pediatric) Status: Acute Assessment and Plan: Patient has history of EVERETTE but does not wear CPAP at alf Monitor oxygen saturation while sleeping (8) Essential hypertension: Code(s): I10 - Essential (primary) hypertension Status: Acute Assessment and Plan: Hold antihypertensive medications due to borderline blood pressure (9) Anasarca: Code(s): R60.1 - Generalized edema Status: Acute Assessment and Plan: Patient has overall volume overload likely secondary to congestive heart failure and CKD Echo as above -TSH 3.090 Will diurese p.r.n. (10) Congestive heart disease: Qualifiers: Heart failure type: diastolic Heart failure chronicity: acute Qualified Code(s): I50.31 - Acute diastolic (congestive) heart failure Code(s): I50.9 - Heart failure, unspecified Status: Acute Assessment and Plan: Appears to have pulmonary edema on the chest x-ray and bilateral lower extremity edema Echo as above Off dopamine Once blood pressure is adequate will start diuretics (11) Chronic kidney disease: Qualifiers: Chronic kidney disease stage: stage 4 (GFR 15-29) Qualified Code(s): N18.4 - Chronic kidney disease, stage 4 (severe) Code(s): N18.9 - Chronic kidney disease, unspecified Status: Acute Assessment and Plan: Creatinine 2.17. Baseline creatinine unknown BUN 115 this is likely secondary to GI bleed Hyperkalemia is resolved IV bicarb push NPO bicarb for metabolic acidosis CK levels of 98 -BUN and creatinine continue to increase, likely related to hypovolemia from GI bleed, possible decreased perfusion secondary to bradycardia, could be related to sepsis -discuss with Nephrology, will monitor now after pacemaker placement, -will give sodium bicarb for acidosis Urine electrolytes will not be accurate due to hematuria (12) Anemia: Code(s): D64.9 - Anemia, unspecified Status: Acute Assessment and Plan: See above (13) Coronary artery disease: Code(s): I25.10 - Atherosclerotic heart disease of [place] coronary artery without angina pectoris Status: Acute Assessment and Plan: Hold aspirin beta-omar due to bleeding and low blood pressure/heart rate Patient denies any chest pain and troponin x1 is negative Continue statin Plan DVT prophylaxis -SCDs, no chemoprophylaxis due to GI bleed, severe anemia Stress ulcer prophylaxis -PPI Nutrition -NPO Code Status - Full Code Total Critical Care Time - 33 minutes Discussed with daughter in rounds, updated her with patient's condition plan of care. I answered all the questions Due to a high probability of clinically significant, life threatening deterioration, the patient required my highest level of preparedness to intervene emergently and I personally spent this critical care time directly and personally managing the patient. This critical care time included obtaining a history; examining the patient; pulse oximetry; ordering and review of studies; arranging urgent treatment with development of a management plan; evaluation of patient's response to treatment; frequent reassessment; and discussions with other providers. It was exclusive of separately billable procedures and treating other patients and teaching time. Please see Assessment and Plan section and the rest of the note for further information on patient assessment and treatment Subjective Date/time seen: 04/06/25 13:18 Interval history: Reason for consult: Bradycardia, altered mental status, possible pneumonia, severe anemia, status post 3 units packed RBCs 04/06/2025: Patient seen and examined the ICU after help pacemaker implantation, which was uneventful. Patient currently being paced, eyes awake, alert, pleasant, answers to questions appropriately, denies any shortness of breath, chest pain, abdominal pain, nausea vomiting at this time. Hemodynamically stable urine output has been adequate. Hemoglobin is stable this morning Remains on 2 L nasal cannula with adequate O2 sats Review of Systems Review of Systems: All systems reviewed & are unremarkable except as noted in HPI and below (HPI) Exam Narrative: General: Pt is alert awake and in NAD Lungs/Chest: Trachea central, bilateral rales, no wheezing left chest pacemaker with dressing in place Cardiac: Paced rhythm Normal S1 S2. No murmurs Circulation: Pedal pulses are intact and symmetrical. Abdomen: Normal bowel sounds. Morbidly obese. Soft. NT. ND. Extremities: Bilateral pedal edema : Yadav in place with clear urine Neurologic: Follows commands. Moves all 4 extremities PERRL alert, oriented Skin: No Rash Objective Data Vital Signs Vital Signs: Vital Signs - 24 hr 04/05/25 14:00 04/05/25 14:00 04/05/25 14:00 Temperature 99.1 F Pulse Rate 48 L 48 L 50 L Respiratory Rate 25 H Blood Pressure 120/45 L 120/45 L Pulse Oximetry 96 Oxygen Delivery Oxygen Flow Rate 04/05/25 15:00 04/05/25 15:32 04/05/25 15:47 Temperature 99 F Pulse Rate 53 L 45 L 45 L Respiratory Rate 25 H Blood Pressure 125/48 L 120/43 L 120/43 L Pulse Oximetry 96 Oxygen Delivery Oxygen Flow Rate 04/05/25 16:00 04/05/25 16:00 04/05/25 16:00 Temperature 98.8 F Pulse Rate 48 L 49 L Respiratory Rate 25 H Blood Pressure 120/45 L Pulse Oximetry 96 96 Oxygen Delivery Nasal Cannula Oxygen Flow Rate 2 04/05/25 16:37 04/05/25 16:47 04/05/25 16:55 Temperature 98.6 F 98.5 F Pulse Rate 50 L 42 L 51 L Respiratory Rate 22 H 24 H Blood Pressure 120/52 L 129/47 L 119/50 L Pulse Oximetry 95 96 Oxygen Delivery Oxygen Flow Rate 04/05/25 17:00 04/05/25 17:55 04/05/25 18:00 Temperature 98.5 F 98.1 F Pulse Rate 43 L 43 L 43 L Respiratory Rate 21 H 21 H Blood Pressure 125/43 L 120/52 L Pulse Oximetry 95 95 Oxygen Delivery Oxygen Flow Rate 04/05/25 18:00 04/05/25 18:00 04/05/25 18:19 Temperature 98.1 F 98.1 F Pulse Rate 42 L 42 L 45 L Respiratory Rate 22 H 20 Blood Pressure 122/47 L 122/47 L 121/50 L Pulse Oximetry 96 97 Oxygen Delivery Oxygen Flow Rate 04/05/25 19:00 04/05/25 20:00 04/05/25 20:00 Temperature 97.9 F 97.7 F Pulse Rate 44 L 48 L 48 L Respiratory Rate 25 H 20 Blood Pressure 119/49 L 125/53 L 125/53 L Pulse Oximetry 97 97 Oxygen Delivery Oxygen Flow Rate 04/05/25 20:00 04/05/25 21:00 04/05/25 21:15 Temperature 97.1 F L Pulse Rate 50 L 49 L 49 L Respiratory Rate 22 H 22 H Blood Pressure 116/55 L Pulse Oximetry 97 97 Oxygen Delivery Nasal Cannula Oxygen Flow Rate 2 04/05/25 22:00 04/05/25 22:00 04/05/25 22:00 Temperature 96.8 F L Pulse Rate 50 L 51 L 50 L Respiratory Rate 25 H Blood Pressure 128/52 L 128/52 L Pulse Oximetry 97 Oxygen Delivery Oxygen Flow Rate 04/05/25 23:00 04/05/25 23:31 04/05/25 23:45 Temperature 96.5 F L 96.3 F L Pulse Rate 50 L 48 L Respiratory Rate 26 H 26 H Blood Pressure 124/54 L Pulse Oximetry 98 97 Oxygen Delivery Nasal Cannula Oxygen Flow Rate 2 04/05/25 23:46 04/06/25 00:00 04/06/25 00:00 Temperature 96.2 F L 96.3 F L Pulse Rate 48 L 48 L Respiratory Rate 28 H Blood Pressure 123/57 L Pulse Oximetry 96 Oxygen Delivery Oxygen Flow Rate 04/06/25 00:00 04/06/25 00:01 04/06/25 00:16 Temperature 96.3 F L 96.4 F L Pulse Rate 48 L Respiratory Rate Blood Pressure 123/57 L Pulse Oximetry Oxygen Delivery Oxygen Flow Rate 04/06/25 00:31 04/06/25 01:00 04/06/25 01:01 Temperature 96.5 F L 96.6 F L 96.6 F L Pulse Rate 48 L Respiratory Rate 16 Blood Pressure 125/55 L Pulse Oximetry 97 Oxygen Delivery Oxygen Flow Rate 04/06/25 01:30 04/06/25 02:00 04/06/25 02:00 Temperature 96.7 F L 96.9 F L Pulse Rate 49 L Respiratory Rate Blood Pressure Pulse Oximetry Oxygen Delivery Oxygen Flow Rate 04/06/25 02:00 04/06/25 02:00 04/06/25 02:14 Temperature 96.9 F L Pulse Rate 49 L 48 L Respiratory Rate 16 Blood Pressure 121/51 L 125/48 L Pulse Oximetry 97 98 Oxygen Delivery Nasal Cannula Oxygen Flow Rate 2 04/06/25 02:30 04/06/25 03:00 04/06/25 03:00 Temperature 97 F L 97.2 F L 97.2 F L Pulse Rate 48 L Respiratory Rate 24 H Blood Pressure 123/48 L Pulse Oximetry 97 Oxygen Delivery Oxygen Flow Rate 04/06/25 03:30 04/06/25 04:00 04/06/25 04:00 Temperature 97.4 F L 97.5 F L 97.5 F L Pulse Rate 48 L Respiratory Rate 21 H Blood Pressure 122/48 L Pulse Oximetry 99 Oxygen Delivery Oxygen Flow Rate 04/06/25 04:00 04/06/25 04:00 04/06/25 04:15 Temperature Pulse Rate 49 L 49 L 48 L Respiratory Rate 21 H Blood Pressure 122/48 L Pulse Oximetry 99 Oxygen Delivery Nasal Cannula Oxygen Flow Rate 2 04/06/25 04:30 04/06/25 05:00 04/06/25 05:00 Temperature 97.7 F 97.8 F 97.8 F Pulse Rate 50 L Respiratory Rate 22 H Blood Pressure 121/52 L Pulse Oximetry 97 Oxygen Delivery Oxygen Flow Rate 04/06/25 05:30 04/06/25 06:00 04/06/25 06:00 Temperature 97.9 F 97 F L Pulse Rate 50 L 50 L Respiratory Rate 21 H Blood Pressure 121/50 L Pulse Oximetry 98 Oxygen Delivery Oxygen Flow Rate 04/06/25 06:30 04/06/25 06:44 04/06/25 06:59 Temperature 96.9 F L 97.7 F 97.5 F L Pulse Rate Respiratory Rate Blood Pressure Pulse Oximetry Oxygen Delivery Oxygen Flow Rate 04/06/25 09:30 04/06/25 10:00 04/06/25 10:00 Temperature 95.9 F L 95.7 F L Pulse Rate 60 60 Respiratory Rate 23 H Blood Pressure 106/53 L Pulse Oximetry 98 Oxygen Delivery Oxygen Flow Rate 04/06/25 10:00 04/06/25 10:30 04/06/25 11:00 Temperature 96.1 F L 96.4 F L 96.1 F L Pulse Rate 62 Respiratory Rate 16 Blood Pressure 102/50 L Pulse Oximetry 99 Oxygen Delivery Oxygen Flow Rate 04/06/25 11:00 04/06/25 11:30 04/06/25 12:00 Temperature 96.5 F L 96.7 F L 96.8 F L Pulse Rate Respiratory Rate Blood Pressure Pulse Oximetry Oxygen Delivery Oxygen Flow Rate 04/06/25 12:30 04/06/25 13:00 Temperature 97.0 F L 97.3 F L Pulse Rate Respiratory Rate Blood Pressure Pulse Oximetry Oxygen Delivery Oxygen Flow Rate Intake/Output Intake/Output: Intake & Output 04/03/25 04/04/25 04/05/25 04/06/25 23:59 23:59 23:59 23:59 Intake Total 1225.1 1439.7 478 Output Total 775 1275 Balance 1225.1 664.7 797 Meds/Results Medications: Active Medications Generic Name Dose Route Start Last Admin Trade Name Freq PRN Reason Stop Dose Admin Dopamine HCl/Dextrose 400 mg in 250 mls @ 12.975 mls/hr 04/04/25 11:35 04/06/25 04:00 Dopamine 400 Mg/D5w 250 Ml IV CONT 2.5 mcg/kg/min .[id number] MARIELLE 12.98 mls/hr 2.5 MCG/KG/MIN Infusion Doxycycline Hyclate 100 mg/ 100 mls @ 100 mls/hr 04/04/25 21:00 04/06/25 12:08 Sodium Chloride IVPB Infused Q12H MARIELLE Infusion Ceftriaxone Sodium 2 gm/ 100 mls @ 200 mls/hr 04/05/25 09:00 04/06/25 11:29 Sodium Chloride IVPB Infused Q24H MARIELLE Infusion Cefazolin Sodium 1 gm/ Sodium 50 mls @ 100 mls/hr 04/06/25 15:00 Chloride IVPB 04/06/25 23:29 Q8H MARIELLE Sodium Chloride 1,000 mls @ 50 mls/hr 04/06/25 09:05 04/06/25 10:55 Normal Saline Iv IV CONT 04/06/25 17:04 50 mls/hr .Q20H MARIELLE Administration Pantoprazole Sodium 40 mg 04/04/25 21:00 04/06/25 11:02 Pantoprazole Sodium Iv 40 Mg Vial IV PUSH 40 mg Q12HR MARIELLE Administration Rosuvastatin Calcium 10 mg 04/05/25 09:00 04/06/25 11:37 Rosuvastatin 10 Mg Tablet PO 10 mg QAM MARIELLE Administration Sodium Bicarbonate 650 mg 04/04/25 12:05 04/06/25 11:37 Sodium Bicarbonate Tab 650 Mg Tablet PO 650 mg BID MARIELLE Administration Sodium Chloride 10 ml 04/04/25 22:00 04/06/25 11:38 Central Line Flush IV PUSH 10 ml Q8HR MARIELLE Administration Sodium Chloride 10 ml 04/04/25 15:53 Central Line Flush IV PUSH PRN PRN with TPN bag changes Sodium Chloride 20 ml 04/04/25 15:53 04/05/25 05:44 Central Line Flush IV PUSH 20 ml PRN PRN Administration after blood draws Vancomycin HCl 1 each 04/05/25 13:29 Vancomycin For Acute Kidney Injury IVPB PRN PRN Vancomycin Protocol Radiology Results: ITS Impressions Head CT 04/04/25 09:52 IMPRESSION: 1. Moderate nonspecific cerebral white matter disease, which likely represents chronic small vessel ischemic disease. Chest/Abdomen/Pelvis CT 04/04/25 12:03 IMPRESSION: CHEST- 1. Pulmonary edema and/or multifocal pneumonia. 2. Large pleural effusions. ABDOMEN/PELVIS- 1. No acute abnormality. Chest X-Ray 04/06/25 10:40 Impression: CHF. No pneumothorax. Superimposed pneumonia is suspected Labs Labs: Laboratory Results - last 24 hr 04/04/25 04/05/25 04/05/25 10:05 12:58 18:06 WBC 6.5 RBC 2.40 L Hgb 7.6 L Hct 23.3 L MCV 97.1 MCH 31.7 MCHC 32.6 RDW 21.0 H Plt Count 164 MPV 9.9 Immature Gran % (Auto) Neut % (Auto) Lymph % (Auto) [place] % (Auto) Eos % (Auto) Baso % (Auto) Lymph # (Auto) [place] # (Auto) Eos # (Auto) Baso # (Auto) Abs Immat Gran (auto) Absolute Neuts (auto) Absolute Nucleated RBC Nucleated RBC % PT INR APTT Sodium Potassium Chloride Carbon Dioxide Anion Gap BUN Creatinine Estim Creat Clear Calc Estimated GFR Glucose Calcium Phosphorus Magnesium Total Bilirubin AST ALT Alkaline Phosphatase Total Protein Albumin Nasal MRSA (PCR) Not detected Blood Type O Positive Antibody Screen Negative Crossmatch See Detail 04/06/25 05:49 WBC 6.0 RBC 2.55 L Hgb 8.1 L Hct 24.9 L MCV 97.6 MCH 31.8 MCHC 32.5 RDW 20.6 H Plt Count 148 L MPV 9.9 Immature Gran % (Auto) 0.7 H Neut % (Auto) 79.6 H Lymph % (Auto) 7.5 L [place] % (Auto) 9.7 H Eos % (Auto) 1.7 Baso % (Auto) 0.8 Lymph # (Auto) 0.45 L [place] # (Auto) 0.6 Eos # (Auto) 0.1 Baso # (Auto) 0.1 Abs Immat Gran (auto) 0.04 H Absolute Neuts (auto) 4.8 Absolute Nucleated RBC 0.030 H Nucleated RBC % 0.5 H PT 23.9 H INR 2.2 APTT 43.0 H Sodium 132 L Potassium 4.0 Chloride 107 Carbon Dioxide 15 L Anion Gap 10 BUN 125 H* Creatinine 2.41 H Estim Creat Clear Calc 26 Estimated GFR 20 L Glucose 73 Calcium 8.5 Phosphorus 6.2 H Magnesium 2.4 H Total Bilirubin 0.6 AST 50 H ALT 58 H Alkaline Phosphatase 95 Total Protein 6.8 Albumin 3.3 L Nasal MRSA (PCR) Blood Type Antibody Screen Crossmatch Quality VTE Prophylaxis VTE prophylaxis: mechanical ordered
[2025-04-06] MEDS: VANCOMYCIN 2,000 MG/NS 500 ML 2,000 MG/500 ML BAG 250 MG IVPB (14:39)
[2025-04-06] MEDS: ceFAZolin 1 GM in SODIUM CHLORIDE 0.9% IV 50 ML 100 ML IVPB ×2 (14:54→23:06)
--- NOTE | 2025-04-06 15:20 | PC.NURSE ---
pt is becoming more restless, pulling on harkins tubing, redirected
[2025-04-07] VITALS (34 sets, daily range): BP systolic 106–133; BP diastolic 50–82; PULSE 62–79; RESP 11–17; TEMP 35.5–36.7; O2SAT 97–100
[2025-04-07] MEDS: CENTRAL LINE FLUSH 10 ML IV PUSH ×3 (05:34→20:48)
[2025-04-07 05:48] LABS: Hematocrit 25.1 % (37.0-47.0); Hemoglobin 8.0 g/dL (12.0-15.0); Immature Granulocyte Percent A 0.6 % (0-0.5); Lymphocytes Absolute Auto 0.37 K/mm3 (0.9-3.2); Mean Corpuscular HGB Conc 31.9 g/dl (32-36); Mean Corpuscular Hemoglobin 31.9 pg (26-34); Mean Corpuscular Volume 100.0 fl (80-100); Nucleated Red Blood Cells Absolute Auto 0.030 K/mm3 (0.0-0.012); Nucleated Red Blood Cells Perc 0.4 % (0.0-0.2); Platelet Count Result 142 k/mm3 (150-375); Red Blood Count 2.51 M/mm3 (4.2-5.4); White Blood Count 6.9 K/mm3 (4.5-10.0)
[2025-04-07 06:08] LABS: Alanine Aminotransferase 41 U/L (6-35); Albumin Level 3.1 g/dL (3.5-5.1); Alkaline Phosphatase 92 U/L (38-126); Anion Gap 8 mmol/L (4-12); Aspartate Amino Transferase 31 U/L (14-36); Bilirubin,Total 0.6 mg/dL (0.2-1.3); Blood Urea Nitrogen 113 mg/dL (7-17); Calcium 8.8 mg/dL (8.4-10.2); Carbon Dioxide 18 mmol/L (22-30); Chloride 111 mmol/L (98-107); Estimated CRCL calculation 28 ml/min; Estimated Glomerular Filt Rate 22; Glucose 94 mg/dL (65-110); Magnesium 2.3 mg/dL (1.6-2.3); Potassium 3.8 mmol/L (3.4-5.0); Sodium 137 mmol/L (137-145); Total Protein 6.5 g/dL (6.3-8.2)
[2025-04-07] MEDS: DOXYCYCLINE IV 100 MG in SODIUM CHLORIDE 0.9% IV 100 ML IVPB ×2 (09:34→20:48)
[2025-04-07] MEDS: cefTRIAXone 2 GM in SODIUM CHLORIDE 0.9% IV 100 ML 200 ML IVPB (09:35)
[2025-04-07] MEDS: SODIUM BICARBONATE TAB 650 MG TABLET PO ×2 (09:35→17:47)
[2025-04-07] MEDS: ROSUVASTATIN 10 MG TABLET PO (09:35)
--- NOTE | 2025-04-07 10:51 | P.PNCA_ITS ---
Progress Note: A&P Assessment and Plan (1) Bradycardia: Code(s): R00.1 - Bradycardia, unspecified Status: Acute Assessment and Plan: She has atrial fibrillation with slow ventricular response s/p PPM yesterday, today post op day 1 * Device check today * Chest x-ray- Left pacemaker. No pneumothorax. Moderate pulmonary vascular congestion. (2) GI bleed: Qualifiers: GI bleed type/associated pathology: melena Qualified Code(s): K92.1 - Melena Code(s): K92.2 - Gastrointestinal hemorrhage, unspecified Status: Acute Assessment and Plan: Management per primary team. (3) Congestive heart disease: Qualifiers: Heart failure type: diastolic Heart failure chronicity: acute Qualified Code(s): I50.31 - Acute diastolic (congestive) heart failure Code(s): I50.9 - Heart failure, unspecified Status: Acute Assessment and Plan: Resume home dose of lasix and monitor renal function daily. Creatinine 2.1, down from 2.4 yesterday. Check and replace electrolytes to keep K>4 and Mg>2. TTE showed normal LVEF of 60-65%, abnormal diastolic function, moderate tr icuspid regurgitation, moderate pulmonary hypertension with PASP of 48 mm Hg Subjective Date/time seen: 04/07/25 10:51 Interval history: Reason for encounter: Bradycardia Relevant history: 74 year female with history of coronary artery disease, paroxysmal atrial fibrillation diagnosed in 12/2024 with slow ventricular response to the 30s (initially started on amiodarone but was taken off of it due to slow ventricular response), hypertension, mild pulmonary hypertension, chronic kidney disease who presented to the emergency department because of melena. Cardiology is consulted for bradycardia. EKG and telemetry showed atrial fibrillation with slow ventricular response with rates to the 30s. Cardiology was consulted for further recommendations. She was initially started on dopamine with heart rates up to the 40s-50s had evaluated for need for permanent pacemaker. Interval history: She is status post permanent pacemaker placement post op day 1. She is sleepy. No chest pain, palpitations. Telemetry shows sinus rhythm with rate in the 60s. Review of Systems Review of Systems: All systems reviewed & are unremarkable except as noted in HPI and below Exam Const: General: comfortable, no acute distress, alert and awake Orientation/consciousness: patient oriented x3 HENMT: Head: normal to inspection Eyes: General: appearance normal, both eyes and all related structures Pupils: Equal, round and reactive pupils present Neck: Neck: normal visual inspection, supple and no JVD Carotids: normal carotid upstroke Resp: Effort & Inspection: normal respiratory effort Auscultation: rales Cardio: Rate: bradycardic Rhythm: abnormal rhythm irregularly irregular Heart sounds: S1 normal heart sound present, S2 normal heart sound present and no murmurs GI: Auscultation: normal bowel sounds Skin: General skin exam: normal color Neuro: General: patient oriented x3 Cranial nerves: Yes Equal, round and reactive pupils present Extrem: General: abnormal to inspection Other: bilateral lower extremity lymphedema. Knee high MANDEEP wraps in place Psych: Appearance: grossly normal Mental Status: mental status grossly normal Objective Data Vital Signs Vital Signs: Vital Signs - 24 hr 04/06/25 11:00 04/06/25 11:00 04/06/25 11:30 Temperature 35.6 C L 35.8 C L 35.9 C L Pulse Rate 62 Respiratory Rate 16 Blood Pressure 102/50 L Pulse Oximetry 99 Oxygen Delivery Oxygen Flow Rate 04/06/25 12:00 04/06/25 12:00 04/06/25 12:00 Temperature 36.0 C L Pulse Rate 62 Respiratory Rate Blood Pressure Pulse Oximetry 98 Oxygen Delivery Nasal Cannula Oxygen Flow Rate 2 04/06/25 12:30 04/06/25 13:00 04/06/25 13:30 Temperature 36.1 C L 36.3 C L 36.4 C Pulse Rate Respiratory Rate Blood Pressure Pulse Oximetry Oxygen Delivery Oxygen Flow Rate 04/06/25 14:00 04/06/25 14:00 04/06/25 14:29 Temperature 36.3 C L 36.2 C L Pulse Rate 62 62 Respiratory Rate 26 H Blood Pressure 124/55 L Pulse Oximetry 98 Oxygen Delivery Oxygen Flow Rate 04/06/25 14:30 04/06/25 14:46 04/06/25 15:00 Temperature 36.2 C L 36.3 C L 36.2 C L Pulse Rate 62 Respiratory Rate 16 Blood Pressure 113/58 L Pulse Oximetry 99 Oxygen Delivery Oxygen Flow Rate 04/06/25 15:30 04/06/25 16:00 04/06/25 16:00 Temperature 36.2 C L 36.2 C L Pulse Rate Respiratory Rate Blood Pressure Pulse Oximetry 99 Oxygen Delivery Nasal Cannula Oxygen Flow Rate 2 04/06/25 16:00 04/06/25 16:30 04/06/25 17:00 Temperature 36.2 C L 36.1 C L Pulse Rate 62 Respiratory Rate Blood Pressure Pulse Oximetry Oxygen Delivery Oxygen Flow Rate 04/06/25 17:30 04/06/25 18:00 04/06/25 18:00 Temperature 36.1 C L 36.1 C L Pulse Rate 63 Respiratory Rate Blood Pressure Pulse Oximetry Oxygen Delivery Oxygen Flow Rate 04/06/25 18:30 04/06/25 19:00 04/06/25 19:30 Temperature 36.1 C L 36.1 C L 36.1 C L Pulse Rate Respiratory Rate Blood Pressure Pulse Oximetry Oxygen Delivery Oxygen Flow Rate 04/06/25 20:00 04/06/25 20:00 04/06/25 20:05 Temperature 36.1 C L 36.1 C L Pulse Rate 62 65 Respiratory Rate 15 Blood Pressure 123/56 L Pulse Oximetry 99 Oxygen Delivery Oxygen Flow Rate 04/06/25 20:07 04/06/25 20:30 04/06/25 21:00 Temperature 36.0 C L 36.0 C L Pulse Rate 65 Respiratory Rate 15 Blood Pressure Pulse Oximetry 99 Oxygen Delivery Nasal Cannula Oxygen Flow Rate 2 04/06/25 21:00 04/06/25 21:30 04/06/25 22:00 Temperature 36.0 C L 36.1 C L 36.1 C L Pulse Rate 62 Respiratory Rate 14 Blood Pressure 121/55 L Pulse Oximetry 100 Oxygen Delivery Oxygen Flow Rate 04/06/25 22:00 04/06/25 22:00 04/06/25 22:30 Temperature 36.1 C L 36.2 C L Pulse Rate 63 63 Respiratory Rate 14 Blood Pressure 121/56 L Pulse Oximetry 99 Oxygen Delivery Oxygen Flow Rate 04/06/25 23:00 04/06/25 23:00 04/06/25 23:30 Temperature 36.2 C L 36.2 C L 36.2 C L Pulse Rate 63 Respiratory Rate 19 Blood Pressure 130/55 L Pulse Oximetry 99 Oxygen Delivery Oxygen Flow Rate 04/06/25 23:50 04/07/25 00:00 04/07/25 00:00 Temperature 36.3 C L 36.3 C L Pulse Rate 60 64 Respiratory Rate 16 15 Blood Pressure 121/60 Pulse Oximetry 98 99 Oxygen Delivery Nasal Cannula Oxygen Flow Rate 2 04/07/25 00:00 04/07/25 00:30 04/07/25 01:00 Temperature 36.4 C L 36.4 C L Pulse Rate 65 Respiratory Rate Blood Pressure Pulse Oximetry Oxygen Delivery Oxygen Flow Rate 04/07/25 01:00 04/07/25 01:30 04/07/25 02:00 Temperature 36.4 C L 36.4 C 36.4 C Pulse Rate 64 Respiratory Rate 17 Blood Pressure 131/55 L Pulse Oximetry 98 Oxygen Delivery Oxygen Flow Rate 04/07/25 02:00 04/07/25 02:00 04/07/25 02:30 Temperature 36.4 C L 36.5 C Pulse Rate 68 70 Respiratory Rate 17 Blood Pressure 133/57 L Pulse Oximetry 98 Oxygen Delivery Oxygen Flow Rate 04/07/25 03:00 04/07/25 03:00 04/07/25 03:30 Temperature 36.5 C 36.5 C 36.6 C Pulse Rate 68 Respiratory Rate 17 Blood Pressure 127/53 L Pulse Oximetry 99 Oxygen Delivery Oxygen Flow Rate 04/07/25 04:00 04/07/25 04:00 04/07/25 04:00 Temperature 36.6 C 36.6 C Pulse Rate 64 64 Respiratory Rate 16 Blood Pressure 123/82 Pulse Oximetry 99 Oxygen Delivery Oxygen Flow Rate 04/07/25 04:05 04/07/25 04:17 04/07/25 04:30 Temperature 36.6 C Pulse Rate 68 Respiratory Rate 17 Blood Pressure Pulse Oximetry 99 98 Oxygen Delivery Nasal Cannula Nasal Cannula Oxygen Flow Rate 2 2 04/07/25 05:00 04/07/25 05:00 04/07/25 05:30 Temperature 36.6 C 36.6 C 36.7 C Pulse Rate 64 Respiratory Rate 12 Blood Pressure 123/53 L Pulse Oximetry 99 Oxygen Delivery Oxygen Flow Rate 04/07/25 06:00 04/07/25 06:00 04/07/25 06:00 Temperature 36.7 C 36.6 C Pulse Rate 68 68 Respiratory Rate 12 Blood Pressure 107/55 L Pulse Oximetry 99 Oxygen Delivery Oxygen Flow Rate 04/07/25 07:00 04/07/25 08:00 04/07/25 08:34 Temperature 36.2 C L 35.6 C L 35.5 C L Pulse Rate 64 79 Respiratory Rate 13 15 Blood Pressure 118/50 L 125/57 L Pulse Oximetry 100 99 Oxygen Delivery Oxygen Flow Rate 04/07/25 09:00 04/07/25 09:00 04/07/25 09:30 Temperature 35.5 C L 35.5 C L 35.8 C L Pulse Rate 68 Respiratory Rate 12 Blood Pressure 118/55 L Pulse Oximetry 99 Oxygen Delivery Oxygen Flow Rate 04/07/25 10:00 04/07/25 10:00 04/07/25 10:30 Temperature 35.9 C L 36.2 C L 36.2 C L Pulse Rate 75 Respiratory Rate 13 Blood Pressure 116/52 L Pulse Oximetry 98 Oxygen Delivery Oxygen Flow Rate Intake/Output Intake/Output: Intake & Output 04/04/25 04/05/25 04/06/25 04/07/25 23:59 23:59 23:59 23:59 Intake Total 1225.1 1439.7 1687.7 895 Output Total 775 3175 1650 Balance 1225.1 664.7 -1487.3 -755 Meds/Results Medications: Active Medications Generic Name Dose Route Start Last Admin Trade Name Freq PRN Reason Stop Dose Admin Doxycycline Hyclate 100 mg/ 100 mls @ 100 mls/hr 04/04/25 21:00 04/07/25 09:34 Sodium Chloride IVPB 100 mls/hr Q12H MARIELLE Administration Ceftriaxone Sodium 2 gm/ 100 mls @ 200 mls/hr 04/05/25 09:00 04/07/25 09:35 Sodium Chloride IVPB 200 mls/hr Q24H MARIELLE Administration Pantoprazole Sodium 40 mg 04/04/25 21:00 04/06/25 20:30 Pantoprazole Sodium Iv 40 Mg Vial IV PUSH 40 mg Q12HR MARIELLE Administration Rosuvastatin Calcium 10 mg 04/05/25 09:00 04/07/25 09:35 Rosuvastatin 10 Mg Tablet PO 10 mg QAM MARIELLE Administration Sodium Bicarbonate 650 mg 04/04/25 12:05 04/07/25 09:35 Sodium Bicarbonate Tab 650 Mg Tablet PO 650 mg BID MARIELLE Administration Sodium Chloride 10 ml 04/04/25 22:00 04/07/25 05:34 Central Line Flush IV PUSH 10 ml Q8HR MARIELLE Administration Sodium Chloride 10 ml 04/04/25 15:53 Central Line Flush IV PUSH PRN PRN with TPN bag changes Sodium Chloride 20 ml 04/04/25 15:53 04/05/25 05:44 Central Line Flush IV PUSH 20 ml PRN PRN Administration after blood draws Vancomycin HCl 1 each 04/05/25 13:29 Vancomycin For Acute Kidney Injury IVPB PRN PRN Vancomycin Protocol Radiology Results: ITS Impressions Head CT 04/04/25 09:52 IMPRESSION: 1. Moderate nonspecific cerebral white matter disease, which likely represents chronic small vessel ischemic disease. Chest/Abdomen/Pelvis CT 04/04/25 12:03 IMPRESSION: CHEST- 1. Pulmonary edema and/or multifocal pneumonia. 2. Large pleural effusions. ABDOMEN/PELVIS- 1. No acute abnormality. Chest X-Ray 04/07/25 09:21 Impression: CHF. No pneumothorax Labs Labs: Laboratory Results - last 24 hr 04/06/25 04/07/25 13:14 05:37 WBC 6.9 RBC 2.51 L Hgb 8.0 L Hct 25.1 L MCV 100.0 MCH 31.9 MCHC 31.9 L RDW 20.6 H Plt Count 142 L MPV 9.3 Immature Gran % (Auto) 0.6 H Neut % (Auto) 81.2 H Lymph % (Auto) 5.4 L [place] % (Auto) 10.2 H Eos % (Auto) 2.2 Baso % (Auto) 0.4 Lymph # (Auto) 0.37 L [place] # (Auto) 0.7 H Eos # (Auto) 0.2 Baso # (Auto) 0.0 Abs Immat Gran (auto) 0.04 H Absolute Neuts (auto) 5.6 Absolute Nucleated RBC 0.030 H Nucleated RBC % 0.4 H Sodium 137 Potassium 3.8 Chloride 111 H Carbon Dioxide 18 L Anion Gap 8 BUN 113 H* D Creatinine 2.19 H Estim Creat Clear Calc 28 Estimated GFR 22 L Glucose 94 Lactic Acid 0.6 L Calcium 8.8 Phosphorus 5.7 H Magnesium 2.3 Total Bilirubin 0.6 AST 31 ALT 41 H Alkaline Phosphatase 92 Total Protein 6.5 Albumin 3.1 L Random Vancomycin 11.0 Quality VTE Prophylaxis VTE prophylaxis: mechanical ordered
[2025-04-07] MEDS: PANTOPRAZOLE SODIUM IV 40 MG VIAL IV PUSH ×2 (12:29→20:48)
--- NOTE | 2025-04-07 13:09 | P.PNNP_ITS ---
Progress Note: A&P Assessment and Plan (1) Acute kidney injury: Code(s): N17.9 - Acute kidney failure, unspecified Status: Acute Assessment and Plan: * slow improvement noted * as noted by admission labs * suspect due to several issues: * anemia * prerenal factors * diuretic use prior to admission * relative hypotension * CHF exacerbation * infection (pneumonia?) * bradycardia * other(?) * evaluation to date noted: * CT imaging without obstruction (horseshoe kidney noted) * urine electrolytes prerenal (by FeUrea) * urine eosinophils negative * moderate proteinuria (likely falsely elevated due to hematuria) * CPK normal * better urine output noted * follow trend of repeat labs and UOP (2) Stage 3b chronic kidney disease: Code(s): N18.32 - Chronic kidney disease, stage 3b Status: Chronic Assessment and Plan: * baseline creatinine average ~ 1.4 - 1.9mg/dl (from review of [facility] and [facility] records) * however she has fluctuated to extremes in association with acute hospitalizations * this causes her to bounce between CKD stage 3b and stage 4 * presumably due to hypertension, vascular disease (CAD + hyperlipidemia + CHF), and age-related disease (3) Bradycardia: Code(s): R00.1 - Bradycardia, unspecified Status: Acute Assessment and Plan: * telemetry with slow aFib * soft BP noted as well * known history of AFib (but off amiodarone prior to admission) * s/p dopamine for bradycardia and soft BP * BP medications on hold * Cardiology following * s/p PPM on 04/06 (4) GI bleed: Qualifiers: GI bleed type/associated pathology: melena Qualified Code(s): K92.1 - Melena Code(s): K92.2 - Gastrointestinal hemorrhage, unspecified Status: Acute Assessment and Plan: * suspected based on history of black tarry stools * admission hemoglobin noted at 6.0 * PRBC transfusion per protocol * s/p 3 units on 04/04 * anticoagulation on hold * GI recommendations noted -- no intervention at this time * on PPI * follow trend of H/H (5) Metabolic acidosis: Code(s): E87.20 - Acidosis, unspecified Status: Acute Assessment and Plan: * likely worsened by CELINA/ARF * s/p IV bicarb pushes while NPO * on oral sodium bicarbonate to compensate (6) Congestive heart disease: Qualifiers: Heart failure type: diastolic Heart failure chronicity: acute Q ualified Code(s): I50.31 - Acute diastolic (congestive) heart failure Code(s): I50.9 - Heart failure, unspecified Status: Acute Assessment and Plan: * evidence of volume overload on admission: * pulmonary edema on the chest x-ray * large pleural effusion on CT scan * bilateral lower extremity edema * Echo (on 04/04) noted: * left ventricular systolic function is normal, estimated at 60 - 65% * left ventricular diastolic function is abnormal * mild mitral valve regurgitation * moderate tricuspid valve regurgitation * moderate pulmonary hypertension, estimated pulmonary arterial systolic pressure is 48 mmHg * mild pulmonic regurgitation * auto-diuresis noted at this time * follow I/Os (7) Pneumonia: Code(s): J18.9 - Pneumonia, unspecified organism Status: Acute Assessment and Plan: * admission chest x-ray with bilateral infiltrates * suspect more likely to be pulmonary edema and associated congestive heart failure * admission CT chest with scattered foci bilateral airspace disease * afebrile and with normal WBC * on empiric antibiotics * follow culture data (8) Anemia: Code(s): D64.9 - Anemia, unspecified Status: Chronic Assessment and Plan: * due to underlying CKD * likely worsened by #3 * dose with Epogen while hospitalized (was on Epogen at nursing facility as well) * follow trend of H/H (9) Essential hypertension: Code(s): I10 - Essential (primary) hypertension Status: Chronic Assessment and Plan: * known history * BP medications on hold * follow trend of hemodynamics (10) Altered mental status: Code(s): R41.82 - Altered mental status, unspecified Status: Acute Assessment and Plan: * noted on admission * possibly secondary to acute illness (CELINA, anemia, pneumonia, CHF, bradycardia...etc) * slow improvement noted if not resolved * follow mentation Will continue to follow. L Subjective Date/time seen: 04/07/25 13:09 Interval history: Follow-up for acute kidney injury/acute renal failure on chronic kidney disease. Overall, she states she is feeling better; s/p pacemaker placement yesterday and tolerated this procedure reasonably well; hemodynamically stable but still with on/off hypothermia requiring Jatin Hugger use; improvement in BUN/renal function/creatinine noted in association with excellent urine output in the last 24 hours without the use of diuretic therapy; no other issues/events overnight or earlier this morning. Exam 2 Narrative: General: elderly female in NAD Heart: bradycardic but normal S1 and S2; no rub Lungs: decreased breath sounds noted Abdomen: soft, nontender, nondistended, positive bowel sounds Extremities: no cyanosis or clubbing; 1+ edema Skin: no rash Objective Data Vital Signs Vital Signs: Vital Signs Temp Pulse Resp BP Pulse Ox O2 Del Method O2 Flow Rate 04/07/25 13:00 96.9 F L 67 11 L 108/51 L 98 04/07/25 13:00 96.9 F L 04/07/25 12:30 96.8 F L 04/07/25 12:00 97.0 F L 69 11 L 116/53 L 98 04/07/25 12:00 68 12 98 Room Air 04/07/25 12:00 68 04/07/25 12:00 97.0 F L 72 11 L 116/53 L 99 04/07/25 12:00 96.9 F L 04/07/25 11:30 97.0 F L 04/07/25 11:00 97.2 F L 73 15 112/53 L 98 04/07/25 11:00 97.2 F L 67 13 112/53 L 98 04/07/25 11:00 97.2 F L 04/07/25 10:30 97.2 F L 04/07/25 10:00 96.7 F L 71 12 116/52 L 98 04/07/25 10:00 72 04/07/25 10:00 97.2 F L 75 13 116/52 L 98 04/07/25 10:00 96.7 F L 04/07/25 09:30 96.5 F L 04/07/25 09:00 95.9 F L 68 12 118/55 L 99 04/07/25 09:00 95.9 F L 04/07/25 08:34 95.9 F L 04/07/25 08:30 96.0 F L 70 17 125/57 L 99 04/07/25 08:00 79 04/07/25 08:00 72 11 L 99 Room Air 04/07/25 08:00 96.0 F L 79 15 125/57 L 99 04/07/25 07:00 97.1 F L 66 12 118/50 L 100 04/07/25 07:00 97.2 F L 64 13 118/50 L 100 04/07/25 06:00 97.8 F 68 12 107/55 L 99 04/07/25 06:00 68 04/07/25 06:00 98.0 F 04/07/25 05:30 98.0 F 04/07/25 05:00 97.9 F 64 12 123/53 L 99 04/07/25 05:00 97.9 F 04/07/25 04:30 97.8 F 04/07/25 04:17 98 Nasal Cannula 2 04/07/25 04:05 68 17 99 Nasal Cannula 2 04/07/25 04:00 64 04/07/25 04:00 97.8 F 64 16 123/82 99 04/07/25 04:00 97.8 F 04/07/25 03:30 97.8 F 04/07/25 03:00 97.7 F 68 17 127/53 L 99 04/07/25 03:00 97.7 F 04/07/25 02:30 97.7 F 04/07/25 02:00 97.5 F L 70 17 133/57 L 98 04/07/25 02:00 68 04/07/25 02:00 97.6 F 04/07/25 01:30 97.6 F 04/07/25 01:00 97.5 F L 64 17 131/55 L 98 04/07/25 01:00 97.5 F L 04/07/25 00:30 97.5 F L 04/07/25 00:00 65 04/07/25 00:00 97.3 F L 64 15 121/60 99 04/07/25 00:00 97.3 F L 04/06/25 23:50 60 16 98 Nasal Cannula 2 04/06/25 23:30 97.2 F L 04/06/25 23:00 97.2 F L 63 19 130/55 L 99 04/06/25 23:00 97.2 F L 04/06/25 22:30 97.2 F L 04/06/25 22:00 97.0 F L 63 14 121/56 L 99 04/06/25 22:00 63 04/06/25 22:00 97.0 F L 04/06/25 21:30 96.9 F L 04/06/25 21:00 96.8 F L 62 14 121/55 L 100 04/06/25 21:00 96.8 F L 04/06/25 20:30 96.8 F L 04/06/25 20:07 65 15 99 Nasal Cannula 2 04/06/25 20:05 97.0 F L 65 15 123/56 L 99 04/06/25 20:00 62 04/06/25 20:00 97.0 F L 04/06/25 19:30 97 F L 04/06/25 19:00 97 F L 04/06/25 18:30 97 F L 04/06/25 18:00 63 04/06/25 18:00 97 F L 04/06/25 17:30 97 F L 04/06/25 17:00 97 F L Intake/Output Intake/Output: Intake & Output 04/04/25 04/05/25 04/06/25 04/07/25 23:59 23:59 23:59 23:59 Intake Total 1225.1 1439.7 1687.7 895 Output Total 775 3175 3400 Balance 1225.1 664.7 -1487.3 -6275 Meds/Results Medications: Active Medications Generic Name Dose Route Start Last Admin Trade Name Freq PRN Reason Stop Dose Admin Doxycycline Hyclate 100 mg/ 100 mls @ 100 mls/hr 04/04/25 21:00 04/07/25 09:34 Sodium Chloride IVPB 04/09/25 20:59 100 mls/hr Q12H MARIELLE Administration Ceftriaxone Sodium 2 gm/ 100 mls @ 200 mls/hr 04/05/25 09:00 04/07/25 09:35 Sodium Chloride IVPB 200 mls/hr Q24H MARIELLE Administration Pantoprazole Sodium 40 mg 04/04/25 21:00 04/07/25 12:29 Pantoprazole Sodium Iv 40 Mg Vial IV PUSH 40 mg Q12HR MARIELLE Administration Rosuvastatin Calcium 10 mg 04/05/25 09:00 04/07/25 09:35 Rosuvastatin 10 Mg Tablet PO 10 mg QAM MARIELLE Administration Sodium Bicarbonate 650 mg 04/04/25 12:05 04/07/25 09:35 Sodium Bicarbonate Tab 650 Mg Tablet PO 650 mg BID MARIELLE Administration Sodium Chloride 10 ml 04/04/25 22:00 04/07/25 05:34 Central Line Flush IV PUSH 10 ml Q8HR MARIELLE Administration Sodium Chloride 10 ml 04/04/25 15:53 Central Line Flush IV PUSH PRN PRN with TPN bag changes Sodium Chloride 20 ml 04/04/25 15:53 04/05/25 05:44 Central Line Flush IV PUSH 20 ml PRN PRN Administration after blood draws Radiology Results: ITS Impressions Head CT 04/04/25 09:52 IMPRESSION: 1. Moderate nonspecific cerebral white matter disease, which likely represents chronic small vessel ischemic disease. Chest/Abdomen/Pelvis CT 04/04/25 12:03 IMPRESSION: CHEST- 1. Pulmonary edema and/or multifocal pneumonia. 2. Large pleural effusions. ABDOMEN/PELVIS- 1. No acute abnormality. Chest X-Ray 04/07/25 09:21 Impression: CHF. No pneumothorax Labs Labs: Laboratory Tests 04/07/25 05:37 04/07/25 05:37 Lactic Acid 0.6 L Calcium 8.8 Phosphorus 5.7 H Magnesium 2.3 Total Bilirubin 0.6 AST 31 ALT 41 H Alkaline Phosphatase 92 Total Protein 6.5 Albumin 3.1 L Microbiology 04/04/25 18:07 Blood Blood Culture - Preliminary 04/04/25 18:06 Blood Blood Culture - Preliminary
--- NOTE | 2025-04-07 13:24 | WPDINTPN2 ---
Assessment and Plan Assessment and Plan (1) Bradycardia: Code(s): R00.1 - Bradycardia, unspecified Status: Acute Assessment and Plan: Slow AFib with soft blood pressures, severe bradycardia Patient has history of AFib and was on amiodarone which has been on hold since 03/25 as per [facility] record -off dopamine 04/06: Status post permanent pacemaker, rate set at 60-120 04/04/2025: Echocardiogram Summary 1. Left ventricular systolic function is normal, estimated at 60-65. 2. The left ventricular diastolic function is abnormal. 3. Right ventricular chamber dimension is moderately enlarged. 4. Right ventricular systolic function is normal. 5. Left atrial chamber dimension is mildly enlarged. 6. Right atrial chamber dimension is severely enlarged. 7. There is mild mitral valve regurgitation. 8. There is moderate tricuspid valve regurgitation. 9. Moderate pulmonary hypertension, estimated pulmonary arterial systolic pressure is 48 mmHg. 10. There is mild pulmonic regurgitation. (2) GI bleed: Qualifiers: GI bleed type/associated pathology: melena Qualified Code(s): K92.1 - Melena Code(s): K92.2 - Gastrointestinal hemorrhage, unspecified Status: Acute Assessment and Plan: Patient on anticoagulation with history of black stool and anemia of hemoglobin 6. She also has a history of anemia of chronic kidney disease and is on Epogen at [facility] Transfused a total of 3 units of packed RBC (04/04) Hold anticoagulation Consult nephrology for EPO dosing IV Protonix q.12 hours Monitor hemoglobin and transfuse additionally if needed -GI following, will discuss with them regarding endoscopy -hemoglobin stable, post transfusion (3) Hematuria: Code(s): R31.9 - Hematuria, unspecified Status: Acute Assessment and Plan: Place Yadav Check CT abdomen pelvis: Kidneys: Horseshoe kidney.Right kidney- No hydronephrosis. No renal stones. Large cyst.Left kidney- No hydronephrosis. No renal stones. Large cyst. Hold anticoagulation Monitor Urine output is clear (4) Pneumonia: Code(s): J18.9 - Pneumonia, unspecified organism Status: Acute Assessment and Plan: Chest x-ray shows bilateral infiltrates at this appears more likely to be pulmonary edema and congestive heart failure Patient is afebrile with normal WBC but patient started on ceftriaxone and doxy side Rocephin and doxycycline at this time empirically 04/04: Blood cultures : Preliminary blood cultures are negative Will complete a course of Rocephin, doxycycline (04/05) -vancomycin discontinued (04/07) (5) Hyperlipidemia: Code(s): E78.5 - Hyperlipidemia, unspecified Status: Acute Assessment and Plan: Continue rosuvastatin (6) GERD (gastroesophageal reflux disease): Code(s): K21.9 - Gastro-esophageal reflux disease without esophagitis Status: Acute Assessment and Plan: Protonix IV q.12 hours (7) Obstructive sleep apnea: Code(s): G47.33 - Obstructive sleep apnea (adult) (pediatric) Status: Acute Assessment and Plan: Patient has history of [place] but does not wear CPAP at [facility] Monitor oxygen saturation while sleeping (8) Essential hypertension: Code(s): I10 - Essential (primary) hypertension Status: Acute Assessment and Plan: Hold antihypertensive medications due to borderline blood pressure (9) Anasarca: Code(s): R60.1 - Generalized edema Status: Acute Assessment and Plan: Patient has overall volume overload likely secondary to congestive heart failure and CKD Echo as above -TSH 3.090 Will diurese p.r.n. (10) Congestive heart disease: Qualifiers: Heart failure type: diastolic Heart failure chronicity: acute Qualified Code(s): I50.31 - Acute diastolic (congestive) heart failure Code(s): I50.9 - Heart failure, unspecified Status: Acute Assessment and Plan: Appears to have pulmonary edema on the chest x-ray and bilateral lower extremity edema Echo as above Off dopamine Once blood pressure is adequate -will defer treatment to cardiac 04/04/2025: Echocardiogram Summary 1. Left ventricular systolic function is normal, estimated at 60-65. 2. The left ventricular diastolic function is abnormal. 3. Right ventricular chamber dimension is moderately enlarged. 4. Right ventricular systolic function is normal. 5. Left atrial chamber dimension is mildly enlarged. 6. Right atrial chamber dimension is severely enlarged. 7. There is mild mitral valve regurgitation. 8. There is moderate tricuspid valve regurgitation. 9. Moderate pulmonary hypertension, estimated pulmonary arterial systolic pressure is 48 mmHg. 10. There is mild pulmonic regurgitation. (11) Chronic kidney disease: Qualifiers: Chronic kidney disease stage: stage 4 (GFR 15-29) Qualified Code(s): N18.4 - Chronic kidney disease, stage 4 (severe) Code(s): N18.9 - Chronic kidney disease, unspecified Status: Acute Assessment and Plan: Creatinine 2.17. Baseline creatinine unknown BUN 115 this is likely secondary to GI bleed Hyperkalemia is resolved IV bicarb push NPO bicarb for metabolic acidosis CK levels of 98 -BUN and creatinine continue to increase, likely related to hypovolemia from GI bleed, possible decreased perfusion secondary to bradycardia, could be related to sepsis -discuss with Nephrology, will monitor now after pacemaker placement, -will give sodium bicarb for acidosis Urine electrolytes will not be accurate due to hematuria 04/07: Patient started have good urine output after pacemaker placement, likely related to improved blood flow secondary to adequate heart rates and blood pressures -creatinine trending down, discussed with Nephrology, will continue to monitor at this time (12) Anemia: Code(s): D64.9 - Anemia, unspecified Status: Acute Assessment and Plan: See above (13) Coronary artery disease: Code(s): I25.10 - Atherosclerotic heart disease of [place] coronary artery without angina pectoris Status: Acute Assessment and Plan: Hold aspirin beta-omar due to bleeding and low blood pressure/heart rate Patient denies any chest pain and troponin x1 is negative Continue statin Plan DVT prophylaxis -SCDs, no chemoprophylaxis due to GI bleed, severe anemia Stress ulcer prophylaxis -PPI Nutrition: Heart healthy diet Code Status - Full Code Total Critical Care Time - 31 minutes Patient may transfer out of the ICU Discussed with daughter in rounds, updated her with patient's condition plan of care. I answered all the questions Due to a high probability of clinically significant, life threatening deterioration, the patient required my highest level of preparedness to intervene emergently and I personally spent this critical care time directly and personally managing the patient. This critical care time included obtaining a history; examining the patient; pulse oximetry; ordering and review of studies; arranging urgent treatment with development of a management plan; evaluation of patient's response to treatment; frequent reassessment; and discussions with other providers. It was exclusive of separately billable procedures and treating other patients and teaching time. Please see Assessment and Plan section and the rest of the note for further information on patient assessment and treatment Subjective Date/time seen: 04/07/25 13:24 Interval history: Reason for consult: Bradycardia, altered mental status, possible pneumonia, severe anemia, status post 3 units packed RBCs 04/06: Pacemaker placed 04/07/2025: Patient seen examined the ICU, very pleasant female, in no acute distress, on 2 L nasal cannula this morning with adequate O2 sats. Denies any chest pain, shortness a breath, abdominal pain, nausea vomiting. States she feels better. Intermittently requiring a Jatin Hugger. Hemodynamically stable, very good urine output, with negative almost 3 L fluid balance in the last 24 hours Creatinine trending down Review of Systems Review of Systems: All systems reviewed & are unremarkable except as noted in HPI and below (HPI) Exam Narrative: General: Pt is alert awake and in NAD Lungs/Chest: Trachea central, bilateral rales, no wheezing left chest pacemaker with dressing in place Cardiac: Paced rhythm Normal S1 S2. No murmurs Circulation: Pedal pulses are intact and symmetrical. Abdomen: Normal bowel sounds. Morbidly obese. Soft. NT. ND. Extremities: Bilateral pedal edema : Yadav in place with clear urine Neurologic: Follows commands. Moves all 4 extremities PERRL alert, oriented Skin: No Rash Objective Data Vital Signs Vital Signs: Vital Signs - 24 hr 04/06/25 13:30 04/06/25 14:00 04/06/25 14:00 Temperature 97.6 F 97.4 F L Pulse Rate 62 Respiratory Rate Blood Pressure Pulse Oximetry Oxygen Delivery Oxygen Flow Rate 04/06/25 14:29 04/06/25 14:30 04/06/25 14:46 Temperature 97.1 F L 97.2 F L 97.3 F L Pulse Rate 62 62 Respiratory Rate 26 H 16 Blood Pressure 124/55 L 113/58 L Pulse Oximetry 98 99 Oxygen Delivery Oxygen Flow Rate 04/06/25 15:00 04/06/25 15:30 04/06/25 16:00 Temperature 97.2 F L 97.2 F L 97.2 F L Pulse Rate Respiratory Rate Blood Pressure Pulse Oximetry Oxygen Delivery Oxygen Flow Rate 04/06/25 16:00 04/06/25 16:00 04/06/25 16:30 Temperature 97.1 F L Pulse Rate 62 Respiratory Rate Blood Pressure Pulse Oximetry 99 Oxygen Delivery Nasal Cannula Oxygen Flow Rate 2 04/06/25 17:00 04/06/25 17:30 04/06/25 18:00 Temperature 97 F L 97 F L 97 F L Pulse Rate Respiratory Rate Blood Pressure Pulse Oximetry Oxygen Delivery Oxygen Flow Rate 04/06/25 18:00 04/06/25 18:30 04/06/25 19:00 Temperature 97 F L 97 F L Pulse Rate 63 Respiratory Rate Blood Pressure Pulse Oximetry Oxygen Delivery Oxygen Flow Rate 04/06/25 19:30 04/06/25 20:00 04/06/25 20:00 Temperature 97 F L 97.0 F L Pulse Rate 62 Respiratory Rate Blood Pressure Pulse Oximetry Oxygen Delivery Oxygen Flow Rate 04/06/25 20:05 04/06/25 20:07 04/06/25 20:30 Temperature 97.0 F L 96.8 F L Pulse Rate 65 65 Respiratory Rate 15 15 Blood Pressure 123/56 L Pulse Oximetry 99 99 Oxygen Delivery Nasal Cannula Oxygen Flow Rate 2 04/06/25 21:00 04/06/25 21:00 04/06/25 21:30 Temperature 96.8 F L 96.8 F L 96.9 F L Pulse Rate 62 Respiratory Rate 14 Blood Pressure 121/55 L Pulse Oximetry 100 Oxygen Delivery Oxygen Flow Rate 04/06/25 22:00 04/06/25 22:00 04/06/25 22:00 Temperature 97.0 F L 97.0 F L Pulse Rate 63 63 Respiratory Rate 14 Blood Pressure 121/56 L Pulse Oximetry 99 Oxygen Delivery Oxygen Flow Rate 04/06/25 22:30 04/06/25 23:00 04/06/25 23:00 Temperature 97.2 F L 97.2 F L 97.2 F L Pulse Rate 63 Respiratory Rate 19 Blood Pressure 130/55 L Pulse Oximetry 99 Oxygen Delivery Oxygen Flow Rate 04/06/25 23:30 04/06/25 23:50 04/07/25 00:00 Temperature 97.2 F L 97.3 F L Pulse Rate 60 Respiratory Rate 16 Blood Pressure Pulse Oximetry 98 Oxygen Delivery Nasal Cannula Oxygen Flow Rate 2 04/07/25 00:00 04/07/25 00:00 04/07/25 00:30 Temperature 97.3 F L 97.5 F L Pulse Rate 64 65 Respiratory Rate 15 Blood Pressure 121/60 Pulse Oximetry 99 Oxygen Delivery Oxygen Flow Rate 04/07/25 01:00 04/07/25 01:00 04/07/25 01:30 Temperature 97.5 F L 97.5 F L 97.6 F Pulse Rate 64 Respiratory Rate 17 Blood Pressure 131/55 L Pulse Oximetry 98 Oxygen Delivery Oxygen Flow Rate 04/07/25 02:00 04/07/25 02:00 04/07/25 02:00 Temperature 97.6 F 97.5 F L Pulse Rate 68 70 Respiratory Rate 17 Blood Pressure 133/57 L Pulse Oximetry 98 Oxygen Delivery Oxygen Flow Rate 04/07/25 02:30 04/07/25 03:00 04/07/25 03:00 Temperature 97.7 F 97.7 F 97.7 F Pulse Rate 68 Respiratory Rate 17 Blood Pressure 127/53 L Pulse Oximetry 99 Oxygen Delivery Oxygen Flow Rate 04/07/25 03:30 04/07/25 04:00 04/07/25 04:00 Temperature 97.8 F 97.8 F 97.8 F Pulse Rate 64 Respiratory Rate 16 Blood Pressure 123/82 Pulse Oximetry 99 Oxygen Delivery Oxygen Flow Rate 04/07/25 04:00 04/07/25 04:05 04/07/25 04:17 Temperature Pulse Rate 64 68 Respiratory Rate 17 Blood Pressure Pulse Oximetry 99 98 Oxygen Delivery Nasal Cannula Nasal Cannula Oxygen Flow Rate 2 2 04/07/25 04:30 04/07/25 05:00 04/07/25 05:00 Temperature 97.8 F 97.9 F 97.9 F Pulse Rate 64 Respiratory Rate 12 Blood Pressure 123/53 L Pulse Oximetry 99 Oxygen Delivery Oxygen Flow Rate 04/07/25 05:30 04/07/25 06:00 04/07/25 06:00 Temperature 98.0 F 98.0 F Pulse Rate 68 Respiratory Rate Blood Pressure Pulse Oximetry Oxygen Delivery Oxygen Flow Rate 04/07/25 06:00 04/07/25 07:00 04/07/25 08:00 Temperature 97.8 F 97.2 F L 96.0 F L Pulse Rate 68 64 79 Respiratory Rate 12 13 15 Blood Pressure 107/55 L 118/50 L 125/57 L Pulse Oximetry 99 100 99 Oxygen Delivery Oxygen Flow Rate 04/07/25 08:00 04/07/25 08:00 04/07/25 08:34 Temperature 95.9 F L Pulse Rate 72 79 Respiratory Rate 11 L Blood Pressure Pulse Oximetry 99 Oxygen Delivery Room Air Oxygen Flow Rate 04/07/25 09:00 04/07/25 09:00 04/07/25 09:30 Temperature 95.9 F L 95.9 F L 96.5 F L Pulse Rate 68 Respiratory Rate 12 Blood Pressure 118/55 L Pulse Oximetry 99 Oxygen Delivery Oxygen Flow Rate 04/07/25 10:00 04/07/25 10:00 04/07/25 10:30 Temperature 96.7 F L 97.2 F L 97.2 F L Pulse Rate 75 Respiratory Rate 13 Blood Pressure 116/52 L Pulse Oximetry 98 Oxygen Delivery Oxygen Flow Rate 04/07/25 11:00 04/07/25 11:00 04/07/25 11:30 Temperature 97.2 F L 97.2 F L 97.0 F L Pulse Rate 67 Respiratory Rate 13 Blood Pressure 112/53 L Pulse Oximetry 98 Oxygen Delivery Oxygen Flow Rate 04/07/25 12:00 04/07/25 12:00 04/07/25 12:30 Temperature 96.9 F L 97.0 F L 96.8 F L Pulse Rate 72 Respiratory Rate 11 L Blood Pressure 116/53 L Pulse Oximetry 99 Oxygen Delivery Oxygen Flow Rate 04/07/25 13:00 04/07/25 13:00 Temperature 96.9 F L 96.9 F L Pulse Rate 67 Respiratory Rate 11 L Blood Pressure 108/51 L Pulse Oximetry 98 Oxygen Delivery Oxygen Flow Rate Intake/Output Intake/Output: Intake & Output 04/04/25 04/05/25 04/06/25 04/07/25 23:59 23:59 23:59 23:59 Intake Total 1225.1 1439.7 1687.7 895 Output Total 775 3175 2900 Balance 1225.1 664.7 -1487.3 -2005 Meds/Results Medications: Active Medications Generic Name Dose Route Start Last Admin Trade Name Freq PRN Reason Stop Dose Admin Doxycycline Hyclate 100 mg/ 100 mls @ 100 mls/hr 04/04/25 21:00 04/07/25 09:34 Sodium Chloride IVPB 04/09/25 20:59 100 mls/hr Q12H MARIELLE Administration Ceftriaxone Sodium 2 gm/ 100 mls @ 200 mls/hr 04/05/25 09:00 04/07/25 09:35 Sodium Chloride IVPB 200 mls/hr Q24H MARIELLE Administration Pantoprazole Sodium 40 mg 04/04/25 21:00 04/07/25 12:29 Pantoprazole Sodium Iv 40 Mg Vial IV PUSH 40 mg Q12HR MARIELLE Administration Rosuvastatin Calcium 10 mg 04/05/25 09:00 04/07/25 09:35 Rosuvastatin 10 Mg Tablet PO 10 mg QAM MARIELLE Administration Sodium Bicarbonate 650 mg 04/04/25 12:05 04/07/25 09:35 Sodium Bicarbonate Tab 650 Mg Tablet PO 650 mg BID MARIELLE Administration Sodium Chloride 10 ml 04/04/25 22:00 04/07/25 05:34 Central Line Flush IV PUSH 10 ml Q8HR MARIELLE Administration Sodium Chloride 10 ml 04/04/25 15:53 Central Line Flush IV PUSH PRN PRN with TPN bag changes Sodium Chloride 20 ml 04/04/25 15:53 04/05/25 05:44 Central Line Flush IV PUSH 20 ml PRN PRN Administration after blood draws Radiology Results: ITS Impressions Head CT 04/04/25 09:52 IMPRESSION: 1. Moderate nonspecific cerebral white matter disease, which likely represents chronic small vessel ischemic disease. Chest/Abdomen/Pelvis CT 04/04/25 12:03 IMPRESSION: CHEST- 1. Pulmonary edema and/or multifocal pneumonia. 2. Large pleural effusions. ABDOMEN/PELVIS- 1. No acute abnormality. Chest X-Ray 04/07/25 09:21 Impression: CHF. No pneumothorax Labs Labs: Laboratory Results - last 24 hr 04/06/25 04/07/25 13:14 05:37 WBC 6.9 RBC 2.51 L Hgb 8.0 L Hct 25.1 L MCV 100.0 MCH 31.9 MCHC 31.9 L RDW 20.6 H Plt Count 142 L MPV 9.3 Immature Gran % (Auto) 0.6 H Neut % (Auto) 81.2 H Lymph % (Auto) 5.4 L [place] % (Auto) 10.2 H Eos % (Auto) 2.2 Baso % (Auto) 0.4 Lymph # (Auto) 0.37 L [place] # (Auto) 0.7 H Eos # (Auto) 0.2 Baso # (Auto) 0.0 Abs Immat Gran (auto) 0.04 H Absolute Neuts (auto) 5.6 Absolute Nucleated RBC 0.030 H Nucleated RBC % 0.4 H Sodium 137 Potassium 3.8 Chloride 111 H Carbon Dioxide 18 L Anion Gap 8 BUN 113 H* D Creatinine 2.19 H Estim Creat Clear Calc 28 Estimated GFR 22 L Glucose 94 Lactic Acid 0.6 L Calcium 8.8 Phosphorus 5.7 H Magnesium 2.3 Total Bilirubin 0.6 AST 31 ALT 41 H Alkaline Phosphatase 92 Total Protein 6.5 Albumin 3.1 L Random Vancomycin 11.0 Quality VTE Prophylaxis VTE prophylaxis: mechanical ordered
[2025-04-07] MEDS: EPOETIN ALFA-EPBX 20,000 UNITS/ML VIAL 20000 UNITS SUB-Q (17:49)
[2025-04-08] VITALS (12 sets, daily range): BP systolic 124–149; BP diastolic 54–77; PULSE 61–64; RESP 14–17; TEMP 36–36.4; O2SAT 98–100
[2025-04-08 05:06] LABS: Hematocrit 25.0 % (37.0-47.0); Hemoglobin 7.9 g/dL (12.0-15.0); Immature Granulocyte Percent A 0.5 % (0-0.5); Lymphocytes Absolute Auto 0.59 K/mm3 (0.9-3.2); Mean Corpuscular HGB Conc 31.6 g/dl (32-36); Mean Corpuscular Hemoglobin 31.6 pg (26-34); Mean Corpuscular Volume 100.0 fl (80-100); Nucleated Red Blood Cells Absolute Auto 0.050 K/mm3 (0.0-0.012); Nucleated Red Blood Cells Perc 0.9 % (0.0-0.2); Platelet Count Result 121 k/mm3 (150-375); Red Blood Count 2.50 M/mm3 (4.2-5.4); White Blood Count 5.6 K/mm3 (4.5-10.0)
[2025-04-08 05:29] LABS: Alanine Aminotransferase 23 U/L (6-35); Albumin Level 3.0 g/dL (3.5-5.1); Alkaline Phosphatase 85 U/L (38-126); Anion Gap 6 mmol/L (4-12); Aspartate Amino Transferase 25 U/L (14-36); Bilirubin,Total 0.4 mg/dL (0.2-1.3); Blood Urea Nitrogen 92 mg/dL (7-17); Calcium 8.8 mg/dL (8.4-10.2); Carbon Dioxide 18 mmol/L (22-30); Chloride 115 mmol/L (98-107); Estimated CRCL calculation 34 ml/min; Estimated Glomerular Filt Rate 26; Glucose 81 mg/dL (65-110); Magnesium 2.1 mg/dL (1.6-2.3); Potassium 3.8 mmol/L (3.4-5.0); Sodium 139 mmol/L (137-145); Total Protein 6.4 g/dL (6.3-8.2)
[2025-04-08] MEDS: CENTRAL LINE FLUSH 10 ML IV PUSH ×3 (05:53→21:36)
[2025-04-08] MEDS: CEFPODOXIME PROXETIL 200 MG TABLET PO ×2 (10:23→21:26)
[2025-04-08] MEDS: ROSUVASTATIN 10 MG TABLET PO (10:23)
[2025-04-08] MEDS: SODIUM BICARBONATE TAB 650 MG TABLET PO ×2 (10:23→17:29)
[2025-04-08] MEDS: DOXYCYCLINE HYCLATE 100 MG TABLET PO ×2 (10:23→21:25)
--- NOTE | 2025-04-08 11:05 | P.PNNP_ITS ---
Progress Note: A&P Assessment and Plan (1) Acute kidney injury: Code(s): N17.9 - Acute kidney failure, unspecified Status: Acute Assessment and Plan: * slow improvement noted (if not back to baseline) * as noted by admission labs * suspect due to several issues: * anemia * prerenal factors * diuretic use prior to admission * relative hypotension * CHF exacerbation * infection (pneumonia?) * bradycardia * other(?) * evaluation to date noted: * CT imaging without obstruction (horseshoe kidney noted) * urine electrolytes prerenal (by FeUrea) * urine eosinophils negative * moderate proteinuria (likely falsely elevated due to hematuria) * CPK normal * better urine output noted * follow trend of repeat labs and UOP (2) Stage 3b chronic kidney disease: Code(s): N18.32 - Chronic kidney disease, stage 3b Status: Chronic Assessment and Plan: * baseline creatinine average ~ 1.4 - 1.9mg/dl (from review of [facility] and [facility] records) * however she has fluctuated to extremes in association with acute hospitalizations * this causes her to bounce between CKD stage 3b and stage 4 * presumably due to hypertension, vascular disease (CAD + hyperlipidemia + CHF), and age-related disease (3) Bradycardia: Code(s): R00.1 - Bradycardia, unspecified Status: Acute Assessment and Plan: * telemetry with slow aFib * soft BP noted as well * known history of AFib (but off amiodarone prior to admission) * s/p dopamine for bradycardia and soft BP * BP medications on hold * Cardiology following * s/p PPM on 04/06 (4) GI bleed: Qualifiers: GI bleed type/associated pathology: melena Qualified Code(s): K92.1 - Melena Code(s): K92.2 - Gastrointestinal hemorrhage, unspecified Status: Acute Assessment and Plan: * suspected based on history of black tarry stools * admission hemoglobin noted at 6.0 * PRBC transfusion per protocol * s/p 3 units on 04/04 * anticoagulation on hold * GI recommendations noted -- no intervention at this time * on PPI * follow trend of H/H (5) Metabolic acidosis: Code(s): E87.20 - Acidosis, unspecified Status: Acute Assessment and Plan: * likely worsened by CELINA/ARF * s/p IV bicarb pushes while NPO * on oral sodium bicarbonate to compensate (6) Congestive heart disease: Qualifiers: Heart failure type: diastolic Heart failure chronicity: acute Q ualified Code(s): I50.31 - Acute diastolic (congestive) heart failure Code(s): I50.9 - Heart failure, unspecified Status: Acute Assessment and Plan: * evidence of volume overload on admission: * pulmonary edema on the chest x-ray * large pleural effusion on CT scan * bilateral lower extremity edema * Echo (on 04/04) noted: * left ventricular systolic function is normal, estimated at 60 - 65% * left ventricular diastolic function is abnormal * mild mitral valve regurgitation * moderate tricuspid valve regurgitation * moderate pulmonary hypertension, estimated pulmonary arterial systolic pressure is 48 mmHg * mild pulmonic regurgitation * resumed on oral diuretic therapy * follow I/Os (7) Pneumonia: Code(s): J18.9 - Pneumonia, unspecified organism Status: Acute Assessment and Plan: * admission chest x-ray with bilateral infiltrates * suspect more likely to be pulmonary edema and associated congestive heart failure * admission CT chest with scattered foci bilateral airspace disease * afebrile and with normal WBC * on antibiotics * follow culture data (negative to date) (8) Anemia: Code(s): D64.9 - Anemia, unspecified Status: Chronic Assessment and Plan: * due to underlying CKD * likely worsened by #3 * dose with Epogen while hospitalized (was on Epogen at nursing facility as well) * follow trend of H/H (9) Essential hypertension: Code(s): I10 - Essential (primary) hypertension Status: Chronic Assessment and Plan: * known history * BP medications on hold * follow trend of hemodynamics (10) Altered mental status: Code(s): R41.82 - Altered mental status, unspecified Status: Acute Assessment and Plan: * noted on admission * possibly secondary to acute illness (CELINA, anemia, pneumonia, CHF, bradycardia...etc) * improvement noted if not resolved * follow mentation Will continue to follow. L Subjective Date/time seen: 04/08/25 11:05 Interval history: Follow-up for acute kidney injury/acute renal failure on chronic kidney disease. Transferred out of the ICU yesterday; seems to be doing quite well at the time of my visit; renal function/creatinine continues to slowly improve; remains hemodynamically stable as well; no apparent distress noted at this time; discussed situation with daughter at bedside. Exam 2 Narrative: General: elderly female in NAD Heart: bradycardic but normal S1 and S2; no rub Lungs: decreased breath sounds noted Abdomen: soft, nontender, nondistended, positive bowel sounds Extremities: no cyanosis or clubbing; trace edema Skin: no nodules Objective Data Vital Signs Vital Signs: Vital Signs Temp Pulse Resp BP Pulse Ox O2 Del Method 04/08/25 11:05 97.3 F L 62 17 136/77 99 04/08/25 08:00 63 04/08/25 07:56 97.6 F 62 15 128/65 99 04/08/25 06:00 63 04/08/25 04:00 62 04/08/25 04:00 Room Air 04/08/25 04:00 96.8 F L 62 16 138/58 L 100 04/08/25 02:00 63 04/08/25 00:00 61 04/08/25 00:00 97.5 F L 62 14 124/54 L 98 04/08/25 00:00 Room Air 04/07/25 22:00 62 04/07/25 20:00 65 04/07/25 20:00 Room Air 04/07/25 20:00 97.8 F 77 14 106/57 L 99 04/07/25 18:00 72 Intake/Output Intake/Output: Intake & Output 04/05/25 04/06/25 04/07/25 04/08/25 23:59 23:59 23:59 23:59 Intake Total 1439.7 1687.7 1335 480 Output Total 775 3175 3400 1000 Balance 664.7 -1487.3 -2065 -520 Meds/Results Medications: Active Medications Generic Name Dose Route Start Last Admin Trade Name Freq PRN Reason Stop Dose Admin Aspirin 81 mg 04/08/25 14:00 04/08/25 15:36 Aspirin 81 Mg Chewable Tablet PO 81 mg DAILY MARIELLE Administration Cefpodoxime Proxetil 200 mg 04/08/25 09:00 04/08/25 10:23 Cefpodoxime Proxetil 200 Mg Tablet PO 04/08/25 21:01 200 mg Q12HR MARIELLE Administration Cyclobenzaprine HCl 5 mg 04/08/25 13:50 Cyclobenzaprine Hcl 5 Mg Tablet PO TID PRN Muscle Spasm Docusate Sodium 100 mg 04/08/25 13:50 Docusate Sodium 100 Mg Capsule PO DAILY PRN Constipation Doxazosin Mesylate 8 mg 04/08/25 21:00 Doxazosin Mesylate 4 Mg Tablet PO HS MARIELLE Doxycycline Hyclate 100 mg 04/08/25 09:00 04/08/25 10:23 Doxycycline Hyclate 100 Mg Tablet PO 04/08/25 21:01 100 mg Q12HR MARIELLE Administration Epoetin Angus-epbx 10,000 units 04/09/25 09:00 Epoetin Angus-Epbx 10,000 Units/Ml Vial SUB-Q TUTHSA@09 MARIELLE Ferrous Sulfate 325 mg 04/08/25 14:00 04/08/25 15:36 Ferrous Sulfate 325 Mg Tablet PO 325 mg DAILY MARIELLE Administration Furosemide 40 mg 04/08/25 14:00 04/08/25 15:36 Furosemide 40 Mg Tablet PO 40 mg DAILY MARIELLE Administration Hydralazine HCl 50 mg 04/08/25 14:00 04/08/25 15:36 Hydralazine Hcl 50 Mg Tablet PO 50 mg Q8HR MARIELLE Administration Miscellaneous Information 1 each 04/09/25 00:01 Calcium Citrate Is Nonform; Can Pt Use From Home Or Pharmacy Has Oscal 500 Mg If Ok To Swi XX 05/09/25 00:00 CLARIFY [facility] Miscellaneous Information 1 each 04/09/25 00:01 Epogen Is Nonform; Can Pt Use From Home? Or Pharmacy Carries Retacrit. May Use Same Dose XX 05/09/25 00:00 [facility]IFY [facility] Non-Formulary Medication 200 mg 04/09/25 09:00 Calcium Citrate PO 05/09/25 08:59 DAILY [facility] Non-Formulary Medication 2,000 unit 04/08/25 14:00 Epoetin Angus [Epogen] SUB-Q 05/08/25 13:59 .every 21 days MARIELLE Per P&T, 1 each 04/08/25 14:00 Nonformulary XX 04/09/25 13:59 Nutritional PRN PRN Supplements And PROTOCOL Vitamins Will Be Held Until Discharge : Per P&T, 1 each 04/08/25 14:03 Nonformulary XX 04/09/25 14:02 Nutritional PRN PRN Supplements And PROTOCOL Vitamins Will Be Held Until Discharge : Polyethylene Glycol 17 gm 04/08/25 13:50 Polyethylene Glycol 3350 17 Gm Powd.Pack PO DAILY PRN Constipation Rosuvastatin Calcium 10 mg 04/05/25 09:00 04/08/25 10:23 Rosuvastatin 10 Mg Tablet PO 10 mg QAM MARIELLE Administration Silver Sulfadiazine 1 applic 04/08/25 17:00 04/08/25 17:28 Silver Sulfadiazine 1% Cr 400 Gm Jar (*Bkc) TOPICAL Not Given BID MARIELLE Sodium Bicarbonate 650 mg 04/04/25 12:05 04/08/25 17:29 Sodium Bicarbonate Tab 650 Mg Tablet PO 650 mg BID MARIELLE Administration Sodium Chloride 10 ml 04/04/25 22:00 04/08/25 10:24 Central Line Flush IV PUSH 10 ml Q8HR MARIELLE Administration Sodium Chloride 10 ml 04/04/25 15:53 Central Line Flush IV PUSH PRN PRN with TPN bag changes Sodium Chloride 20 ml 04/04/25 15:53 04/05/25 05:44 Central Line Flush IV PUSH 20 ml PRN PRN Administration after blood draws Spironolactone 25 mg 04/08/25 14:00 04/08/25 15:36 Spironolactone 25 Mg Tablet PO 25 mg DAILY MARIELLE Administration Radiology Results: ITS Impressions Head CT 04/04/25 09:52 IMPRESSION: 1. Moderate nonspecific cerebral white matter disease, which likely represents chronic small vessel ischemic disease. Chest/Abdomen/Pelvis CT 04/04/25 12:03 IMPRESSION: CHEST- 1. Pulmonary edema and/or multifocal pneumonia. 2. Large pleural effusions. ABDOMEN/PELVIS- 1. No acute abnormality. Chest X-Ray 04/07/25 09:21 Impression: CHF. No pneumothorax Labs Labs: Laboratory Tests 04/08/25 04:52 04/08/25 04:52 Calcium 8.8 Phosphorus 4.7 H Magnesium 2.1 Total Bilirubin 0.4 AST 25 ALT 23 Alkaline Phosphatase 85 Total Protein 6.4 Albumin 3.0 L Microbiology 04/04/25 18:07 Blood Blood Culture - Preliminary 04/04/25 18:06 Blood Blood Culture - Preliminary
[2025-04-08] MEDS: EPOETIN ALFA-EPBX 10,000 UNITS/ML VIAL 10000 UNITS SUB-Q (13:07)
[2025-04-08] MEDS: FERROUS SULFATE 325 MG TABLET PO (15:36)
[2025-04-08] MEDS: FUROSEMIDE 40 MG TABLET PO (15:36)
[2025-04-08] MEDS: ASPIRIN 81 MG CHEWABLE TABLET PO (15:36)
[2025-04-08] MEDS: SPIRONOLACTONE 25 MG TABLET PO (15:36)
--- NOTE | 2025-04-08 17:55 | P.PNIM_ITS ---
Assessment and Plan Assessment and Plan (1) Essential hypertension: Code(s): I10 - Essential (primary) hypertension Status: Chronic (2) Congestive heart disease: Qualifiers: Heart failure type: diastolic Heart failure chronicity: acute Qualified Code(s): I50.31 - Acute diastolic (congestive) heart failure Code(s): I50.9 - Heart failure, unspecified Status: Acute (3) Coronary artery disease: Code(s): I25.10 - Atherosclerotic heart disease of [place] coronary artery without angina pectoris Status: Acute (4) Bradycardia: Code(s): R00.1 - Bradycardia, unspecified Status: Acute (5) Hyperlipidemia: Code(s): E78.5 - Hyperlipidemia, unspecified Status: Acute (6) GERD (gastroesophageal reflux disease): Code(s): K21.9 - Gastro-esophageal reflux disease without esophagitis Status: Acute (7) GI bleed: Qualifiers: GI bleed type/associated pathology: melena Qualified Code(s): K92.1 - Melena Code(s): K92.2 - Gastrointestinal hemorrhage, unspecified Status: Acute (8) Chronic kidney disease: Qualifiers: Chronic kidney disease stage: stage 4 (GFR 15-29) Qualified Code(s): N18.4 - Chronic kidney disease, stage 4 (severe) Code(s): N18.9 - Chronic kidney disease, unspecified Status: Acute (9) Hematuria: Code(s): R31.9 - Hematuria, unspecified Status: Acute (10) Anemia: Code(s): D64.9 - Anemia, unspecified Status: Chronic (11) Pneumonia: Code(s): J18.9 - Pneumonia, unspecified organism Status: Acute (12) Obstructive sleep apnea: Code(s): G47.33 - Obstructive sleep apnea (adult) (pediatric) Status: Acute Plan Patient presented with bradycardiac initially admitted in the [facility] and was treated with dopamine drip and seen by the pipe inspector and had PPM placed, patient stats doing better compared when she arrived. patient clinical symptoms stable her daughter is present in the room gave upsdates. Subjective Date/time seen: 04/08/25 17:55 Interval history: Patient presented with bradycardiac initially admitted in the [facility] and was treated with dopamine drip and seen by the pipe inspector and had PPM placed, patient stats doing better compared when she arrived. patient clinical symptoms stable her daughter is present in the room gave updates. Review of Systems Review of Systems: - CONSTITUTIONAL: Denies weight loss, fe arminda and chills. - HEENT: Denies changes in vision and he aring - RESPIRATORY: Reports SOB and cough. - CV: Denies palpitations and CP. - GI: Denies abdominal pain, nausea, vom iting and diarrhea. - : Denies dysuria and urinary frequen cy. - MSK: Denies myalgia and joint pain. - SKIN: Denies rash and pruritus. - NEUROLOGICAL: Denies headache and sync ope. Reports some confusion see HPI - PSYCHIATRIC: Denies recent changes in mood. Denies anxiety and depression. Exam Narrative: Patient is comfortable, NAD HEENT: eyes are clear and none icteric LUNGS:CTA HEART: RR S1S2 ABD: BS+, Soft and nontender Lower extremities: no edema SKIN: nonjaundiced Neuro: grossly intact. Objective Data Vital Signs Vital Signs: Vital Signs - 24 hr 04/07/25 18:00 04/07/25 20:00 04/07/25 20:00 Temperature 36.6 C Pulse Rate 72 77 Respiratory Rate 14 Blood Pressure 106/57 L Pulse Oximetry 99 Oxygen Delivery Room Air 04/07/25 20:00 04/07/25 22:00 04/08/25 00:00 Temperature Pulse Rate 65 62 Respiratory Rate Blood Pressure Pulse Oximetry Oxygen Delivery Room Air 04/08/25 00:00 04/08/25 00:00 04/08/25 02:00 Temperature 36.4 C L Pulse Rate 62 61 63 Respiratory Rate 14 Blood Pressure 124/54 L Pulse Oximetry 98 Oxygen Delivery 04/08/25 04:00 04/08/25 04:00 04/08/25 04:00 Temperature 36.0 C L Pulse Rate 62 62 Respiratory Rate 16 Blood Pressure 138/58 L Pulse Oximetry 100 Oxygen Delivery Room Air 04/08/25 06:00 04/08/25 07:56 04/08/25 08:00 Temperature 36.4 C Pulse Rate 63 62 63 Respiratory Rate 15 Blood Pressure 128/65 Pulse Oximetry 99 Oxygen Delivery 04/08/25 10:00 04/08/25 11:45 04/08/25 12:00 Temperature 36.3 C L Pulse Rate 62 62 63 Respiratory Rate 17 Blood Pressure 136/77 Pulse Oximetry 99 Oxygen Delivery 04/08/25 13:14 04/08/25 13:33 04/08/25 14:00 Temperature Pulse Rate 62 Respiratory Rate Blood Pressure Pulse Oximetry Oxygen Delivery Room Air Room Air 04/08/25 16:00 Temperature 36.3 C L Pulse Rate 64 Respiratory Rate 15 Blood Pressure 128/61 Pulse Oximetry 100 Oxygen Delivery Intake/Output Intake/Output: Intake & Output 04/05/25 04/06/25 04/07/25 04/08/25 23:59 23:59 23:59 23:59 Intake Total 1439.7 1687.7 1335 480 Output Total 775 3175 3400 1000 Balance 664.7 -1487.3 -2065 -520 Meds/Results Medications: Active Medications Generic Name Dose Route Start Last Admin Trade Name Freq PRN Reason Stop Dose Admin Aspirin 81 mg 04/08/25 14:00 04/08/25 15:36 Aspirin 81 Mg Chewable Tablet PO 81 mg DAILY [facility] Administration Cefpodoxime Proxetil 200 mg 04/08/25 09:00 04/08/25 10:23 Cefpodoxime Proxetil 200 Mg Tablet PO 04/08/25 21:01 200 mg Q12HR MARIELLE Administration Cyclobenzaprine HCl 5 mg 04/08/25 13:50 Cyclobenzaprine Hcl 5 Mg Tablet PO TID PRN Muscle Spasm Docusate Sodium 100 mg 04/08/25 13:50 Docusate Sodium 100 Mg Capsule PO DAILY PRN Constipation Doxazosin Mesylate 8 mg 04/08/25 21:00 Doxazosin Mesylate 4 Mg Tablet PO HS [facility] Doxycycline Hyclate 100 mg 04/08/25 09:00 04/08/25 10:23 Doxycycline Hyclate 100 Mg Tablet PO 04/08/25 21:01 100 mg Q12HR MARIELLE Administration Epoetin Angus-epbx 10,000 units 04/09/25 09:00 Epoetin Angus-Epbx 10,000 Units/Ml Vial SUB-Q TUTHSA@09 [facility] Ferrous Sulfate 325 mg 04/08/25 14:00 04/08/25 15:36 Ferrous Sulfate 325 Mg Tablet PO 325 mg DAILY MARIELLE Administration Furosemide 40 mg 04/08/25 14:00 04/08/25 15:36 Furosemide 40 Mg Tablet PO 40 mg DAILY MARIELLE Administration Hydralazine HCl 50 mg 04/08/25 14:00 04/08/25 15:36 Hydralazine Hcl 50 Mg Tablet PO 50 mg Q8HR MARIELLE Administration Miscellaneous Information 1 each 04/09/25 00:01 Calcium Citrate Is Nonform; Can Pt Use From Home Or Pharmacy Has Oscal 500 Mg If Ok To Swi XX 05/09/25 00:00 CLARIFY MARIELLE Miscellaneous Information 1 each 04/09/25 00:01 Epogen Is Nonform; Can Pt Use From Home? Or Pharmacy Carries Retacrit. May Use Same Dose XX 05/09/25 00:00 CLARIFY MARIELLE Non-Formulary Medication 200 mg 04/09/25 09:00 Calcium Citrate PO 05/09/25 08:59 DAILY MARIELLE Non-Formulary Medication 2,000 unit 04/08/25 14:00 Epoetin Angus [Epogen] SUB-Q 05/08/25 13:59 .every 21 days MARIELLE Per P&T, 1 each 04/08/25 14:00 Nonformulary XX 04/09/25 13:59 Nutritional PRN PRN Supplements And PROTOCOL Vitamins Will Be Held Until Discharge : Per P&T, 1 each 04/08/25 14:03 Nonformulary XX 04/09/25 14:02 Nutritional PRN PRN Supplements And PROTOCOL Vitamins Will Be Held Until Discharge : Polyethylene Glycol 17 gm 04/08/25 13:50 Polyethylene Glycol 3350 17 Gm Powd.Pack PO DAILY PRN Constipation Rosuvastatin Calcium 10 mg 04/05/25 09:00 04/08/25 10:23 Rosuvastatin 10 Mg Tablet PO 10 mg QAM MARIELLE Administration Silver Sulfadiazine 1 applic 04/08/25 17:00 04/08/25 17:28 Silver Sulfadiazine 1% Cr 400 Gm Jar (*Bkc) TOPICAL Not Given BID MARIELLE Sodium Bicarbonate 650 mg 04/04/25 12:05 04/08/25 17:29 Sodium Bicarbonate Tab 650 Mg Tablet PO 650 mg BID MARIELLE Administration Sodium Chloride 10 ml 04/04/25 22:00 04/08/25 10:24 Central Line Flush IV PUSH 10 ml Q8HR MARIELLE Administration Sodium Chloride 10 ml 04/04/25 15:53 Central Line Flush IV PUSH PRN PRN with TPN bag changes Sodium Chloride 20 ml 04/04/25 15:53 04/05/25 05:44 Central Line Flush IV PUSH 20 ml PRN PRN Administration after blood draws Spironolactone 25 mg 04/08/25 14:00 04/08/25 15:36 Spironolactone 25 Mg Tablet PO 25 mg DAILY MARIELLE Administration Radiology Results: ITS Impressions Head CT 04/04/25 09:52 IMPRESSION: 1. Moderate nonspecific cerebral white matter disease, which likely represents chronic small vessel ischemic disease. Chest/Abdomen/Pelvis CT 04/04/25 12:03 IMPRESSION: CHEST- 1. Pulmonary edema and/or multifocal pneumonia. 2. Large pleural effusions. ABDOMEN/PELVIS- 1. No acute abnormality. Chest X-Ray 04/07/25 09:21 Impression: CHF. No pneumothorax Labs Labs: Laboratory Results - last 24 hr 04/08/25 04:52 WBC 5.6 RBC 2.50 L Hgb 7.9 L Hct 25.0 L MCV 100.0 MCH 31.6 MCHC 31.6 L RDW 20.2 H Plt Count 121 L MPV 9.4 Immature Gran % (Auto) 0.5 Neut % (Auto) 70.9 Lymph % (Auto) 10.6 L [place] % (Auto) 10.6 H Eos % (Auto) 6.7 H Baso % (Auto) 0.7 Lymph # (Auto) 0.59 L [place] # (Auto) 0.6 Eos # (Auto) 0.4 H Baso # (Auto) 0.0 Abs Immat Gran (auto) 0.03 Absolute Neuts (auto) 3.9 Absolute Nucleated RBC 0.050 H Nucleated RBC % 0.9 H Sodium 139 Potassium 3.8 Chloride 115 H Carbon Dioxide 18 L Anion Gap 6 BUN 92 H D Creatinine 1.86 H Estim Creat Clear Calc 34 Estimated GFR 26 L Glucose 81 Calcium 8.8 Phosphorus 4.7 H Magnesium 2.1 Total Bilirubin 0.4 AST 25 ALT 23 Alkaline Phosphatase 85 Total Protein 6.4 Albumin 3.0 L
[2025-04-08] MEDS: DOXAZOSIN MESYLATE 4 MG TABLET 8 MG PO (21:25)
[2025-04-09] VITALS (9 sets, daily range): BP systolic 121–141; BP diastolic 55–75; PULSE 60–64; RESP 14–17; TEMP 36.4–36.7; O2SAT 98–99
[2025-04-09 06:51] LABS: Hematocrit 25.2 % (37.0-47.0); Hemoglobin 7.9 g/dL (12.0-15.0); Immature Granulocyte Percent A 1.0 % (0-0.5); Lymphocytes Absolute Auto 0.56 K/mm3 (0.9-3.2); Mean Corpuscular HGB Conc 31.3 g/dl (32-36); Mean Corpuscular Hemoglobin 31.7 pg (26-34); Mean Corpuscular Volume 101.2 fl (80-100); Nucleated Red Blood Cells Absolute Auto 0.020 K/mm3 (0.0-0.012); Nucleated Red Blood Cells Perc 0.5 % (0.0-0.2); Platelet Count Result 112 k/mm3 (150-375); Red Blood Count 2.49 M/mm3 (4.2-5.4); White Blood Count 3.9 K/mm3 (4.5-10.0)
[2025-04-09 07:10] LABS: Alanine Aminotransferase 18 U/L (6-35); Albumin Level 3.1 g/dL (3.5-5.1); Alkaline Phosphatase 84 U/L (38-126); Anion Gap 6 mmol/L (4-12); Aspartate Amino Transferase 24 U/L (14-36); Bilirubin,Total 0.5 mg/dL (0.2-1.3); Blood Urea Nitrogen 76 mg/dL (7-17); Calcium 8.9 mg/dL (8.4-10.2); Carbon Dioxide 20 mmol/L (22-30); Chloride 113 mmol/L (98-107); Estimated CRCL calculation 39 ml/min; Estimated Glomerular Filt Rate 32; Glucose 80 mg/dL (65-110); Magnesium 1.9 mg/dL (1.6-2.3); Potassium 3.6 mmol/L (3.4-5.0); Sodium 139 mmol/L (137-145); Total Protein 6.5 g/dL (6.3-8.2)
[2025-04-09] MEDS: ASPIRIN 81 MG CHEWABLE TABLET PO (09:05)
[2025-04-09] MEDS: SPIRONOLACTONE 25 MG TABLET PO (09:05)
[2025-04-09] MEDS: FERROUS SULFATE 325 MG TABLET PO (09:05)
[2025-04-09] MEDS: ROSUVASTATIN 10 MG TABLET PO (09:05)
[2025-04-09] MEDS: SODIUM BICARBONATE TAB 650 MG TABLET PO ×2 (09:05→17:51)
[2025-04-09] MEDS: FUROSEMIDE 40 MG TABLET PO (09:05)
[2025-04-09] MEDS: EPOETIN ALFA-EPBX 10,000 UNITS/ML VIAL 10000 UNITS SUB-Q (09:27)
--- NOTE | 2025-04-09 10:11 | P.PNNP_ITS ---
Progress Note: A&P Assessment and Plan (1) Acute kidney injury: Code(s): N17.9 - Acute kidney failure, unspecified Status: Acute Assessment and Plan: * slow improvement noted (if not back to baseline) * as noted by admission labs * suspect due to several issues: * anemia * prerenal factors * diuretic use prior to admission * relative hypotension * CHF exacerbation * infection (pneumonia?) * bradycardia * other(?) * evaluation to date noted: * CT imaging without obstruction (horseshoe kidney noted) * urine electrolytes prerenal (by FeUrea) * urine eosinophils negative * moderate proteinuria (likely falsely elevated due to hematuria) * CPK normal * better urine output noted * follow trend of repeat labs and UOP (2) Stage 3b chronic kidney disease: Code(s): N18.32 - Chronic kidney disease, stage 3b Status: Chronic Assessment and Plan: * baseline creatinine average ~ 1.4 - 1.9mg/dl (from review of [facility] and [facility] records) * however she has fluctuated to extremes in association with acute hospitalizations * this causes her to bounce between CKD stage 3b and stage 4 * presumably due to hypertension, vascular disease (CAD + hyperlipidemia + CHF), and age-related disease (3) Bradycardia: Code(s): R00.1 - Bradycardia, unspecified Status: Acute Assessment and Plan: * telemetry with slow aFib * soft BP noted as well * known history of AFib (but off amiodarone prior to admission) * s/p dopamine for bradycardia and soft BP * BP medications on hold * Cardiology following * s/p PPM on 04/06 (4) GI bleed: Qualifiers: GI bleed type/associated pathology: melena Qualified Code(s): K92.1 - Melena Code(s): K92.2 - Gastrointestinal hemorrhage, unspecified Status: Acute Assessment and Plan: * suspected based on history of black tarry stools * admission hemoglobin noted at 6.0 * PRBC transfusion per protocol * s/p 3 units on 04/04 * anticoagulation on hold * GI recommendations noted -- no intervention at this time * on PPI * follow trend of H/H (5) Metabolic acidosis: Code(s): E87.20 - Acidosis, unspecified Status: Acute Assessment and Plan: * likely worsened by CELINA/ARF * s/p IV bicarb pushes while NPO * on oral sodium bicarbonate to compensate * wean as tolerated as kidney function improves (6) Congestive heart disease: Qualifiers: Heart failure type: diastolic Heart failure chronicity: acute Q ualified Code(s): I50.31 - Acute diastolic (congestive) heart failure Code(s): I50.9 - Heart failure, unspecified Status: Acute Assessment and Plan: * evidence of volume overload on admission: * pulmonary edema on the chest x-ray * large pleural effusion on CT scan * bilateral lower extremity edema * Echo (on 04/04) noted: * left ventricular systolic function is normal, estimated at 60 - 65% * left ventricular diastolic function is abnormal * mild mitral valve regurgitation * moderate tricuspid valve regurgitation * moderate pulmonary hypertension, estimated pulmonary arterial systolic pressure is 48 mmHg * mild pulmonic regurgitation * resumed on oral diuretic therapy * follow I/Os (7) Pneumonia: Code(s): J18.9 - Pneumonia, unspecified organism Status: Acute Assessment and Plan: * admission chest x-ray with bilateral infiltrates * suspect more likely to be pulmonary edema and associated congestive heart failure * admission CT chest with scattered foci bilateral airspace disease * afebrile and with normal WBC * on antibiotics * follow culture data (negative to date) (8) Anemia: Code(s): D64.9 - Anemia, unspecified Status: Chronic Assessment and Plan: * due to underlying CKD * likely worsened by #4 * dose with Epogen while hospitalized (was on Epogen at nursing facility as well) * follow trend of H/H (9) Essential hypertension: Code(s): I10 - Essential (primary) hypertension Status: Chronic Assessment and Plan: * known history * BP medications on hold * follow trend of hemodynamics (10) Altered mental status: Code(s): R41.82 - Altered mental status, unspecified Status: Acute Assessment and Plan: * noted on admission * possibly secondary to acute illness (CELINA, anemia, pneumonia, CHF, bradycardia...etc) * improvement noted if not resolved * follow mentation Will continue to follow. L Subjective Date/time seen: 04/09/25 10:11 Interval history: Follow-up for acute kidney injury/acute renal failure on chronic kidney disease. Continues to do quite well; renal function/creatinine/BUN continue to slowly improve with current therapy/interventions; no apparent distress noted at the time of my visit; no issues/events overnight or earlier this morning. Exam 2 Narrative: General: elderly female in NAD Heart: bradycardic but normal S1 and S2; no rub Lungs: decreased breath sounds noted Abdomen: soft, nontender, nondistended, positive bowel sounds Extremities: no cyanosis or clubbing; trace edema Skin: warm and dry Objective Data Vital Signs Vital Signs: Vital Signs Temp Pulse Resp BP Pulse Ox O2 Del Method 04/09/25 08:00 64 04/09/25 06:15 97.7 F 60 16 121/55 L 99 04/09/25 04:00 63 04/09/25 00:00 98.0 F 64 17 138/75 98 04/08/25 20:00 Room Air 04/08/25 19:45 97.5 F L 63 16 149/63 H 100 Intake/Output Intake/Output: Intake & Output 04/06/25 04/07/25 04/08/25 04/09/25 23:59 23:59 23:59 23:59 Intake Total 1687.7 1335 2060 910 Output Total 3175 3400 2350 2250 Balance -1487.3 -2065 -290 -1340 Meds/Results Medications: Active Medications Generic Name Dose Route Start Last Admin Trade Name Freq PRN Reason Stop Dose Admin Cyclobenzaprine HCl 5 mg 04/08/25 13:50 Cyclobenzaprine Hcl 5 Mg Tablet PO TID PRN Muscle Spasm Docusate Sodium 100 mg 04/08/25 13:50 Docusate Sodium 100 Mg Capsule PO DAILY PRN Constipation Doxazosin Mesylate 8 mg 04/08/25 21:00 04/08/25 21:25 Doxazosin Mesylate 4 Mg Tablet PO 8 mg HS MARIELLE Administration Epoetin Angus-epbx 10,000 units 04/09/25 09:00 04/09/25 09:27 Epoetin Angus-Epbx 10,000 Units/Ml Vial SUB-Q 10,000 units TUTA@09 MARIELLE Administration Ferrous Sulfate 325 mg 04/08/25 14:00 04/09/25 09:05 Ferrous Sulfate 325 Mg Tablet PO 325 mg DAILY MARIELLE Administration Furosemide 40 mg 04/08/25 14:00 04/09/25 09:05 Furosemide 40 Mg Tablet PO 40 mg DAILY MARIELLE Administration Hydralazine HCl 50 mg 04/08/25 14:00 04/09/25 14:20 Hydralazine Hcl 50 Mg Tablet PO 50 mg Q8HR MAIRELLE Administration Miscellaneous Information 1 each 04/09/25 00:01 04/08/25 21:36 Calcium Citrate Is Nonform; Can Pt Use From Home Or Pharmacy Has Oscal 500 Mg If Ok To Swi XX 05/09/25 00:00 Not Given CLARIFY MARIELLE Miscellaneous Information 1 each 04/09/25 00:01 04/08/25 21:36 Epogen Is Nonform; Can Pt Use From Home? Or Pharmacy Carries Retacrit. May Use Same Dose XX 05/09/25 00:00 Not Given CLARIFY MARIELLE Non-Formulary Medication 200 mg 04/09/25 09:00 Calcium Citrate PO 05/09/25 08:59 DAILY MARIELLE Non-Formulary Medication 2,000 unit 04/08/25 14:00 Epoetin Angus [Epogen] SUB-Q 05/08/25 13:59 .every 21 days MARIELLE Polyethylene Glycol 17 gm 04/08/25 13:50 Polyethylene Glycol 3350 17 Gm Powd.Pack PO DAILY PRN Constipation Rosuvastatin Calcium 10 mg 04/05/25 09:00 04/09/25 09:05 Rosuvastatin 10 Mg Tablet PO 10 mg QAM MARIELLE Administration Silver Sulfadiazine 1 applic 04/08/25 17:00 04/08/25 17:28 Silver Sulfadiazine 1% Cr 400 Gm Jar (*Bkc) TOPICAL Not Given BID MARIELLE Sodium Bicarbonate 650 mg 04/04/25 12:05 04/09/25 17:51 Sodium Bicarbonate Tab 650 Mg Tablet PO 650 mg BID MARIELLE Administration Sodium Chloride 10 ml 04/04/25 22:00 04/09/25 17:56 Central Line Flush IV PUSH 10 ml Q8HR MARIELLE Administration Sodium Chloride 10 ml 04/04/25 15:53 Central Line Flush IV PUSH PRN PRN with TPN bag changes Sodium Chloride 20 ml 04/04/25 15:53 04/05/25 05:44 Central Line Flush IV PUSH 20 ml PRN PRN Administration after blood draws Spironolactone 25 mg 04/08/25 14:00 04/09/25 09:05 Spironolactone 25 Mg Tablet PO 25 mg DAILY MARIELLE Administration Radiology Results: ITS Impressions Head CT 04/04/25 09:52 IMPRESSION: 1. Moderate nonspecific cerebral white matter disease, which likely represents chronic small vessel ischemic disease. Chest/Abdomen/Pelvis CT 04/04/25 12:03 IMPRESSION: CHEST- 1. Pulmonary edema and/or multifocal pneumonia. 2. Large pleural effusions. ABDOMEN/PELVIS- 1. No acute abnormality. Chest X-Ray 04/07/25 09:21 Impression: CHF. No pneumothorax Labs Labs: Laboratory Tests 04/09/25 06:34 04/09/25 06:34 Calcium 8.9 Phosphorus 3.9 Magnesium 1.9 Total Bilirubin 0.5 AST 24 ALT 18 Alkaline Phosphatase 84 Total Protein 6.5 Albumin 3.1 L
--- NOTE | 2025-04-09 10:11 | PM.PNNEP ---
Progress Note: A&P Assessment and Plan (1) Acute kidney injury: Code(s): N17.9 - Acute kidney failure, unspecified Status: Acute Assessment and Plan: slow improvement noted (if not back to baseline) as noted by admission labs suspect due to several issues: anemia prerenal factors diuretic use prior to admission relative hypotension CHF exacerbation infection (pneumonia?) bradycardia other(?) evaluation to date noted: CT imaging without obstruction (horseshoe kidney noted) urine electrolytes prerenal (by FeUrea) urine eosinophils negative moderate proteinuria (likely falsely elevated due to hematuria) CPK normal better urine output noted follow trend of repeat labs and UOP (2) Stage 3b chronic kidney disease: Code(s): N18.32 - Chronic kidney disease, stage 3b Status: Chronic Assessment and Plan: baseline creatinine average ~ 1.4 - 1.9mg/dl (from review of [facility] and [facility] records) however she has fluctuated to extremes in association with acute hospitalizations this causes her to bounce between CKD stage 3b and stage 4 presumably due to hypertension, vascular disease (CAD + hyperlipidemia + CHF), and age-related disease (3) Bradycardia: Code(s): R00.1 - Bradycardia, unspecified Status: Acute Assessment and Plan: telemetry with slow aFib soft BP noted as well known history of AFib (but off amiodarone prior to admission) s/p dopamine for bradycardia and soft BP BP medications on hold Cardiology following s/p PPM on 04/06 (4) GI bleed: Qualifiers: GI bleed type/associated pathology: melena Qualified Code(s): K92.1 - Melena Code(s): K92.2 - Gastrointestinal hemorrhage, unspecified Status: Acute Assessment and Plan: suspected based on history of black tarry stools admission hemoglobin noted at 6.0 PRBC transfusion per protocol s/p 3 units on 04/04 anticoagulation on hold GI recommendations noted -- no intervention at this time on PPI follow trend of H/H (5) Metabolic acidosis: Code(s): E87.20 - Acidosis, unspecified Status: Acute Assessment and Plan: likely worsened by CELINA/ARF s/p IV bicarb pushes while NPO on oral sodium bicarbonate to compensate wean as tolerated as kidney function improves (6) Congestive heart disease: Qualifiers: Heart failure type: diastolic Heart failure chronicity: acute Qualified Code(s): I50.31 - Acute diastolic (congestive) heart failure Code(s): I50.9 - Heart failure, unspecified Status: Acute Assessment and Plan: evidence of volume overload on admission: pulmonary edema on the chest x-ray large pleural effusion on CT scan bilateral lower extremity edema Echo (on 04/04) noted: left ventricular systolic function is normal, estimated at 60 - 65% left ventricular diastolic function is abnormal mild mitral valve regurgitation moderate tricuspid valve regurgitation moderate pulmonary hypertension, estimated pulmonary arterial systolic pressure is 48 mmHg mild pulmonic regurgitation resumed on oral diuretic therapy follow I/Os (7) Pneumonia: Code(s): J18.9 - Pneumonia, unspecified organism Status: Acute Assessment and Plan: admission chest x-ray with bilateral infiltrates suspect more likely to be pulmonary edema and associated congestive heart failure admission CT chest with scattered foci bilateral airspace disease afebrile and with normal WBC on antibiotics follow culture data (negative to date) (8) Anemia: Code(s): D64.9 - Anemia, unspecified Status: Chronic Assessment and Plan: due to underlying CKD likely worsened by #4 dose with Epogen while hospitalized (was on Epogen at nursing facility as well) follow trend of H/H (9) Essential hypertension: Code(s): I10 - Essential (primary) hypertension Status: Chronic Assessment and Plan: known history BP medications on hold follow trend of hemodynamics (10) Altered mental status: Code(s): R41.82 - Altered mental status, unspecified Status: Acute Assessment and Plan: noted on admission possibly secondary to acute illness (CELINA, anemia, pneumonia, CHF, bradycardia...etc) improvement noted if not resolved follow mentation Will continue to follow. Subjective Date/time seen: 04/09/25 10:11 Interval history: Follow-up for acute kidney injury/acute renal failure on chronic kidney disease. Continues to do quite well; renal function/creatinine/BUN continue to slowly improve with current therapy/interventions; no apparent distress noted at the time of my visit; no issues/events overnight or earlier this morning. Exam Narrative: General: elderly female in NAD Heart: bradycardic but normal S1 and S2; no rub Lungs: decreased breath sounds noted Abdomen: soft, nontender, nondistended, positive bowel sounds Extremities: no cyanosis or clubbing; trace edema Skin: warm and dry Objective Data Vital Signs Vital Signs: Vital Signs Temp Pulse Resp BP Pulse Ox O2 Del Method 04/09/25 08:00 64 04/09/25 06:15 97.7 F 60 16 121/55 L 99 04/09/25 04:00 63 04/09/25 00:00 98.0 F 64 17 138/75 98 04/08/25 20:00 Room Air 04/08/25 19:45 97.5 F L 63 16 149/63 H 100 Intake/Output Intake/Output: Intake & Output 04/06/25 04/07/25 04/08/25 04/09/25 23:59 23:59 23:59 23:59 Intake Total 1687.7 1335 2060 910 Output Total 3175 3400 2350 2250 Balance -1487.3 -2065 -290 -1340 Meds/Results Medications: Active Medications Generic Name Dose Route Start Last Admin Trade Name Freq PRN Reason Stop Dose Admin Cyclobenzaprine HCl 5 mg 04/08/25 13:50 Cyclobenzaprine Hcl 5 Mg Tablet PO TID PRN Muscle Spasm Docusate Sodium 100 mg 04/08/25 13:50 Docusate Sodium 100 Mg Capsule PO DAILY PRN Constipation Doxazosin Mesylate 8 mg 04/08/25 21:00 04/08/25 21:25 Doxazosin Mesylate 4 Mg Tablet PO 8 mg HS MARIELLE Administration Epoetin Angus-epbx 10,000 units 04/09/25 09:00 04/09/25 09:27 Epoetin Angus-Epbx 10,000 Units/Ml Vial SUB-Q 10,000 units TUTHSA@09 MARIELLE Administration Ferrous Sulfate 325 mg 04/08/25 14:00 04/09/25 09:05 Ferrous Sulfate 325 Mg Tablet PO 325 mg DAILY MARIELLE Administration Furosemide 40 mg 04/08/25 14:00 04/09/25 09:05 Furosemide 40 Mg Tablet PO 40 mg DAILY MARIELLE Administration Hydralazine HCl 50 mg 04/08/25 14:00 04/09/25 14:20 Hydralazine Hcl 50 Mg Tablet PO 50 mg Q8HR MARIELLE Administration Miscellaneous Information 1 each 04/09/25 00:01 04/08/25 21:36 Calcium Citrate Is Nonform; Can Pt Use From Home Or Pharmacy Has Oscal 500 Mg If Ok To Swi XX 05/09/25 00:00 Not Given CLARIFY [facility] Miscellaneous Information 1 each 04/09/25 00:01 04/08/25 21:36 Epogen Is Nonform; Can Pt Use From Home? Or Pharmacy Carries Retacrit. May Use Same Dose XX 05/09/25 00:00 Not Given CLARIFY [facility] Non-Formulary Medication 200 mg 04/09/25 09:00 Calcium Citrate PO 05/09/25 08:59 DAILY MARIELLE Non-Formulary Medication 2,000 unit 04/08/25 14:00 Epoetin Angus [Epogen] SUB-Q 05/08/25 13:59 .every 21 days MARIELLE Polyethylene Glycol 17 gm 04/08/25 13:50 Polyethylene Glycol 3350 17 Gm Powd.Pack PO DAILY PRN Constipation Rosuvastatin Calcium 10 mg 04/05/25 09:00 04/09/25 09:05 Rosuvastatin 10 Mg Tablet PO 10 mg QAM MARIELLE Administration Silver Sulfadiazine 1 applic 04/08/25 17:00 04/08/25 17:28 Silver Sulfadiazine 1% Cr 400 Gm Jar (*Bkc) TOPICAL Not Given BID MARIELLE Sodium Bicarbonate 650 mg 04/04/25 12:05 04/09/25 17:51 Sodium Bicarbonate Tab 650 Mg Tablet PO 650 mg BID MARIELLE Administration Sodium Chloride 10 ml 04/04/25 22:00 04/09/25 17:56 Central Line Flush IV PUSH 10 ml Q8HR MARIELLE Administration Sodium Chloride 10 ml 04/04/25 15:53 Central Line Flush IV PUSH PRN PRN with TPN bag changes Sodium Chloride 20 ml 04/04/25 15:53 04/05/25 05:44 Central Line Flush IV PUSH 20 ml PRN PRN Administration after blood draws Spironolactone 25 mg 04/08/25 14:00 04/09/25 09:05 Spironolactone 25 Mg Tablet PO 25 mg DAILY MARIELLE Administration Radiology Results: ITS Impressions Head CT 04/04/25 09:52 IMPRESSION: 1. Moderate nonspecific cerebral white matter disease, which likely represents chronic small vessel ischemic disease. Chest/Abdomen/Pelvis CT 04/04/25 12:03 IMPRESSION: CHEST- 1. Pulmonary edema and/or multifocal pneumonia. 2. Large pleural effusions. ABDOMEN/PELVIS- 1. No acute abnormality. Chest X-Ray 04/07/25 09:21 Impression: CHF. No pneumothorax Labs Labs: Laboratory Tests 04/09/25 06:34 04/09/25 06:34 Calcium 8.9 Phosphorus 3.9 Magnesium 1.9 Total Bilirubin 0.5 AST 24 ALT 18 Alkaline Phosphatase 84 Total Protein 6.5 Albumin 3.1 L
--- NOTE | 2025-04-09 12:31 | P.PNIM_ITS ---
Assessment and Plan Assessment and Plan (1) Essential hypertension: Code(s): I10 - Essential (primary) hypertension Status: Chronic (2) Congestive heart disease: Qualifiers: Heart failure type: diastolic Heart failure chronicity: acute Qualified Code(s): I50.31 - Acute diastolic (congestive) heart failure Code(s): I50.9 - Heart failure, unspecified Status: Acute (3) Coronary artery disease: Code(s): I25.10 - Atherosclerotic heart disease of [place]al[place] coronary artery without angina pectoris Status: Acute (4) Bradycardia: Code(s): R00.1 - Bradycardia, unspecified Status: Acute (5) Hyperlipidemia: Code(s): E78.5 - Hyperlipidemia, unspecified Status: Acute (6) GERD (gastroesophageal reflux disease): Code(s): K21.9 - Gastro-esophageal reflux disease without esophagitis Status: Acute (7) GI bleed: Qualifiers: GI bleed type/associated pathology: melena Qualified Code(s): K92.1 - Melena Code(s): K92.2 - Gastrointestinal hemorrhage, unspecified Status: Acute (8) Chronic kidney disease: Qualifiers: Chronic kidney disease stage: stage 4 (GFR 15-29) Qualified Code(s): N18.4 - Chronic kidney disease, stage 4 (severe) Code(s): N18.9 - Chronic kidney disease, unspecified Status: Acute (9) Hematuria: Code(s): R31.9 - Hematuria, unspecified Status: Acute (10) Anemia: Code(s): D64.9 - Anemia, unspecified Status: Chronic (11) Pneumonia: Code(s): J18.9 - Pneumonia, unspecified organism Status: Acute (12) Obstructive sleep apnea: Code(s): G47.33 - Obstructive sleep apnea (adult) (pediatric) Status: Acute Plan atient presented with bradycardiac initially admitted in the [facility] and was treated with dopamine drip which is weaned off and was seen by the marketing sales supervisor and had PPM placed on 04/06 patient stats doing better compared when she arrived. patient clinical symptoms stable her daughter was present in the room gave updates on 04/08. patient with history of A. Fib was taking Eliquis which is on hold for the procedure and there is concernl for GI bleed. Eliquis is on hold, will consult GI for their recommendation. Subjective Date/time seen: 04/09/25 12:31 Interval history: Patient presented with bradycardiac initially admitted in the [facility] and was treated with dopamine drip which is weaned off and was seen by the marketing sales supervisor and had PPM placed on 04/06 patient stats doing better compared when she arrived. patient clinical symptoms stable her daughter was present in the room gave updates on 04/08. patient with history of A. Fib was taking Eliquis which is on hold for the procedure and there is concernl for GI bleed. Eliquis is on hold, will consult GI for their recommendation. Review of Systems Review of Systems: - CONSTITUTIONAL: Denies weight loss, fe arminda and chills. - HEENT: Denies changes in vision and he aring - RESPIRATORY: Reports SOB and cough. - CV: Denies palpitations and CP. - GI: Denies abdominal pain, nausea, vom iting and diarrhea. - : Denies dysuria and urinary frequen cy. - MSK: Denies myalgia and joint pain. - SKIN: Denies rash and pruritus. - NEUROLOGICAL: Denies headache and sync ope. Reports some confusion see HPI - PSYCHIATRIC: Denies recent changes in mood. Denies anxiety and depression. All systems reviewed & are unremarkable except as noted in HPI and below (HPI) Exam Narrative: Patient is comfortable, NAD HEENT: eyes are clear and none icteric LUNGS:CTA HEART: RR S1S2 ABD: BS+, Soft and nontender Lower extremities: no edema SKIN: nonjaundiced Neuro: grossly intact. Objective Data Vital Signs Vital Signs: Vital Signs - 24 hr 04/08/25 13:14 04/08/25 13:33 04/08/25 14:00 Temperature Pulse Rate 62 Respiratory Rate Blood Pressure Pulse Oximetry Oxygen Delivery Room Air Room Air 04/08/25 16:00 04/08/25 19:45 04/08/25 20:00 Temperature 36.3 C L 36.4 C L Pulse Rate 64 63 Respiratory Rate 15 16 Blood Pressure 128/61 149/63 H Pulse Oximetry 100 100 Oxygen Delivery Room Air 04/09/25 00:00 04/09/25 04:00 04/09/25 06:15 Temperature 36.7 C 36.5 C Pulse Rate 64 63 60 Respiratory Rate 17 16 Blood Pressure 138/75 121/55 L Pulse Oximetry 98 99 Oxygen Delivery Intake/Output Intake/Output: Intake & Output 04/06/25 04/07/25 04/08/25 04/09/25 23:59 23:59 23:59 23:59 Intake Total 1687.7 1335 2060 470 Output Total 3175 3400 2350 1350 Balance -1487.3 -2065 -290 -880 Meds/Results Medications: Active Medications Generic Name Dose Route Start Last Admin Trade Name Freq PRN Reason Stop Dose Admin Apixaban 5 mg 04/10/25 09:00 Apixaban 5 Mg Tablet PO Q12H [facility] Aspirin 81 mg 04/08/25 14:00 04/09/25 09:05 Aspirin 81 Mg Chewable Tablet PO 81 mg DAILY [facility] Administration Cyclobenzaprine HCl 5 mg 04/08/25 13:50 Cyclobenzaprine Hcl 5 Mg Tablet PO TID PRN Muscle Spasm Docusate Sodium 100 mg 04/08/25 13:50 Docusate Sodium 100 Mg Capsule PO DAILY PRN Constipation Doxazosin Mesylate 8 mg 04/08/25 21:00 04/08/25 21:25 Doxazosin Mesylate 4 Mg Tablet PO 8 mg HS [facility] Administration Epoetin Angus-epbx 10,000 units 04/09/25 09:00 04/09/25 09:27 Epoetin Angus-Epbx 10,000 Units/Ml Vial SUB-Q 10,000 units TUTHSA@09 [facility] Administration Ferrous Sulfate 325 mg 04/08/25 14:00 04/09/25 09:05 Ferrous Sulfate 325 Mg Tablet PO 325 mg DAILY [facility] Administration Furosemide 40 mg 04/08/25 14:00 04/09/25 09:05 Furosemide 40 Mg Tablet PO 40 mg DAILY [facility] Administration Hydralazine HCl 50 mg 04/08/25 14:00 04/09/25 06:10 Hydralazine Hcl 50 Mg Tablet PO 50 mg Q8HR [facility] Administration Miscellaneous Information 1 each 04/09/25 00:01 04/08/25 21:36 Calcium Citrate Is Nonform; Can Pt Use From Home Or Pharmacy Has Oscal 500 Mg If Ok To Swi XX 05/09/25 00:00 Not Given CLARIFY [facility] Miscellaneous Information 1 each 04/09/25 00:01 04/08/25 21:36 Epogen Is Nonform; Can Pt Use From Home? Or Pharmacy Carries Retacrit. May Use Same Dose XX 05/09/25 00:00 Not Given CLARIFY [facility] Non-Formulary Medication 200 mg 04/09/25 09:00 Calcium Citrate PO 05/09/25 08:59 DAILY [facility] Non-Formulary Medication 2,000 unit 04/08/25 14:00 Epoetin Angus [Epogen] SUB-Q 05/08/25 13:59 .every 21 days [facility] Per P&T, 1 each 04/08/25 14:00 Nonformulary XX 04/09/25 13:59 Nutritional PRN PRN Supplements And PROTOCOL Vitamins Will Be Held Until Discharge : Per P&T, 1 each 04/08/25 14:03 Nonformulary XX 04/09/25 14:02 Nutritional PRN PRN Supplements And PROTOCOL Vitamins Will Be Held Until Discharge : Polyethylene Glycol 17 gm 04/08/25 13:50 Polyethylene Glycol 3350 17 Gm Powd.Pack PO DAILY PRN Constipation Rosuvastatin Calcium 10 mg 04/05/25 09:00 04/09/25 09:05 Rosuvastatin 10 Mg Tablet PO 10 mg QAM [facility] Administration Silver Sulfadiazine 1 applic 04/08/25 17:00 04/08/25 17:28 Silver Sulfadiazine 1% Cr 400 Gm Jar (*Bkc) TOPICAL Not Given BID [facility] Sodium Bicarbonate 650 mg 04/04/25 12:05 04/09/25 09:05 Sodium Bicarbonate Tab 650 Mg Tablet PO 650 mg BID [facility] Administration Sodium Chloride 10 ml 04/04/25 22:00 04/08/25 21:36 Central Line Flush IV PUSH 10 ml Q8HR [facility] Administration Sodium Chloride 10 ml 04/04/25 15:53 Central Line Flush IV PUSH PRN PRN with TPN bag changes Sodium Chloride 20 ml 04/04/25 15:53 04/05/25 05:44 Central Line Flush IV PUSH 20 ml PRN PRN Administration after blood draws Spironolactone 25 mg 04/08/25 14:00 04/09/25 09:05 Spironolactone 25 Mg Tablet PO 25 mg DAILY [facility] Administration Radiology Results: ITS Impressions Head CT 04/04/25 09:52 IMPRESSION: 1. Moderate nonspecific cerebral white matter disease, which likely represents chronic small vessel ischemic disease. Chest/Abdomen/Pelvis CT 04/04/25 12:03 IMPRESSION: CHEST- 1. Pulmonary edema and/or multifocal pneumonia. 2. Large pleural effusions. ABDOMEN/PELVIS- 1. No acute abnormality. Chest X-Ray 04/07/25 09:21 Impression: CHF. No pneumothorax Labs Labs: Laboratory Results - last 24 hr 04/09/25 06:34 WBC 3.9 L RBC 2.49 L Hgb 7.9 L Hct 25.2 L MCV 101.2 H MCH 31.7 MCHC 31.3 L RDW 20.7 H Plt Count 112 L MPV 9.8 Immature Gran % (Auto) 1.0 H Neut % (Auto) 60.6 Lymph % (Auto) 14.4 L [place] % (Auto) 12.9 H Eos % (Auto) 9.8 H Baso % (Auto) 1.3 H Lymph # (Auto) 0.56 L [place] # (Auto) 0.5 Eos # (Auto) 0.4 H Baso # (Auto) 0.1 Abs Immat Gran (auto) 0.04 H Absolute Neuts (auto) 2.4 Absolute Nucleated RBC 0.020 H Nucleated RBC % 0.5 H Sodium 139 Potassium 3.6 Chloride 113 H Carbon Dioxide 20 L Anion Gap 6 BUN 76 H D Creatinine 1.57 H Estim Creat Clear Calc 39 Estimated GFR 32 L Glucose 80 Calcium 8.9 Phosphorus 3.9 Magnesium 1.9 Total Bilirubin 0.5 AST 24 ALT 18 Alkaline Phosphatase 84 Total Protein 6.5 Albumin 3.1 L
--- NOTE | 2025-04-09 12:48 | PM.PNCARD ---
Progress Note: A&P Assessment and Plan (1) Bradycardia: Code(s): R00.1 - Bradycardia, unspecified Status: Acute Assessment and Plan: Atrial fibrillation slow ventricular response status post permanent pacemaker Hypertension controlled Chronic diastolic heart failure Currently compensated CKD stage 3 Plan Resume oral anticoagulation tomorrow Eliquis 5 mg b.i.d. DC aspirin Continue Lasix 40 mg daily Can restart home amlodipine to replace hydralazine Follow-up in the cardiology clinic Subjective Date/time seen: 04/09/25 12:48 Interval history: Follow-up following pacemaker insertion No acute events over night Telemetry paced rhythm Review of Systems Review of Systems: All systems reviewed & are unremarkable except as noted in HPI and below Exam Const: General: comfortable, no acute distress, alert and awake Orientation/consciousness: patient oriented x3 HENMT: Head: normal to inspection Eyes: General: appearance normal, both eyes and all related structures Pupils: Equal, round and reactive pupils present Neck: Neck: normal visual inspection, supple and no JVD Carotids: normal carotid upstroke Resp: Effort & Inspection: normal respiratory effort Auscultation: rales Cardio: Rate: bradycardic Rhythm: abnormal rhythm irregularly irregular Heart sounds: S1 normal heart sound present, S2 normal heart sound present and no murmurs GI: Auscultation: normal bowel sounds Skin: General skin exam: normal color Neuro: General: patient oriented x3 Cranial nerves: Yes Equal, round and reactive pupils present Extrem: General: abnormal to inspection Other: bilateral lower extremity lymphedema. Knee high MANDEEP wraps in place Psych: Appearance: grossly normal Mental Status: mental status grossly normal Objective Data Vital Signs Vital Signs: Vital Signs - 24 hr 04/08/25 13:14 04/08/25 13:33 04/08/25 14:00 Temperature Pulse Rate 62 Respiratory Rate Blood Pressure Pulse Oximetry Oxygen Delivery Room Air Room Air 04/08/25 16:00 04/08/25 19:45 04/08/25 20:00 Temperature 36.3 C L 36.4 C L Pulse Rate 64 63 Respiratory Rate 15 16 Blood Pressure 128/61 149/63 H Pulse Oximetry 100 100 Oxygen Delivery Room Air 04/09/25 00:00 04/09/25 04:00 04/09/25 06:15 Temperature 36.7 C 36.5 C Pulse Rate 64 63 60 Respiratory Rate 17 16 Blood Pressure 138/75 121/55 L Pulse Oximetry 98 99 Oxygen Delivery Intake/Output Intake/Output: Intake & Output 04/06/25 04/07/25 04/08/25 04/09/25 23:59 23:59 23:59 23:59 Intake Total 1687.7 1335 2060 470 Output Total 3175 3400 2350 1350 Balance -1487.3 -2065 -290 -880 Meds/Results Medications: Active Medications Generic Name Dose Route Start Last Admin Trade Name Freq PRN Reason Stop Dose Admin Aspirin 81 mg 04/08/25 14:00 04/09/25 09:05 Aspirin 81 Mg Chewable Tablet PO 81 mg DAILY [facility] Administration Cyclobenzaprine HCl 5 mg 04/08/25 13:50 Cyclobenzaprine Hcl 5 Mg Tablet PO TID PRN Muscle Spasm Docusate Sodium 100 mg 04/08/25 13:50 Docusate Sodium 100 Mg Capsule PO DAILY PRN Constipation Doxazosin Mesylate 8 mg 04/08/25 21:00 04/08/25 21:25 Doxazosin Mesylate 4 Mg Tablet PO 8 mg HS [facility] Administration Epoetin Angus-epbx 10,000 units 04/09/25 09:00 04/09/25 09:27 Epoetin Angus-Epbx 10,000 Units/Ml Vial SUB-Q 10,000 units TUTHSA@09 [facility] Administration Ferrous Sulfate 325 mg 04/08/25 14:00 04/09/25 09:05 Ferrous Sulfate 325 Mg Tablet PO 325 mg DAILY [facility] Administration Furosemide 40 mg 04/08/25 14:00 04/09/25 09:05 Furosemide 40 Mg Tablet PO 40 mg DAILY [facility] Administration Hydralazine HCl 50 mg 04/08/25 14:00 04/09/25 06:10 Hydralazine Hcl 50 Mg Tablet PO 50 mg Q8HR [facility] Administration Miscellaneous Information 1 each 04/09/25 00:01 04/08/25 21:36 Calcium Citrate Is Nonform; Can Pt Use From Home Or Pharmacy Has Oscal 500 Mg If Ok To Swi XX 05/09/25 00:00 Not Given CLARIFY [facility] Miscellaneous Information 1 each 04/09/25 00:01 04/08/25 21:36 Epogen Is Nonform; Can Pt Use From Home? Or Pharmacy Carries Retacrit. May Use Same Dose XX 05/09/25 00:00 Not Given CLARIFY [facility] Non-Formulary Medication 200 mg 04/09/25 09:00 Calcium Citrate PO 05/09/25 08:59 DAILY [facility] Non-Formulary Medication 2,000 unit 04/08/25 14:00 Epoetin Angus [Epogen] SUB-Q 05/08/25 13:59 .every 21 days [facility] Per P&T, 1 each 04/08/25 14:00 Nonformulary XX 04/09/25 13:59 Nutritional PRN PRN Supplements And PROTOCOL Vitamins Will Be Held Until Discharge : Per P&T, 1 each 04/08/25 14:03 Nonformulary XX 04/09/25 14:02 Nutritional PRN PRN Supplements And PROTOCOL Vitamins Will Be Held Until Discharge : Polyethylene Glycol 17 gm 04/08/25 13:50 Polyethylene Glycol 3350 17 Gm Powd.Pack PO DAILY PRN Constipation Rosuvastatin Calcium 10 mg 04/05/25 09:00 04/09/25 09:05 Rosuvastatin 10 Mg Tablet PO 10 mg QAM [facility] Administration Silver Sulfadiazine 1 applic 04/08/25 17:00 04/08/25 17:28 Silver Sulfadiazine 1% Cr 400 Gm Jar (*Bkc) TOPICAL Not Given BID [facility] Sodium Bicarbonate 650 mg 04/04/25 12:05 04/09/25 09:05 Sodium Bicarbonate Tab 650 Mg Tablet PO 650 mg BID [facility] Administration Sodium Chloride 10 ml 04/04/25 22:00 04/08/25 21:36 Central Line Flush IV PUSH 10 ml Q8HR [facility] Administration Sodium Chloride 10 ml 04/04/25 15:53 Central Line Flush IV PUSH PRN PRN with TPN bag changes Sodium Chloride 20 ml 04/04/25 15:53 04/05/25 05:44 Central Line Flush IV PUSH 20 ml PRN PRN Administration after blood draws Spironolactone 25 mg 04/08/25 14:00 04/09/25 09:05 Spironolactone 25 Mg Tablet PO 25 mg DAILY [facility] Administration Radiology Results: ITS Impressions Head CT 04/04/25 09:52 IMPRESSION: 1. Moderate nonspecific cerebral white matter disease, which likely represents chronic small vessel ischemic disease. Chest/Abdomen/Pelvis CT 04/04/25 12:03 IMPRESSION: CHEST- 1. Pulmonary edema and/or multifocal pneumonia. 2. Large pleural effusions. ABDOMEN/PELVIS- 1. No acute abnormality. Chest X-Ray 04/07/25 09:21 Impression: CHF. No pneumothorax Labs Labs: Laboratory Results - last 24 hr 04/09/25 06:34 WBC 3.9 L RBC 2.49 L Hgb 7.9 L Hct 25.2 L MCV 101.2 H MCH 31.7 MCHC 31.3 L RDW 20.7 H Plt Count 112 L MPV 9.8 Immature Gran % (Auto) 1.0 H Neut % (Auto) 60.6 Lymph % (Auto) 14.4 L [place] % (Auto) 12.9 H Eos % (Auto) 9.8 H Baso % (Auto) 1.3 H Lymph # (Auto) 0.56 L [place] # (Auto) 0.5 Eos # (Auto) 0.4 H Baso # (Auto) 0.1 Abs Immat Gran (auto) 0.04 H Absolute Neuts (auto) 2.4 Absolute Nucleated RBC 0.020 H Nucleated RBC % 0.5 H Sodium 139 Potassium 3.6 Chloride 113 H Carbon Dioxide 20 L Anion Gap 6 BUN 76 H D Creatinine 1.57 H Estim Creat Clear Calc 39 Estimated GFR 32 L Glucose 80 Calcium 8.9 Phosphorus 3.9 Magnesium 1.9 Total Bilirubin 0.5 AST 24 ALT 18 Alkaline Phosphatase 84 Total Protein 6.5 Albumin 3.1 L
[2025-04-09] MEDS: CENTRAL LINE FLUSH 10 ML IV PUSH ×2 (17:56→21:00)
[2025-04-09] MEDS: DOXAZOSIN MESYLATE 4 MG TABLET 8 MG PO (20:55)
[2025-04-10] VITALS (7 sets, daily range): BP systolic 131–147; BP diastolic 59–71; PULSE 62–71; RESP 14; TEMP 36.2–36.9; O2SAT 98–100
[2025-04-10] MEDS: CENTRAL LINE FLUSH 10 ML IV PUSH ×3 (05:47→22:53)
[2025-04-10 06:25] LABS: Estimated CRCL calculation 42 ml/min; Estimated Glomerular Filt Rate 34
[2025-04-10] MEDS: FERROUS SULFATE 325 MG TABLET PO (09:33)
[2025-04-10] MEDS: ROSUVASTATIN 10 MG TABLET PO (09:33)
[2025-04-10] MEDS: SPIRONOLACTONE 25 MG TABLET PO (09:33)
[2025-04-10] MEDS: SODIUM BICARBONATE TAB 650 MG TABLET PO ×2 (09:34→17:13)
[2025-04-10 10:14] LABS: Anion Gap 5 mmol/L (4-12); Blood Urea Nitrogen 64 mg/dL (7-17); Calcium 8.9 mg/dL (8.4-10.2); Carbon Dioxide 21 mmol/L (22-30); Chloride 114 mmol/L (98-107); Glucose 90 mg/dL (65-110); Potassium 3.8 mmol/L (3.4-5.0); Sodium 140 mmol/L (137-145)
[2025-04-10] MEDS: CALCIUM CARBONATE (OSCAL) 500 MG TABLET PO (13:04)
[2025-04-10] MEDS: FUROSEMIDE 40 MG TABLET PO (13:06)
--- NOTE | 2025-04-10 14:30 | PM.PNNEP ---
Progress Note: A&P Assessment and Plan (1) Acute kidney injury: Code(s): N17.9 - Acute kidney failure, unspecified Status: Acute Assessment and Plan: slow improvement noted (if not back to baseline) as noted by admission labs suspect due to several issues: anemia prerenal factors diuretic use prior to admission relative hypotension CHF exacerbation infection (pneumonia?) bradycardia other(?) evaluation to date noted: CT imaging without obstruction (horseshoe kidney noted) urine electrolytes prerenal (by FeUrea) urine eosinophils negative moderate proteinuria (likely falsely elevated due to hematuria) CPK normal better urine output noted follow trend of repeat labs and UOP (2) Stage 3b chronic kidney disease: Code(s): N18.32 - Chronic kidney disease, stage 3b Status: Chronic Assessment and Plan: baseline creatinine average ~ 1.4 - 1.9mg/dl (from review of [facility] and [facility] records) however she has fluctuated to extremes in association with acute hospitalizations this causes her to bounce between CKD stage 3b and stage 4 presumably due to hypertension, vascular disease (CAD + hyperlipidemia + CHF), and age-related disease (3) Bradycardia: Code(s): R00.1 - Bradycardia, unspecified Status: Acute Assessment and Plan: telemetry with slow aFib soft BP noted as well known history of AFib (but off amiodarone prior to admission) s/p dopamine for bradycardia and soft BP BP medications on hold Cardiology following s/p PPM on 04/06 (4) GI bleed: Qualifiers: GI bleed type/associated pathology: melena Qualified Code(s): K92.1 - Melena Code(s): K92.2 - Gastrointestinal hemorrhage, unspecified Status: Acute Assessment and Plan: suspected based on history of black tarry stools admission hemoglobin noted at 6.0 PRBC transfusion per protocol s/p 3 units on 04/04 anticoagulation on hold GI recommendations noted -- no intervention at this time on PPI follow trend of H/H (5) Metabolic acidosis: Code(s): E87.20 - Acidosis, unspecified Status: Acute Assessment and Plan: likely worsened by CELINA/ARF s/p IV bicarb pushes while NPO on oral sodium bicarbonate to compensate wean as tolerated as kidney function improves (6) Congestive heart disease: Qualifiers: Heart failure type: diastolic Heart failure chronicity: acute Qualified Code(s): I50.31 - Acute diastolic (congestive) heart failure Code(s): I50.9 - Heart failure, unspecified Status: Acute Assessment and Plan: evidence of volume overload on admission: pulmonary edema on the chest x-ray large pleural effusion on CT scan bilateral lower extremity edema Echo (on 04/04) noted: left ventricular systolic function is normal, estimated at 60 - 65% left ventricular diastolic function is abnormal mild mitral valve regurgitation moderate tricuspid valve regurgitation moderate pulmonary hypertension, estimated pulmonary arterial systolic pressure is 48 mmHg mild pulmonic regurgitation resumed on oral diuretic therapy follow I/Os (7) Pneumonia: Code(s): J18.9 - Pneumonia, unspecified organism Status: Acute Assessment and Plan: admission chest x-ray with bilateral infiltrates suspect more likely to be pulmonary edema and associated congestive heart failure admission CT chest with scattered foci bilateral airspace disease afebrile and with normal WBC on antibiotics follow culture data (negative to date) (8) Anemia: Code(s): D64.9 - Anemia, unspecified Status: Chronic Assessment and Plan: due to underlying CKD likely worsened by #4 dose with Epogen while hospitalized (was on Epogen at nursing facility as well) follow trend of H/H (9) Essential hypertension: Code(s): I10 - Essential (primary) hypertension Status: Chronic Assessment and Plan: known history BP medications on hold follow trend of hemodynamics (10) Altered mental status: Code(s): R41.82 - Altered mental status, unspecified Status: Acute Assessment and Plan: noted on admission possibly secondary to acute illness (CELINA, anemia, pneumonia, CHF, bradycardia...etc) improvement noted if not resolved follow mentation Not opposed to discharge from renal perspective if otherwise medically stable Will continue to follow intermittently. Subjective Date/time seen: 04/10/25 14:30 Interval history: Follow-up for acute kidney injury/acute renal failure on chronic kidney disease. No new issues or problems to report at this time; feels reasonably well; hemodynamically stable with good urine output with stability if not improvement in renal function; H/H relatively stable as well. Exam Narrative: General: elderly female in NAD Heart: bradycardic but normal S1 and S2; no rub Lungs: decreased breath sounds noted Abdomen: soft, nontender, nondistended, positive bowel sounds Extremities: no cyanosis or clubbing; trace edema Skin: warm and intact Objective Data Vital Signs Vital Signs: Vital Signs Temp Pulse BP Pulse Ox O2 Del Method 04/10/25 06:00 98.5 F 62 131/59 L 98 04/10/25 04:00 63 04/10/25 00:00 62 04/09/25 22:00 97.5 F L 63 137/72 98 04/09/25 20:00 63 04/09/25 20:00 Room Air 04/09/25 16:00 64 Intake/Output Intake/Output: Intake & Output 04/07/25 04/08/25 04/09/25 04/10/25 23:59 23:59 23:59 23:59 Intake Total 1335 2060 910 460 Output Total 3400 2350 2250 1500 Balance -2065 -290 -1340 -1040 Meds/Results Medications: Active Medications Generic Name Dose Route Start Last Admin Trade Name Freq PRN Reason Stop Dose Admin Apixaban 5 mg 04/10/25 21:00 Apixaban 5 Mg Tablet PO Q12HR [facility] Aspirin 81 mg 04/10/25 15:02 Aspirin 81 Mg Chewable Tablet PO DAILY@0800 [facility] Calcium Carbonate 500 mg 04/10/25 11:45 04/10/25 13:04 Calcium Carbonate (Oscal) 500 Mg Tablet PO 500 mg QAM [facility] Administration Cyclobenzaprine HCl 5 mg 04/08/25 13:50 Cyclobenzaprine Hcl 5 Mg Tablet PO TID PRN Muscle Spasm Docusate Sodium 100 mg 04/08/25 13:50 Docusate Sodium 100 Mg Capsule PO DAILY PRN Constipation Doxazosin Mesylate 8 mg 04/08/25 21:00 04/09/25 20:55 Doxazosin Mesylate 4 Mg Tablet PO 8 mg HS [facility] Administration Epoetin Angus-epbx 10,000 units 04/09/25 09:00 04/09/25 09:27 Epoetin Angus-Epbx 10,000 Units/Ml Vial SUB-Q 10,000 units TUTHSA@09 [facility] Administration Ferrous Sulfate 325 mg 04/08/25 14:00 04/10/25 09:33 Ferrous Sulfate 325 Mg Tablet PO 325 mg DAILY [facility] Administration Furosemide 40 mg 04/08/25 14:00 04/10/25 13:06 Furosemide 40 Mg Tablet PO 40 mg DAILY [facility] Administration Hydralazine HCl 50 mg 04/08/25 14:00 04/10/25 13:04 Hydralazine Hcl 50 Mg Tablet PO 50 mg Q8HR [facility] Administration Polyethylene Glycol 17 gm 04/08/25 13:50 Polyethylene Glycol 3350 17 Gm Powd.Pack PO DAILY PRN Constipation Rosuvastatin Calcium 10 mg 04/05/25 09:00 04/10/25 09:33 Rosuvastatin 10 Mg Tablet PO 10 mg QAM [facility] Administration Silver Sulfadiazine 1 applic 04/08/25 17:00 04/09/25 18:10 Silver Sulfadiazine 1% Cr 400 Gm Jar (*Bkc) TOPICAL Not Given BID [facility] Sodium Bicarbonate 650 mg 04/04/25 12:05 04/10/25 09:34 Sodium Bicarbonate Tab 650 Mg Tablet PO 650 mg BID [facility] Administration Sodium Chloride 10 ml 04/04/25 22:00 04/10/25 05:47 Central Line Flush IV PUSH 10 ml Q8HR [facility] Administration Sodium Chloride 10 ml 04/04/25 15:53 Central Line Flush IV PUSH PRN PRN with TPN bag changes Sodium Chloride 20 ml 04/04/25 15:53 04/05/25 05:44 Central Line Flush IV PUSH 20 ml PRN PRN Administration after blood draws Spironolactone 25 mg 04/08/25 14:00 04/10/25 09:33 Spironolactone 25 Mg Tablet PO 25 mg DAILY [facility] Administration Radiology Results: ITS Impressions Head CT 04/04/25 09:52 IMPRESSION: 1. Moderate nonspecific cerebral white matter disease, which likely represents chronic small vessel ischemic disease. Chest/Abdomen/Pelvis CT 04/04/25 12:03 IMPRESSION: CHEST- 1. Pulmonary edema and/or multifocal pneumonia. 2. Large pleural effusions. ABDOMEN/PELVIS- 1. No acute abnormality. Chest X-Ray 04/10/25 14:19 Impression: CHF. Superimposed early pneumonia versus reactive. The findings appear progressed compared to the prior study Labs Labs: Laboratory Tests 04/09/25 06:34 04/10/25 05:50
--- NOTE | 2025-04-10 14:30 | P.PNNP_ITS ---
Progress Note: A&P Assessment and Plan (1) Acute kidney injury: Code(s): N17.9 - Acute kidney failure, unspecified Status: Acute Assessment and Plan: * slow improvement noted (if not back to baseline) * as noted by admission labs * suspect due to several issues: * anemia * prerenal factors * diuretic use prior to admission * relative hypotension * CHF exacerbation * infection (pneumonia?) * bradycardia * other(?) * evaluation to date noted: * CT imaging without obstruction (horseshoe kidney noted) * urine electrolytes prerenal (by FeUrea) * urine eosinophils negative * moderate proteinuria (likely falsely elevated due to hematuria) * CPK normal * better urine output noted * follow trend of repeat labs and UOP (2) Stage 3b chronic kidney disease: Code(s): N18.32 - Chronic kidney disease, stage 3b Status: Chronic Assessment and Plan: * baseline creatinine average ~ 1.4 - 1.9mg/dl (from review of [facility] and [facility] records) * however she has fluctuated to extremes in association with acute hospitalizations * this causes her to bounce between CKD stage 3b and stage 4 * presumably due to hypertension, vascular disease (CAD + hyperlipidemia + CHF), and age-related disease (3) Bradycardia: Code(s): R00.1 - Bradycardia, unspecified Status: Acute Assessment and Plan: * telemetry with slow aFib * soft BP noted as well * known history of AFib (but off amiodarone prior to admission) * s/p dopamine for bradycardia and soft BP * BP medications on hold * Cardiology following * s/p PPM on 04/06 (4) GI bleed: Qualifiers: GI bleed type/associated pathology: melena Qualified Code(s): K92.1 - Melena Code(s): K92.2 - Gastrointestinal hemorrhage, unspecified Status: Acute Assessment and Plan: * suspected based on history of black tarry stools * admission hemoglobin noted at 6.0 * PRBC transfusion per protocol * s/p 3 units on 04/04 * anticoagulation on hold * GI recommendations noted -- no intervention at this time * on PPI * follow trend of H/H (5) Metabolic acidosis: Code(s): E87.20 - Acidosis, unspecified Status: Acute Assessment and Plan: * likely worsened by CELINA/ARF * s/p IV bicarb pushes while NPO * on oral sodium bicarbonate to compensate * wean as tolerated as kidney function improves (6) Congestive heart disease: Qualifiers: Heart failure type: diastolic Heart failure chronicity: acute Q ualified Code(s): I50.31 - Acute diastolic (congestive) heart failure Code(s): I50.9 - Heart failure, unspecified Status: Acute Assessment and Plan: * evidence of volume overload on admission: * pulmonary edema on the chest x-ray * large pleural effusion on CT scan * bilateral lower extremity edema * Echo (on 04/04) noted: * left ventricular systolic function is normal, estimated at 60 - 65% * left ventricular diastolic function is abnormal * mild mitral valve regurgitation * moderate tricuspid valve regurgitation * moderate pulmonary hypertension, estimated pulmonary arterial systolic pressure is 48 mmHg * mild pulmonic regurgitation * resumed on oral diuretic therapy * follow I/Os (7) Pneumonia: Code(s): J18.9 - Pneumonia, unspecified organism Status: Acute Assessment and Plan: * admission chest x-ray with bilateral infiltrates * suspect more likely to be pulmonary edema and associated congestive heart failure * admission CT chest with scattered foci bilateral airspace disease * afebrile and with normal WBC * on antibiotics * follow culture data (negative to date) (8) Anemia: Code(s): D64.9 - Anemia, unspecified Status: Chronic Assessment and Plan: * due to underlying CKD * likely worsened by #4 * dose with Epogen while hospitalized (was on Epogen at nursing facility as well) * follow trend of H/H (9) Essential hypertension: Code(s): I10 - Essential (primary) hypertension Status: Chronic Assessment and Plan: * known history * BP medications on hold * follow trend of hemodynamics (10) Altered mental status: Code(s): R41.82 - Altered mental status, unspecified Status: Acute Assessment and Plan: * noted on admission * possibly secondary to acute illness (CELINA, anemia, pneumonia, CHF, bradycardia...etc) * improvement noted if not resolved * follow mentation Not opposed to discharge from renal perspective if otherwise medically stable Will continue to follow intermittently. L Subjective Date/time seen: 04/10/25 14:30 Interval history: Follow-up for acute kidney injury/acute renal failure on chronic kidney disease. No new issues or problems to report at this time; feels reasonably well; hemodynamically stable with good urine output with stability if not improvement in renal function; H/H relatively stable as well. Exam 2 Narrative: General: elderly female in NAD Heart: bradycardic but normal S1 and S2; no rub Lungs: decreased breath sounds noted Abdomen: soft, nontender, nondistended, positive bowel sounds Extremities: no cyanosis or clubbing; trace edema Skin: warm and intact Objective Data Vital Signs Vital Signs: Vital Signs Temp Pulse BP Pulse Ox O2 Del Method 04/10/25 06:00 98.5 F 62 131/59 L 98 04/10/25 04:00 63 04/10/25 00:00 62 04/09/25 22:00 97.5 F L 63 137/72 98 04/09/25 20:00 63 04/09/25 20:00 Room Air 04/09/25 16:00 64 Intake/Output Intake/Output: Intake & Output 04/07/25 04/08/25 04/09/25 04/10/25 23:59 23:59 23:59 23:59 Intake Total 1335 2060 910 460 Output Total 3400 2350 2250 1500 Balance -2065 -290 -1340 -1040 Meds/Results Medications: Active Medications Generic Name Dose Route Start Last Admin Trade Name Freq PRN Reason Stop Dose Admin Apixaban 5 mg 04/10/25 21:00 Apixaban 5 Mg Tablet PO Q12HR [facility] Aspirin 81 mg 04/10/25 15:02 Aspirin 81 Mg Chewable Tablet PO DAILY@0800 [facility] Calcium Carbonate 500 mg 04/10/25 11:45 04/10/25 13:04 Calcium Carbonate (Oscal) 500 Mg Tablet PO 500 mg QAM [facility] Administration Cyclobenzaprine HCl 5 mg 04/08/25 13:50 Cyclobenzaprine Hcl 5 Mg Tablet PO TID PRN Muscle Spasm Docusate Sodium 100 mg 04/08/25 13:50 Docusate Sodium 100 Mg Capsule PO DAILY PRN Constipation Doxazosin Mesylate 8 mg 04/08/25 21:00 04/09/25 20:55 Doxazosin Mesylate 4 Mg Tablet PO 8 mg HS MARIELLE Administration Epoetin Angus-epbx 10,000 units 04/09/25 09:00 04/09/25 09:27 Epoetin Angus-Epbx 10,000 Units/Ml Vial SUB-Q 10,000 units TUTHSA@09 MARIELLE Administration Ferrous Sulfate 325 mg 04/08/25 14:00 04/10/25 09:33 Ferrous Sulfate 325 Mg Tablet PO 325 mg DAILY MARIELLE Administration Furosemide 40 mg 04/08/25 14:00 04/10/25 13:06 Furosemide 40 Mg Tablet PO 40 mg DAILY MARIELLE Administration Hydralazine HCl 50 mg 04/08/25 14:00 04/10/25 13:04 Hydralazine Hcl 50 Mg Tablet PO 50 mg Q8HR MARIELLE Administration Polyethylene Glycol 17 gm 04/08/25 13:50 Polyethylene Glycol 3350 17 Gm Powd.Pack PO DAILY PRN Constipation Rosuvastatin Calcium 10 mg 04/05/25 09:00 04/10/25 09:33 Rosuvastatin 10 Mg Tablet PO 10 mg QAM MARIELLE Administration Silver Sulfadiazine 1 applic 04/08/25 17:00 04/09/25 18:10 Silver Sulfadiazine 1% Cr 400 Gm Jar (*Bkc) TOPICAL Not Given BID MARIELLE Sodium Bicarbonate 650 mg 04/04/25 12:05 04/10/25 09:34 Sodium Bicarbonate Tab 650 Mg Tablet PO 650 mg BID MARIELLE Administration Sodium Chloride 10 ml 04/04/25 22:00 04/10/25 05:47 Central Line Flush IV PUSH 10 ml Q8HR MARIELLE Administration Sodium Chloride 10 ml 04/04/25 15:53 Central Line Flush IV PUSH PRN PRN with TPN bag changes Sodium Chloride 20 ml 04/04/25 15:53 04/05/25 05:44 Central Line Flush IV PUSH 20 ml PRN PRN Administration after blood draws Spironolactone 25 mg 04/08/25 14:00 04/10/25 09:33 Spironolactone 25 Mg Tablet PO 25 mg DAILY MARIELLE Administration Radiology Results: ITS Impressions Head CT 04/04/25 09:52 IMPRESSION: 1. Moderate nonspecific cerebral white matter disease, which likely represents chronic small vessel ischemic disease. Chest/Abdomen/Pelvis CT 04/04/25 12:03 IMPRESSION: CHEST- 1. Pulmonary edema and/or multifocal pneumonia. 2. Large pleural effusions. ABDOMEN/PELVIS- 1. No acute abnormality. Chest X-Ray 04/10/25 14:19 Impression: CHF. Superimposed early pneumonia versus reactive. The findings appear progressed compared to the prior study Labs Labs: Laboratory Tests 04/09/25 06:34 04/10/25 05:50
--- NOTE | 2025-04-10 14:31 | PM.PNCARD ---
Progress Note: A&P Assessment and Plan (1) Bradycardia: Code(s): R00.1 - Bradycardia, unspecified Status: Acute Assessment and Plan: Atrial fibrillation slow ventricular response status post permanent pacemaker Hypertension controlled Chronic diastolic heart failure Currently compensated CKD stage 3 Plan Resume oral anticoagulation tomorrow Eliquis 5 mg b.i.d. DC aspirin Continue Lasix 40 mg daily Can restart home amlodipine to replace hydralazine Follow-up in the cardiology clinic Subjective Date/time seen: 04/10/25 14:31 Interval history: Follow-up atrial fibrillation status post pacemaker No acute events Review of Systems Review of Systems: All systems reviewed & are unremarkable except as noted in HPI and below Exam Const: General: comfortable, no acute distress, alert and awake Orientation/consciousness: patient oriented x3 HENMT: Head: normal to inspection Eyes: General: appearance normal, both eyes and all related structures Pupils: Equal, round and reactive pupils present Neck: Neck: normal visual inspection, supple and no JVD Carotids: normal carotid upstroke Resp: Effort & Inspection: normal respiratory effort Auscultation: rales Cardio: Rate: bradycardic Rhythm: abnormal rhythm irregularly irregular Heart sounds: S1 normal heart sound present, S2 normal heart sound present and no murmurs GI: Auscultation: normal bowel sounds Skin: General skin exam: normal color Neuro: General: patient oriented x3 Cranial nerves: Yes Equal, round and reactive pupils present Extrem: General: abnormal to inspection Other: bilateral lower extremity lymphedema. Knee high MANDEEP wraps in place Psych: Appearance: grossly normal Mental Status: mental status grossly normal Objective Data Vital Signs Vital Signs: Vital Signs - 24 hr 04/09/25 16:00 04/09/25 20:00 04/09/25 20:00 Temperature Pulse Rate 64 63 Blood Pressure Pulse Oximetry Oxygen Delivery Room Air 04/09/25 22:00 04/10/25 00:00 04/10/25 04:00 Temperature 36.4 C L Pulse Rate 63 62 63 Blood Pressure 137/72 Pulse Oximetry 98 Oxygen Delivery 04/10/25 06:00 Temperature 36.9 C Pulse Rate 62 Blood Pressure 131/59 L Pulse Oximetry 98 Oxygen Delivery Intake/Output Intake/Output: Intake & Output 04/07/25 04/08/25 04/09/25 04/10/25 23:59 23:59 23:59 23:59 Intake Total 1335 2060 910 460 Output Total 1680 0790 [id number] [facility]4543 -971 -1344 -1049 Meds/Results Medications: Active Medications Generic Name Dose Route Start Last Admin Trade Name Freq PRN Reason Stop Dose Admin Calcium Carbonate 500 mg 04/10/25 11:45 04/10/25 13:04 Calcium Carbonate (Oscal) 500 Mg Tablet PO 500 mg QAM MARIELLE Administration Cyclobenzaprine HCl 5 mg 04/08/25 13:50 Cyclobenzaprine Hcl 5 Mg Tablet PO TID PRN Muscle Spasm Docusate Sodium 100 mg 04/08/25 13:50 Docusate Sodium 100 Mg Capsule PO DAILY PRN Constipation Doxazosin Mesylate 8 mg 04/08/25 21:00 04/09/25 20:55 Doxazosin Mesylate 4 Mg Tablet PO 8 mg HS MARIELLE Administration Epoetin Angus-epbx 10,000 units 04/09/25 09:00 04/09/25 09:27 Epoetin Angus-Epbx 10,000 Units/Ml Vial SUB-Q 10,000 units TUTHSA@09 MARIELLE Administration Ferrous Sulfate 325 mg 04/08/25 14:00 04/10/25 09:33 Ferrous Sulfate 325 Mg Tablet PO 325 mg DAILY MARIELLE Administration Furosemide 40 mg 04/08/25 14:00 04/10/25 13:06 Furosemide 40 Mg Tablet PO 40 mg DAILY MARIELLE Administration Hydralazine HCl 50 mg 04/08/25 14:00 04/10/25 13:04 Hydralazine Hcl 50 Mg Tablet PO 50 mg Q8HR MARIELLE Administration Polyethylene Glycol 17 gm 04/08/25 13:50 Polyethylene Glycol 3350 17 Gm Powd.Pack PO DAILY PRN Constipation Rosuvastatin Calcium 10 mg 04/05/25 09:00 04/10/25 09:33 Rosuvastatin 10 Mg Tablet PO 10 mg QAM [facility] Administration Silver Sulfadiazine 1 applic 04/08/25 17:00 04/09/25 18:10 Silver Sulfadiazine 1% Cr 400 Gm Jar (*Bkc) TOPICAL Not Given BID MARIELLE Sodium Bicarbonate 650 mg 04/04/25 12:05 04/10/25 09:34 Sodium Bicarbonate Tab 650 Mg Tablet PO 650 mg BID MARIELLE Administration Sodium Chloride 10 ml 04/04/25 22:00 04/10/25 05:47 Central Line Flush IV PUSH 10 ml Q8HR MARIELLE Administration Sodium Chloride 10 ml 04/04/25 15:53 Central Line Flush IV PUSH PRN PRN with TPN bag changes Sodium Chloride 20 ml 04/04/25 15:53 04/05/25 05:44 Central Line Flush IV PUSH 20 ml PRN PRN Administration after blood draws Spironolactone 25 mg 04/08/25 14:00 04/10/25 09:33 Spironolactone 25 Mg Tablet PO 25 mg DAILY MARIELLE Administration Radiology Results: ITS Impressions Head CT 04/04/25 09:52 IMPRESSION: 1. Moderate nonspecific cerebral white matter disease, which likely represents chronic small vessel ischemic disease. Chest/Abdomen/Pelvis CT 04/04/25 12:03 IMPRESSION: CHEST- 1. Pulmonary edema and/or multifocal pneumonia. 2. Large pleural effusions. ABDOMEN/PELVIS- 1. No acute abnormality. Chest X-Ray 04/10/25 14:19 Impression: CHF. Superimposed early pneumonia versus reactive. The findings appear progressed compared to the prior study Labs Labs: Laboratory Results - last 24 hr 04/10/25 05:50 Sodium 140 Potassium 3.8 Chloride 114 H Carbon Dioxide 21 L Anion Gap 5 BUN 64 H D Creatinine 1.50 H Estim Creat Clear Calc 42 Estimated GFR 34 L Glucose 90 Calcium 8.9
--- NOTE | 2025-04-10 14:49 | P.PNGI_ITS ---
Progress Note: A&P Assessment and Plan (1) GI bleed: Qualifiers: GI bleed type/associated pathology: melena Qualified Code(s): K92.1 - Melena Code(s): K92.2 - Gastrointestinal hemorrhage, unspecified Status: Acute Assessment and Plan: she had normal brown stool, no recent sign of GIB she had scopes but years ago per family ok to resume AC but primary will need to monitor h/h and for signs of bleeding we can see her in office and then coordinate timing of scopes she had recent pacemaker placement because afib with bradycardia, also was treated earlier for pneumonia will follow as needed (2) Anemia in chronic kidney disease: Code(s): N18.9 - Chronic kidney disease, unspecified; D63.1 - Anemia in chronic kidney disease Status: Acute (3) Acute on chronic kidney failure: Code(s): N17.9 - Acute kidney failure, unspecified; N18.9 - Chronic kidney disease, unspecified Status: Acute (4) Bradycardia: Code(s): R00.1 - Bradycardia, unspecified Status: Acute (5) Pneumonia: Code(s): J18.9 - Pneumonia, unspecified organism Status: Acute Subjective Date/time seen: 04/10/25 14:49 Interval history: s/p pacemaker and doing ok family member at bedside patient denies abdominal pain, nausea had a normal brown stool and no recent gib we are called again to reassess patient since neon glass bender is planning to resume AC Review of Systems Review of Systems: All systems reviewed & are unremarkable except as noted in HPI and below Exam Const: General: comfortable, no acute distress, alert and awake Orientation/consciousness: patient oriented x3 HENMT: Head: normal to inspection Eyes: General: appearance normal, both eyes and all related structures Pupils: Equal, round and reactive pupils present Neck: Neck: normal visual inspection and supple Resp: Effort & Inspection: normal respiratory effort Auscultation: rales Cardio: Rate: bradycardic Rhythm: abnormal rhythm irregularly irregular GI: GI Palp: Yes Soft to palpation and No Tenderness to palpation present (GI) Auscultation: normal bowel sounds Skin: General skin exam: normal color Neuro: General: patient oriented x3 Extrem: General: abnormal to inspection Other: bilateral lower extremity lymphedema. Knee high MANDEEP wraps in place Psych: Appearance: grossly normal Mental Status: mental status grossly normal Objective Data Vital Signs Vital Signs: Vital Signs - 24 hr 04/09/25 16:00 04/09/25 20:00 04/09/25 20:00 Temperature Pulse Rate 64 63 Blood Pressure Pulse Oximetry Oxygen Delivery Room Air 04/09/25 22:00 04/10/25 00:00 04/10/25 04:00 Temperature 97.5 F L Pulse Rate 63 62 63 Blood Pressure 137/72 Pulse Oximetry 98 Oxygen Delivery 04/10/25 06:00 Temperature 98.5 F Pulse Rate 62 Blood Pressure 131/59 L Pulse Oximetry 98 Oxygen Delivery Intake/Output Intake/Output: Intake & Output 04/07/25 04/08/25 04/09/25 04/10/25 23:59 23:59 23:59 23:59 Intake Total 1335 2060 910 460 Output Total 3400 2350 2250 1500 Balance -2065 -290 -1340 -1040 Meds/Results Medications: Active Medications Generic Name Dose Route Start Last Admin Trade Name Freq PRN Reason Stop Dose Admin Calcium Carbonate 500 mg 04/10/25 11:45 04/10/25 13:04 Calcium Carbonate (Oscal) 500 Mg Tablet PO 500 mg QAM MARIELLE Administration Cyclobenzaprine HCl 5 mg 04/08/25 13:50 Cyclobenzaprine Hcl 5 Mg Tablet PO TID PRN Muscle Spasm Docusate Sodium 100 mg 04/08/25 13:50 Docusate Sodium 100 Mg Capsule PO DAILY PRN Constipation Doxazosin Mesylate 8 mg 04/08/25 21:00 04/09/25 20:55 Doxazosin Mesylate 4 Mg Tablet PO 8 mg HS MARIELLE Administration Epoetin Angus-epbx 10,000 units 04/09/25 09:00 04/09/25 09:27 Epoetin Angus-Epbx 10,000 Units/Ml Vial SUB-Q 10,000 units TUTHSA@09 MARIELLE Administration Ferrous Sulfate 325 mg 04/08/25 14:00 04/10/25 09:33 Ferrous Sulfate 325 Mg Tablet PO 325 mg DAILY MARIELLE Administration Furosemide 40 mg 04/08/25 14:00 04/10/25 13:06 Furosemide 40 Mg Tablet PO 40 mg DAILY MARIELLE Administration Hydralazine HCl 50 mg 04/08/25 14:00 04/10/25 13:04 Hydralazine Hcl 50 Mg Tablet PO 50 mg Q8HR MARIELLE Administration Polyethylene Glycol 17 gm 04/08/25 13:50 Polyethylene Glycol 3350 17 Gm Powd.Pack PO DAILY PRN Constipation Rosuvastatin Calcium 10 mg 04/05/25 09:00 04/10/25 09:33 Rosuvastatin 10 Mg Tablet PO 10 mg QAM MARIELLE Administration Silver Sulfadiazine 1 applic 04/08/25 17:00 04/09/25 18:10 Silver Sulfadiazine 1% Cr 400 Gm Jar (*Bkc) TOPICAL Not Given BID MARIELLE Sodium Bicarbonate 650 mg 04/04/25 12:05 04/10/25 09:34 Sodium Bicarbonate Tab 650 Mg Tablet PO 650 mg BID MARIELLE Administration Sodium Chloride 10 ml 04/04/25 22:00 04/10/25 05:47 Central Line Flush IV PUSH 10 ml Q8HR MARIELLE Administration Sodium Chloride 10 ml 04/04/25 15:53 Central Line Flush IV PUSH PRN PRN with TPN bag changes Sodium Chloride 20 ml 04/04/25 15:53 04/05/25 05:44 Central Line Flush IV PUSH 20 ml PRN PRN Administration after blood draws Spironolactone 25 mg 04/08/25 14:00 04/10/25 09:33 Spironolactone 25 Mg Tablet PO 25 mg DAILY MARIELLE Administration Radiology Results: ITS Impressions Head CT 04/04/25 09:52 IMPRESSION: 1. Moderate nonspecific cerebral white matter disease, which likely represents chronic small vessel ischemic disease. Chest/Abdomen/Pelvis CT 04/04/25 12:03 IMPRESSION: CHEST- 1. Pulmonary edema and/or multifocal pneumonia. 2. Large pleural effusions. ABDOMEN/PELVIS- 1. No acute abnormality. Chest X-Ray 04/10/25 14:19 Impression: CHF. Superimposed early pneumonia versus reactive. The findings appear progressed compared to the prior study Labs Labs: Laboratory Results - last 24 hr 04/10/25 05:50 Sodium 140 Potassium 3.8 Chloride 114 H Carbon Dioxide 21 L Anion Gap 5 BUN 64 H D Creatinine 1.50 H Estim Creat Clear Calc 42 Estimated GFR 34 L Glucose 90 Calcium 8.9
--- NOTE | 2025-04-10 15:26 | PM.IMPN2 ---
Assessment and Plan Assessment and Plan (1) Essential hypertension: Code(s): I10 - Essential (primary) hypertension Status: Chronic (2) Congestive heart disease: Qualifiers: Heart failure chronicity: acute Heart failure type: diastolic Qualified Code(s): I50.31 - Acute diastolic (congestive) heart failure Code(s): I50.9 - Heart failure, unspecified Status: Acute (3) Coronary artery disease: Code(s): I25.10 - Atherosclerotic heart disease of [place] coronary artery without angina pectoris Status: Acute (4) Bradycardia: Code(s): R00.1 - Bradycardia, unspecified Status: Acute (5) Hyperlipidemia: Code(s): E78.5 - Hyperlipidemia, unspecified Status: Acute (6) GERD (gastroesophageal reflux disease): Code(s): K21.9 - Gastro-esophageal reflux disease without esophagitis Status: Acute (7) GI bleed: Qualifiers: GI bleed type/associated pathology: melena Qualified Code(s): K92.1 - Melena Code(s): K92.2 - Gastrointestinal hemorrhage, unspecified Status: Acute (8) Chronic kidney disease: Qualifiers: Chronic kidney disease stage: stage 4 (GFR 15-29) Qualified Code(s): N18.4 - Chronic kidney disease, stage 4 (severe) Code(s): N18.9 - Chronic kidney disease, unspecified Status: Acute (9) Hematuria: Code(s): R31.9 - Hematuria, unspecified Status: Acute (10) Anemia: Code(s): D64.9 - Anemia, unspecified Status: Chronic (11) Pneumonia: Code(s): J18.9 - Pneumonia, unspecified organism Status: Acute (12) Obstructive sleep apnea: Code(s): G47.33 - Obstructive sleep apnea (adult) (pediatric) Status: Acute Plan Patient presented with bradycardiac initially admitted in the [facility] and was treated with dopamine drip which is weaned off and was seen by the metal flooring installer and had PPM placed on 04/06 patient stats doing better compared when she arrived. patient clinical symptoms stable her daughter was present in the room gave updates on 04/08. patient with history of A. Fib was taking Eliquis which is on hold for the procedure and there is concern for GI bleed. Eliquis is on hold, will consult GI for their recommendation. Today patient patient was seen by the GI and its okay resume Eliquis and monitor closely, will assess hgb in the morning and plan. there is also concern for cough and cogestion, CXR showed CHF and possible pneumonia, will start patient on ceftrixone and doxycyline, will monitor. Subjective Date/time seen: 04/10/25 15:26 Interval history: Patient presented with bradycardiac initially admitted in the [facility] and was treated with dopamine drip which is weaned off and was seen by the metal flooring installer and had PPM placed on 04/06 patient stats doing better compared when she arrived. patient clinical symptoms stable her daughter was present in the room gave updates on 04/08. patient with history of A. Fib was taking Eliquis which is on hold for the procedure and there is concern for GI bleed. Eliquis is on hold, will consult GI for their recommendation. Today patient patient was seen by the GI and its okay resume Eliquis and monitor closely, will assess hgb in the morning and plan. there is also concern for cough and cogestion, CXR showed CHF and possible pneumonia, will start patient on ceftrixone and doxycyline, will monitor. Review of Systems Review of Systems: - CONSTITUTIONAL: Denies weight loss, fever and chills. - HEENT: Denies changes in vision and hearing - RESPIRATORY: Reports SOB and cough. - CV: Denies palpitations and CP. - GI: Denies abdominal pain, nausea, vomiting and diarrhea. - : Denies dysuria and urinary frequency. - MSK: Denies myalgia and joint pain. - SKIN: Denies rash and pruritus. - NEUROLOGICAL: Denies headache and syncope. Reports some confusion see HPI - PSYCHIATRIC: Denies recent changes in mood. Denies anxiety and depression. Exam Narrative: Patient is comfortable, NAD HEENT: eyes are clear and none icteric LUNGS:CTA HEART: RR S1S2 ABD: BS+, Soft and nontender Lower extremities: no edema SKIN: nonjaundiced Neuro: grossly intact. Objective Data Vital Signs Vital Signs: Vital Signs - 24 hr 04/09/25 16:00 04/09/25 20:00 04/09/25 20:00 Temperature Pulse Rate 64 63 Blood Pressure Pulse Oximetry Oxygen Delivery Room Air 04/09/25 22:00 04/10/25 00:00 04/10/25 04:00 Temperature 36.4 C L Pulse Rate 63 62 63 Blood Pressure 137/72 Pulse Oximetry 98 Oxygen Delivery 04/10/25 06:00 Temperature 36.9 C Pulse Rate 62 Blood Pressure 131/59 L Pulse Oximetry 98 Oxygen Delivery Intake/Output Intake/Output: Intake & Output 04/07/25 04/08/25 04/09/25 04/10/25 23:59 23:59 23:59 23:59 Intake Total 1335 2060 910 460 Output Total 3400 2350 2250 1500 [facility] -2065 -[phone] -1040 Meds/Results Medications: Active Medications Generic Name Dose Route Start Last Admin Trade Name Freq PRN Reason Stop Dose Admin Apixaban 5 mg 04/10/25 21:00 Apixaban 5 Mg Tablet PO Q12HR [facility] Aspirin 81 mg 04/10/25 15:02 Aspirin 81 Mg Chewable Tablet PO DAILY@0800 [facility] Calcium Carbonate 500 mg 04/10/25 11:45 04/10/25 13:04 Calcium Carbonate (Oscal) 500 Mg Tablet PO 500 mg QAM [facility] Administration Cyclobenzaprine HCl 5 mg 04/08/25 13:50 Cyclobenzaprine Hcl 5 Mg Tablet PO TID PRN Muscle Spasm Docusate Sodium 100 mg 04/08/25 13:50 Docusate Sodium 100 Mg Capsule PO DAILY PRN Constipation Doxazosin Mesylate 8 mg 04/08/25 21:00 04/09/25 20:55 Doxazosin Mesylate 4 Mg Tablet PO 8 mg HS [facility] Administration Epoetin Angus-epbx 10,000 units 04/09/25 09:00 04/09/25 09:27 Epoetin Angus-Epbx 10,000 Units/Ml Vial SUB-Q 10,000 units TUTHSA@09 [facility] Administration Ferrous Sulfate 325 mg 04/08/25 14:00 04/10/25 09:33 Ferrous Sulfate 325 Mg Tablet PO 325 mg DAILY [facility] Administration Furosemide 40 mg 04/08/25 14:00 04/10/25 13:06 Furosemide 40 Mg Tablet PO 40 mg DAILY MARIELLE Administration Hydralazine HCl 50 mg 04/08/25 14:00 04/10/25 13:04 Hydralazine Hcl 50 Mg Tablet PO 50 mg Q8HR [facility] Administration Polyethylene Glycol 17 gm 04/08/25 13:50 Polyethylene Glycol 3350 17 Gm Powd.Pack PO DAILY PRN Constipation Rosuvastatin Calcium 10 mg 04/05/25 09:00 04/10/25 09:33 Rosuvastatin 10 Mg Tablet PO 10 mg QAM MARIELLE Administration Silver Sulfadiazine 1 applic 04/08/25 17:00 04/09/25 18:10 Silver Sulfadiazine 1% Cr 400 Gm Jar (*Bkc) TOPICAL Not Given BID MARIELLE Sodium Bicarbonate 650 mg 04/04/25 12:05 04/10/25 09:34 Sodium Bicarbonate Tab 650 Mg Tablet PO 650 mg BID MARIELLE Administration Sodium Chloride 10 ml 04/04/25 22:00 04/10/25 05:47 Central Line Flush IV PUSH 10 ml Q8HR MARIELLE Administration Sodium Chloride 10 ml 04/04/25 15:53 Central Line Flush IV PUSH PRN PRN with TPN bag changes Sodium Chloride 20 ml 04/04/25 15:53 04/05/25 05:44 Central Line Flush IV PUSH 20 ml PRN PRN Administration after blood draws Spironolactone 25 mg 04/08/25 14:00 04/10/25 09:33 Spironolactone 25 Mg Tablet PO 25 mg DAILY MARIELLE Administration Radiology Results: ITS Impressions Head CT 04/04/25 09:52 IMPRESSION: 1. Moderate nonspecific cerebral white matter disease, which likely represents chronic small vessel ischemic disease. Chest/Abdomen/Pelvis CT 04/04/25 12:03 IMPRESSION: CHEST- 1. Pulmonary edema and/or multifocal pneumonia. 2. Large pleural effusions. ABDOMEN/PELVIS- 1. No acute abnormality. Chest X-Ray 04/10/25 14:19 Impression: CHF. Superimposed early pneumonia versus reactive. The findings appear progressed compared to the prior study Labs Labs: Laboratory Results - last 24 hr 04/10/25 05:50 Sodium 140 Potassium 3.8 Chloride 114 H Carbon Dioxide 21 L Anion Gap 5 BUN 64 H D Creatinine 1.50 H Estim Creat Clear Calc 42 Estimated GFR 34 L Glucose 90 Calcium 8.9
[2025-04-10] MEDS: FUROSEMIDE INJ 40 MG/4 ML VIAL 20 MG IV PUSH (15:48)
[2025-04-10] MEDS: ASPIRIN 81 MG CHEWABLE TABLET PO (15:49)
[2025-04-10] MEDS: levoFLOXacin 500 MG/D5W 100 ML 500 MG/100 ML BAG 100 MG IVPB (17:10)
[2025-04-10] MEDS: DOXAZOSIN MESYLATE 4 MG TABLET 8 MG PO (22:53)
[2025-04-10] MEDS: APIXABAN 5 MG TABLET PO (22:53)
[2025-04-11 05:25] VITALS: BP 133/64; PULSE 68; RESP 18; TEMP 36.6; O2SAT 100
[2025-04-11 06:18] LABS: Hematocrit 27.0 % (37.0-47.0); Hemoglobin 8.1 g/dL (12.0-15.0); Immature Granulocyte Percent A 1.1 % (0-0.5); Lymphocytes Absolute Auto 0.83 K/mm3 (0.9-3.2); Mean Corpuscular HGB Conc 30.0 g/dl (32-36); Mean Corpuscular Hemoglobin 30.8 pg (26-34); Mean Corpuscular Volume 102.7 fl (80-100); Nucleated Red Blood Cells Absolute Auto 0.020 K/mm3 (0.0-0.012); Nucleated Red Blood Cells Perc 0.4 % (0.0-0.2); Platelet Count Result 115 k/mm3 (150-375); Red Blood Count 2.63 M/mm3 (4.2-5.4); White Blood Count 4.6 K/mm3 (4.5-10.0)
[2025-04-11] MEDS: CENTRAL LINE FLUSH 10 ML IV PUSH ×2 (06:30→15:18)
[2025-04-11 07:10] LABS: Albumin Level 3.2 g/dL (3.5-5.1); Anion Gap 6 mmol/L (4-12); Blood Urea Nitrogen 57 mg/dL (7-17); Calcium 9.0 mg/dL (8.4-10.2); Carbon Dioxide 21 mmol/L (22-30); Chloride 113 mmol/L (98-107); Estimated CRCL calculation 41 ml/min; Estimated Glomerular Filt Rate 33; Glucose 88 mg/dL (65-110); Potassium 3.7 mmol/L (3.4-5.0); Sodium 140 mmol/L (137-145)
[2025-04-11 08:18] VITALS: BMI 10.0
[2025-04-11] MEDS: FUROSEMIDE 40 MG TABLET PO (09:15)
[2025-04-11] MEDS: SPIRONOLACTONE 25 MG TABLET PO (09:15)
[2025-04-11] MEDS: FERROUS SULFATE 325 MG TABLET PO (09:15)
[2025-04-11] MEDS: ASPIRIN 81 MG CHEWABLE TABLET PO (09:15)
[2025-04-11] MEDS: SODIUM BICARBONATE TAB 650 MG TABLET PO (09:15)
[2025-04-11] MEDS: CALCIUM CARBONATE (OSCAL) 500 MG TABLET PO (09:16)
[2025-04-11] MEDS: ROSUVASTATIN 10 MG TABLET PO (09:16)
[2025-04-11] MEDS: APIXABAN 5 MG TABLET PO (09:16)
--- NOTE | 2025-04-11 10:17 | PCOTNOTE ---
Attempted to see Patient at this time. Patient refuses to participate, no more, need sleep.
[2025-04-11 14:00] VITALS: BP 139/67; PULSE 72; RESP 18; TEMP 36.8; O2SAT 92
--- NOTE | 2025-04-11 15:00 | P.DS_ITS ---
DS: Summary Time Spent with Patient Time attestation: Total time spent providing and/or coordinating discharge services: DS: Data Data Completed and Pending Labs on day of discharge: Labs from last 24 hours 04/11/25 05:37 WBC 4.6 RBC 2.63 L Hgb 8.1 L Hct 27.0 L MCV 102.7 H MCH 30.8 MCHC 30.0 L RDW 20.4 H Plt Count 115 L MPV 10.0 Immature Gran % (Auto) 1.1 H Neut % (Auto) 60.2 Lymph % (Auto) 18.0 L Woodson % (Auto) 12.4 H Eos % (Auto) 7.2 H Baso % (Auto) 1.1 Lymph # (Auto) 0.83 L [place] # (Auto) 0.6 Eos # (Auto) 0.3 Baso # (Auto) 0.1 Abs Immat Gran (auto) 0.05 H Absolute Neuts (auto) 2.8 Absolute Nucleated RBC 0.020 H Nucleated RBC % 0.4 H Sodium 140 Potassium 3.7 Chloride 113 H Carbon Dioxide 21 L Anion Gap 6 BUN 57 H Creatinine 1.54 H Estim Creat Clear Calc 41 Estimated GFR 33 L Glucose 88 Calcium 9.0 Phosphorus 3.4 Albumin 3.2 L Discharge Plan Discharge Attending physician on discharge: Hema Snow Consulting providers: Janey Trinidad; Dominga Gresham; Ilir Gonzalez Discharging Clinician: Umberto Singh Patient Disposition: NH Shelter/Asst Living Activity: as tolerated Diet: heart healthy Discharge Instructions: [facility] [address] [place] [address] DISCHARGE INSTRUCTIONS - POST PACEMAKER Activity 1. No driving until you are seen in the office for your incision check. 2. No lifting, pushing or pulling more than 5 pounds with affected arm for 1 MONTH 3. No lifting affected arm above shoulder height for 1 MONTH 4. Wear immobilizer/sling only if you are unable to remember the above activity restrictions. Recommend that it be worn at night. 5. You may shower AFTER you are seen for incision check but no tub baths, swimming pool or hot tub for 1MONTH Wound Care 1. Do not attempt to remove the Aquacel dressing. Leave dressing undisturbed until incision check at the office visit. Keep dressing dry. 2. When you are able to shower AFTER you are seen for your incision check in the office do not rub or scrub the incision. Pat dry after shower. NO lotions, powders, creams or ointments are to be applied to the incision 3. A small amount of tenderness, puffiness and bruising around the site is normal. Call if any significant pain, drainage, swelling, or redness around the site 4. Wear a bra to support the breast tissue and avoid pulling on the incision. Pad the bra strap if necessary with soft smooth cloth. *For any other questions please call the office at [phone]. Office hours are 8AM 4:30PM Friday through Friday. Patient to follow discharge care instruction from her geographic information scientist and follow up as scheduled, patient to follow up with her primary care provider Patient Instructions: Antibiotic Form Patient Language: [place] Stand Alone Forms: General Discharge Information Follow-up/Referrals: Flick,Antelmo Persaud DO [Primary Care Provider, Unknown] Janey Trinidad MD [Physician, Nephrology] Dominga Gresham MD [Physician, Cardiology] Discharge Medications: New levofloxacin 250 mg tablet 250 mg PO DAILY Qty: 5 0RF rosuvastatin [Crestor] 10 mg Tablet 10 mg PO QAM Qty: 30 0RF Continued amlodipine 5 mg tablet 5 mg PO DAILY aspirin 81 mg tablet,chewable 81 mg PO DAILY cyclobenzaprine 5 mg tablet 5 mg PO TID PRN (Reason: muscle spasm) ferrous sulfate 324 mg (65 mg iron) tablet,delayed release (DR/EC) 324 mg PO DAILY hydralazine 100 mg tablet 50 mg PO .Q8hr Eliquis 5 mg tablet 5 mg PO Q12H Epogen 2,000 unit/mL solution 2,000 unit subcut .every 21 days docusate sodium 100 mg tablet 100 mg PO DAILY PRN (Reason: constipation) doxazosin [Cardura] 8 mg tablet 8 mg PO HS elderberry fruit 350 mg capsule 350 mg PO DAILY Arginaid 4.5 gram-156 mg/9.2 gram powder in packet 9.2 g PO .with meals hydrocodone-acetaminophen 5-325 mg tablet 1 tablet PO Q6H PRN (Reason: pain) polyethylene glycol 3350 [Miralax] 17 gram/dose powder 17 g PO DAILY PRN (Reason: constipation) rosuvastatin 10 mg tablet 10 mg PO DAILY spironolactone 25 mg tablet 25 mg PO DAILY furosemide [Lasix] 40 mg tablet 40 mg PO DAILY silver sulfadiazine [Silvadene] 1 % cream 1 applic topical BID Rx Instructions: apply a 1.5 mm thickness calcium citrate 200 mg (950 mg) tablet 200 mg PO DAILY Held amiodarone 400 mg tablet 400 mg PO BID Hold Instructions: until seen by her geographic information scientist Date of admission: 04/04/25 14:09 Primary Care Provider: Onur,Antelmo Persaud Admitting Provider: Hema Snow Attending physician on admission: Hema Snow Condition: Stable
== END 2025-04-11 17:40 | DRG 242 ==
LOC: ANHED 10:53 → ANHICU 13:12 → ANHIMU 04-07 18:14 → ANH3MEDSUR 04-11 14:49 → ANHIMU 04-12 08:23
PROVIDERS: Internal Medicine; Internal Medicine Nephrology; Nurse Practitioner; Nurse Practitioner Family; Specialist; Admitting Provider Internal Medicine; Emergency Provider Emergency Medicine; PCP Internal Medicine; Visit Provider Family Medicine
PROC: 0JH606Z Insertion of Pacemaker, Dual Chamber into Chest Subcutaneous Tissue and Fascia, Open Approach (ICD-10-PCS; CPT 33208; principal; 2025-04-06 07:30)
DX: R00.1 Bradycardia, unspecified (principal); I50.33 Acute on chronic diastolic (congestive) heart failure; J18.9 Pneumonia, unspecified organism; I13.0 Hypertensive heart and chronic kidney disease with heart failure and stage 1 through stage 4 chronic kidney disease, or unspecified chronic kidney disease; N18.4 Chronic kidney disease, stage 4 (severe); N17.9 Acute kidney failure, unspecified; K92.1 Melena; E87.20 Acidosis, unspecified; Z68.42 Body mass index [BMI] 45.0-49.9, adult; I48.20 Chronic atrial fibrillation, unspecified; I25.10 Atherosclerotic heart disease of native coronary artery without angina pectoris; D63.1 Anemia in chronic kidney disease; R31.9 Hematuria, unspecified; E87.5 Hyperkalemia; E78.5 Hyperlipidemia, unspecified; E66.01 Morbid (severe) obesity due to excess calories; T68.XXXA Hypothermia, initial encounter; K21.9 Gastro-esophageal reflux disease without esophagitis; G47.33 Obstructive sleep apnea (adult) (pediatric); M47.812 Spondylosis without myelopathy or radiculopathy, cervical region; Z20.822 Contact with and (suspected) exposure to COVID-19; Z79.82 Long term (current) use of aspirin; Z79.01 Long term (current) use of anticoagulants; Z74.01 Bed confinement status
CPT/HCPCS: 33208; 36415; 36430; 36569; 70450; 71045; 71250; 74176; 80048; 80053; 80069; 80074; 80202; 81001; 82550; 82565; 82570; 82607; 82746; 82948; 83540; 83550; 83605; 83735; 83880; 84100; 84145; 84156; 84300; 84443; 84484; 84540; 85014; 85018; 85025; 85027; 85610; 85730; 85999; 86850; 86900; 86901; 86923; 87040; 87637; 87641; 93005; 94640; 96365; 96375; 97110; 97162; 97166; 97530; 99285; J0690; A9270; C1751; C1779; C1785; C8929; G0378; J0696; J1265; J1938; J1956; J2003; J2250; J2470; J3010; J3373; J7030; J7040; J7050; P9016; Q5105; Q9957